=== PATIENT | female | born 1980 ===

== ENCOUNTER → 2020-06-29 14:48 | Outpatient (BNVA) | payer MEDICAID, SELFPAY | PROVIDERS: PCP Internal Medicine; Visit Provider Obstetrics & Gynecology | DX: Z30.431 Encounter for routine checking of intrauterine contraceptive device (principal) | CPT/HCPCS: 99212 ==

== ENCOUNTER 2020-07-07 16:06 | Outpatient (REF) | payer MEDICAID, SELFPAY ==
--- NOTE | 2020-07-07 16:06 | MR_ITS ---
EXAMINATION: MR LUMBAR SPINE WITHOUT CONTRAST CLINICAL INFORMATION: Lower back pain with left leg pain. COMPARISON: Lumbar spine radiographs dated 01/20/2019. TECHNIQUE: MRI of the lumbar spine was obtained using routine sequences without contrast. FINDINGS: VERTEBRAL BODIES AND PARASPINAL STRUCTURES: Normal vertebral body alignment. The lumbar lordosis is maintained. No acute fracture or subluxation. No loss of vertebral body height. Loss of intervertebral disc height with disc desiccation at L3-L4 and L4-L5. Modic type II degenerative endplate changes at L4-L5. Probable vertebral body hemangioma within L4. No additional abnormal marrow signal. The visualized paraspinal soft tissues are unremarkable. CONUS MEDULLARIS AND CAUDA EQUINA: Normal, terminating at the level of L1. SPINAL LEVELS: T12-L1: No significant disc bulge. No central canal or neuroforaminal stenosis. L1-L2: No significant disc bulge. No central canal or neuroforaminal stenosis. L2-L3: No significant disc bulge. No central canal or neuroforaminal stenosis. L3-L4: Broad-based disc bulge with a shallow right extraforaminal disc protrusion which contacts the exiting right L3 nerve root. Bilateral facet arthropathy with thickening of the ligamentum flavum causing mild central canal as well as [id number] right and mild left neuroforaminal stenosis. L4-L5: Broad-based disc bulge which contacts the bilateral traversing L5 nerve roots within the lateral recesses. Bilateral facet arthropathy and thickening of the ligamentum flavum causing mild central canal as well as [id number] bilateral neuroforaminal stenosis. L5-S1: No significant disc bulge. No central canal or neuroforaminal stenosis. MR/MR lumbar spine wo con IMPRESSION: 1. L3-L4 broad-based disc bulge with a shallow right extraforaminal disc protrusion which contacts the exiting right L3 nerve root. Bilateral facet arthropathy with thickening of the ligamentum flavum causing mild central canal as well as [id number] right and mild left neuroforaminal stenosis. 2. L4-L5 broad-based disc bulge which contacts the bilateral traversing L5 nerve roots within the lateral recesses. Bilateral facet arthropathy and thickening of the ligamentum flavum causing mild central canal as well as [id number] bilateral neuroforaminal stenosis.
== END 2020-07-07 16:07 | disposition home or self-care (01) ==
LOC: HO.MRI 16:06
PROVIDERS: PCP Internal Medicine; Visit Provider Internal Medicine
DX: M54.42 Lumbago with sciatica, left side (principal)
CPT/HCPCS: 72148

== ENCOUNTER 2020-07-15 06:32 | Emergency (ER) | payer MEDICAID, SELFPAY ==
[2020-07-15 06:35] VITALS: BP 107/69; PULSE 86; RESP 16; TEMP 36.3; O2SAT 100; BMI 29.9
--- NOTE | 2020-07-15 06:39 | ED.ABDPAIN ---
HPI - Abdominal Pain General Chief Complaint: Abdominal Pain Stated Complaint: VOMITING/ABD PAIN Time Seen by Provider: 07/15/20 06:38 Source: patient Mode of arrival: ambulatory Limitations: no limitations History of Present Illness MD elicited complaint: abdominal pain Pertinent past history: other (lap band with adjustment [address] Warner) Onset (ago): day(s) (3) Pain Consistency: constant Location: epigastric Severity: moderate Quality: cramping Radiation: none Migration to: no migration Exacerbating factors: eating Relieving factors: nothing Context: other (adjustment of lap band) Associated symptoms: nausea, vomiting and other (no flatus, no BM x 3 days) Related Data Home Medications Medication Instructions Recorded Confirmed levonorgestrel 20 mcg/24 hours (6 INTRAUTERINE 06/29/20 06/29/20 yrs) 52 mg intrauterine device Allergies Allergy/AdvReac Type Severity Reaction Status Date / Time No Known Allergies Allergy Verified 07/15/20 06:34 Review of Systems Review of Systems Constitutional : No Weight loss, No Fever, No Chills ENT/Mouth : No sore throat, No Rhinorrhea Eyes: No Swelling, No Redness Cardiovascular : No Chest Pain, No SOB, NoEdema Respiratory : No Cough, No Sputum, No Wheezing Gastrointestinal : Positive Nausea, Positive Vomiting, no Diarrhea, positive abdominal Pain, No Hematochezia, No Melena Genitourinary : No Dysuria, No Urinary Frequency, No Hematuria, No Urgency Musculoskeletal : No joint pain, No Myalgias, No Joint Swelling Skin : No Skin Lesions, No rash Neuro : No Weakness, No Numbness, No Dizziness, No Headache Psych : No Anxiety/Panic, No Depression Heme/Lymph: No Bruising, No Lymphadenopathy Endocrine : No Polyuria, No Polydipsia All other systems reviewed and are negative. Physical Exam Vital Signs: Vital Signs: Last Vital Signs Temp 97.3 F 07/15/20 06:35 Pulse 82 07/15/20 08:54 Resp 18 07/15/20 07:37 BP 143/78 H 07/15/20 08:54 Pulse Ox 99 07/15/20 08:54 Body Mass Index 29.9 Appearance: Alert. Oriented X3. No acute distress. Eyes: Pupils equal, round and reactive to light. ENT: Pharynx normal. Neck: Normal inspection. Neck supple. CVS: Normal heart rate and rhythm. Pulses normal. Respiratory: No respiratory distress. Breath sounds normal. Abdomen: Soft and mild ttp epigastric area - no rebound or guarding Skin: Skin warm and dry. Normal skin color. Normal skin turgor. Extremities: No lower extremity edema. No calf ttp Neuro: Oriented X 3. No motor deficit. No sensory deficit. Course Course Course Narrative: call to bariatric service at [facility] 911am still pending call back from [facility] 956am repeat call to [facility] 1007 - no covering surgeon and attending is in OR will attempt to call [facility] ED for transfer as that patient needs to be seen and evaluated there when her surgeon is available will attempt to expedite transfer accepted to [facility] ED by Dr. Morgan MDM - Abdominal Pain MDM Narrative Medical decision making narrative: 40 yo female s/p laparascopic lap band 2015 at [facility] with Dr. Warner had adjustment 3 days ago now presents with epigastric pain and vomiting - no flatus or BM, will need labs, CT scan for placement - aware we may need to transfer her to [facility], IV morphine for pain Lab Data Result diagrams: 07/15/20 06:53 07/15/20 06:53 Labs: Lab Results 07/15/20 07/15/20 07/15/20 Range/Units 06:53 06:53 06:53 WBC 8.3 (4.8-10.8) X10*3/uL RBC 4.46 (4.20-5.50) X10*6/uL Hgb 13.4 (12.0-16.0) g/dl Hct 40.4 (37-47) % MCV 90.6 (80-98) fL MCH 30.0 (27.0-33.0) pg MCHC 33.2 (31.0-35.0) g/dl RDW 13.8 (11.0-16.0) % Plt Count 256 (160-400) X10*3/uL MPV 10.3 (9.4-12.3) fL Immature Gran % (Auto) 0.2 (0.0-0.4) % Neut % (Auto) 64.3 (45-73) % Lymph % (Auto) 25.7 (20-40) % Campbell % (Auto) 6.8 (2-11) % Eos % (Auto) 2.8 (0-4) % Baso % (Auto) 0.2 (0-2) % Lymph # (Auto) 2.1 (1.2-4.9) X10*3/uL Campbell # (Auto) 0.6 (0.1-1.2) X10*3/uL Eos # (Auto) 0.2 (0.0-0.4) X10*3/uL Baso # (Auto) 0.0 (0.0-0.2) X10*3/uL Abs Immat Gran (auto) 0.02 (0.00-0.03) X10*3/uL Absolute Neuts (auto) 5.3 (2.0-8.3) X10*3/uL Absolute Nucleated RBC 0.000 (0.0-0.012) X10*3/uL Nucleated RBC % (auto) 0.0 (0.0-0.2) /100WBC Hold Blue Top SEE NOTE Sodium 140 (135-145) mmol/L Potassium 4.1 (3.3-5.1) mmol/l Chloride 104 (96-108) mmol/L Carbon Dioxide 25 (22-29) mmol/L Anion Gap 15 (12-20) BUN 16 (9-16) mg/dL Creatinine 0.81 (0.5-1.4) mg/dL Estim Creat Clear Calc 96.4 Estimated GFR > 60 Random Glucose 89 (60-115) mg/dL Calcium 8.9 (8.4-10.2) mg/dL Magnesium 2.2 (1.6-2.6) mg/dL Total Bilirubin 1.0 (0.0-1.0) mg/dL Direct Bilirubin 0.4 (0.0-0.5) mg/dL AST 20 (5-31) U/L ALT 14 (0-31) U/L Alkaline Phosphatase 79 (39-117) U/L Total Protein 8.2 H (6.5-8.0) g/dL Albumin 4.7 (3.5-5.0) g/dL Lipase 15 (8-78) U/L Urine Color Urine Appearance Urine pH (5.0-8.0) Ur Specific Enterprise (1.005-1.025) Urine Protein (NEG-TRACE) MG/DL Urine Glucose (UA) (NEG) MG/DL Urine Ketones (NEG) MG/DL Urine Blood (NEG) Urine Nitrite (NEG) Ur Leukocyte Esterase (NEG) Urine RBC (0) /HPF Urine WBC (0-4) /HPF Ur Squamous Epith Cells /LPF Urine Bacteria /LPF Urine Mucus /LPF Urine Test (NEGATIVE) 07/15/20 Range/Units 06:53 WBC (4.8-10.8) X10*3/uL RBC (4.20-5.50) X10*6/uL Hgb (12.0-16.0) g/dl Hct (37-47) % MCV (80-98) fL MCH (27.0-33.0) pg MCHC (31.0-35.0) g/dl RDW (11.0-16.0) % Plt Count (160-400) X10*3/uL MPV (9.4-12.3) fL Immature Gran % (Auto) (0.0-0.4) % Neut % (Auto) (45-73) % Lymph % (Auto) (20-40) % Campbell % (Auto) (2-11) % Eos % (Auto) (0-4) % Baso % (Auto) (0-2) % Lymph # (Auto) (1.2-4.9) X10*3/uL Campbell # (Auto) (0.1-1.2) X10*3/uL Eos # (Auto) (0.0-0.4) X10*3/uL Baso # (Auto) (0.0-0.2) X10*3/uL Abs Immat Gran (auto) (0.00-0.03) X10*3/uL Absolute Neuts (auto) (2.0-8.3) X10*3/uL Absolute Nucleated RBC (0.0-0.012) X10*3/uL Nucleated RBC % (auto) (0.0-0.2) /100WBC Hold Blue Top Sodium (135-145) mmol/L Potassium (3.3-5.1) mmol/l Chloride (96-108) mmol/L Carbon Dioxide (22-29) mmol/L Anion Gap (12-20) BUN (9-16) mg/dL Creatinine (0.5-1.4) mg/dL Estim Creat Clear Calc Estimated GFR Random Glucose (60-115) mg/dL Calcium (8.4-10.2) mg/dL Magnesium (1.6-2.6) mg/dL Total Bilirubin (0.0-1.0) mg/dL Direct Bilirubin (0.0-0.5) mg/dL AST (5-31) U/L ALT (0-31) U/L Alkaline Phosphatase (39-117) U/L Total Protein (6.5-8.0) g/dL Albumin (3.5-5.0) g/dL Lipase (8-78) U/L Urine Color DARK YELLOW Urine Appearance CLOUDY Urine pH 6.0 (5.0-8.0) Ur Specific Enterprise >= 1.030 H (1.005-1.025) Urine Protein 1+ H (NEG-TRACE) MG/DL Urine Glucose (UA) NEG (NEG) MG/DL Urine Ketones 40 (NEG) MG/DL Urine Blood 2+ H (NEG) Urine Nitrite NEG (NEG) Ur Leukocyte Esterase NEG (NEG) Urine RBC 5-9 H (0) /HPF Urine WBC 0-2 (0-4) /HPF Ur Squamous Epith Cells 4+ /LPF Urine Bacteria TRACE /LPF Urine Mucus 3+ /LPF Urine Test NEGATIVE (NEGATIVE) Discharge Plan Discharge Clinical Impression: Abdominal pain, Vomiting, Encounter for adjustment of gastric lap band Patient Disposition: Xfer [facility] Prescriptions: No Action Mirena 20 mcg/24 hours (5 yrs) 52 mg intrauterine device intrauterine RF: 0 PMFSH Past Medical History Attestation statement: The following information was validated with the patient. Medical History Anxiety Asthma Depression Surgical History H/O laparoscopic adjustable gastric banding History of History of tubal ligation Social History Social History (Updated 07/15/20 @ 07:00 by Eloise Harris DO) Alcohol intake: never Smoking Status: Never smoker Use of substances other than those prescribed or required for medical reasons: No Advance Directives: No Advance Directives Information Provided: No
--- NOTE | 2020-07-15 06:41 | CT_ITS ---
EXAMINATION: CT ABDOMEN AND PELVIS WITH CONTRAST CLINICAL INFORMATION: Abdominal pain and vomiting. History of gastric lap band. COMPARISON: None TECHNIQUE: Multidetector volumetric images were obtained from the superior aspect of the liver through the pubic symphysis following administration 85 mL of Omnipaque 350 intravenous contrast. Sagittal and coronal reformatted images were obtained on the technologist's workstation. Oral contrast: Yes This CT examination was performed using dose optimization techniques as appropriate, variously including the following: *Automated exposure control *Adjustment of mA and/or kV according to patient size (this includes techniques or standardized protocols for targeted exams where dose is matched to indication/reason for exam; i.e. extremities or head) *Use of iterative reconstruction technique DLP: 771 mGy-cm FINDINGS: LUNG BASES: There are bilateral low-attenuation paraspinal soft tissue lesions suggestive of neurogenic tumors or dilated nerve root sleeves. The largest measures 1.5 x 2 cm adjacent to the left T9 nerve root. LIVER, GALLBLADDER, AND BILIARY TREE: The liver is normal in size, shape, and attenuation. No focal hepatic lesion or biliary ductal dilatation is present. The gallbladder is unremarkable with no evidence of radiopaque gallstones, gallbladder wall thickening, or obvious pericholecystic inflammatory changes. PANCREAS: Unremarkable. SPLEEN: The spleen is upper normal in size measuring 12 cm in length. ADRENAL GLANDS: Unremarkable. KIDNEYS AND URETERS: The kidneys are normal in size, shape, and attenuation. No hydronephrosis, hydroureter, or calculi seen. No perinephric stranding. BLADDER: Unremarkable. GASTROINTESTINAL TRACT: There is a gastric lap band. There is evidence of slippage with large amount of proximal stomach above the gastric lap band. Phi angle measures 102 degrees. The small and large bowel are unremarkable. The appendix is unremarkable. ABDOMINAL WALL: There is a small umbilical hernia containing fat. LYMPH NODES: Normal. VASCULAR: Unremarkable. PELVIC VISCERA: There is an IUD in the uterus. This appears tilted toward the right with lateral portion of the CT possibly positioned peripherally in the right uterine body. This could be better assessed with ultrasound. OSSEOUS STRUCTURES: There degenerative changes of the spine. CT/CT abdomen pelvis w con IMPRESSION: Gastric lap band with evidence of slippage. There is significant proximal stomach superior to the gastric lap band and the phi angle measures 102 degrees. IUD in the uterus which may be malpositioned. This could be better assessed with pelvic ultrasound. 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
[2020-07-15] MEDS: 0.9 % Sodium Chloride 1,000 ML 999 ML IVCONT ×2 (06:53→09:28)
[2020-07-15] MEDS: ondansetron HCL 4 MG/2 ML VIAL IVPUSH (06:57)
[2020-07-15] MEDS: Morphine Sulfate 4 MG/ML CARTRIDGE IVPUSH (06:57)
--- NOTE | 2020-07-15 07:00 | PC.NURSE ---
received report from sergio espino pt resting in the stretcher, alert and oriented, skin appropriate for ethnicity. pt reports upper/epigastric pain x3 days with nausea. pt medicated per md orders
[2020-07-15 07:07] LABS: MANUAL DIFF FLAG NO
[2020-07-15 07:08] LABS: Basophils Percent Auto 0.2 % (0-2); Eosinophils Absolute Auto 0.2 X10*3/uL (0.0-0.4); Eosinophils Percent Auto 2.8 % (0-4); Hematocrit 40.4 % (37-47); Hemoglobin 13.4 g/dl (12.0-16.0); Imm Gran Abs Auto 0.02 X10*3/uL (0.00-0.03); Imm Gran Pct Auto 0.2 % (0.0-0.4); Lymphocytes Absolute Auto 2.1 X10*3/uL (1.2-4.9); Lymphocytes Percent Auto 25.7 % (20-40); Mean Corpuscular HGB Conc 33.2 g/dl (31.0-35.0); Mean Corpuscular Volume 90.6 fL (80-98); Mean Platelet Volume 10.3 fL (9.4-12.3); Monocytes Absolute Auto 0.6 X10*3/uL (0.1-1.2); Monocytes Percent Auto 6.8 % (2-11); Neutrophils Absolute Auto 5.3 X10*3/uL (2.0-8.3); Neutrophils Percent Auto 64.3 % (45-73); Platelet Count 256 X10*3/uL (160-400); Red Blood Count 4.46 X10*6/uL (4.20-5.50); Red Cell Distribution Width 13.8 % (11.0-16.0); White Blood Count 8.3 X10*3/uL (4.8-10.8)
[2020-07-15 07:11] LABS: Glucose Urine UA NEG (NEG); Leukocyte Esterase Urine NEG (NEG); Nitrite Urine NEG (NEG); Specific Gravity - Urine >= 1.030 (1.005-1.025); Urine Blood 2+ (NEG); Urine Ketones 40 MG/DL (NEG); Urine Protein 1+ MG/DL (NEG-TRACE)
[2020-07-15 07:12] LABS: Appearance Urine CLOUDY; Color Urine DARK YELLOW
[2020-07-15 07:13] LABS: UPreg QC Valid YES; Urine Pregnancy NEGATIVE (NEGATIVE)
[2020-07-15 07:22] LABS: Bacteria Urine TRACE /LPF; Mucus Urine 3+ /LPF; Squamous Epithelial Cell Urine 4+ /LPF; WBC Urine 0-2 /HPF (0-4)
[2020-07-15 07:36] LABS: Alanine Aminotransferase 14 U/L (0-31); Albumin Level 4.7 g/dL (3.5-5.0); Alkaline Phosphatase 79 U/L (39-117); Anion Gap 15 (12-20); Aspartate Amino Transferase 20 U/L (5-31); Bilirubin Direct 0.4 mg/dL (0.0-0.5); Blood Urea Nitrogen 16 mg/dL (9-16); Calcium 8.9 mg/dL (8.4-10.2); Carbon Dioxide 25 mmol/L (22-29); Chloride 104 mmol/L (96-108); Creatinine Clr Calc Pharmacy 96.4; Estimated Glomerular Filt Rate > 60; Glucose Random 89 mg/dL (60-115); Lipase 15 U/L (8-78); Magnesium 2.2 mg/dL (1.6-2.6); Potassium 4.1 mmol/l (3.3-5.1); Sodium 140 mmol/L (135-145); Total Protein 8.2 g/dL (6.5-8.0)
[2020-07-15 07:37] VITALS: BP 119/63; PULSE 75; RESP 18; O2SAT 100
--- NOTE | 2020-07-15 07:38 | PC.NURSE ---
pt reports feeling a little better, pain at 5/10 but still having some nausea and feels gassy
[2020-07-15] MEDS: iohexoL 350 MG/ML 100 ML INFUS..BTL IV (08:50)
[2020-07-15] MEDS: diphenhydrAMINE HCL 50 MG/ML VIAL 25 MG IVPUSH (08:50)
[2020-07-15] MEDS: Metoclopramide HCl 10 MG/2 ML VIAL 5 MG IVPUSH (08:50)
[2020-07-15 08:54] VITALS: BP 143/78; PULSE 82; O2SAT 99
--- NOTE | 2020-07-15 09:16 | PC.NURSE ---
Addendum entered by Teetee Godfrey 07/15/20 09:24: pt also denies pain at this time Original Note: PT REPORTS THAT NAUSEA HAS IMPROVED, PT IS CURRENTLY ON HER PHONE
--- NOTE | 2020-07-15 10:03 | PC.NURSE ---
DR REED AT [facility] PAGED AT [phone],AWAITING CALL BACK.
--- NOTE | 2020-07-15 10:48 | PC.NURSE ---
report given to srinivas little at [facility]
[2020-07-15 11:33] LABS: COVID-19 Test Negative (Negative)
== END 2020-07-15 11:30 | disposition short-term general hospital (02) ==
PROVIDERS: Emergency Provider Emergency Medicine; PCP Internal Medicine
DX: R10.13 Epigastric pain (principal); R11.10 Vomiting, unspecified; Z98.84 Bariatric surgery status; Z79.899 Other long term (current) drug therapy
CPT/HCPCS: 36415; 74177; 80048; 80076; 81001; 81025; 83690; 83735; 85025; 87635; 96361; 96374; 96375; 96376; 99285; J1200; J2270; J2405; J2765; Q9967

== ENCOUNTER → 2020-07-21 13:38 | Outpatient (BNVA) | payer MEDICAID, SELFPAY | PROVIDERS: Visit Provider Obstetrics & Gynecology | DX: Z76.89 Persons encountering health services in other specified circumstances (principal) ==

== ENCOUNTER → 2020-08-11 15:55 | Outpatient (BNVA) | payer MEDICAID, SELFPAY | PROVIDERS: Visit Provider Anesthesiology | DX: M51.36 Other intervertebral disc degeneration, lumbar region (principal) | CPT/HCPCS: 99212 ==

== ENCOUNTER 2020-08-23 05:13 | Outpatient (REF) | payer MEDICAID, SELFPAY ==
--- NOTE | 2020-08-23 07:32 | FL_ITS ---
EXAMINATION: XR FLUOROSCOPY WITH IMAGES CLINICAL INFORMATION: M51.36 - Other intervertebral disc degeneration, lumbar region. COMPARISON: MRI lumbar spine 07/07/2020 TECHNIQUE: Fluoroscopy performed by Edel Chambers NP. Fluoroscopy time: 0.3 minutes DAP: 3.0 Gycm2 Images: 2 FINDINGS: There are bilateral spinal needles overlying outer aspect of the L3-L4 neural foramen. There is contrast in the right nerve sheaths with some transforaminal epidural extension. There is a port and tubing overlying the epigastrium, consistent with bariatric gastric lap band. FL/FL guidance in treatment room IMPRESSION: Fluoroscopy for pain management procedure.
== END 2020-08-23 05:14 | disposition home or self-care (01) ==
LOC: HO.RADIR 05:13
PROVIDERS: Visit Provider Anesthesiology
DX: M51.36 Other intervertebral disc degeneration, lumbar region (principal)
CPT/HCPCS: 64483; J2250; J3300; Q9967

== ENCOUNTER 2020-08-25 15:30 | Outpatient (REF) | payer MEDICAID, SELFPAY | END 2020-08-25 15:31 | disposition home or self-care (01) | LOC: HO.LAB 15:30 | PROVIDERS: Visit Provider Internal Medicine | DX: Z20.828 Contact with and (suspected) exposure to other viral communicable diseases (principal) | CPT/HCPCS: C9803; U0003 ==

== ENCOUNTER → 2020-09-29 09:59 | Outpatient (BNVA) | payer MEDICAID, SELFPAY | PROVIDERS: PCP Internal Medicine; Visit Provider Anesthesiology | DX: M51.36 Other intervertebral disc degeneration, lumbar region (principal) ==

== ENCOUNTER → 2020-11-02 11:51 | Outpatient (BNVA) | payer MEDICAID, SELFPAY | PROVIDERS: PCP Internal Medicine; Visit Provider Orthopaedic Surgery | DX: M77.11 Lateral epicondylitis, right elbow (principal) | CPT/HCPCS: 20550; 20610; 99202; J1020 ==

== ENCOUNTER 2020-12-30 07:54 | Emergency (ER) | payer MEDICAID, SELFPAY ==
--- NOTE | ~2020-12-30 | CT_ITS ---
EXAMINATION: CT ABDOMEN AND PELVIS WITHOUT CONTRAST CLINICAL INFORMATION: Lower abdominal pain radiating to the back COMPARISON: Previous CT scans most recent July 2020 TECHNIQUE: Multidetector volumetric imaging was performed from the superior aspect of the liver through the pubic symphysis. Sagittal and coronal reformatted images were obtained on the technologist's workstation. This CT examination was performed using dose optimization techniques as appropriate, variously including the following: *Automated exposure control *Adjustment of mA and/or kV according to patient size (this includes techniques or standardized protocols for targeted exams where dose is matched to indication/reason for exam; i.e. extremities or head) *Use of iterative reconstruction technique DLP: 720 mGy-cm FINDINGS: LUNG BASES: There are bilateral low-attenuation paraspinal soft tissue lesions suggestive of neurogenic tumors or dilated nerve root sleeves. This appears unchanged. LIVER, GALLBLADDER, AND BILIARY TREE: The liver is normal in size, shape, and attenuation. No focal hepatic lesion or biliary ductal dilatation is present. The gallbladder is unremarkable with no evidence of radiopaque gallstones, gallbladder wall thickening, or obvious pericholecystic inflammatory changes. PANCREAS: Unremarkable. SPLEEN: Unremarkable. ADRENAL GLANDS: Unremarkable. KIDNEYS AND URETERS: The kidneys are normal in size, shape, and attenuation. No hydronephrosis, hydroureter, or calculi seen. No perinephric stranding. BLADDER: Unremarkable. GASTROINTESTINAL TRACT: The small and large bowel are unremarkable. The appendix is unremarkable. There is a gastric Lap-Band. The phi angle measures 97 degrees suggestive of slippage. ABDOMINAL WALL: No significant hernia is appreciated. LYMPH NODES: Normal. VASCULAR: Unremarkable. PELVIC VISCERA: There is an IUD in the uterus. This appears tilted toward the right lateral portion of the IUD possibly positioned peripherally in the uterine body. This is similar to previous exam. Uterus and adnexa are otherwise unremarkable. OSSEOUS STRUCTURES: There is degenerative disc disease at L4-L5 and L5-S1. CT/CT abdomen pelvis wo con IMPRESSION: No acute findings. Gastric Lap-Band with increased phi angle suggestive of a slippage. This is similar to previous exam. Normal-appearing bladder. IUD in the uterus possibly positioned peripherally in the right uterine body. This is similar to previous exam. Degenerative disc disease at L4-L5 and L5-S1.
[2020-12-30 08:14] VITALS: BP 114/69; PULSE 76; RESP 18; TEMP 36.8; O2SAT 99; BMI 31.1
[2020-12-30 08:31] LABS: Glucose Urine UA NEG (NEG); Leukocyte Esterase Urine NEG (NEG); Nitrite Urine NEG (NEG); PH 6.5 (5.0-8.0); Specific Gravity - Urine <= 1.005 (1.005-1.025); Urine Blood NEG (NEG); Urine Ketones NEG (NEG); Urine Protein NEG (NEG-TRACE)
--- NOTE | 2020-12-30 08:31 | ED.FEMALEGU ---
HPI - Female Genitourinary General Chief complaint: Urogenital-Female Stated complaint: BACK PAIN QUEST UTI Time Seen by Provider: 12/30/20 08:24 Source: patient Mode of arrival: ambulatory Limitations: language barrier (Bangladeshi-speaking) History of Present Illness HPI Narrative: 40-year-old female with a past medical history of gastric banding, tubal ligation, , degenerative discs to the lumbar region, anxiety, depression and asthma presenting to the ED with complaints of with urination the pain wraps around her lower back since last night worse this morning. She believes she could have a UTI. Denies thoughts of STDs. Denies any fevers, chills, nausea/vomiting, upper back pain, flank pain, hematuria, abnormal vaginal discharge, diarrhea or constipation or any other symptoms complaints or concerns at this time. MD elicited complaint: back pain Pertinent past history: other (Degenerative disc disease to lumbar spine) Onset (ago): day(s) (Since last night worse this morning) Location of symptoms: suprapubic, pelvis and low back Severity: mild Severity scale (1-10): 10 Quality of pain: aching Consistency: constant and progressively worsening Vaginal discharge: none Vaginal bleeding: none Urinary symptoms: Dysuria Exacerbating factors: urination Relieving factors: none Associated symptoms: abdominal pain and back pain Treatment prior to arrival: none Sexual activity: Yes Patient : No Related Data Home Medications Medication Instructions Recorded Confirmed levonorgestrel 20 mcg/24 hours (6 INTRAUTERINE 06/29/20 07/21/20 yrs) 52 mg intrauterine device Previous Rx's Medication Instructions Recorded acetaminophen [Tylenol Extra 1,000 mg PO QID PRN #14 tab 12/30/20 Strength] naproxen 500 mg PO BID PRN #10 tab 12/30/20 oxycodone 5 mg PO BID PRN #10 tab 12/30/20 Allergies Allergy/AdvReac Type Severity Reaction Status Date / Time No Known Allergies Allergy Verified 11/02/20 12:38 Review of Systems Review of Systems: Constitutional : No Fever, No Chills ENT/Mouth : No sore throat, No Rhinorrhea Eyes: No Eye Pain, No Redness Cardiovascular : No Chest Pain, No SOB Respiratory : No Cough, No Sputum, No Wheezing Gastrointestinal : No Nausea, No Vomiting, No Diarrhea, positive abdominal pain, Genitourinary : + Dysuria, + Pelvic pain, No irregular bleeding, No Urinary Frequency, No vaginal discharge, No hematuria Musculoskeletal : + Back pain, No Myalgias Skin : No rash Neuro : No Weakness, No Headache Psych : No Anxiety/Panic, No Depression Heme/Lymph: No bruising, No Lymphadenopathy Endocrine : No Polyuria, No Polydipsia Yes all other systems are reviewed and are negative [facility] Past Medical History Attestation statement: The following information was validated with the patient. Medical History Anxiety Asthma Depression Disc degeneration, lumbar Surgical History H/O laparoscopic adjustable gastric banding History of History of tubal ligation Social History Social History Alcohol intake: never Smoking Status: Never smoker Use of substances other than those prescribed or required for medical reasons: No Advance Directives: No Advance Directives Information Provided: No Physical Exam Vital Signs: Vital Signs: Last Vital Signs Temp 98.2 F 12/30/20 08:14 Pulse 62 12/30/20 10:05 Resp 18 12/30/20 10:05 BP 111/61 12/30/20 10:05 Pulse Ox 100 12/30/20 10:05 Body Mass Index 31.1 vital signs have been reviewed as normal and appeared to be correct. Blood pressure normal. Heart rate normal. Respiration rate normal. Temperature normal. Oxygen saturation normal. Appearance: Alert. Oriented X3. No acute distress. Head: Normal external exam. Normocephalic. Atraumatic. No Bell signs noted. No raccoon eyes noted Eyes: PERRLA. EOMI. Conjunctiva and sclera normal. Eyelids normal. ENT: EAC normal. TM's Normal. Pharynx normal. Uvula midline. Moist mucous membranes. No trismus noted. No drooling noted. No muffled voice noted. Neck: Normal inspection. Neck supple. FROM. No adenopathy. Thyroid Normal. No meningeal signs. No neck mass noted. CVS: Normal heart rate and rhythm. Heart sound normal. No murmurs noted. Pulses normal throughout. Respiratory: No respiratory distress. Painless inspiration. Breath sounds normal. No wheezes/rales/rhonchi noted. Chest nontender. No accessory muscle usage noted or decreased air movement noted. Abdomen: Soft and mild suprapubic tenderness. Nondistended. No guarding. No rigidity. Bowel sounds normal in all 4 quadrants. No distention noted. No organomegaly noted. No visible injury noted. No rebound tenderness. Negative Rovsing sign. Negative obturator's sign. Negative psoas sign. Negative Lundy sign. Back: No CVA tenderness. Full range of motion noted. No obvious deformities, or edema. Mild para-spinal muscular tenderness from lumbar region to coccyx. Full ROM in back and lower extremities. 5/5 strength hip extension/flexion, abduction, adduction. Mild Lumbar pain with hip flexion against resistance. Straight leg raise test negative on right; Straight leg raise test negative on left; Reflexes normal ankle and knee bilaterally; EHL motor strength normal bilaterally. No rashes/lesion/induration/fluctuance or signs infection noted. : Supervised by PATEL Dailey. Normal external appearance of urethra. No lesions/lacerations or discharge or tenderness noted. On speculum exam patient is noted to have mild thick brown/yellow/white colored discharge. Otherwise normal appearance/palpation of vagina. Otherwise no vaginal erythema. No foreign bodies noted. No vaginal laceration/lesions or active bleeding noted. No tissue present in vagina. No vaginal mass noted. No vaginal swelling noted. No vaginal tenderness noted. Normal appearance of cervix. Normal palpation of cervix. Cervical os is closed. IUD string is coming out of the cervical os. No cervical lesion/mass. No Bartholin cyst noted. No cervical motion tenderness noted. Negative chandelier sign. Normal bimanual exam. Uterine size normal. Bladder normal to palpation. Uterine consistency normal. Normal cervical palpation. Uterine mobility normal. Uterine shape normal. Normal adnexa. Normal rectovaginal exam. Skin: Skin warm and dry. Normal skin color. Normal skin turgor. No rashes/lesions/lacerations noted. Extremities: No lower extremity edema. Extremities exhibit normal range of motion. Extremities nontender. Neuro: Oriented X 3. No motor deficit. No sensory deficit. Reflexes normal. Patient has a normal steady gait. Course Course Course Narrative: 11:30am - labs reviewed and patient mild anemia all other labs are within normal limits. UA within normal limits no evidence of 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 therefore she was requesting to leave against medical advice regarding that she reports that she called her gastric lap band surgeon and she has a follow-up on Saturday this week - on vaginal exam patient was noted to have brown/yellow/white thick colored discharge although she did not have any uterine tenderness or a positive chandelier sign and she is not concerned for STDs - therefore at this time will DC home with symptomatic treatment for her degenerative disc disease of her lumbar spine and instructions to follow up on Saturday with her gastric lap band surgeon and to follow-up with OBGYN. Patient understands agrees with this plan. MDM - Female Genitourinary MDM Narrative Medical decision making narrative: 8:50am - 40-year-old female presenting to the ED with complaints of suprapubic abdominal pain with pressure/pain with urination radiating to her lower back. No thoughts of STDs. No hematuria or abnormal vaginal discharge. Denies any other symptoms complaints or concerns at this time. - on exam patient is alert and oriented x3. Not in any acute distress. No focal neuro deficit noted. Lungs clear to auscultation. CV RRR. Abdomen soft and mild suprapubic abdominal tenderness. No CVA tenderness is noted. Patient has full range of motion of back. No obvious deformities or signs of infection. No rashes noted in the back. Patient has a normal steady gait. - Concern for UTI versus pyelonephritis versus kidney stones versus acute on chronic back pain Plan: Labs, UA, UHCG, CT scan of abdomen pelvis without contrast. Provide 5 mg of oxycodone and re-evaluate. Medical Records Attestation: I reviewed the patient's medical records. Lab Data Attestation: I reviewed the patient's lab results. Result diagrams: 12/30/20 08:50 12/30/20 08:50 Labs: Lab Results 12/30/20 12/30/20 12/30/20 Range/Units 08:21 08:25 08:50 WBC 5.6 (4.8-10.8) X10*3/uL RBC 3.76 L (4.20-5.50) X10*6/uL Hgb 11.5 L (12.0-16.0) g/dl Hct 35.2 L (37-47) % MCV 93.6 (80-98) fL MCH 30.6 (27.0-33.0) pg MCHC 32.7 (31.0-35.0) g/dl RDW 13.1 (11.0-16.0) % Plt Count 176 D (160-400) X10*3/uL MPV 10.3 (9.4-12.3) fL Immature Gran % (Auto) 0.2 (0.0-0.4) % Neut % (Auto) 57.1 (45-73) % Lymph % (Auto) 31.0 (20-40) % [place] % (Auto) 7.9 (2-11) % Eos % (Auto) 3.6 (0-4) % Baso % (Auto) 0.2 (0-2) % Lymph # (Auto) 1.7 (1.2-4.9) X10*3/uL [place] # (Auto) 0.4 (0.1-1.2) X10*3/uL Eos # (Auto) 0.2 (0.0-0.4) X10*3/uL Baso # (Auto) 0.0 (0.0-0.2) X10*3/uL Abs Immat Gran (auto) 0.01 (0.00-0.03) X10*3/uL Absolute Neuts (auto) 3.2 (2.0-8.3) X10*3/uL Absolute Nucleated RBC 0.000 (0.0-0.012) X10*3/uL Nucleated RBC % (auto) 0.0 (0.0-0.2) /100WBC Hold Blue Top Sodium (135-145) mmol/L Potassium (3.3-5.1) mmol/L Chloride (96-108) mmol/L Carbon Dioxide (22-29) mmol/L Anion Gap (12-20) BUN (9-16) mg/dL Creatinine (0.5-1.4) mg/dL Estim Creat Clear Calc Estimated GFR Random Glucose (60-115) mg/dL Calcium (8.4-10.2) mg/dL Magnesium (1.6-2.6) mg/dL Total Bilirubin (0.0-1.0) mg/dL Direct Bilirubin (0.0-0.5) mg/dL AST (5-31) U/L ALT (0-31) U/L Alkaline Phosphatase (39-117) U/L Total Protein (6.5-8.0) g/dL Albumin (3.5-5.0) g/dL Urine Color STRAW Urine Appearance CLEAR Urine pH 6.5 (5.0-8.0) Ur Specific Suring <= 1.005 (1.005-1.025) Urine Protein NEG (NEG-TRACE) MG/DL Urine Glucose (UA) NEG (NEG) MG/DL Urine Ketones NEG (NEG) MG/DL Urine Blood NEG (NEG) Urine Nitrite NEG (NEG) Ur Leukocyte Esterase NEG (NEG) Urine RBC 0 (0) /HPF Urine WBC 0 (0-4) /HPF Ur Squamous Epith Cells TRACE /LPF Urine Bacteria NONE /LPF Urine Test NEGATIVE (NEGATIVE) 12/30/20 12/30/20 Range/Units 08:50 08:50 WBC (4.8-10.8) X10*3/uL RBC (4.20-5.50) X10*6/uL Hgb (12.0-16.0) g/dl Hct (37-47) % MCV (80-98) fL MCH (27.0-33.0) pg MCHC (31.0-35.0) g/dl RDW (11.0-16.0) % Plt Count (160-400) X10*3/uL MPV (9.4-12.3) fL Immature Gran % (Auto) (0.0-0.4) % Neut % (Auto) (45-73) % Lymph % (Auto) (20-40) % Brook[place] % (Auto) (2-11) % Eos % (Auto) (0-4) % Baso % (Auto) (0-2) % Lymph # (Auto) (1.2-4.9) X10*3/uL [place] # (Auto) (0.1-1.2) X10*3/uL Eos # (Auto) (0.0-0.4) X10*3/uL Baso # (Auto) (0.0-0.2) X10*3/uL Abs Immat Gran (auto) (0.00-0.03) X10*3/uL Absolute Neuts (auto) (2.0-8.3) X10*3/uL Absolute Nucleated RBC (0.0-0.012) X10*3/uL Nucleated RBC % (auto) (0.0-0.2) /100WBC Hold Blue Top SEE NOTE Sodium 140 (135-145) mmol/L Potassium 4.3 (3.3-5.1) mmol/L Chloride 109 H (96-108) mmol/L Carbon Dioxide 24 (22-29) mmol/L Anion Gap 11 L (12-20) BUN 9 (9-16) mg/dL Creatinine 0.68 (0.5-1.4) mg/dL Estim Creat Clear Calc 117.0 Estimated GFR > 60 Random Glucose 84 (60-115) mg/dL Calcium 8.7 (8.4-10.2) mg/dL Magnesium 2.2 (1.6-2.6) mg/dL Total Bilirubin 0.7 (0.0-1.0) mg/dL Direct Bilirubin 0.3 (0.0-0.5) mg/dL AST 17 (5-31) U/L ALT 12 (0-31) U/L Alkaline Phosphatase 62 D (39-117) U/L Total Protein 6.5 D (6.5-8.0) g/dL Albumin 3.9 (3.5-5.0) g/dL Urine Color Urine Appearance Urine pH (5.0-8.0) Ur Specific Suring (1.005-1.025) Urine Protein (NEG-TRACE) MG/DL Urine Glucose (UA) (NEG) MG/DL Urine Ketones (NEG) MG/DL Urine Blood (NEG) Urine Nitrite (NEG) Ur Leukocyte Esterase (NEG) Urine RBC (0) /HPF Urine WBC (0-4) /HPF Ur Squamous Epith Cells /LPF Urine Bacteria /LPF Urine Test (NEGATIVE) Imaging Data CT scan of abd/pelvis without contrast: Attestation: I personally reviewed and interpreted this imaging study as follows: Radiologist's impression: FINDINGS: LUNG BASES: There are bilateral low-attenuation paraspinal soft tissue lesions suggestive of neurogenic tumors or dilated nerve root sleeves. This appears unchanged. LIVER, GALLBLADDER, AND BILIARY TREE: The liver is normal in size, shape, and attenuation. No focal hepatic lesion or biliary ductal dilatation is present. The gallbladder is unremarkable with no evidence of radiopaque gallstones, gallbladder wall thickening, or obvious pericholecystic inflammatory changes. PANCREAS: Unremarkable. SPLEEN: Unremarkable. ADRENAL GLANDS: Unremarkable. KIDNEYS AND URETERS: The kidneys are normal in size, shape, and attenuation. No hydronephrosis, hydroureter, or calculi seen. No perinephric stranding. BLADDER: Unremarkable. GASTROINTESTINAL TRACT: The small and large bowel are unremarkable. The appendix is unremarkable. There is a gastric Lap-Band. The phi angle measures 97 degrees suggestive of slippage. ABDOMINAL WALL: No significant hernia is appreciated. LYMPH NODES: Normal. VASCULAR: Unremarkable. PELVIC VISCERA: There is an IUD in the uterus. This appears tilted toward the right lateral portion of the IUD possibly positioned peripherally in the uterine body. This is similar to previous exam. Uterus and adnexa are otherwise unremarkable. OSSEOUS STRUCTURES: There is degenerative disc disease at L4-L5 and L5-S1. CT/CT abdomen pelvis wo con IMPRESSION: No acute findings. Gastric Lap-Band with increased phi angle suggestive of a slippage. This is similar to previous exam. Normal-appearing bladder. IUD in the uterus possibly positioned peripherally in the right uterine body. This is similar to previous exam. Degenerative disc disease at L4-L5 and L5-S1. Discharge Plan Discharge Clinical Impression: Degenerative disc disease, lumbar, Hx of laparoscopic adjustable gastric banding, Pelvic pain Patient Disposition: Left Against Medical Advice Instructions: Self-Care Measures with a Chronic Disease (ED), Degenerative Disc Disease (ED) Additional Instructions: You also need to follow-up with your gastric surgeon I recommended us calling [facility] although you refused. You told me you had an appointment on Saturday. Follow-up as scheduled return if any new or worsening symptoms. Prescriptions: New acetaminophen [Tylenol Extra Strength] 500 mg tablet 1,000 mg PO QID PRN (Reason: fever or pain) Qty: 14 RF: 0 naproxen 500 mg tablet 500 mg PO BID PRN (Reason: pain) Qty: 10 RF: 0 oxycodone 5 mg tablet 5 mg PO BID PRN (Reason: pain) Qty: 10 RF: 0 No Action Mirena 20 mcg/24 hours (5 yrs) 52 mg intrauterine device intrauterine RF: 0 Referrals: Debra Fry MD [Physician] - 2 days Print Language: Bangladeshi
[2020-12-30 08:32] LABS: Appearance Urine CLEAR; Color Urine STRAW
[2020-12-30 08:40] LABS: UPreg QC Valid YES; Urine Pregnancy NEGATIVE (NEGATIVE)
[2020-12-30] MEDS: oxyCODONE HCl Immed Release 5 MG TABLET PO (08:47)
[2020-12-30 08:55] LABS: RBC Urine 0 /HPF (0); Squamous Epithelial Cell Urine TRACE /LPF; WBC Urine 0 /HPF (0-4)
[2020-12-30 08:56] LABS: MANUAL DIFF FLAG NO
[2020-12-30 09:00] LABS: Basophils Percent Auto 0.2 % (0-2); Eosinophils Absolute Auto 0.2 X10*3/uL (0.0-0.4); Eosinophils Percent Auto 3.6 % (0-4); Hematocrit 35.2 % (37-47); Hemoglobin 11.5 g/dl (12.0-16.0); Imm Gran Abs Auto 0.01 X10*3/uL (0.00-0.03); Imm Gran Pct Auto 0.2 % (0.0-0.4); Lymphocytes Absolute Auto 1.7 X10*3/uL (1.2-4.9); Mean Corpuscular HGB Conc 32.7 g/dl (31.0-35.0); Mean Corpuscular Hemoglobin 30.6 pg (27.0-33.0); Mean Corpuscular Volume 93.6 fL (80-98); Mean Platelet Volume 10.3 fL (9.4-12.3); Monocytes Absolute Auto 0.4 X10*3/uL (0.1-1.2); Monocytes Percent Auto 7.9 % (2-11); Neutrophils Absolute Auto 3.2 X10*3/uL (2.0-8.3); Neutrophils Percent Auto 57.1 % (45-73); Platelet Count 176 X10*3/uL (160-400); Red Blood Count 3.76 X10*6/uL (4.20-5.50); Red Cell Distribution Width 13.1 % (11.0-16.0); White Blood Count 5.6 X10*3/uL (4.8-10.8)
[2020-12-30 09:39] LABS: Alanine Aminotransferase 12 U/L (0-31); Albumin Level 3.9 g/dL (3.5-5.0); Alkaline Phosphatase 62 U/L (39-117); Anion Gap 11 (12-20); Aspartate Amino Transferase 17 U/L (5-31); Bilirubin Direct 0.3 mg/dL (0.0-0.5); Bilirubin Total 0.7 mg/dL (0.0-1.0); Blood Urea Nitrogen 9 mg/dL (9-16); Calcium 8.7 mg/dL (8.4-10.2); Carbon Dioxide 24 mmol/L (22-29); Chloride 109 mmol/L (96-108); Estimated Glomerular Filt Rate > 60; Glucose Random 84 mg/dL (60-115); Magnesium 2.2 mg/dL (1.6-2.6); Potassium 4.3 mmol/L (3.3-5.1); Sodium 140 mmol/L (135-145); Total Protein 6.5 g/dL (6.5-8.0)
[2020-12-30 10:05] VITALS: BP 111/61; PULSE 62; RESP 18; O2SAT 100
--- NOTE | 2020-12-30 10:06 | PC.NURSE ---
pt resting in the stretcher, reports no improvement in her pain still 10/10
[2020-12-30 13:35] LABS: CT PCR NOT DETECTED (Not Detect.); NG PCR NOT DETECTED (Not Detect.)
[2020-12-31 12:33] LABS: BV Int Neg Control Negative (Negative); BV Int Pos Control Positive (Positive)
== END 2020-12-30 11:49 | disposition left against medical advice (07) ==
PROVIDERS: Physician Assistant Medical; Emergency Provider Emergency Medicine; PCP Internal Medicine
DX: M51.36 Other intervertebral disc degeneration, lumbar region (principal); R10.2 Pelvic and perineal pain; Z98.84 Bariatric surgery status
CPT/HCPCS: 36415; 74176; 80053; 80076; 81001; 81025; 82248; 83735; 85025; 87480; 87491; 87510; 87591; 87660; 99284

== ENCOUNTER → 2021-01-20 08:04 | Outpatient (BNVA) | payer MEDICAID, SELFPAY | PROVIDERS: PCP Internal Medicine; Visit Provider Nurse Practitioner Family | DX: M51.36 Other intervertebral disc degeneration, lumbar region (principal) | CPT/HCPCS: 99212 ==

== ENCOUNTER 2021-03-14 08:06 | Outpatient (REF) | payer MEDICAID, SELFPAY ==
--- NOTE | ~2021-03-14 | MM_ITS ---
EXAMINATION: MM SCREENING DIGITAL BREAST TOMOSYNTHESIS, BILATERAL CLINICAL INFORMATION: Screening. Asymptomatic. The lifetime risk of breast cancer based on the Tyrer-Cuzick Model is 12%. COMPARISON: Mammography: 02/02/2019 (baseline) TECHNIQUE: Digital breast tomosynthesis is performed in both the craniocaudal and mediolateral oblique views along with computer-aided detection (CAD). Synthesized 2D images are generated from the tomosynthesis. FINDINGS: There are scattered areas of fibroglandular density (ACR BI-RADS breast composition Category b). Breast tissue composition borders on heterogeneously dense. There are scattered stable asymmetries similar to baseline exam. No significant mass or architectural abnormality. No abnormal calcifications. Skin contours are smooth. MM/MM tomosynthesis screening BI IMPRESSION: No significant changes from prior exam. ASSESSMENT: BI-RADS 2: Benign RECOMMENDATION: Routine annual mammography screening. This patient's information was entered into a reminder system with a target due date for their next mammogram.
== END 2021-03-14 08:07 | disposition home or self-care (01) ==
LOC: HO.MAMMO 08:06
PROVIDERS: PCP Internal Medicine; Visit Provider Internal Medicine
DX: Z12.31 Encounter for screening mammogram for malignant neoplasm of breast (principal)
CPT/HCPCS: 77063; 77067

== ENCOUNTER → 2021-04-04 13:20 | Outpatient (BNVA) | payer MEDICAID, SELFPAY | PROVIDERS: PCP Internal Medicine; Visit Provider Orthopaedic Surgery | DX: M77.11 Lateral epicondylitis, right elbow (principal) | CPT/HCPCS: 99212 ==

== ENCOUNTER 2021-04-27 14:00 | Outpatient (RCR) | payer MEDICAID, SELFPAY ==
--- NOTE | 2021-04-24 15:50 | MHC.OT.OEV ---
[address] [phone] F: [phone] Occupational Therapy Evaluation Diagnosis: LATERAL EPICONDYLITIS RIGHT ELBOW Date of Onset: 04/02/19 Attending Provider: Olivia Bhatia Prescribed Treatment: EVALUATE AND TREAT, IONTOPHORESIS History of Current Condition: REPORTS A TWO YEAR HISTORY OF R LATERAL ELBOW PAIN. 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 SIX/SEVEN MONTHS AGO RECEIVED A CORTISONE INJECTION. 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 HOBBIES: ENJOYS STAYING HOME AND RELAXING, WATCHING TV, READING BOOKS Living Situation, Family and/or Social Support: LIVES WITH 11 YEAR OLD CHILD Current Level of Function and Occupation Self Care, Employment, Leisure: REPORTS PAIN AND DIFFICULTIES WITH MOST WORK RELATED TASKS INCLUDING: VACUUMING, LIFTING MORE THAN 10 - 15 POUNDS, SWEEPING; TROUBLE WITH PULLING UP OWN PANTS Sleep: TROUBLE LAYING ON RIGHT SIDE Driving: DENIES DIFFICULTIES Vision: GLASSES Pain Assessment Pain Score: 8 Pain Scale Used: Numeric (0 - 10) Pain Location and Description: R LATERAL ELBOW, CONSTANT PAIN Aggravating Factors: LIFTING, CARRYING >10 POUNDS Alleviating Factors: GABAPENTIN, LOTION PRESCRIBED BY MD; HAS TRIED CFB WITHOUT SUCCESS Sensory Assessment Temperature: Light Touch: WFL Proprioception: Vibration: Comments: Edema Assessment Upper Extremity: WNL Lower Extremity: Comments: Dexterity Assessment Dexterity: WFL Comments: AROM(PROM) Strength Elbow Flexion: R 140, L 150 Extension: R 10, L 0 Pronation: Supination: Comments: Flexion: Extension: Pronation: Supination: Comments: Wrist Flexion: Extension: Ulnar Deviation: Radial Deviation: Comments: REPORTS MILD PAIN TO R DORSAL WRIST WITH WRIST EXTENSION Flexion: Extension: Ulnar Deviation: Radial Deviation: Comments: Thumb Thumb CMC Flexion: Thumb MCP Flexion: Thumb IP Flexion: Radial Abduction: Palmar Abduction: Glenvil (Kapandji 0-10): Comments: Digits Index MCP: PIP: DIP: Long MCP: PIP: DIP: Ring MCP: PIP: DIP: Small MCP: PIP: DIP: Comments: Gross Grasp: R 15, L 54 Lateral Pinch: R 9, L 12 Two-Point Pinch: Three-Jaw Trip: Comments: PAIN WITH CAN FEEDER TESTING WITH ELBOW EXTENDED (10 POUNDS) Patient Education Primary Language: Skimmer Scoop Operator Required: Yes Current Knowledge: Understands information with skills for self-management Teaching Method: Audio/Video Demonstration Handouts Phone Call Verbal Education Needs Identified on Evaluation: ADL's Disease Information Equipment Use Exercise Pain Safety How did patient/family demonstrate learning? Patient demonstrates Patient verbalizes Barriers to Learning: None Readiness for Learning: Accepting Who was educated? 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 SHE HAS RECEIVED CORTISONE INJECTIONS IN THE PAST WITH GOOD RELIEF. HER DOCTOR HAS REFERRED HER TO OT FOR IONTOPHORESIS TREATMENT AND TO ADDRESS AREAS MENTIONED ABOVE. SHE WAS PROVIDED WITH A COUNTER FORCE BRACE FROM HER DOCTOR AND REPORTS LITTLE RELIEF. Pt MAY BENEFIT FROM A NIGHT WRIST ORTHOSIS, TO BE FABRICATED AT A LATER DATE. A 57% LIMITATION WAS REPORTED PER THE QUICK DASH ASSESSMENT. ONGOING SKILLED OT WARRANTED TO PROVIDE PATIENT EDUCATION, JOINT PROTECTION STRATEGIES AND IMPROVE RUE STRENGTH. STG Duration: 2 WEEKS Short Term Goals: IND HEP IND USE OF HEAT/ICE IND JOINT PROTECTION STRATEGIES WITH IADLs REPORT <5/10 PAIN WITH LIGHT IADLs IND ORTHOSIS WEAR LTG Duration: 4 WEEKS Pharmacology Associate Goals: IND SELF TAPING QUICK DASH <40% R CAN FEEDER >30 POUNDS TOLERATE LIFTING >10 POUNDS WITH <4/10 PAIN Frequency and Duration: The patient will be seen 3X/WEEK FOR 4 WEEKS Treatment Plan: Therapeutic Exercise Therapeutic Activity Home Exercise Program Splinting Neuro Re-ed Patient Education Desensitization/Sensory Re-ed Edema Control ADL Training Ultrasound NMES Iontophoresis Paraffin Fluidotherapy MHP Cold Packs Joint Mobilization Soft Tissue Mobilization Kinesiotaping Electronically Signed By: COMFORT COX OTR/L Reviewed/agree with student documentation: N/A Therapist: Please sign and return to therapist, Thank you for your referral.
--- NOTE | 2021-05-11 13:09 | MHC.OT.DC ---
[address] [phone] F: [phone] Occupational Therapy Discharge Note Provider: Olivia Bhatia Diagnosis: LATERAL EPICONDYLITIS RIGHT ELBOW Date of Evaluation: 04/24/21 Date of Discharge: 05/11/21 Treatments to Date: 2 Cancellations to Date: 2 No Shows to Date: 2 Discharge Status: Visit Non-compliance Discharge Summary: MS NICOLE W[place] PRESENTED TO OT FOR TWO SESSIONS. IT APPEARED THAT SHE WAS HAVING MORE PAIN IN THE POSTERIOR ARM, TRICEP INSERTION REGION. Pt PROVIDED WITH STRETCHING AND PATIENT EDUCATION. SHE WILL BE DISCHARGED FROM OT DUE TO NON-COMPLIANCE, PER THE CORE ATTENDANCE POLICY. Electronically Signed By: COMFORT COX OTR/L Reviewed/agree with student documentation: N/A Therapist: Please Sign and return to therapist, thank you for your referral.
== END 2021-05-11 13:00 | disposition home or self-care (01) ==
LOC: HO.OT 14:00
PROVIDERS: PCP Internal Medicine; Visit Provider Orthopaedic Surgery
DX: M77.11 Lateral epicondylitis, right elbow (principal)
CPT/HCPCS: 97033; 97035; 97110; 97165

== ENCOUNTER → 2021-05-09 12:52 | Outpatient (BNVA) | payer MEDICAID, SELFPAY | PROVIDERS: PCP Internal Medicine; Visit Provider Physician Assistant | DX: M77.11 Lateral epicondylitis, right elbow (principal) | CPT/HCPCS: 20550; 99202; J1020 ==

== ENCOUNTER 2021-05-31 07:47 | Inpatient (IN) | payer MEDICAID, SELFPAY ==
[2021-05-31] VITALS (8 sets, daily range): BP systolic 94–110; BP diastolic 52–71; PULSE 50–70; RESP 14–18; TEMP 36.4–36.8; O2SAT 99–100; BMI 33.3
--- NOTE | ~2021-05-31 | US_ITS ---
EXAMINATION: US ABDOMEN LIMITED CLINICAL INFORMATION: Upper abdominal pain. Evaluate for cholecystitis.. COMPARISON: None TECHNIQUE: Real-time imaging of the right upper quadrant abdominal viscera. FINDINGS: PANCREAS: Normal. LIVER: Normal. The liver is normal in size. The liver contour is normal. Parenchymal echogenicity is normal. No focal hepatic lesion. There is no intrahepatic biliary duct dilatation seen. GALLBLADDER: The gallbladder is normal in size. The gallbladder appears filled with gallstones. Gallbladder wall is minimally thickened measuring 0.4 cm. No gallbladder wall edema or pericholecystic fluid is seen. The research technologist reports the patient is tender over the gallbladder. COMMON BILE DUCT: Normal in caliber measuring 0.4 cm in diameter. RIGHT KIDNEY: Normal. No hydronephrosis. No renal calculi or focal parenchymal lesions. The kidney measures 11 cm in maximum dimension. FREE FLUID: None. US/US abdomen limited IMPRESSION: Gallstones and slightly thickened gallbladder wall.
[2021-05-31 08:19] LABS: MANUAL DIFF FLAG NO
[2021-05-31 08:36] LABS: Basophils Percent Auto 0.1 % (0-2); Eosinophils Absolute Auto 0.3 X10*3/uL (0.0-0.4); Eosinophils Percent Auto 3.8 % (0-4); Hematocrit 33.2 % (37-47); Hemoglobin 11.2 g/dl (12.0-16.0); Imm Gran Abs Auto 0.02 X10*3/uL (0.00-0.03); Imm Gran Pct Auto 0.3 % (0.0-0.4); Lymphocytes Absolute Auto 1.3 X10*3/uL (1.2-4.9); Lymphocytes Percent Auto 19.7 % (20-40); Mean Corpuscular HGB Conc 33.7 g/dl (31.0-35.0); Mean Corpuscular Hemoglobin 31.4 pg (27.0-33.0); Mean Platelet Volume 10.3 fL (9.4-12.3); Monocytes Absolute Auto 0.4 X10*3/uL (0.1-1.2); Monocytes Percent Auto 5.8 % (2-11); Neutrophils Absolute Auto 4.8 X10*3/uL (2.0-8.3); Neutrophils Percent Auto 70.3 % (45-73); Platelet Count 175 X10*3/uL (160-400); Red Blood Count 3.57 X10*6/uL (4.20-5.50); Red Cell Distribution Width 13.5 % (11.0-16.0); White Blood Count 6.8 X10*3/uL (4.8-10.8)
[2021-05-31 08:59] LABS: Alanine Aminotransferase 20 U/L (0-31); Alkaline Phosphatase 85 U/L (39-117); Anion Gap 10 (12-20); Aspartate Amino Transferase 16 U/L (5-31); Bilirubin Direct 0.2 mg/dL (0.0-0.5); Bilirubin Total 0.4 mg/dL (0.0-1.0); Blood Urea Nitrogen 5 mg/dL (9-16); Calcium 8.6 mg/dL (8.4-10.2); Carbon Dioxide 25 mmol/L (22-29); Chloride 111 mmol/L (96-108); Creatinine Clr Calc Pharmacy 112.8; Estimated Glomerular Filt Rate > 60; Glucose Random 91 mg/dL (60-115); Lipase 13 U/L (8-78); Potassium 3.7 mmol/L (3.3-5.1); Sodium 142 mmol/L (135-145); Total Protein 6.8 g/dL (6.5-8.0)
--- NOTE | 2021-05-31 09:32 | ED_ITS ---
HPI - Abdominal Pain General Chief Complaint: Abdominal Pain Stated Complaint: abd pain, vomiting Time Seen by Provider: 05/31/21 08:59 Source: patient and interpreter deaf Mode of arrival: ambulatory Limitations: language barrier History of Present Illness HPI narrative: 40-year-old female with a past medical history of depression, anxiety, asthma, [place] [address] Warner here with complaints of upper abdominal pain since last evening with 2 episodes of vomiting. She describes the abdominal pain as burning. She denies any associated diarrhea, constipation, urinary symptoms, fevers, chills. Related Data Home Medications Medication Instructions Recorded Confirmed levonorgestrel 20 mcg/24 hours (6 INTRAUTERINE 06/29/20 01/20/21 yrs) 52 mg intrauterine device (Mirena) tramadol 50 mg tablet 50 mg PO Q8H PRN 01/20/21 05/31/21 zolpidem 10 mg tablet (Ambien) 10 mg PO BEDTIME PRN 01/20/21 05/31/21 albuterol sulfate 1 vial INHALATION TID 05/31/21 05/31/21 albuterol sulfate 90 mcg/actuation 2 puff PO Q4-6H PRN 05/31/21 05/31/21 aerosol inhaler (ProAir HFA) citalopram 20 mg tablet 1 tab PO QAM 05/31/21 05/31/21 doxycycline hyclate 100 mg tablet 1 tab PO DAILY 05/31/21 05/31/21 erythromycin 5 mg/gram (0.5 %) eye 1 appl OPHTHALMIC (EYE) TID 05/31/21 05/31/21 ointment fluticasone propionate 50 2 spray INTRANASAL DAILY 05/31/21 05/31/21 mcg/actuation nasal spray,suspension gabapentin 100 mg capsule 1 cap PO BID 05/31/21 05/31/21 montelukast 10 mg tablet 1 tab PO BEDTIME 05/31/21 05/31/21 tizanidine 4 mg tablet 1 tab PO BID PRN 05/31/21 05/31/21 Previous Rx's Medication Instructions Recorded acetaminophen 500 mg tablet 1,000 mg PO QID PRN #14 tab 12/30/20 (Tylenol Extra Strength) Allergies Allergy/AdvReac Type Severity Reaction Status Date / Time No Known Allergies Allergy Verified 05/09/21 13:07 Review of Systems Review of Systems Yes all other systems are reviewed and are negative Constitutional: Reports no additional constitutional complaints, Denies body ache(s), Denies chills, Denies fever(s), Denies headache(s) and Denies weakness Eyes: Reports no additional eye complaints and Denies change in vision Reports system reviewed and no additional complaints, except as documented, Denies dizziness, Denies headache(s), Denies nasal congestion, Denies nasal discharge and Denies neck pain Cardiovascular: Reports no additional cardiovascular complaints, Denies chest pain, Denies leg edema and Denies dyspnea Respiratory: Reports no additional respiratory complaints, Denies cough and Denies dyspnea Gastrointestinal: Reports no additional gastrointestinal complaints, Reports abdominal pain, Denies diarrhea, Reports nausea and Reports vomiting Genitourinary: Reports no additional female genitourinary complaints and Denies urinary incontinence Musculoskeletal: Reports no additional musculoskeletal complaints, Denies back pain, Denies arthralgias, Denies joint swelling, Denies neck pain, Denies numbness and Denies tingling Skin/Breast: Reports system reviewed and no additional complaints, except as docu and Denies rash Reports system reviewed and no additional complaints, except as documented, Denies Abnormal speech present, Denies dizziness, Denies headache(s), Denies numbness, Denies tingling and Denies weakness Physical Exam Vital Signs: Vital Signs: Last Vital Signs Temp 98.2 F 05/31/21 16:00 Pulse 68 05/31/21 16:00 Resp 17 05/31/21 16:00 BP 100/58 L 05/31/21 16:00 Pulse Ox 99 05/31/21 16:00 Body Mass Index 33.3 Const: General: cooperative, healthy appearing, comfortable and no acute distress Orientation/consciousness: patient oriented x3 Limitations: no limitations HENMT: Head: Yes normal to inspection Ears: hearing grossly normal bilaterally General nose exam: Normal external nose present Face and sinus: Yes normal facial exam Mouth: Normal oral and palatal mucosa present Throat: Yes posterior oropharynx normal Eyes: General: appearance normal, both eyes and all related structures Pupils: Equal, round and reactive pupils present Neck: Neck: Yes normal visual inspection Chest: Chest palpation & inspection: normal inspection of the chest Resp: Effort & Inspection: normal respiratory effort Auscultation: clear to auscultation bilaterally Cardio: Rate: regular rate Rhythm: regular rhythm Peripheral pulses: Peripheral pulses 2+ throughout GI: Inspection: Yes normal to inspection Palpation (GI): Soft to palpation and Tenderness to palpation present (GI) (Mild tenderness epigastric. No rebound or guarding) Auscultation: normal bowel sounds Back/Spine/Pelvis: Thoracic/Lumbar Spine: thoracic and lumbar spine normal to inspection Skin: General skin exam: no rashes or lesions noted Neuro: General: patient oriented x3, no focal motor deficits and normal sensation to monofilament Cranial nerves: Yes Equal, round and reactive pupils present Cognition (Neuro): normal cognition Speech: No Abnormal speech present Gait exam (Neuro): Normal gait present Motor exam (neuro): 5/5 motor strength present throughout Extrem: General: Yes normal to inspection, Yes no pedal edema and Yes no calf tenderness Course Course Course Narrative: 40-year-old female here with epigastric pain described as burning with 2 episodes of vomiting since last evening. Took Pepto prior to arrival with no relief. On exam has mild tenderness. Will check labs, UA. Wi ll give PPI, GI cocktail and reassessed 1130-labs are unremarkable. Urine is consistent with a UTI. Patient attempted to drink some ovi rigoberto but reports pain is continued. Repeat abdomen exam is soft but tender epigastric. Will check abdomen US to r/o acute nayeli. Repeat analgesia dose. 1358-US shows Gallstones and slightly thickened gallbladder wall. Patient reports less and pain but still there. Will repeat dose of analgesia and reassess. Patient would like to go home and follow-up outpatient with surgery as she has a child at home. 1450-Despite two rounds of IV narcotic continued pain. WIll discuss with surgery for admission. 1520-Spoke to Dr Vargas who will come to see patient. 1615-patient admitted to surgery servive. MDM - Abdominal Pain MDM Narrative Medical decision making narrative: gerd Differential Diagnosis Differential diagnosis: Likely gastritis and pancreatitis Medical Records Attestation: I reviewed the patient's medical records. Lab Data Attestation: I reviewed the patient's lab results. Result diagrams: 05/31/21 08:14 05/31/21 08:14 Labs: Lab Results 05/31/21 05/31/21 05/31/21 Range/Units 08:14 08:14 09:57 WBC 6.8 (4.8-10.8) X10*3/uL RBC 3.57 L (4.20-5.50) X10*6/uL Hgb 11.2 L (12.0-16.0) g/dl Hct 33.2 L (37-47) % MCV 93.0 (80-98) fL MCH 31.4 (27.0-33.0) pg MCHC 33.7 (31.0-35.0) g/dl RDW 13.5 (11.0-16.0) % Plt Count 175 (160-400) X10*3/uL MPV 10.3 (9.4-12.3) fL Immature Gran % (Auto) 0.3 (0.0-0.4) % Neut % (Auto) 70.3 (45-73) % Lymph % (Auto) 19.7 L (20-40) % Ector % (Auto) 5.8 (2-11) % Eos % (Auto) 3.8 (0-4) % Baso % (Auto) 0.1 (0-2) % Lymph # (Auto) 1.3 (1.2-4.9) X10*3/uL Ector # (Auto) 0.4 (0.1-1.2) X10*3/uL Eos # (Auto) 0.3 (0.0-0.4) X10*3/uL Baso # (Auto) 0.0 (0.0-0.2) X10*3/uL Abs Immat Gran (auto) 0.02 (0.00-0.03) X10*3/uL Absolute Neuts (auto) 4.8 (2.0-8.3) X10*3/uL Absolute Nucleated RBC 0.000 (0.0-0.012) X10*3/uL Nucleated RBC % (auto) 0.0 (0.0-0.2) /100WBC Sodium 142 (135-145) mmol/L Potassium 3.7 (3.3-5.1) mmol/L Chloride 111 H (96-108) mmol/L Carbon Dioxide 25 (22-29) mmol/L Anion Gap 10 L (12-20) BUN 5 L (9-16) mg/dL Creatinine 0.73 (0.5-1.4) mg/dL Estim Creat Clear Calc 112.8 Estimated GFR > 60 Random Glucose 91 (60-115) mg/dL Lactic Acid (0.5-2.0) mmol/L Calcium 8.6 (8.4-10.2) mg/dL Total Bilirubin 0.4 (0.0-1.0) mg/dL Direct Bilirubin 0.2 (0.0-0.5) mg/dL AST 16 (5-31) U/L ALT 20 (0-31) U/L Alkaline Phosphatase 85 D (39-117) U/L Total Protein 6.8 (6.5-8.0) g/dL Albumin 4.0 (3.5-5.0) g/dL Lipase 13 (8-78) U/L Urine Color YELLOW Urine Appearance HAZY Urine pH 7.0 (5.0-8.0) Ur Specific [place] 1.010 (1.005-1.025) Urine Protein NEG (NEG-TRACE) MG/DL Urine Glucose (UA) NEG (NEG) MG/DL Urine Ketones NEG (NEG) MG/DL Urine Blood 1+ H (NEG) Urine Nitrite NEG (NEG) Ur Leukocyte Esterase 3+ H (NEG) Urine RBC 5-9 H (0) /HPF Urine WBC 15-29 H (0-4) /HPF Ur Squamous Epith Cells TRACE /LPF Urine Bacteria TRACE /LPF Urine Test (NEGATIVE) COVID-19 (IRENA) (Negative) COVID-19 Clin Com 05/31/21 05/31/21 05/31/21 Range/Units 09:57 15:10 15:11 WBC (4.8-10.8) X10*3/uL RBC (4.20-5.50) X10*6/uL Hgb (12.0-16.0) g/dl Hct (37-47) % MCV (80-98) fL MCH (27.0-33.0) pg MCHC (31.0-35.0) g/dl RDW (11.0-16.0) % Plt Count (160-400) X10*3/uL MPV (9.4-12.3) fL Immature Gran % (Auto) (0.0-0.4) % Neut % (Auto) (45-73) % Lymph % (Auto) (20-40) % Ector % (Auto) (2-11) % Eos % (Auto) (0-4) % Baso % (Auto) (0-2) % Lymph # (Auto) (1.2-4.9) X10*3/uL Ector # (Auto) (0.1-1.2) X10*3/uL Eos # (Auto) (0.0-0.4) X10*3/uL Baso # (Auto) (0.0-0.2) X10*3/uL Abs Immat Gran (auto) (0.00-0.03) X10*3/uL Absolute Neuts (auto) (2.0-8.3) X10*3/uL Absolute Nucleated RBC (0.0-0.012) X10*3/uL Nucleated RBC % (auto) (0.0-0.2) /100WBC Sodium (135-145) mmol/L Potassium (3.3-5.1) mmol/L Chloride (96-108) mmol/L Carbon Dioxide (22-29) mmol/L Anion Gap (12-20) BUN (9-16) mg/dL Creatinine (0.5-1.4) mg/dL Estim Creat Clear Calc Estimated GFR Random Glucose (60-115) mg/dL Lactic Acid 0.6 (0.5-2.0) mmol/L Calcium (8.4-10.2) mg/dL Total Bilirubin (0.0-1.0) mg/dL Direct Bilirubin (0.0-0.5) mg/dL AST (5-31) U/L ALT (0-31) U/L Alkaline Phosphatase (39-117) U/L Total Protein (6.5-8.0) g/dL Albumin (3.5-5.0) g/dL Lipase (8-78) U/L Urine Color Urine Appearance Urine pH (5.0-8.0) Ur Specific [place] (1.005-1.025) Urine Protein (NEG-TRACE) MG/DL Urine Glucose (UA) (NEG) MG/DL Urine Ketones (NEG) MG/DL Urine Blood (NEG) Urine Nitrite (NEG) Ur Leukocyte Esterase (NEG) Urine RBC (0) /HPF Urine WBC (0-4) /HPF Ur Squamous Epith Cells /LPF Urine Bacteria /LPF Urine Test NEGATIVE (NEGATIVE) COVID-19 (IRENA) Negative (Negative) COVID-19 Clin Com See Note Imaging Data US - abdomen: Attestation: I personally reviewed and interpreted this imaging study as follows: Radiologist's impression: TECHNIQUE: Real-time imaging of the right upper quadrant abdominal viscera. FINDINGS: PANCREAS: Normal. LIVER: Normal. The liver is normal in size. The liver contour is normal. Parenchymal echogenicity is normal. No focal hepatic lesion. There is no intrahepatic biliary duct dilatation seen. GALLBLADDER: The gallbladder is normal in size. The gallbladder appears filled with gallstones. Gallbladder wall is minimally thickened measuring 0.4 cm. No gallbladder wall edema or pericholecystic fluid is seen. The radiologic technologist mammogram reports the patient is tender over the gallbladder. COMMON BILE DUCT: Normal in caliber measuring 0.4 cm in diameter. RIGHT KIDNEY: Normal. No hydronephrosis. No renal calculi or focal parenchymal lesions. The kidney measures 11 cm in maximum dimension. FREE FLUID: None. US/US abdomen limited IMPRESSION: Gallstones and slightly thickened gallbladder wall. Discharge Plan Discharge Clinical Impression: Gallstones Patient Disposition: Admitted As Inpatient [facility] Past Medical History Attestation statement: The following information was validated with the patient. 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
[2021-05-31] MEDS: ondansetron HCL 4 MG/2 ML VIAL IVPUSH ×3 (09:52→21:59)
[2021-05-31] MEDS: Magnesium Hydrox/Alum Hydrox 30 ML ORAL.SUSP PO (09:52)
[2021-05-31] MEDS: Lidocaine HCl Viscous 2 % 15 ML SOLUTION MUCOUS MEM (09:52)
[2021-05-31] MEDS: Famotidine/PF 20 MG/2 ML VIAL IVPUSH (09:52)
[2021-05-31 10:22] LABS: UPreg QC Valid YES; Urine Pregnancy NEGATIVE (NEGATIVE)
[2021-05-31 10:23] LABS: Appearance Urine HAZY; Color Urine YELLOW; Glucose Urine UA NEG (NEG); Leukocyte Esterase Urine 3+ (NEG); Nitrite Urine NEG (NEG); UACC Culture Trigger YES; Urine Blood 1+ (NEG); Urine Ketones NEG (NEG); Urine Protein NEG (NEG-TRACE)
[2021-05-31 10:44] LABS: Bacteria Urine TRACE /LPF; Squamous Epithelial Cell Urine TRACE /LPF
[2021-05-31] MEDS: Morphine Sulfate 4 MG/ML CARTRIDGE IVPUSH ×3 (11:52→20:58)
--- NOTE | 2021-05-31 11:55 | PC.NURSE ---
patient a&ox3, vss, pt medicated per order, will continue to monitor.
--- NOTE | 2021-05-31 14:08 | PC.NURSE ---
patient a&ox3, continued pain 6-03/11, vss, pt medicated per order, will contnue to monitor
[2021-05-31] MEDS: cefTRIAXone sodium 1 GM in 0.9 % Sodium Chloride 50 ML IV (15:30)
--- NOTE | 2021-05-31 15:31 | PC.NURSE ---
pt medicated per order, blood cultures, nasal swab and lab drawn per order
[2021-05-31 15:38] LABS: COVID-19 Test Negative (Negative)
[2021-05-31 15:44] LABS: Lactic Acid 0.6 mmol/L (0.5-2.0)
--- NOTE | 2021-05-31 16:40 | PHA.MEDREC ---
Pharmacy Consult ? Medication Reconciliation Pharmacy has completed the medication reconciliation. Patient reports only taking the multivitamin and ambien almost daily. All other medications she only takes when needed. Priscilla Foley, PharmD
--- NOTE | 2021-05-31 16:41 | PM.HPGS ---
History of Present Illness History of Present Illness Date of Service: 05/31/21 Chief complaint: abd pain, vomiting Narrative: Sayra Mei is a 40 year old female presented to the emergency department this morning for evaluation of epigastric pain. She was feeling well until around 05:00 o'clock last night when she developed nausea and epigastric pain. The pain was manageable through the night, but became severe this morning after she drank some coffee. She is unsure about whether she has experienced similar pain in the past. She has a history of laparoscopic gastric banding. Her band is not inflated as she was traveling recently. Because of this, she felt that the pain was not related to the gastric band but she is not sure about past episodes of abdominal pain. In the emergency department, liver function studies and white blood count were normal. Ultrasound was obtained and revealed numerous gallstones and marginal thickening of the gallbladder wall. She reports ongoing difficulty with right upper quadrant abdominal pain. The pain is relieved by medication but recurs when the medication wears off. Review of Systems Constitutional: Constitutional: Denies chills, Denies excessive sweating, Denies fatigue, Denies fever(s) and Denies night sweats ENT: Reports Normal hearing present and Denies neck pain Cardiovascular: Cardiovascular: Denies chest pain, Denies pedal edema and Denies dyspnea Respiratory: Respiratory: Denies cough and Denies dyspnea Comments: History of asthma Gastrointestinal: Gastrointestinal: Reports as per HPI and Denies loose stools Genitourinary: Genitourinary: Denies hematuria and Denies dysuria Musculoskeletal: Musculoskeletal: Reports back pain and Denies neck pain Comments: Tendinitis right elbow Integumentary/Breasts: Skin/Breast: Denies rash Neurologic: Reports Normal hearing present Endocrine: Endocrine: Denies excessive sweating and Denies fatigue Hematologic/Lymphatic: Hematologic/Lymphatic: Denies easy bleeding PMFSH Past Medical History Medical History Anxiety Asthma Depression Disc degeneration, lumbar Surgical History Surgical History H/O laparoscopic adjustable gastric banding History of History of tubal ligation Social History Social History Alcohol intake: never Patient Tobacco Use Status: Former Tobacco user Use of substances other than those prescribed or required for medical reasons: No Advance Directives: No Current occupational status: employed 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 Meds Allergies Allergy/AdvReac Type Severity Reaction Status Date / Time No Known Allergies Allergy Verified 05/09/21 13:07 Active Medications: Current Medications Pharmacy Consult (Consult Rx Perform Med Rec) 1 each MISCELLANE ONCE PRN PRN Reason: Consult order Home Medications Medication Instructions Recorded Confirmed Last Taken Type tramadol 50 mg tablet 50 mg PO Q8H PRN 01/20/21 05/31/21 Unknown History zolpidem 10 mg tablet (Ambien) 10 mg PO BEDTIME PRN 01/20/21 05/31/21 Unknown History albuterol sulfate 1 vial INHALATION TID 05/31/21 05/31/21 Unknown History albuterol sulfate 90 mcg/actuation 2 puff PO Q4-6H PRN 05/31/21 05/31/21 Unknown History aerosol inhaler (ProAir HFA) gabapentin 100 mg capsule 1 cap PO BID 05/31/21 05/31/21 Unknown History multivitamin 1 tab PO DAILY 05/31/21 05/31/21 05/30/21 History tizanidine 4 mg tablet 1 tab PO BID PRN 05/31/21 05/31/21 Unknown History Physical Exam Vital Signs: Vital Signs: Last Vital Signs Temp 98.2 F 05/31/21 16:00 Pulse 68 05/31/21 16:00 Resp 17 05/31/21 16:00 BP 100/58 L 05/31/21 16:00 Pulse Ox 99 05/31/21 16:00 Body Mass Index 33.3 Const: General: cooperative, healthy appearing, no acute distress and alert Orientation/consciousness: patient oriented x3 HENMT: Head: Yes normocephalic and Yes atraumatic Eyes: General: appearance normal, both eyes and all related structures EOM: EOMs intact bilaterally Neck: Neck: Yes trachea midline and Yes supple Resp: Effort & Inspection: normal respiratory effort Auscultation: clear to auscultation bilaterally Cardio: Rate: regular rate Rhythm: regular rhythm Heart sounds: no murmurs Peripheral pulses: dorsalis pedis present bilateral 2+ GI: Other: Soft, nondistended, no organomegaly, subcutaneous hardware consistent with laparoscopic band port palpable right upper quadrant, tender right upper quadrant with rebound, no guarding Rectal Exam - Female: deferred Skin: Other: Normal color, warm and dry General skin exam: elasticity normal Neuro: General: patient oriented x3 Cranial nerves: Yes Normal hearing present Extrem: General: Yes normal to inspection Results Results Labs: Short CBC 05/31/21 Range/Units 08:14 WBC 6.8 (4.8-10.8) X10*3/uL Hgb 11.2 L (12.0-16.0) g/dl Hct 33.2 L (37-47) % Plt Count 175 (160-400) X10*3/uL BMP 05/31/21 08:14 Sodium 142 Potassium 3.7 Chloride 111 H Carbon Dioxide 25 BUN 5 L Creatinine 0.73 Calcium 8.6 Liver Function 05/31/21 Range/Units 08:14 Total Bilirubin 0.4 (0.0-1.0) mg/dL Direct Bilirubin 0.2 (0.0-0.5) mg/dL AST 16 (5-31) U/L ALT 20 (0-31) U/L Alkaline Phosphatase 85 D (39-117) U/L Albumin 4.0 (3.5-5.0) g/dL Urine 05/31/21 05/31/21 Range/Units 09:57 09:57 Urine Color YELLOW Urine Appearance HAZY Urine pH 7.0 (5.0-8.0) Ur Specific [employer] 1.010 (1.005-1.025) Urine Protein NEG (NEG-TRACE) MG/DL Urine Glucose (UA) NEG (NEG) MG/DL Urine Test NEGATIVE (NEGATIVE) Abdominal ultrasound report/results: report reviewed and image reviewed Assessment and Plan (1) Gallstones: Status: Acute (2) Cholecystitis: Status: Acute 40-year-old female presenting with persistent right upper quadrant abdominal pain and nausea, ultrasound findings of cholelithiasis and marginal thickening of gallbladder wall, consistent with early acute cholecystitis. She will be admitted and will be kept on IV fluids and IV antibiotics. Home medications will be continued. We discussed treatment options. She would like to proceed with laparoscopic cholecystectomy. She is aware that open cholecystectomy may be needed. We reviewed risks including but not limited to infection, bleeding, DVT and PE, chronic postprandial loose stool, retained stones, bile leak, injuries to bile ducts or other abdominal structures. Surgery likely will be performed tomorrow. She will be kept NPO after midnight. Quality Stroke Does the patient have a stroke diagnosis?: No VTE Prior VTE?: No VTE Risk Level:: Surgical - low VTE Device Contraindication: N/A - Device Ordered VTE Drug Contraindication: Treatment Not Indicated Procedures Date of Service Date of Service: 05/31/21
--- NOTE | 2021-05-31 19:14 | PC.NURSE ---
report given to floor, will notify tech for transport
[2021-05-31] MEDS: Gabapentin 100 MG CAPSULE PO (20:58)
[2021-05-31] MEDS: Montelukast Sodium 10 MG TABLET PO (20:58)
[2021-05-31] MEDS: Dextrose 5 % and Lactated Ring 1,000 ML 100 ML IVCONT (20:59)
[2021-06-01] VITALS (15 sets, daily range): BP systolic 97–117; BP diastolic 52–82; PULSE 47–89; RESP 14–18; TEMP 36.1–36.9; O2SAT 95–100
[2021-06-01] MEDS: Piperacillin Sodium/Tazobactam 3.375 GM in 0.9 % Sodium Chloride 50 ML IV ×4 (00:26→21:50)
[2021-06-01 05:03] LABS: Hematocrit 32.2 % (37-47); Hemoglobin 10.5 g/dl (12.0-16.0); Mean Corpuscular HGB Conc 32.6 g/dl (31.0-35.0); Mean Corpuscular Hemoglobin 30.8 pg (27.0-33.0); Mean Corpuscular Volume 94.4 fL (80-98); Mean Platelet Volume 10.5 fL (9.4-12.3); Platelet Count 157 X10*3/uL (160-400); Red Blood Count 3.41 X10*6/uL (4.20-5.50); Red Cell Distribution Width 13.6 % (11.0-16.0); White Blood Count 6.1 X10*3/uL (4.8-10.8)
--- NOTE | 2021-06-01 07:49 | P.PNGS_ITS ---
Subjective Subjective Date of Service: 06/01/21 Interval history: Patient still with right upper quadrant abdominal pain but does feel improved this morning. She complains of nausea after IV pain meds and headache. She reports being hungry this morning. Physical Exam Vital Signs: Vital Signs: Last Vital Signs Temp 97.6 F 06/01/21 04:00 Pulse 74 06/01/21 04:00 Resp 16 06/01/21 04:00 BP 110/58 L 06/01/21 04:00 Pulse Ox 97 06/01/21 04:00 Body Mass Index 33.3 Const: General: healthy appearing and no acute distress Nutritional Appearance: well nourished Orientation/consciousness: patient oriented x3 Limitations: no limitations HENMT: Head: Yes normocephalic and Yes atraumatic Ears: hearing grossly normal bilaterally Eyes: Sclerae: sclerae normal EOM: EOMs intact bilaterally Resp: Effort & Inspection: normal respiratory effort, no cough, no stridor and not tachypneic GI: Other: lap band port in right upper quadrant Palpation (GI): Soft to palpation, Tenderness to palpation present (GI) in the RUQ and Lundy's sign positive, No hepatosplenomegaly present and no masses Percussion: Yes normal to percussion Auscultation: normal bowel sounds Rectal Exam - Female: deferred Skin: General skin exam: no rashes or lesions noted Wounds: no wounds Neuro: General: patient oriented x3 Extrem: General: Yes full ROM and Yes no clubbing, cyanosis or edema Procedures Date of Service Date of Service: 06/01/21 Progress Note: A&P Assessment and plan (1) Cholecystitis: Status: Acute (2) Gallstones: Status: Acute Assessment and Plan: 40 year old female patient presenting with a recent onset of abdominal pain in the right upper quadrant associated with nausea without vomiting. US findings: The gallbladder is normal in size. The gallbladder appears filled with gallstones. Gallbladder wall is minimally thickened measuring 0.4 cm. No gallbladder wall edema or pericholecystic fluid is seen. The biotechnologist reports the patient is tender over the gallbladder. Findings suggestive of acute cholecystitis due to cholelithiasis. I recommended a laparoscopic cholecystectomy or possible open cholecystectomy. After a discussion of the procedure, alternatives and risks, she consents to the procedure. She is scheduled for the OR later today. Fall Risk Details Current Medications: Current Medications Acetaminophen (Acetaminophen 325 Mg Tablet) 650 mg PO Q6H PRN PRN Reason: Fever Albuterol Sulfate (Albuterol Sulfate 90 Mcg 8 Gm Inhaler) 2 puff INHALE Q4H PRN PRN Reason: Wheezing Albuterol Sulfate (Albuterol Sulfate (0.083%) 2.5 Mg/3 Ml Vial.Neb) 2.5 mg INHALE RTID [facility] Escitalopram Oxalate (Escitalopram Oxalate 10 Mg Tablet) 10 mg PO DAILY [facility] Last Admin: 06/01/21 07:44 Dose: Not Given Documented by: Fluticasone Propionate (Fluticasone Propionate Nasal 16 Gm [place]) 2 spray NOSTRIL-B DAILY [facility] Gabapentin (Gabapentin 100 Mg Capsule) 100 mg PO BID [facility] Last Admin: 06/01/21 07:44 Dose: Not Given Documented by: Dextrose/Lactated Ringer's (D5lr) 1,000 mls @ 100 mls/hr IVCONT .Q10H [facility] Last Admin: 06/01/21 06:59 Dose: Not Given Documented by: Cefotetan Disodium 2 gm/ (Sodium Chloride) 50 mls @ 100 mls/hr IV PREOP ONE Stop: 06/01/21 12:29 Piperacillin Sod/Tazobactam (Sod 3.375 gm/ Sodium Chloride) 50 mls @ 100 mls/hr IV Q6H [facility] Last Infusion: 06/01/21 07:40 Dose: Infused Documented by: Montelukast Sodium (Montelukast Sodium 10 Mg Tablet) 10 mg PO BEDTIME [facility] Last Admin: 05/31/21 20:58 Dose: 10 mg Documented by: Morphine Sulfate (Morphine Sulfate 4 Mg/Ml Cartridge) 4 mg IVPUSH Q3H PRN; Protocol PRN Reason: Pain, severe Last Admin: 05/31/21 20:58 Dose: 4 mg Documented by: Ondansetron HCl (Ondansetron Hcl 4 Mg/2 Ml Vial) 4 mg IVPUSH Q8H PRN PRN Reason: Nausea Last Admin: 05/31/21 21:59 Dose: 4 mg Documented by: Pharmacy Consult (Consult Rx Perform Med Rec) 1 each MISCELLANE ONCE PRN PRN Reason: Consult order Tizanidine HCl (Tizanidine Hcl 4 Mg Tablet) 4 mg PO BID PRN PRN Reason: muscle spasm Zolpidem Tartrate (Zolpidem Tartrate 5 Mg Tablet) 10 mg PO BEDTIME PRN PRN Reason: Insomnia Time Spent With Patient Time: Total time spent is greater than 50% in coordination of care (as documented) at patient's floor/unit and/or counseling patient: Time with patient: 15 - 24 minutes Quality Stroke Does the patient have a stroke diagnosis?: No VTE Prior VTE?: No VTE Risk Level:: Surgical - low VTE Device Contraindication: N/A - Device Ordered VTE Drug Contraindication: Treatment Not Indicated
[2021-06-01] MEDS: Fluticasone Propionate Nasal 16 GM SPRAY 2 SPRAY NOSTRIL-B (07:51)
[2021-06-01] MEDS: Dextrose 5 % and Lactated Ring 1,000 ML 100 ML IVCONT ×2 (07:51→22:55)
--- NOTE | 2021-06-01 07:57 | MHC.SHP ---
Pre-Procedural Eval Section A Date of Service: 06/01/21 The patient is an INPATIENT: Yes Changes since office visit: Yes Patient answered all questions; No Cold of Flu in the past 2 weeks, No New Medical Problems and No Changes in Medication The History & Physical has been completed within 30 days and I have reviewed it.: Yes Section B Chief Complaint: Acute cholecystitis Cholelithiasis Allergies: Allergies Allergy/AdvReac Type Severity Reaction Status Date / Time No Known Allergies Allergy Verified 05/09/21 13:07 Plan Diagnosis/Plan: Unchanged I have reviewed the history and physical and performed a pertinent physical examination on my patient. No changes have occurred unless specified.
--- NOTE | 2021-06-01 11:34 | HO.ANESPROP2 ---
HPI - Anesthesia Eval Consult details Narrative: 40 F for lap nayeli PMFSH Active Problems Active Problems: All Active Problems (Updated 05/31/21 @ 16:55 by Rylie Long MD) Cholecystitis (Acute) Gallstones (Acute) Depression (Acute) Asthma (Acute) Anxiety (Acute) History of tubal ligation (Acute) History of (Acute) H/O laparoscopic adjustable gastric banding (Acute) Lateral epicondylitis, right elbow (Acute) Disc degeneration, lumbar (Acute) Well woman exam (Acute) IUD check up (Acute) Past Medical History Medical History Anxiety Asthma Depression Disc degeneration, lumbar Family History Family history of problems with anesthesia: No Surgical History Surgical History H/O laparoscopic adjustable gastric banding History of History of tubal ligation Social History Social History Household Members: Children Housing: House Do you presently have visiting nurse or other home services: No Alcohol intake: never Patient Tobacco Use Status: Former Tobacco user Use of substances other than those prescribed or required for medical reasons: No Currently Displaying Signs/Symptoms of Drug Intoxication Withdrawal: No Have you been hit, kicked, punched, or otherwise hurt by someone within the past year? 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 Meds Allergies Allergy/AdvReac Type Severity Reaction Status Date / Time No Known Allergies Allergy Verified 05/09/21 13:07 Active Medications: Current Medications Acetaminophen (Acetaminophen 325 Mg Tablet) 650 mg PO Q6H PRN PRN Reason: Fever Albuterol Sulfate (Albuterol Sulfate 90 Mcg 8 Gm Inhaler) 2 puff INHALE Q4H PRN PRN Reason: Wheezing Albuterol Sulfate (Albuterol Sulfate (0.083%) 2.5 Mg/3 Ml Vial.Neb) 2.5 mg INHALE RTID [facility] Last Admin: 06/01/21 08:18 Dose: Not Given Documented by: Escitalopram Oxalate (Escitalopram Oxalate 10 Mg Tablet) 10 mg PO DAILY [facility] Last Admin: 06/01/21 07:44 Dose: Not Given Documented by: Fluticasone Propionate (Fluticasone Propionate Nasal 16 Gm [place]) 2 spray NOSTRIL-B DAILY [facility] Last Admin: 06/01/21 07:51 Dose: 2 spray Documented by: Gabapentin (Gabapentin 100 Mg Capsule) 100 mg PO BID [facility] Last Admin: 06/01/21 07:44 Dose: Not Given Documented by: Dextrose/Lactated Ringer's (D5lr) 1,000 mls @ 100 mls/hr IVCONT .Q10H [facility] Last Infusion: 06/01/21 11:29 Dose: 0 mls/hr Documented by: Cefotetan Disodium 2 gm/ (Sodium Chloride) 50 mls @ 100 mls/hr IV PREOP ONE Stop: 06/01/21 12:29 Piperacillin Sod/Tazobactam (Sod 3.375 gm/ Sodium Chloride) 50 mls @ 100 mls/hr IV Q6H [facility] Last Infusion: 06/01/21 07:40 Dose: Infused Documented by: Montelukast Sodium (Montelukast Sodium 10 Mg Tablet) 10 mg PO BEDTIME [facility] Last Admin: 05/31/21 20:58 Dose: 10 mg Documented by: Morphine Sulfate (Morphine Sulfate 4 Mg/Ml Cartridge) 4 mg IVPUSH Q3H PRN; Protocol PRN Reason: Pain, severe Last Admin: 05/31/21 20:58 Dose: 4 mg Documented by: Ondansetron HCl (Ondansetron Hcl 4 Mg/2 Ml Vial) 4 mg IVPUSH Q8H PRN PRN Reason: Nausea Last Admin: 05/31/21 21:59 Dose: 4 mg Documented by: Pharmacy Consult (Consult Rx Perform Med Rec) 1 each MISCELLANE ONCE PRN PRN Reason: Consult order Tizanidine HCl (Tizanidine Hcl 4 Mg Tablet) 4 mg PO BID PRN PRN Reason: muscle spasm Zolpidem Tartrate (Zolpidem Tartrate 5 Mg Tablet) 10 mg PO BEDTIME PRN PRN Reason: Insomnia Home Medications Medication Instructions Recorded Confirmed Last Taken Type tramadol 50 mg tablet 50 mg PO Q8H PRN 01/20/21 05/31/21 Unknown History zolpidem 10 mg tablet (Ambien) 10 mg PO BEDTIME PRN 01/20/21 05/31/21 05/30/21 History albuterol sulfate 1 vial INHALATION TID PRN 05/31/21 05/31/21 Unknown History albuterol sulfate 90 mcg/actuation 2 puff PO Q4-6H PRN 05/31/21 05/31/21 Unknown History aerosol inhaler (ProAir HFA) gabapentin 100 mg capsule 1 cap PO BID PRN 05/31/21 05/31/21 Unknown History multivitamin 1 tab PO DAILY 05/31/21 05/31/21 05/30/21 History tizanidine 4 mg tablet 1 tab PO BID PRN 05/31/21 05/31/21 Unknown History Exam Exam Date and Time: June 01, 2021 1134 Height,Weight and Vital Signs: Height 5 ft 5 in Weight 199 lb 15.983 oz Last Vital Signs Temp 97.6 F 06/01/21 11:17 Pulse 63 06/01/21 11:17 Resp 16 06/01/21 11:17 BP 102/82 06/01/21 11:17 Pulse Ox 100 06/01/21 11:17 Pertinent Lab Results Pertinent Lab Results: Laboratory Tests 05/31/21 05/31/21 05/31/21 08:14 08:14 09:57 WBC 6.8 RBC 3.57 L Hgb 11.2 L Hct 33.2 L MCV 93.0 MCH 31.4 MCHC 33.7 RDW 13.5 Plt Count 175 MPV 10.3 Immature Gran % (Auto) 0.3 Neut % (Auto) 70.3 Lymph % (Auto) 19.7 L [place] % (Auto) 5.8 Eos % (Auto) 3.8 Baso % (Auto) 0.1 Lymph # (Auto) 1.3 [place] # (Auto) 0.4 Eos # (Auto) 0.3 Baso # (Auto) 0.0 Abs Immat Gran (auto) 0.02 Absolute Neuts (auto) 4.8 Absolute Nucleated RBC 0.000 Nucleated RBC % (auto) 0.0 Sodium 142 Potassium 3.7 Chloride 111 H Carbon Dioxide 25 Anion Gap 10 L BUN 5 L Creatinine 0.73 Estim Creat Clear Calc 112.8 Estimated GFR > 60 Random Glucose 91 Lactic Acid Calcium 8.6 Total Bilirubin 0.4 Direct Bilirubin 0.2 AST 16 ALT 20 Alkaline Phosphatase 85 D Total Protein 6.8 Albumin 4.0 Lipase 13 Urine Color YELLOW Urine Appearance HAZY Urine pH 7.0 Ur Specific [place] 1.010 Urine Protein NEG Urine Glucose (UA) NEG Urine Ketones NEG Urine Blood 1+ H Urine Nitrite NEG Ur Leukocyte Esterase 3+ H Urine RBC 5-9 H Urine WBC 15-29 H Ur Squamous Epith Cells TRACE Urine Bacteria TRACE Urine Test COVID-19 ([facility]) COVID-19 Clin Com 05/31/21 05/31/21 05/31/21 09:57 15:10 15:11 WBC RBC Hgb Hct MCV MCH MCHC RDW Plt Count MPV Immature Gran % (Auto) Neut % (Auto) Lymph % (Auto) [place] % (Auto) Eos % (Auto) Baso % (Auto) Lymph # (Auto) [place] # (Auto) Eos # (Auto) Baso # (Auto) Abs Immat Gran (auto) Absolute Neuts (auto) Absolute Nucleated RBC Nucleated RBC % (auto) Sodium Potassium Chloride Carbon Dioxide Anion Gap BUN Creatinine Estim Creat Clear Calc Estimated GFR Random Glucose Lactic Acid 0.6 Calcium Total Bilirubin Direct Bilirubin AST ALT Alkaline Phosphatase Total Protein Albumin Lipase Urine Color Urine Appearance Urine pH Ur Specific [place] Urine Protein Urine Glucose (UA) Urine Ketones Urine Blood Urine Nitrite Ur Leukocyte Esterase Urine RBC Urine WBC Ur Squamous Epith Cells Urine Bacteria Urine Test NEGATIVE COVID-19 ([facility]NA) Negative COVID-19 Clin Com See Note 06/01/21 04:27 WBC 6.1 RBC 3.41 L Hgb 10.5 L Hct 32.2 L MCV 94.4 MCH 30.8 MCHC 32.6 RDW 13.6 Plt Count 157 L MPV 10.5 Immature Gran % (Auto) Neut % (Auto) Lymph % (Auto) [place] % (Auto) Eos % (Auto) Baso % (Auto) Lymph # (Auto) [place] # (Auto) Eos # (Auto) Baso # (Auto) Abs Immat Gran (auto) Absolute Neuts (auto) Absolute Nucleated RBC 0.000 Nucleated RBC % (auto) 0.0 Sodium Potassium Chloride Carbon Dioxide Anion Gap BUN Creatinine Estim Creat Clear Calc Estimated GFR Random Glucose Lactic Acid Calcium Total Bilirubin Direct Bilirubin AST ALT Alkaline Phosphatase Total Protein Albumin Lipase Urine Color Urine Appearance Urine pH Ur Specific [place] Urine Protein Urine Glucose (UA) Urine Ketones Urine Blood Urine Nitrite Ur Leukocyte Esterase Urine RBC Urine WBC Ur Squamous Epith Cells Urine Bacteria Urine Test COVID-19 (IRENA) COVID-19 Clin Com Airway Mallampati Class: I TM Dist: >3cm Neck ROM: Full Loose/Missing/Broken Teeth: No Assessment and Plan Assessment Anesthesia Assessment: Anesthesia Plan Discussed and Chart Reviewed Final Anesthetic Review Family History of Problems with Anesthesia: No NPO: Yes ASA Class: II Final Preanesthetic Review: No Changes in Pt Med Stat, Meds/Allgs Chart Reviewed, Consent Obtained/Reviewed and Anes Risks/Benef Reviewed Patient Risk: Low Procedure Risk: Low Anesthetic Plan Anesthetic Plan: GA Disposition: Standard PACU
--- NOTE | 2021-06-01 12:45 | MHC.CM.PN ---
PATIENT IS OFF UNIT. PER REVIEW OF CHART, PATIENT IS INDEPENDENT WITH ADLS. NO DME OR [facility] CASE MANAGEMENT WILL FOLLOW UP WITH PATIENT WHEN SHE IS RETURNED TO THE UNIT AND ABLE TO PARTICIPATE IN CONVERSATION.
--- NOTE | 2021-06-01 13:29 | P.OP_ITS ---
Operative Note Operative Note Date of Service: 06/01/21 Narrative: Preoperative diagnosis: AcuteCholecystitis, cholelithiasis Postoperative diagnosis: Same Procedure: Laparoscopic cholecystectomy Surgeon: John Garnica MD Audio Visual Equipment Rental Clerk: Triny Osman PA-C Anesthesia: General endotracheal Indications for procedure: 40-year-old female patient presenting with complaints of abdominal pain in the right upper quadrant of several days duration. The patient is status post lap banding but denies nausea or vomiting currently. Patient underwent ultrasound of the abdomen which confirmed multiple gallstones within the gallbladder as well as thickened gallbladder wall. Patie nt presents now for laparoscopic or possible open cholecystectomy. Operative findings: Patient was found to have dense adhesions to the undersurface of the gallbladder from the omentum overlying the gallbladder. And intact lap band was identified with a port in the right upper midline. No evidence of port infection. Specimen: Gallbladder Estimated blood loss: 10 mL Complications: None Procedure details: Patient was brought to the OR placed in a supine position. After administering general anesthesia the patient's abdomen was prepped with ChloraPrep and draped in a sterile fashion. A surgical time-out was called the consent confirmed. Patient received preoperative antibiotics and Venodyne boots were in place. Local anesthesia consisting of 0.5% Sensorcaine was infiltrated in periumbilical region. A 5 mm incision was then made with a scalpel. Veress needle was then inserted while elevating the abdominal cavity with towel clips. After a positive drop test the abdomen was insufflated to a pressure of 15 mm of mercury. The Veress needle was removed and a 5 mm port inserted under direct vision using the Versaport. Camera was then inserted in the abdomen explored. Dense adhesions were noted to the undersurface of the gallbladder from the omentum. A 12 mm trocar was placed in the epigastrium and 2 5 mm trocars placed in the right upper quadrant. The patient was placed in a reverse Trendelenburg position rotated to the left. Gallbladder was then grasped with the fundus retracted cephalad. Adhesions were then taken down using the Dolphin dissector and electrocautery. Adequate hemostasis was assured all times using electrocautery. When the infundibulum was identified this was grasped with a grasper and retracted away from the liver bed. Peritoneum was then taken down off the infundibulum to revealed the junction with the cystic duct. Cystic artery was noted just behind this with an overlying node of Calot. The node of Calot was dissected off the cystic artery. After obtaining a critical view the cystic duct was doubly clipped and divided. Cystic artery was then doubly clipped and divided. The gallbladder was then dissected off the liver bed using the hooked dissector. With the gallbladder is completely dissected off the liver bed it was placed in Endo-Catch bag brought out through the epigastric incision. Wounds were again checked for hemostasis. Wounds were irrigated and suctioned dry. No bile or bleeding could be identified. CO2 was then evacuated and all trocars removed. Fascia was closed at the epigastric incision using a [id number] 0 Polysorb suture. Skin was closed in all incisions using a subcuticular 4-0 Polysorb suture. Steri-Strips 2 x 2 gauze and Tegaderm were then applied. The patient tolerated the procedure well. Sponge, instrument, and needle counts reported as correct. Patient was transferred to PACU in stable condition.
[2021-06-01] MEDS: HYDROmorphone HCl 0.5 MG/0.5 ML SYRINGE 0.25 MG IVPUSH ×4 (13:39→13:54)
[2021-06-01] MEDS: Ketorolac Tromethamine 15 MG/ML VIAL IVPUSH (13:41)
[2021-06-01] MEDS: ondansetron HCL 4 MG/2 ML VIAL IVPUSH ×2 (13:41→17:30)
[2021-06-01] MEDS: oxyCODONE HCl Immed Release 5 MG TABLET PO ×2 (17:30→21:50)
[2021-06-01] MEDS: Albuterol Sulfate (0.083%) 2.5 MG/3 ML VIAL.NEB INHALE (20:00)
[2021-06-01] MEDS: Gabapentin 100 MG CAPSULE PO (21:51)
[2021-06-01] MEDS: Montelukast Sodium 10 MG TABLET PO (21:51)
[2021-06-02] VITALS: BP 94/54; PULSE 67; RESP 15; TEMP 36.2; O2SAT 98
--- NOTE | 2021-06-02 01:47 | PC.NURSE ---
06/01/21 2245 pt c/o of nausea not due for zofran until 01:30 notified.ordered phenergan 12.5mg iv x 1.given at 2243
[2021-06-02] MEDS: Piperacillin Sodium/Tazobactam 3.375 GM in 0.9 % Sodium Chloride 50 ML IV ×2 (02:35→08:25)
[2021-06-02 03:15] VITALS: BP 95/52; PULSE 62; RESP 14; TEMP 36.2; O2SAT 98
--- NOTE | 2021-06-02 07:38 | PM.PNGS ---
Subjective Subjective Date of Service: 06/02/21 Interval history: Reports nausea and vomiting during the night; abdominal pain in the right upper quadrant incisions. Nausea is better this morning. She was able to get out of bed and ambulate earlier. Physical Exam Vital Signs: Vital Signs: Last Vital Signs Temp 97.2 F 06/02/21 03:15 Pulse 62 06/02/21 03:15 Resp 14 06/02/21 03:15 BP 95/52 L 06/02/21 03:15 Pulse Ox 98 06/02/21 03:15 Body Mass Index 33.3 Const: General: no acute distress Nutritional Appearance: well nourished Orientation/consciousness: patient oriented x3 Limitations: no limitations Resp: Effort & Inspection: normal respiratory effort, no stridor and not tachypneic GI: Other: incisions are clean, dry and intact; soft and non-distended. Skin: Other: warm, dry, no rash Neuro: General: patient oriented x3 Extrem: General: No cyanosis and No edema Procedures Date of Service Date of Service: 06/02/21 Progress Note: A&P Assessment and plan (1) Cholecystitis: Status: Acute Assessment and Plan: POD #1 s/p laparoscopic cholecystectomy; patient reports nausea and vomiting during the night. Wounds clean and intact. BP on the low side this morning but not tachycardic. Will continue observation and check back later to evaluate for possible discharge. Fall Risk Details Current Medications: Current Medications Acetaminophen (Acetaminophen 325 Mg Tablet) 650 mg PO Q6H PRN PRN Reason: Fever Albuterol Sulfate (Albuterol Sulfate 90 Mcg 8 Gm Inhaler) 2 puff INHALE Q4H PRN PRN Reason: Wheezing Albuterol Sulfate (Albuterol Sulfate (0.083%) 2.5 Mg/3 Ml Vial.Neb) 2.5 mg INHALE RTID [facility] Last Admin: 06/01/21 20:00 Dose: 2.5 mg Documented by: Escitalopram Oxalate (Escitalopram Oxalate 10 Mg Tablet) 10 mg PO DAILY [facility] Last Admin: 06/01/21 07:44 Dose: Not Given Documented by: Fluticasone Propionate (Fluticasone Propionate Nasal 16 Gm [place]) 2 spray NOSTRIL-B DAILY [facility] Last Admin: 06/01/21 07:51 Dose: 2 spray Documented by: Gabapentin (Gabapentin 100 Mg Capsule) 100 mg PO BID [facility] Last Admin: 06/01/21 21:51 Dose: 100 mg Documented by: Dextrose/Lactated Ringer's (D5lr) 1,000 mls @ 100 mls/hr IVCONT .Q10H [facility] Last Admin: 06/01/21 22:55 Dose: 100 mls/hr Documented by: Piperacillin Sod/Tazobactam (Sod 3.375 gm/ Sodium Chloride) 50 mls @ 100 mls/hr IV Q6H [facility] Last Infusion: 06/02/21 03:27 Dose: Infused Documented by: Montelukast Sodium (Montelukast Sodium 10 Mg Tablet) 10 mg PO BEDTIME [facility] Last Admin: 06/01/21 21:51 Dose: 10 mg Documented by: Morphine Sulfate (Morphine Sulfate 4 Mg/Ml Cartridge) 4 mg IVPUSH Q3H PRN; Protocol PRN Reason: Pain, severe Last Admin: 05/31/21 20:58 Dose: 4 mg Documented by: Ondansetron HCl (Ondansetron Hcl 4 Mg/2 Ml Vial) 4 mg IVPUSH Q8H PRN PRN Reason: Nausea Last Admin: 06/01/21 17:30 Dose: 4 mg Documented by: Oxycodone HCl (Oxycodone Hcl Immed Release 5 Mg Tablet) 5 mg PO Q4H PRN PRN Reason: Pain, Moderate (Pain Scale 4-6 Last Admin: 06/01/21 21:50 Dose: 5 mg Documented by: Pharmacy Consult (Consult Rx Perform Med Rec) 1 each MISCELLANE ONCE PRN PRN Reason: Consult order Tizanidine HCl (Tizanidine Hcl 4 Mg Tablet) 4 mg PO BID PRN PRN Reason: muscle spasm Zolpidem Tartrate (Zolpidem Tartrate 5 Mg Tablet) 10 mg PO BEDTIME PRN PRN Reason: Insomnia Time Spent With Patient Time: Total time spent is greater than 50% in coordination of care (as documented) at patient's floor/unit and/or counseling patient: Time with patient: 15 - 24 minutes Quality Stroke Does the patient have a stroke diagnosis?: No VTE Prior VTE?: No VTE Risk Level:: Surgical - low VTE Device Contraindication: N/A - Device Ordered VTE Drug Contraindication: Treatment Not Indicated
--- NOTE | 2021-06-02 07:55 | HO.POSTANES ---
Post Anesthesia Evaluation Post Anesthesia Evaluation Vital Signs: Vital Signs Temp Pulse Resp BP Pulse Ox 06/02/21 03:15 97.2 F 62 14 95/52 L 98 06/02/21 00:00 97.2 F 67 15 94/54 L 98 06/01/21 20:02 70 Anesthesia: General Endotracheal-GETA Mental Status: Awake Nausea/Vomiting: Mild Hydration: Adequate Anesthesia-Related Issues: No Anes. Related Issues
[2021-06-02 08:00] VITALS: BP 102/60; PULSE 55; RESP 17; TEMP 36.3; O2SAT 100
[2021-06-02] MEDS: oxyCODONE HCl Immed Release 5 MG TABLET PO ×2 (08:25→14:22)
[2021-06-02] MEDS: Escitalopram Oxalate 10 MG TABLET PO (08:25)
[2021-06-02] MEDS: Fluticasone Propionate Nasal 16 GM SPRAY 2 SPRAY NOSTRIL-B (08:25)
[2021-06-02] MEDS: Gabapentin 100 MG CAPSULE PO (08:25)
[2021-06-02] MEDS: Albuterol Sulfate (0.083%) 2.5 MG/3 ML VIAL.NEB INHALE (08:32)
[2021-06-02 08:34] VITALS: PULSE 62; O2SAT 99
[2021-06-02 12:00] VITALS: BP 112/60; PULSE 78; RESP 18; TEMP 36.7; O2SAT 100
--- NOTE | 2021-06-02 14:18 | MHC.CM.PN ---
PATIENT IS DISCHARGED TODAY. SHE HAS NO DME OR VNA SERVICES AND NONE ARE NEEDED. PATIENT IS ARRANGING HER OWN TRANSPORT HOME.
[2021-06-02] MEDS: Acetaminophen 325 MG TABLET 650 MG PO (14:21)
--- NOTE | 2021-06-06 09:31 | P.DS_ITS ---
DS: Providers Provider Date of Service: 06/02/21 Date of admission: 05/31/21 16:34 Primary care physician: Yolanda Alan MD Attending physician on admission: Rylie Long Attending physician on discharge: John Garnica DS: Diagnosis Discharge Diagnosis (1) Cholecystitis: Status: Acute DS: Summary Hospital Course Hospital Course: BRIEF HPI: Sayra Mei is a 40 year old female presented to the emerg ency department this morning for evaluation of epigastric pain.? She was feeling well until around 05:00 o'clock last night when she developed nausea and epigastric pain.? The pain was manageable through the night, but became severe this morning after she drank some coffee.? She is unsure about whether she has experienced similar pain in the past.? She has a history of laparoscopic gastric banding.? Her band is not inflated as she was traveling recently.? Because of this, she felt that the pain was not related to the gastric band but she is not sure about past episodes of abdominal pain. In the emergency department, liver function studies and white blood count were normal.? Ultrasound was obtained and revealed numerous gallstones and marginal thickening of the gallbladder wall.? She reports ongoing difficulty with right upper quadrant abdominal pain.? The pain is relieved by medication but recurs when the medication wears off. Clinical history consistent with early acute cholecystitis. HOSPITAL COURSE: The patient was admitted to the surgical service under Dr. Long for further treatment of the acute cholecystitis. She was kept on IV fluids and IV antibiotics.?Treatment options were discussed with the patient and she elected to proceed with laparoscopic cholecystectomy possible open. She was kept NPO after midnight and added onto the OR schedule for the following day. Care was transferred to Dr. Garnica. On 06/01/21, a laparoscopic cholecystectomy was performed by Dr. Garnica without complication. The patient tolerated the procedure well, completed routine recovery in PACU and was admitted back to the medical/surgical floor for observation. The patient had an uncomplicated recovery course. She felt well on POD #1. Her pain was well controlled and she was comfortable. She did have difficulty with nausea and vomiting immediately post operatively but felt better that morning. She was reassessed later in the day and was tolerating a solid diet without further n/v. She was OOB without difficulty. Her abdomen was benign with clean dressings. She felt ready for discharge. She was discharged to to home on 06/02/21 in stable condition. Time Spent with Patient Time attestation: Total time spent providing and/or coordinating discharge services: Discharge coordination time: Less than 30 minutes Quality: Stroke Does the patient have a stroke diagnosis?: No Physical Exam Vital Signs: Vital Signs: Last Vital Signs Temp 98.0 F 06/02/21 12:00 Pulse 78 06/02/21 12:00 Resp 18 06/02/21 12:00 BP 112/60 06/02/21 12:00 Pulse Ox 100 06/02/21 12:00 Body Mass Index 33.3 Const: General: comfortable, no acute distress and alert Orientation/consciousness: patient oriented x3 Eyes: Sclerae: sclerae normal Resp: Effort & Inspection: normal respiratory effort GI: Inspection: No distended and Yes incision (dressings c/d/i) Palpation (GI): Soft to palpation, Tenderness to palpation present (GI) (incisional), no guarding and not rigid Percussion: Yes normal to percussion Skin: General skin exam: no rashes or lesions noted Neuro: General: patient oriented x3 Extrem: General: Yes no clubbing, cyanosis or edema DS: Data Data Completed and Pending Completed studies during hospitalization [Text1]: 06/01/21 13:12 Surgical [PTH] Routine Gallbladder, cholecystectomy:? Chronic cholecystitis; cholelithiasis. Discharge Plan Discharge Patient Disposition: Home, Self-Care Discharge Diagnosis: acute cholecystitis s/p lap cholecystectomy Referrals: Yolanda Regan MD [Primary Care Provider] - 1 Week John Garnica MD [Physician] - 1 Week Discharge Medications: New oxycodone 5 mg tablet 5 mg PO Q6H PRN (Reason: pain) Qty: 10 RF: 0 Continued tizanidine 4 mg tablet 1 tab PO BID PRN (Reason: muscle spasm) RF: 0 albuterol sulfate 2.5 mg /3 mL (0.083 %) solution for nebulization 1 vial inhalation TID PRN (Reason: Wheezing) RF: 0 gabapentin 100 mg capsule 1 cap PO BID PRN (Reason: ARM PAIN) RF: 0 albuterol sulfate [ProAir HFA] 90 mcg/actuation HFA aerosol inhaler 2 puff PO Q4-6H PRN (Reason: Wheezing) RF: 0 multivitamin Tablet 1 tab PO DAILY RF: 0 zolpidem [Ambien] 10 mg tablet 10 mg PO BEDTIME PRN (Reason: Insomnia) RF: 0 tramadol 50 mg tablet 50 mg PO Q8H PRN (Reason: Pain) RF: 0 Discharge Orders: Discharge Order (Routine); Ordered 06/02/21 Ordered By: John Garnica Diet: advance to usual diet Activity on Discharge: No heavy lifting Stand Alone Forms: Patient Portal Discharge page, Work/School Release Activity Restrictions/Additional Instructions: If the incision area is tender, you may apply an ice pack for short intervals (No more than 20 minutes on, followed by at least 20 minutes off). Do not apply heat. Do not use creams, lotions, or topical antibiotics unless instructed to do so by your surgeon. These can cause infection or allergic reaction. Ok to shower. Remove clear dressings 3 days following your procedure. You have steri strips (small white cloth strips) covering your incision- these will fall off ~1 week. No heavy lifting (>10lbs)! Follow up in office with Dr. Garnica in 1 week. ([phone]) Call Your Doctor If: -Your temperature exceeds 101.5? F -You experience excessive pain or swelling -You have an unexpected reaction to medication -You have excessive bleeding -You experience continued vomiting/nausea -Your incision begins to separate -Your incision shows signs of infection such as increased redness, swelling, excessive pain, drainage (light blood or clear fluid is normal) or heat Care Plan Goals: Return to baseline health and gradual return to activity following recovery period. Health Concerns: acute cholecystitis s/p lap nayeli Plan of Treatment: Pain control, discharge to home, f/u in office with Dr. Garnica Assessment: Doing well post op Patient Instructions: Gallstones (ED) Discharge Date/Time: 06/02/21 15:02
== END 2021-06-02 15:02 | disposition home or self-care (01) | DRG 263 ==
LOC: HO.ED 14:48 → HO.EDOVER 17:34 → HO.S3 18:39
PROVIDERS: Nurse Practitioner Family; Admitting Provider Surgery; Emergency Provider Emergency Medicine Emergency Medical Services; PCP Internal Medicine; Visit Provider Surgery
PROC: 0FT44ZZ Resection of Gallbladder, Percutaneous Endoscopic Approach (ICD-10-PCS; CPT 47562; principal; 2021-06-01 12:00)
DX: K80.00 Calculus of gallbladder with acute cholecystitis without obstruction (principal); Z20.822 Contact with and (suspected) exposure to COVID-19; Z23 Encounter for immunization; Z98.84 Bariatric surgery status; Z87.891 Personal history of nicotine dependence; Z79.899 Other long term (current) drug therapy
CPT/HCPCS: 47562; 36415; 76705; 80048; 80076; 81001; 81025; 83605; 83690; 85025; 85027; 87040; 87086; 87635; 88304; 90686; 94640; 96365; 96375; 96376; 99024; 99285; J0131; J0696; J1100; J1170; J1885; J2250; J2270; J2405; J2543; J2550; J3010

== ENCOUNTER → 2021-06-08 14:39 | Outpatient (BNVA) | payer MEDICAID, SELFPAY | PROVIDERS: PCP Internal Medicine; Visit Provider Surgery | DX: R14.0 Abdominal distension (gaseous) (principal); R10.13 Epigastric pain; K80.20 Calculus of gallbladder without cholecystitis without obstruction; R53.83 Other fatigue; J45.909 Unspecified asthma, uncomplicated; F41.8 Other specified anxiety disorders; Z87.891 Personal history of nicotine dependence; Z09 Encounter for follow-up examination after completed treatment for conditions other than malignant neoplasm; Z90.49 Acquired absence of other specified parts of digestive tract | CPT/HCPCS: 99212 ==

== ENCOUNTER → 2021-06-13 13:25 | Outpatient (BNVA) | payer MEDICAID, SELFPAY | PROVIDERS: PCP Internal Medicine; Referring Provider Internal Medicine; Visit Provider Surgery | DX: Z48.815 Encounter for surgical aftercare following surgery on the digestive system (principal); Z90.49 Acquired absence of other specified parts of digestive tract | CPT/HCPCS: 99212 ==

== ENCOUNTER → 2021-06-16 08:55 | Outpatient (BNVA) | payer MEDICAID, SELFPAY | PROVIDERS: PCP Internal Medicine; Visit Provider Physician Assistant ==

== ENCOUNTER → 2021-06-21 13:25 | Outpatient (BNVA) | payer MEDICAID, SELFPAY | PROVIDERS: PCP Internal Medicine; Visit Provider Physician Assistant | DX: E66.9 Obesity, unspecified (principal); F32.9 Major depressive disorder, single episode, unspecified; J45.909 Unspecified asthma, uncomplicated; Z98.51 Tubal ligation status; Z98.84 Bariatric surgery status; Z68.35 Body mass index [BMI] 35.0-35.9, adult | CPT/HCPCS: 99202 ==

== ENCOUNTER 2021-06-22 07:43 | Outpatient (REF) | payer MEDICAID, SELFPAY ==
--- NOTE | ~2021-06-22 | XR_ITS ---
EXAMINATION: XR CHEST CLINICAL INFORMATION: Bariatric surgery status. COMPARISON: 03/10/2019 chest radiographs. TECHNIQUE: 2 views of the chest were obtained. FINDINGS: No significant abnormality is noted involving the heart, lungs, mediastinum, bony thorax or soft tissues. XR/XR chest 2V IMPRESSION: No acute cardiopulmonary process.
--- NOTE | 2021-06-22 08:00 | ECG_ITS ---
Test Reason : obesity Blood Pressure : / mmHG Vent. Rate : 058 BPM Atrial Rate : 058 BPM P-R Int : 148 ms QRS Dur : 076 ms QT Int : 402 ms P-R-T Axes : 005 049 021 degrees QTc Int : 394 ms Sinus bradycardia Otherwise normal ECG When compared with ECG of 10-MAR-2019 09:30, No significant change was found Referred By: Marybeth Mckeon Electronically Signed By:JOSETTE EMERSON MD
[2021-06-22 08:06] LABS: MANUAL DIFF FLAG NO
[2021-06-22 08:19] LABS: Basophils Percent Auto 0.3 % (0-2); Eosinophils Absolute Auto 0.4 X10*3/uL (0.0-0.4); Eosinophils Percent Auto 6.7 % (0-4); Hematocrit 39.2 % (37-47); Imm Gran Abs Auto 0.01 X10*3/uL (0.00-0.03); Imm Gran Pct Auto 0.2 % (0.0-0.4); Lymphocytes Absolute Auto 1.9 X10*3/uL (1.2-4.9); Mean Corpuscular HGB Conc 33.2 g/dl (31.0-35.0); Mean Corpuscular Hemoglobin 30.2 pg (27.0-33.0); Mean Platelet Volume 10.4 fL (9.4-12.3); Monocytes Absolute Auto 0.4 X10*3/uL (0.1-1.2); Monocytes Percent Auto 6.7 % (2-11); Neutrophils Absolute Auto 3.7 X10*3/uL (2.0-8.3); Neutrophils Percent Auto 57.1 % (45-73); Platelet Count 246 X10*3/uL (160-400); Red Blood Count 4.31 X10*6/uL (4.20-5.50); Red Cell Distribution Width 13.2 % (11.0-16.0); White Blood Count 6.6 X10*3/uL (4.8-10.8)
[2021-06-22 08:43] LABS: Alanine Aminotransferase 17 U/L (0-31); Albumin Level 4.4 g/dL (3.5-5.0); Alkaline Phosphatase 105 U/L (39-117); Anion Gap 12 (12-20); Aspartate Amino Transferase 22 U/L (5-31); Bilirubin Total 0.7 mg/dL (0.0-1.0); Blood Urea Nitrogen 10 mg/dL (9-16); C Reactive Protein 0.26 mg/dL (< or = 0.50); Calcium 9.6 mg/dL (8.4-10.2); Carbon Dioxide 28 mmol/L (22-29); Chloride 105 mmol/L (96-108); Cholesterol 187 mg/dL; Estimated Glomerular Filt Rate > 60; Glucose Random 92 mg/dL (60-115); HDL Cholesterol 59 mg/dL; Iron 84 mcg/dL (30-160); LDL Cholesterol Calculated 110 mg/dl; Percent Iron Saturation 18 % (15-50); Potassium 4.3 mmol/L (3.3-5.1); Sodium 141 mmol/L (135-145); Total Iron Binding Capacity 465 mcg/dL (228-428); Total Protein 7.6 g/dL (6.5-8.0); Triglycerides 93 mg/dL; Unsaturated Iron Binding 381 ug/dL
[2021-06-22 08:50] LABS: Estimated Average Glucose 94 mg/dL; Hemoglobin A1c % 4.9 %
[2021-06-22 09:07] LABS: Ferritin 21 ng/mL (10-250); Insulin 10 uU/mL (2-29); TSH reflex Free T4 0.54 uIU/mL (0.32-4.0); Vitamin D 25-OH Total 29.8 ng/mL (>30)
[2021-06-22 09:13] LABS: Folate 16.2 ng/mL (> or = 4.0); Vitamin B12 804 pg/mL (200-900)
[2021-06-22 13:05] LABS: H Pylori Breath Test Negative (Negative)
[2021-06-23 15:51] LABS: Calcium (PTHI) 9.6 mg/dL (8.6-10.2); PTHI 28 pg/mL (14-64)
[2021-06-27 05:01] LABS: Zinc 84 mcg/dL (60-130)
[2021-06-28 01:16] LABS: Vitamin A 53 mcg/dL (38-98)
[2021-06-30 05:42] LABS: Vitamin B1 13 nmol/L (8-30)
== END 2021-06-22 07:44 | disposition home or self-care (01) ==
LOC: HO.LAB 07:43
PROVIDERS: PCP Internal Medicine; Visit Provider Physician Assistant
DX: Z01.818 Encounter for other preprocedural examination (principal); E66.9 Obesity, unspecified; M79.7 Fibromyalgia; Z98.84 Bariatric surgery status
CPT/HCPCS: 36415; 71046; 80053; 80061; 82306; 82607; 82728; 82746; 83013; 83036; 83525; 83540; 83970; 84425; 84443; 84590; 84630; 85025; 86140; 93005; 99211

== ENCOUNTER 2021-07-12 07:14 | Emergency (ER) | payer MEDICAID, SELFPAY ==
--- NOTE | ~2021-07-12 | XR_ITS ---
EXAMINATION: XR KNEE, RIGHT CLINICAL INFORMATION: Medial pain. Evaluate for fracture. Twisted the right knee. COMPARISON: None TECHNIQUE: Four views of the right knee. FINDINGS: Bones have normal alignment and joint spaces are maintained. No evidence of fracture, subluxation or joint effusion. The soft tissues are unremarkable. XR/XR knee RT 3V IMPRESSION: Normal right knee.
[2021-07-12 07:37] VITALS: BP 114/65; PULSE 84; RESP 15; TEMP 36.9; O2SAT 100
[2021-07-12 07:59] VITALS: BP 114/64; PULSE 84; RESP 16; TEMP 36.9; O2SAT 100; BMI 28.3
--- NOTE | 2021-07-12 08:43 | ED_ITS ---
HPI - General Adult General Chief complaint: Extremity Injury, Lower Stated complaint: rt knee pain Time Seen by Provider: 07/12/21 08:13 Source: patient Mode of arrival: ambulatory Limitations: language barrier (Georgian speaking only, transplant immunologist used) History of Present Illness HPI narrative: 41-year-old female who presents emergency department for evaluation of right knee injury. The patient states that she was walking down stairs last night around 9:00 p.m. when she slipped but was able to hold on and not fall. The patient did twist her right knee. She states that since that time she has had constant, sharp, severe pain in her right knee which is worse with movement. She states that she is able to walk and bear weight but she is limping and having pain with walking. She denied any other injury. She states she has not injured this knee in the past Related Data Home Medications Medication Instructions Recorded Confirmed tramadol 50 mg tablet 50 mg PO Q8H PRN 01/20/21 06/21/21 zolpidem 10 mg tablet (Ambien) 10 mg PO BEDTIME PRN 01/20/21 06/21/21 albuterol sulfate 1 vial INHALATION TID PRN 05/31/21 06/21/21 albuterol sulfate 90 mcg/actuation 2 puff PO Q4-6H PRN 05/31/21 06/21/21 aerosol inhaler (ProAir HFA) gabapentin 100 mg capsule 1 cap PO BID PRN 05/31/21 06/21/21 multivitamin 1 tab PO DAILY 05/31/21 06/21/21 tizanidine 4 mg tablet 1 tab PO BID PRN 05/31/21 06/21/21 Previous Rx's Medication Instructions Recorded oxycodone 5 mg tablet 5 mg PO Q6H PRN #10 tab 06/02/21 cholecalciferol (vitamin D3) 10 10 mcg PO DAILY #30 cap 06/22/21 mcg (400 unit) capsule Allergies Allergy/AdvReac Type Severity Reaction Status Date / Time No Known Allergies Allergy Verified 06/21/21 13:33 Review of Systems Review of Systems: Yes all other systems are reviewed and are negative PMFSH Past Medical History PMFSH Narrative: Social history: The patient denies tobacco, alcohol and drug use. Medical History Anxiety Asthma Depression Disc degeneration, lumbar Surgical History H/O laparoscopic adjustable gastric banding History of History of tubal ligation Hx laparoscopic cholecystectomy (06/01/21) Hx of dilation and curettage Family History Family History Mother No problems noted. Father Diabetes Sister No problems noted. Brother No problems noted. Son No problems noted. Son No problems noted. Daughter No problems noted. 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 Physical Exam Vital Signs: Vital Signs: Last Vital Signs Temp 98.4 F 07/12/21 07:59 Pulse 84 07/12/21 07:59 Resp 16 07/12/21 07:59 BP 114/64 07/12/21 07:59 Pulse Ox 100 07/12/21 07:59 Body Mass Index 28.3 Const: Other: Very pleasant and cooperative female patient, she does not appear to be in distress, she is lying comfortably on stretcher, she answers all questions appropriately Orientation/consciousness: oriented to person and oriented to place HENMT: Head: Yes normocephalic and Yes atraumatic Resp: Effort & Inspection: normal respiratory effort Neuro: General: oriented to person and oriented to place Cranial nerves: Yes CN's II-XII intact bilaterally Extrem: Other: The patient's right lower extremity revealed tenderness with palpation over the medial collateral ligament, she has limited flexion and extension of her knee both passively and actively secondary to her pain which limited the examination. There is no patella tenderness, there is no soft tissue swelling noted and no joint effusion noted. Course Course Course Narrative: 41-year-old female who presents emergency department for evaluation of he twisting like right knee injury that occurred last night around 9:00 p.m. when she slipped going down stairs. The patient did not fall and did not strike her knee. Physical examination did reveal right knee medial collateral ligament tenderness with limited flexion extension secondary to pain. I ordered an x-ray to rule out fracture. Patient was given Motrin 600 mg orally for pain. 0940: The patient's x-ray of her right knee revealed no acute fracture. Patient's presentation is consistent with a medial collateral ligament sprain. The patient was given a knee immobilizer and crutches. She was advised to take Tylenol and ibuprofen for pain. She was given printed and verbal instructions and discharged home. Discharge Plan Discharge Clinical Impression: Medial collateral ligament sprain of knee Patient Disposition: Home, Self-Care Instructions: Knee Sprain (ED), Crutch Instructions (ED), Knee Immobilizer (ED) Additional Instructions: The x-ray of your knee revealed no broken bones which is reassuring. Your examination is consistent with a sprain of the right knee medial collateral ligament (the ligament on the inside of the knee). Wear the knee immobilizer for 1 week. Use the crutches for 1 week. Take ibuprofen 200 mg pills, 3 pills every 6 hours as needed for pain. Take Tylenol (acetaminophen) 500 mg pills, 2 pills every 4 to 6 hours as needed for pain. Follow-up with your doctor in 7 days. Please return to the emergency department if your symptoms get worse or if you develop any symptoms that are concerning to you. Prescriptions: No Action cholecalciferol (vitamin D3) 10 mcg (400 unit) capsule 10 mcg PO DAILY Qty: 30 RF: 6 tizanidine 4 mg tablet 1 tab PO BID PRN (Reason: muscle spasm) RF: 0 albuterol sulfate 2.5 mg /3 mL (0.083 %) solution for nebulization 1 vial inhalation TID PRN (Reason: Wheezing) RF: 0 gabapentin 100 mg capsule 1 cap PO BID PRN (Reason: ARM PAIN) RF: 0 albuterol sulfate [ProAir HFA] 90 mcg/actuation HFA aerosol inhaler 2 puff PO Q4-6H PRN (Reason: Wheezing) RF: 0 multivitamin Tablet 1 tab PO DAILY RF: 0 oxycodone 5 mg tablet 5 mg PO Q6H PRN (Reason: pain) Qty: 10 RF: 0 zolpidem [Ambien] 10 mg tablet 10 mg PO BEDTIME PRN (Reason: Insomnia) RF: 0 tramadol 50 mg tablet 50 mg PO Q8H PRN (Reason: Pain) RF: 0 Print Language: Georgian
[2021-07-12] MEDS: Ibuprofen 600 MG TABLET PO (09:09)
== END 2021-07-12 10:00 | disposition home or self-care (01) ==
PROVIDERS: Emergency Provider Emergency Medicine Emergency Medical Services; PCP Internal Medicine
DX: S83.411A Sprain of medial collateral ligament of right knee, initial encounter (principal); X50.1XXA Overexertion from prolonged static or awkward postures, initial encounter; Y93.9 Activity, unspecified; Y92.9 Unspecified place or not applicable; Y99.9 Unspecified external cause status
CPT/HCPCS: 73562; 99283; 99284

== ENCOUNTER → 2021-07-17 08:06 | Outpatient (BNVA) | payer MEDICAID, SELFPAY | PROVIDERS: PCP Internal Medicine; Visit Provider Physician Assistant ==

== ENCOUNTER 2021-07-21 11:24 | Day surgery (SDC) | payer MEDICAID, SELFPAY ==
[2021-06-05 11:57] VITALS: BMI 31.6
--- NOTE | 2021-07-20 10:39 | HO.ANESPROP2 ---
Documented by User: Beth Torres NP 07/20/21 10:40 HPI - Anesthesia Eval Consult details Narrative: 41yo F for Bilateral Transforaminal Epidural Steroid Injection s/p lap nayeli 05/2021 with GETA - 7 PMFSH Active Problems Active Problems: All Active Problems (Updated 07/13/21 @ 00:02 by Lou Hua) Fibromyalgia (Acute) Pre-op evaluation (Acute) Obesity (Acute) IUD check up (Acute) Well woman exam (Acute) Lateral epicondylitis, right elbow (Acute) Depression (Acute) Asthma (Acute) Anxiety (Acute) History of tubal ligation (Acute) History of (Acute) H/O laparoscopic adjustable gastric banding (Acute) Disc degeneration, lumbar (Acute) Past Medical History Medical History Anxiety Asthma Depression Disc degeneration, lumbar Family History Family History Mother No problems noted. Father Diabetes Sister No problems noted. Brother No problems noted. Son No problems noted. Son No problems noted. Daughter No problems noted. Family history of problems with anesthesia: No Surgical History Surgical History H/O laparoscopic adjustable gastric banding History of History of tubal ligation Hx laparoscopic cholecystectomy (06/01/21) Hx of dilation and curettage Social History Social History Household Members: Children Housing: House Do you presently have visiting nurse or other home services: No Alcohol intake: never Patient Tobacco Use Status: Former Tobacco user Use of substances other than those prescribed or required for medical reasons: No Are you DNR?: No Advance Directives: No Advance Directives Information Provided: No service: No Current occupational status: employed 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 Meds Allergies Allergy/AdvReac Type Severity Reaction Status Date / Time No Known Allergies Allergy Verified 06/21/21 13:33 Home Medications Medication Instructions Recorded Confirmed Last Taken Type tramadol 50 mg tablet 50 mg PO Q8H PRN 01/20/21 06/21/21 Unknown History zolpidem 10 mg tablet (Ambien) 10 mg PO BEDTIME PRN 01/20/21 06/21/21 05/30/21 History albuterol sulfate 1 vial INHALATION TID PRN 05/31/21 06/21/21 Unknown History albuterol sulfate 90 mcg/actuation 2 puff PO Q4-6H PRN 05/31/21 06/21/21 Unknown History aerosol inhaler (ProAir HFA) gabapentin 100 mg capsule 1 cap PO BID PRN 05/31/21 06/21/21 Unknown History multivitamin 1 tab PO DAILY 05/31/21 06/21/21 05/30/21 History tizanidine 4 mg tablet 1 tab PO BID PRN 05/31/21 06/21/21 Unknown History Exam Exam Date and Time: July 20, 2021 1039 Height,Weight and Vital Signs: Height 5 ft 5 in Weight 86.183 kg Pertinent Lab Results Pertinent Lab Results: Laboratory Tests 06/22/21 06/22/21 08:00 08:00 WBC 6.6 Hgb 13.0 D Hct 39.2 D Plt Count 246 D Sodium 141 Potassium 4.3 Chloride 105 Carbon Dioxide 28 BUN 10 D Creatinine 0.73 Assessment and Plan Assessment Anesthesia Assessment: Chart Reviewed Final Anesthetic Review Family History of Problems with Anesthesia: No Documented by User: Maureen Melendez MD 07/21/21 15:07 [facility] Active Problems Active Problems: All Active Problems (Updated 07/13/21 @ 00:02 by Lou Hua) Fibromyalgia (Acute) Pre-op evaluation (Acute) Obesity (Acute) IUD check up (Acute) Well woman exam (Acute) Lateral epicondylitis, right elbow (Acute) Depression (Acute) Asthma (Acute). Inhalers prn Anxiety (Acute) History of tubal ligation (Acute) History of (Acute) H/O laparoscopic adjustable gastric banding (Acute) Disc degeneration, lumbar (Acute) Past Medical History Medical History Anxiety Asthma Depression Disc degeneration, lumbar Family History Family History Mother No problems noted. Father Diabetes Sister No problems noted. Brother No problems noted. Son No problems noted. Son No problems noted. Daughter No problems noted. Surgical History Surgical History H/O laparoscopic adjustable gastric banding History of History of tubal ligation Hx laparoscopic cholecystectomy (06/01/21) Hx of dilation and curettage History of Problems with Anesthesia: No Social History Social History Household Members: Children Housing: House Do you presently have visiting nurse or other home services: No Alcohol intake: never Patient Tobacco Use Status: Former Tobacco user Use of substances other than those prescribed or required for medical reasons: No Are you DNR?: No Advance Directives: No Advance Directives Information Provided: No service: No Current occupational status: employed 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 Meds Allergies Allergy/AdvReac Type Severity Reaction Status Date / Time No Known Allergies Allergy Verified 06/21/21 13:33 Home Medications Medication Instructions Recorded Confirmed Last Taken Type tramadol 50 mg tablet 50 mg PO Q8H PRN 01/20/21 06/21/21 Unknown History zolpidem 10 mg tablet (Ambien) 10 mg PO BEDTIME PRN 01/20/21 06/21/21 05/30/21 History albuterol sulfate 1 vial INHALATION TID PRN 05/31/21 06/21/21 Unknown History albuterol sulfate 90 mcg/actuation 2 puff PO Q4-6H PRN 05/31/21 06/21/21 Unknown History aerosol inhaler (ProAir HFA) gabapentin 100 mg capsule 1 cap PO BID PRN 05/31/21 06/21/21 Unknown History multivitamin 1 tab PO DAILY 05/31/21 06/21/21 05/30/21 History tizanidine 4 mg tablet 1 tab PO BID PRN 05/31/21 06/21/21 Unknown History Exam Height,Weight and Vital Signs: Height 5 ft 5 in Weight 86.183 kg Vital Signs Temp Pulse Resp BP Pulse Ox 97.6 F 62 16 110/66 100 07/21/21 12:57 07/21/21 12:57 07/21/21 12:57 07/21/21 12:57 07/21/21 12:57 Pertinent Lab Results Pertinent Lab Results: Laboratory Tests 06/22/21 06/22/21 08:00 08:00 WBC 6.6 Hgb 13.0 D Hct 39.2 D Plt Count 246 D Sodium 141 Potassium 4.3 Chloride 105 Carbon Dioxide 28 BUN 10 D Creatinine 0.73 Airway Mallampati Class: II TM Dist: >3cm Neck ROM: Full Loose/Missing/Broken Teeth: No Heart: RRR Lungs: CTAB Assessment and Plan Assessment Anesthesia Assessment: Anesthesia Plan Discussed Final Anesthetic Review History of Problems with Anesthesia: No NPO: Yes ASA Class: II Final Preanesthetic Review: No Changes in Pt Med Stat, Meds/Allgs Chart Reviewed, Consent Obtained/Reviewed and Anes Risks/Benef Reviewed Patient Risk: Low Procedure Risk: Low Assessment/Block/Sedation in SS: Assess/Block/Sedation-SS Anesthetic Plan Anesthetic Plan: MAC: Disposition: Standard PACU
--- NOTE | ~2021-07-21 | FL_ITS ---
EXAMINATION: XR FLUOROSCOPY WITH IMAGES CLINICAL INFORMATION: Epidural injection COMPARISON: Fluoroscopy 08/23/2020, CT abdomen 12/30/2020 TECHNIQUE: Fluoroscopy performed by Dr. Mauricio Bass. Fluoroscopy time: 0.6 minutes DAP: 6.56 mGycm2 Images: 2 FINDINGS: There are spinal needles overlying the bilateral outer L4 neural foramen. There is contrast seen in the respective nerve sheaths. Some early transforaminal epidural extension is suggested. No visible vascular communication. There is also contrast at the left L5 nerve sheath and epidural foramen. Gastric lap band partially in [id number]. FL/FL guidance in OR IMPRESSION: Fluoroscopy for pain management procedures.
--- NOTE | 2021-07-21 07:51 | MHC.SHP ---
Pre-Procedural Eval Section A Date of Service: 07/21/21 The patient is an INPATIENT: No Changes since office visit: Yes Patient answered all questions The History & Physical has been completed within 30 days and I have reviewed it.: No Section B Chief Complaint: Disc Degeneration, Lumbar Details of Present Illness: as above Relevant Family History (Specify if Yes): No Relevant Social History: None Present Medications: None Medical History: Significant History History of Previous Operations: No relevant previous surgery Allergies: Allergies Allergy/AdvReac Type Severity Reaction Status Date / Time No Known Allergies Allergy Verified 06/21/21 13:33 Review of Systems Sugical H&P ROS: Negative: Constitution, Cardiovascular, Respiratory, Neurological, Psychiatric, Hem-Onc, Allergic/Immunologic, Gastrointestinal, Genitourinary, Musculoskeletal, Integumentary, Endocrine and Eyes/Ears/Nose/Throat Exam Surgical H&P Exam: Normal: HEENT, Normal: Heart, Normal: Lungs, Normal: Extremities, Normal: Abdomen, Normal: Skin and Normal: Neurological Plan Diagnosis/Plan: Unchanged I have reviewed the history and physical and performed a pertinent physical examination on my patient. No changes have occurred unless specified.
[2021-07-21 12:57] VITALS: BP 110/66; PULSE 62; RESP 16; TEMP 36.4; O2SAT 100
[2021-07-21] MEDS: Lactated Ringers 1,000 ML 100 ML IVCONT (13:32)
--- NOTE | 2021-07-21 15:08 | PM.OP ---
Brief Operative Note Date of Service: 07/21/21 Pre-op diagnosis: Disc degeneration lumbar Post-op diagnosis: same Procedure: Bilateral transforaminal L4-5 epidural steroid injection. Implants: None Surgeon: Mauricio Bass MD Anesthesia: MAC Was an Dental Insurance Biller used for this Procedure?: No Estimated blood loss (mL): 0 Condition: stable Disposition: PACU
[2021-07-21 15:11] VITALS: BP 103/61; PULSE 59; RESP 16; TEMP 36.6; O2SAT 100
--- NOTE | 2021-07-21 15:16 | P.OP_ITS ---
Operative Note Operative Note Date of Service: 07/21/21 Narrative: Patient Esau Mei is very pleasant 41 years old female who is suffering from degenerative disease of the lumbar spine. She came today to the operating room for bilateral L4-5 transforaminal epidural steroid injection. After obtaining informed consent where risks and benefits were carefully explained to the patient, she was taking to the operating room where she was positioned prone on operating table. [place] [employer] monitors were applied and patient was minimally to moderately sedated. She was able to answer to the conversation all the time throughout the procedure. Time-out was performed with all the staff in the operating for name of the patient in date of were pronounced nature of the procedure risk of fire, need of DVT prophylaxis, need o for antibiotics were discussed. Lower back of the patient was prepped with ChloraPrep and draped with sterile utility towels. C-arm was brought of the operating field and sq picture of L4 vertebra was demonstrated on the screen. Tilting machine 25?ipsilateral to each side the image of the pedicle on each side was obtained. 3 mm below the lowest point of the pedicle on both sides 22 gauge 3-1/2 inch Quincke point needle was inserted through the skin after skin wheal was raised with lidocaine 2%. The needle was advanced to were the foramina on each side on anterior posterior oblique and lateral views. When needle entered the silhouette of spinal column injection of the contrast performed demonstrating anterior epidural and perineural spread of the contrast. She reported slight paresthesia with needle advancement of the left. After injection of the contrast and appropriate image would be obtained to 0.5 cc of lidocaine 1% mixed with Kenalog 20 mg injected into each needle position. Upon completion of the procedure needle was removed sterile Band-Aid was applied. Patient was moved to PACU to recover, covered uneventfully.
[2021-07-21 15:31] VITALS: BP 108/71; PULSE 61; RESP 16; TEMP 36.6; O2SAT 100
== END 2021-07-21 15:56 | disposition home or self-care (01) ==
PROVIDERS: PCP Internal Medicine; Visit Provider Anesthesiology
PROC: (CPT 64483; principal; 2021-07-21 13:00)
DX: M51.36 Other intervertebral disc degeneration, lumbar region (principal); M54.50 Low back pain, unspecified; J45.909 Unspecified asthma, uncomplicated; F32.9 Major depressive disorder, single episode, unspecified; Z98.84 Bariatric surgery status; Z79.899 Other long term (current) drug therapy; Z87.891 Personal history of nicotine dependence
CPT/HCPCS: 64483; J2250; J3010; J3300; Q9967

== ENCOUNTER 2021-07-26 07:42 | Outpatient (REF) | payer MEDICAID, SELFPAY ==
--- NOTE | ~2021-07-26 | US_ITS ---
EXAMINATION: US COMPLETE ABDOMEN WITH LIVER ELASTOGRAPHY CLINICAL INFORMATION: Bariatric surgery/obesity. COMPARISON: None. TECHNIQUE: Real-time imaging of the abdominal viscera. Noninvasive ultrasound liver fibrosis assessment is performed using Norma ElastPQ point quantification shear wave elastography (pSWE) with a C5-2 MHz transducer. Multiple elastography samples are obtained. FINDINGS: PANCREAS: The visualized pancreatic head and body are normal in appearance. The remainder of the pancreas is obscured from visualization by the overlying bowel gas. ABDOMINAL AORTA: The proximal, middle, and distal aortic segments are normal in caliber. INFERIOR VENA CAVA: Visualized portions are normal. LIVER: The liver demonstrates normal size, contour and increased echogenicity. No focal lesion or intrahepatic biliary duct dilatation. The right lobe measures 15.7 cm in length. The left lobe measures 11.7 cm in length. Portal flow is hepatopedal. Shear wave liver elastography median stiffness is 1.24 m/s (reference: normal median stiffness is 1.3 m/s or less). IQR/median stiffness to assess sampling precision is 0.19 (reference: good quality data set is IQR/median stiffness of 0.15 or less). GALLBLADDER: Normal. The gallbladder is physiologically distended without evidence of stones, sludge, polyps, wall thickening or pericholecystic fluid. COMMON BILE DUCT: Normal in caliber measuring 0.4-0.5 cm in diameter. RIGHT KIDNEY: Normal. The kidney measures 11.1 cm in maximum dimension. LEFT KIDNEY: Normal. No hydronephrosis. No renal calculi or focal parenchymal lesions. The kidney measures 11.0 cm in maximum dimension. SPLEEN: Normal. The spleen measures 11.6 cm in maximum dimension. FREE FLUID: None. US/US abdomen comp w elastography IMPRESSION: 1. Mild hepatic steatosis. Rest of the abdominal ultrasound is unremarkable. 2. Liver elastography: Median liver stiffness measures 1.24 m/s.. Findings suggestive of high probability normal. REFERENCE: Society of Radiologists in Ultrasound Liver Stiffness Thresholds (2020): LIVER STIFFNESS THRESHOLDS: *Liver Stiffness equal or less than 1.3 m/s: High probability of being normal. *Liver Stiffness less than 1.7 m/s: In the absence of other known clinical signs, rules out compensated advanced chronic liver disease. *Liver Stiffness 1.7-2.1 m/s: Suggestive of compensated advanced chronic liver disease but need further test for confirmation. *Liver Stiffness over 2.1 m/s: Rules in compensated advanced chronic liver disease. *Liver Stiffness over 2.4 m/s: Suggestive of clinically significant portal hypertension. QUALITY OF DATA SET: *IQR/Median value equal or less than 0.15 implies a quality data set. *IQR/Median value over 0.15 implies a poor quality data set. SIGNIFICANT CHANGE FROM PRIOR EXAM: Significant change if liver stiffness measurement is 10% or greater from prior exam. OTHER CONSIDERATIONS: The stage of liver fibrosis may be overestimated in the setting of acute hepatitis, liver inflammation, elevated liver function tests, hepatic vascular congestion, obstructive cholestasis, non-fasting state, and infiltrative diseases such as amyloidosis and lymphoma. In some patients with NAFLD, the liver stiffness thresholds for compensated advanced chronic liver disease may be lower. In causes other than viral hepatitis and NAFLD, liver stiffness thresholds are not well established.
== END 2021-07-26 07:43 | disposition home or self-care (01) ==
LOC: HO.US 07:42
PROVIDERS: PCP Internal Medicine; Visit Provider Physician Assistant
DX: Z01.818 Encounter for other preprocedural examination (principal); E66.9 Obesity, unspecified; M79.7 Fibromyalgia; Z98.84 Bariatric surgery status
CPT/HCPCS: 76705; 76981

== ENCOUNTER → 2021-08-02 07:59 | Outpatient (BNVA) | payer MEDICAID, SELFPAY | PROVIDERS: PCP Internal Medicine; Visit Provider Physician Assistant ==

== ENCOUNTER → 2021-08-09 08:02 | Outpatient (BNVA) | payer MEDICAID, SELFPAY | PROVIDERS: PCP Internal Medicine; Visit Provider Dietitian, Registered | DX: E66.9 Obesity, unspecified (principal); Z68.32 Body mass index [BMI] 32.0-32.9, adult | CPT/HCPCS: 97802 ==

== ENCOUNTER 2021-08-16 09:05 | Outpatient (REF) | payer MEDICAID, SELFPAY ==
--- NOTE | ~2021-08-16 | FL_ITS ---
EXAMINATION: XR FLUOROSCOPY UPPER GI WITH AIR CLINICAL INFORMATION: Bariatric surgery status. COMPARISON: None TECHNIQUE: Air-contrast upper GI . FINDINGS: There is normal elevation of the soft palate while saying candy. There is normal apposition of the vocal cords while saying E. Patient swallowed thin and thick barium without difficulty. Lap-Band is in place. It is difficult to measure the PHI angle on this study with angle appearing to be greater than 60 degrees which may correlate with slippage. No mucosal abnormality of the esophagus is identified. There is normal esophageal motility. Half-inch diameter barium tablet would not pass through the Lap-Band. The stomach has no evidence of abnormal mass or ulceration. There was no delay in gastric emptying. The duodenal bulb and sweep appeared unremarkable. No gastroesophageal reflux was elicited including with water siphon test. FLUOROSCOPY TIME: 2.5 minutes DOSE AREA PRODUCT: 15.173 Gy-cm2 (walls-centimeter squared) FL/FL upper GI w air IMPRESSION: Increased Lap-Band angle which may correlate with slippage. Half-inch diameter barium tablet would not pass into stomach.
== END 2021-08-16 09:06 | disposition home or self-care (01) ==
LOC: HO.XRAY 09:05
PROVIDERS: PCP Internal Medicine; Visit Provider Physician Assistant
DX: Z01.818 Encounter for other preprocedural examination (principal); E66.9 Obesity, unspecified; M79.7 Fibromyalgia; Z98.84 Bariatric surgery status
CPT/HCPCS: 74246

== ENCOUNTER → 2021-09-04 08:08 | Outpatient (BNVA) | payer MEDICAID, SELFPAY | PROVIDERS: PCP Internal Medicine; Referring Provider Physician Assistant; Visit Provider Dietitian, Registered | DX: E66.9 Obesity, unspecified (principal); Z68.32 Body mass index [BMI] 32.0-32.9, adult | CPT/HCPCS: 97803 ==

== ENCOUNTER → 2021-09-13 08:05 | Outpatient (BNVA) | payer MEDICAID, SELFPAY | PROVIDERS: PCP Internal Medicine; Visit Provider Physician Assistant ==

== ENCOUNTER → 2021-09-25 08:31 | Outpatient (BNVA) | payer MEDICAID, SELFPAY | PROVIDERS: PCP Internal Medicine; Visit Provider Obstetrics & Gynecology ==

== ENCOUNTER → 2021-10-16 08:14 | Outpatient (BNVA) | payer MEDICAID, SELFPAY | PROVIDERS: PCP Internal Medicine; Visit Provider Physician Assistant ==

== ENCOUNTER → 2021-10-24 08:10 | Outpatient (BNVA) | payer MEDICAID, SELFPAY | PROVIDERS: PCP Internal Medicine; Visit Provider Dietitian, Registered | DX: E66.9 Obesity, unspecified (principal) | CPT/HCPCS: 97803 ==

== ENCOUNTER 2021-11-16 12:37 | Day surgery (SDC) | payer MEDICAID, SELFPAY ==
--- NOTE | 2021-09-05 10:00 | HO.ANESPROP2 ---
HPI - Anesthesia Eval Consult details Narrative: 41yo F for Upper Endoscopy PMFSH Active Problems Active Problems: All Active Problems (Updated 09/04/21 @ 10:33 by Marybeth Mckeon PA-C) Pre-op evaluation (Acute) Fibromyalgia (Acute) Pre-op evaluation (Acute) Obesity (Acute) IUD check up (Acute) Well woman exam (Acute) Lateral epicondylitis, right elbow (Acute) Depression (Acute) Asthma (Acute) Anxiety (Acute) History of tubal ligation (Acute) History of (Acute) H/O laparoscopic adjustable gastric banding (Acute) Disc degeneration, lumbar (Acute) Past Medical History Medical History Anxiety Asthma Depression Disc degeneration, lumbar Family History Family History Mother No problems noted. Father Diabetes Sister No problems noted. Brother No problems noted. Son No problems noted. Son No problems noted. Daughter No problems noted. 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 Meds Allergies Allergy/AdvReac Type Severity Reaction Status Date / Time No Known Allergies Allergy Verified 06/21/21 13:33 Home Medications Medication Instructions Recorded Confirmed Last Taken Type tramadol 50 mg tablet 50 mg PO Q8H PRN 01/20/21 06/21/21 Unknown History zolpidem 10 mg tablet (Ambien) 10 mg PO BEDTIME PRN 01/20/21 06/21/21 05/30/21 History albuterol sulfate 1 vial INHALATION TID PRN 05/31/21 06/21/21 Unknown History albuterol sulfate 90 mcg/actuation 2 puff PO Q4-6H PRN 05/31/21 06/21/21 Unknown History aerosol inhaler (ProAir HFA) gabapentin 100 mg capsule 1 cap PO BID PRN 05/31/21 06/21/21 Unknown History multivitamin 1 tab PO DAILY 05/31/21 06/21/21 05/30/21 History tizanidine 4 mg tablet 1 tab PO BID PRN 05/31/21 06/21/21 Unknown History Exam Exam Date and Time: September 05, 2021 1000 Narrative Narrative: Laboratory Tests ? 06/22/21 06/22/21 ? 08:00 08:00 WBC ?6.6 ? Hgb ?13.0? D ? Hct ?39.2? D ? Plt Count ?246? D ? Sodium ? ?141 Potassium ? ?4.3 Chloride ? ?105 Carbon Dioxide ? ?28 BUN ? ?10? D Creatinine ? ?0.73 Assessment and Plan Assessment Anesthesia Assessment: Chart Reviewed Final Anesthetic Review Family History of Problems with Anesthesia: No History of Problems with Anesthesia: No
[2021-09-05 10:35] LABS: COVID-19 Test Negative (Negative)
--- NOTE | 2021-10-28 00:46 | P.HPSUR_ITS ---
Pre-Procedural Eval Section A Date of Service: 10/28/21 The patient is an INPATIENT: No The History & Physical has been completed within 30 days and I have reviewed it.: Yes Section B Chief Complaint: bariatric surgery status Relevant Family History (Specify if Yes): No Relevant Social History: None Present Medications: None Medical History: No relevant PMH History of Previous Operations: Relevant previous surgery/procedure and date(s) (gastric band) Allergies: Allergies Allergy/AdvReac Type Severity Reaction Status Date / Time No Known Allergies Allergy Verified 09/25/21 08:50 Review of Systems Sugical H&P ROS: Negative: Constitution, Cardiovascular, Respiratory, Neurological, Psychiatric, Hem-Onc, Allergic/Immunologic, Gastrointestinal, Genitourinary, Musculoskeletal, Integumentary, Endocrine and E yes/Ears/Nose/Throat Exam Surgical H&P Exam: Normal: HEENT, Normal: Heart, Normal: Lungs, Normal: Extremities, Normal: Abdomen, Normal: Skin and Normal: Neurological Plan Diagnosis/Plan: Unchanged (Upper endocsopy to rule out band erosion and assess for esophagitis) I have reviewed the history and physical and performed a pertinent physical examination on my patient. No changes have occurred unless specified.
--- NOTE | 2021-11-11 01:40 | MHC.SHP ---
Pre-Procedural Eval Section A Date of Service: 11/11/21 The patient is an INPATIENT: No The History & Physical has been completed within 30 days and I have reviewed it.: Yes Section B Chief Complaint: bariatric surgery status Details of Present Illness: GERD s/p gastric band Relevant Family History (Specify if Yes): No Relevant Social History: None Present Medications: None Medical History: No relevant PMH History of Previous Operations: Relevant previous surgery/procedure and date(s) (Lap band) Allergies: Allergies Allergy/AdvReac Type Severity Reaction Status Date / Time No Known Allergies Allergy Verified 09/25/21 08:50 Review of Systems Sugical H&P ROS: Negative: Constitution, Cardiovascular, Respiratory, Neurological, Psychiatric, Hem-Onc, Allergic/Immunologic, Gastrointestinal, Genitourinary, Musculoskeletal, Integumentary, Endocrine and Eyes/Ears/Nose/Throat Exam Surgical H&P Exam: Normal: HEENT, Normal: Heart, Normal: Lungs, Normal: Extremities, Normal: Abdomen, Normal: Skin and Normal: Neurological Plan Diagnosis/Plan: Unchanged I have reviewed the history and physical and performed a pertinent physical examination on my patient. No changes have occurred unless specified.
--- NOTE | 2021-11-15 08:25 | HO.ANESPROP2 ---
Documented by User: Beth Torres NP 11/15/21 08:25 HPI - Anesthesia Eval Consult details Narrative: 41yo F for Upper Endoscopy s/p epidural injection 07/2021 with MAC PMFSH Active Problems Active Problems: All Active Problems (Updated 09/04/21 @ 10:33 by Marybeth Mckeon PA-C) Pre-op evaluation (Acute) Fibromyalgia (Acute) Pre-op evaluation (Acute) Obesity (Acute) IUD check up (Acute) Well woman exam (Acute) Lateral epicondylitis, right elbow (Acute) Depression (Acute) Asthma (Acute) Anxiety (Acute) History of tubal ligation (Acute) History of (Acute) H/O laparoscopic adjustable gastric banding (Acute) Disc degeneration, lumbar (Acute) Past Medical History Medical History Anxiety Asthma Depression Disc degeneration, lumbar Family History Family History Mother No problems noted. Father Diabetes Sister No problems noted. Brother No problems noted. Son No problems noted. Son No problems noted. Daughter No problems noted. Family history of problems with anesthesia: No Surgical History Surgical History H/O laparoscopic adjustable gastric banding History of History of tubal ligation Hx laparoscopic cholecystectomy (06/01/21) Hx of dilation and curettage History of Problems with Anesthesia: No Social History Social History Household Members: Children Housing: House Do you presently have visiting nurse or other home services: No Alcohol intake: never Patient Tobacco Use Status: Former Tobacco user Are you DNR?: No Advance Directives: No Advance Directives Information Provided: Yes Recently lost weight without trying: Yes Nutrition Risks: No Nutritional Risk Patient : No service: No Current occupational status: employed 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 Meds Allergies Allergy/AdvReac Type Severity Reaction Status Date / Time No Known Allergies Allergy Verified 09/25/21 08:50 Home Medications Medication Instructions Recorded Confirmed Last Taken Type tramadol 50 mg tablet 50 mg PO Q8H PRN 01/20/21 06/21/21 Unknown History zolpidem 10 mg tablet (Ambien) 10 mg PO BEDTIME PRN 01/20/21 06/21/21 05/30/21 History albuterol sulfate 90 mcg/actuation 2 puff PO Q4-6H PRN 05/31/21 06/21/21 Unknown History aerosol inhaler (ProAir HFA) gabapentin 100 mg capsule 1 cap PO BID PRN 05/31/21 06/21/21 Unknown History multivitamin 1 tab PO DAILY 05/31/21 06/21/21 05/30/21 History tizanidine 4 mg tablet 1 tab PO BID PRN 05/31/21 06/21/21 Unknown History citalopram 20 mg tablet (Celexa) 20 mg PO DAILY 09/25/21 Unknown History levonorgestrel 20 mcg/24 hours (7 INTRAUTERINE 09/25/21 Unknown History yrs) 52 mg intrauterine device (Mirena) Exam Exam Date and Time: November 15, [id number] Pertinent Lab Results Pertinent Lab Results: Laboratory Tests 09/05/21 10:10 COVID-19 ([facility]) Negative COVID-19 Clin Com See Note Assessment and Plan Assessment Anesthesia Assessment: Chart Reviewed Final Anesthetic Review Family History of Problems with Anesthesia: No History of Problems with Anesthesia: No Documented by User: Jamil Gray MD 11/16/21 15:08 [facility] Past Medical History Medical History Anxiety Asthma Depression Disc degeneration, lumbar Family History Family History Mother No problems noted. Father Diabetes Sister No problems noted. Brother No problems noted. Son No problems noted. Son No problems noted. Daughter No problems noted. Surgical History Surgical History H/O laparoscopic adjustable gastric banding History of History of tubal ligation Hx laparoscopic cholecystectomy (06/01/21) Hx of dilation and curettage Social History Social History Household Members: Children Housing: House Do you presently have visiting nurse or other home services: No Alcohol intake: never Patient Tobacco Use Status: Former Tobacco user Are you DNR?: No Advance Directives: No Advance Directives Information Provided: Yes Recently lost weight without trying: Yes Nutrition Risks: No Nutritional Risk Patient : No service: No Current occupational status: employed 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 Meds Allergies Allergy/AdvReac Type Severity Reaction Status Date / Time No Known Allergies Allergy Verified 09/25/21 08:50 Home Medications Medication Instructions Recorded Confirmed Last Taken Type tramadol 50 mg tablet 50 mg PO Q8H PRN 01/20/21 06/21/21 Unknown History zolpidem 10 mg tablet (Ambien) 10 mg PO BEDTIME PRN 01/20/21 06/21/21 05/30/21 History albuterol sulfate 90 mcg/actuation 2 puff PO Q4-6H PRN 05/31/21 06/21/21 Unknown History aerosol inhaler (ProAir HFA) gabapentin 100 mg capsule 1 cap PO BID PRN 05/31/21 06/21/21 Unknown History multivitamin 1 tab PO DAILY 05/31/21 06/21/21 05/30/21 History tizanidine 4 mg tablet 1 tab PO BID PRN 05/31/21 06/21/21 Unknown History citalopram 20 mg tablet (Celexa) 20 mg PO DAILY 09/25/21 Unknown History levonorgestrel 20 mcg/24 hours (7 INTRAUTERINE 09/25/21 Unknown History yrs) 52 mg intrauterine device (Mirena) Exam Airway Mallampati Class: II TM Dist: >3cm Neck ROM: Full Loose/Missing/Broken Teeth: No Heart: [id number] Lungs: cta b/l Assessment and Plan Assessment Anesthesia Assessment: Anesthesia Plan Discussed Final Anesthetic Review NPO: Yes ASA Class: II Final Preanesthetic Review: No Changes in Pt Med Stat, Meds/Allgs Chart Reviewed, Consent Obtained/Reviewed and Anes Risks/Benef Reviewed Patient Risk: Intermediate Procedure Risk: Low Assessment/Block/Sedation in SS: Assess/Block/Sedation-SS Anesthetic Plan Anesthetic Plan: MAC: and Agree w/ Assess. and Plan Disposition: Standard PACU
--- NOTE | 2021-11-16 12:28 | P.BOP_ITS ---
Brief Operative Note Date of Service: 11/16/21 Pre-op diagnosis: GERD, s/p lap gastric band Post-op diagnosis: same Procedure: PREOPERATIVE DIAGNOSIS: GERD, s/p lap band POSTOPERATIVE DIAGNOSIS: ?Same as above. Small hiatal hernia and posterior gastric band slippage PROCEDURE: [id number] with biopsies Surgeon: ?Hamilton Rodríguez M.D.. Ph.D. Field Pipe Lines Supervisor: None ? Anesthesia: IV sedation Estimated blood loss: ?Minimal FINDINGS AND PROCEDURE: ? OPERATIVE INDICATIONS: ?The patient is a 41 year old female known to me who underwent a laparoscopic gastric band elsewhere. The patient had poor weight loss so far and has been complaining of GERD. Based on this information I recommended an upper endoscopy to evaluate the patient's symptoms. Risks and complications of the surgery were discussed with the patient in advance particularly the possibility of perforation or bleeding that may require surgical intervention. The patient understood the risks and was in agreement with the plan. ? PROCEDURE: After informed consent was obtained by the patient, the patient was ?transferred to the Operating Room and was placed in the supine position.? After successful induction of IV sedation, a mouth block was inserted and the patient was placed in the left lateral decubitus position. An upper endoscopy was performed next, the oropharynx and esophagus appeared within the normal limits. There was a small hiatal hernia. The z-line was smooth.? The stomach was entered and it appeared to be of normal size. There was no band erosion, ?gastritis and no ulcer. There was a small posterior gastric band slippage. Biopsies were obtained from the GE junction, distal esophagus and stomach. No significant bleeding was noted. There was no significant narrowing at the band outlet. The scope was advanced into the duodenum which appeared to be normal as well. Retroflexion was performed and again no band erosion was seen. At that point the duodenum and the stomach were decompressed and the scope was withdrawn from the patient's mouth. The patient was awaken and was transferred in stable condition to the Recovery Room for further care. I was present and performed all steps of the procedure. There were no residents to assist with this case. Hamilton Rodríguez M.D., Ph.D. Surgeon: Tenzin Rodríguez MD Anesthesia: GETA, local and other (TAP block) Was an Field Pipe Lines Supervisor used for this Procedure?: No Estimated blood loss (mL): 0 Urine output (mL): 0 (No Gentile to record) Pathology: other (1) GE junction x2 2) Distal esophagus x2 3) Proximal stomach x1 4) Distal antrum x1) Condition: stable Disposition: PACU
[2021-11-16 13:33] VITALS: BP 102/47; PULSE 69; RESP 18; TEMP 36.3; O2SAT 100; BMI 29.8
[2021-11-16] MEDS: Lactated Ringers 1,000 ML 100 ML IVCONT (13:48)
[2021-11-16 14:17] LABS: COVID-19 Test Negative (Negative); IDNOW Serial# 55D5AD1C
[2021-11-16 15:35] VITALS: BP 105/61; PULSE 76; RESP 17; TEMP 36.9; O2SAT 100
[2021-11-16 15:50] VITALS: BP 107/73; PULSE 71; RESP 16; TEMP 36.5; O2SAT 100
== END 2021-11-16 16:35 | disposition home or self-care (01) ==
LOC: HO.SSS 12:37
PROVIDERS: PCP Internal Medicine; Visit Provider Surgery
PROC: 0DJ08ZZ Inspection of Upper Intestinal Tract, Via Natural or Artificial Opening Endoscopic (ICD-10-PCS; CPT 43235; principal; 2021-11-16 15:30)
DX: K21.9 Gastro-esophageal reflux disease without esophagitis (principal); K95.09 Other complications of gastric band procedure; K44.9 Diaphragmatic hernia without obstruction or gangrene; Z98.84 Bariatric surgery status; E66.9 Obesity, unspecified; Z68.34 Body mass index [BMI] 34.0-34.9, adult; J45.909 Unspecified asthma, uncomplicated; M79.7 Fibromyalgia; M51.36 Other intervertebral disc degeneration, lumbar region; F32.9 Major depressive disorder, single episode, unspecified; F41.1 Generalized anxiety disorder; Z90.49 Acquired absence of other specified parts of digestive tract; Z86.16 Personal history of COVID-19; Z20.822 Contact with and (suspected) exposure to COVID-19; Z87.891 Personal history of nicotine dependence
CPT/HCPCS: 43239; 87635; 88305; 88342

== ENCOUNTER → 2021-11-17 08:12 | Outpatient (BNVA) | payer MEDICAID, SELFPAY | PROVIDERS: PCP Internal Medicine; Visit Provider Physician Assistant | DX: E66.9 Obesity, unspecified (principal); K95.09 Other complications of gastric band procedure | CPT/HCPCS: Q3014 ==

== ENCOUNTER → 2021-12-20 09:26 | Outpatient (BNVA) | payer MEDICAID, SELFPAY | PROVIDERS: PCP Internal Medicine; Visit Provider Physician Assistant | DX: Z13.89 Encounter for screening for other disorder (principal) ==

== ENCOUNTER → 2021-12-29 08:15 | Outpatient (BNVA) | payer MEDICAID, SELFPAY | PROVIDERS: PCP Internal Medicine; Visit Provider Surgery | DX: Z13.89 Encounter for screening for other disorder (principal) ==

== ENCOUNTER → 2022-01-04 12:31 | Outpatient (BNVA) | payer MEDICAID, SELFPAY | PROVIDERS: PCP Internal Medicine; Referring Provider Internal Medicine; Visit Provider Physician Assistant | DX: Z13.89 Encounter for screening for other disorder (principal) ==

== ENCOUNTER 2022-01-09 06:37 | Inpatient (IN) | payer MEDICAID, SELFPAY ==
[2022-01-02 06:45] LABS: MANUAL DIFF FLAG NO
[2022-01-02 07:36] LABS: Basophils Percent Auto 0.3 % (0-2); Eosinophils Absolute Auto 0.2 X10*3/uL (0.0-0.4); Eosinophils Percent Auto 3.5 % (0-4); Hematocrit 40.5 % (37.0-47.0); Hemoglobin 13.3 g/dl (12.0-16.0); Imm Gran Abs Auto 0.01 X10*3/uL (0.00-0.03); Imm Gran Pct Auto 0.2 % (0.0-0.4); Lymphocytes Absolute Auto 1.5 X10*3/uL (1.2-4.9); Lymphocytes Percent Auto 24.5 % (20-40); Mean Corpuscular HGB Conc 32.8 g/dl (31.0-35.0); Mean Corpuscular Hemoglobin 29.7 pg (27.0-33.0); Mean Corpuscular Volume 90.4 fL (80.0-98.0); Mean Platelet Volume 11.4 fL (9.4-12.3); Monocytes Absolute Auto 0.4 X10*3/uL (0.1-1.2); Monocytes Percent Auto 6.4 % (2-11); Neutrophils Percent Auto 65.1 % (45-73); Platelet Count 220 X10*3/uL (160-400); Red Blood Count 4.48 X10*6/uL (4.20-5.50); Red Cell Distribution Width 12.7 % (11.0-16.0); White Blood Count 6.2 X10*3/uL (4.8-10.8)
[2022-01-02 07:38] LABS: INTERNATIONAL NORM RATIO 1.2 (0.9-1.1); Prothrombin Time 13.5 SEC (9.9-13.0)
[2022-01-02 07:41] LABS: Partial Thromboplastin Time 34.1 SEC (24.1-38.0)
[2022-01-02 08:16] LABS: Alanine Aminotransferase 16 U/L (0-31); Albumin Level 4.3 g/dL (3.5-5.0); Alkaline Phosphatase 77 U/L (39-117); Anion Gap 14 (12-20); Aspartate Amino Transferase 17 U/L (5-31); Bilirubin Total 0.8 mg/dL (0.0-1.0); Blood Urea Nitrogen 15 mg/dL (9-16); C Reactive Protein 0.28 mg/dL (< or = 0.50); Calcium 9.4 mg/dL (8.4-10.2); Carbon Dioxide 24 mmol/L (22-29); Chloride 107 mmol/L (96-108); Cholesterol 135 mg/dL; Estimated Glomerular Filt Rate > 60; Glucose Random 83 mg/dL (60-115); HDL Cholesterol 42 mg/dL; LDL Cholesterol Calculated 82 mg/dl; Sodium 141 mmol/L (135-145); Total Protein 7.4 g/dL (6.5-8.0); Triglycerides 58 mg/dL
[2022-01-02 08:23] LABS: Estimated Average Glucose 94 mg/dL; Hemoglobin A1c % 4.9 %
[2022-01-02 08:38] LABS: Insulin 8 uU/mL (2-29); TSH reflex Free T4 0.48 uIU/mL (0.32-4.0)
--- NOTE | 2022-01-05 17:40 | MHC.SHP ---
Pre-Procedural Eval Section A Date of Service: 01/05/22 The patient is an INPATIENT: Yes The History & Physical has been completed within 30 days and I have reviewed it.: Yes Section B Chief Complaint: obesity Relevant Family History (Specify if Yes): No Relevant Social History: None Present Medications: None Medical History: No relevant PMH History of Previous Operations: Relevant previous surgery/procedure and date(s) (lap band) Allergies: Allergies Allergy/AdvReac Type Severity Reaction Status Date / Time No Known Allergies Allergy Verified 12/29/21 13:37 Review of Systems Sugical H&P ROS: Negative: Constitution, Cardiovascular, Respiratory, Neurological, Psychiatric, Hem-Onc, Allergic/Immunologic, Gastrointestinal, Genitourinary, Musculoskeletal, Integumentary, Endocrine and Eyes/Ears/Nose/Throat Exam Surgical H&P Exam: Normal: HEENT, Normal: Heart, Normal: Lungs, Normal: Extremities, Normal: Abdomen, Normal: Skin and Normal: Neurological Plan Diagnosis/Plan: Unchanged I have reviewed the history and physical and performed a pertinent physical examination on my patient. No changes have occurred unless specified.
[2022-01-08 13:24] VITALS: BMI 32.2
[2022-01-08 14:12] LABS: COVID-19 Test Negative (Negative); IDNOW Serial# 16C4AD1C
--- NOTE | 2022-01-08 14:21 | HO.ANESPROP2 ---
HPI - Anesthesia Eval Consult details Narrative: 41yo F for Lap Band Removal Laparosopic, Gastrectomy Sleeve,EGD,possible diaphragmatic hernia,possible ventral hernia,possible open PMFSH Active Problems Active Problems: All Active Problems (Updated 01/05/22 @ 10:24 by Miriam Jin, RICARDO) IUD check up (Acute) Well woman exam (Acute) Lateral epicondylitis, right elbow (Acute) Obesity (Acute) Pre-op evaluation (Acute) Fibromyalgia (Acute) Pre-op evaluation (Acute) Gastric band slippage (Acute) Emesis (Acute) BMI 32.0-32.9,adult (Acute) GERD (gastroesophageal reflux disease) (Acute) Depression (Acute) Asthma (Acute) Anxiety (Acute) History of tubal ligation (Acute) History of (Acute) H/O laparoscopic adjustable gastric banding (Acute) Disc degeneration, lumbar (Acute) Past Medical History Medical History (Updated 01/09/22 @ 12:14 by Tenzin Rodríguez MD) Anxiety Asthma Back pain Depression Disc degeneration, lumbar GERD (gastroesophageal reflux disease) Hx of steroid therapy Insomnia Intra-abdominal adhesions Steatosis, liver Family History Family History Mother No problems noted. Father Diabetes Sister No problems noted. Brother No problems noted. Son No problems noted. Son No problems noted. Daughter No problems noted. Family history of problems with anesthesia: No Surgical History Surgical History (Updated 01/08/22 @ 13:17 by Madison Conn RN) H/O laparoscopic adjustable gastric banding History of History of esophagogastroduodenoscopy (EGD) History of tubal ligation Hx laparoscopic cholecystectomy Hx of dilation and curettage History of Problems with Anesthesia: No Social History Social History Household Members: Children Housing: House Are you a primary neonatal intensive care unit nurse to a significant other at home: No Do you presently have visiting nurse or other home services: No Alcohol intake: never Patient Tobacco Use Status: Never used Tobacco Second Hand Smoke Exposure: No service: No Current occupational status: employed 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 Meds Allergies Allergy/AdvReac Type Severity Reaction Status Date / Time No Known Allergies Allergy Verified 01/08/22 13:17 Active Medications: Current Medications Cefazolin Sodium/Dextrose (Ancef) 2 gm in 50 mls @ 100 mls/hr IV PREOP ONE Stop: 01/09/22 07:29 Lactated Ringer's (Lr) 1,000 mls @ 999 mls/hr IV .Q1H1M [facility]GO Stop: 01/09/22 08:00 Home Medications Medication Instructions Recorded Confirmed Last Taken Type tramadol 50 mg tablet 50 mg PO Q8H PRN 01/20/21 01/08/22 Unknown History zolpidem 10 mg tablet (Ambien) 10 mg PO BEDTIME PRN 01/20/21 01/08/22 05/30/21 History albuterol sulfate 90 mcg/actuation 2 puff PO Q4-6H PRN 05/31/21 01/08/22 Unknown History aerosol inhaler (ProAir HFA) gabapentin 100 mg capsule 1 cap PO BID PRN 05/31/21 01/08/22 Unknown History multivitamin 1 tab PO DAILY 05/31/21 01/08/22 05/30/21 History citalopram 20 mg tablet (Celexa) 20 mg PO DAILY 09/25/21 01/08/22 Unknown History levonorgestrel 20 mcg/24 hours (7 INTRAUTERINE 09/25/21 12/29/21 Unknown History yrs) 52 mg intrauterine device (Mirena) Exam Exam Date and Time: January 08, 2022 1421 Height,Weight and Vital Signs: Height 5 ft 3 in Weight 82.554 kg Pertinent Lab Results Pertinent Lab Results: Laboratory Tests 01/02/22 01/02/22 01/02/22 06:35 06:35 06:35 WBC 6.2 RBC 4.48 Hgb 13.3 Hct 40.5 MCV 90.4 MCH 29.7 MCHC 32.8 RDW 12.7 Plt Count 220 MPV 11.4 Immature Gran % (Auto) 0.2 Neut % (Auto) 65.1 Lymph % (Auto) 24.5 [place] % (Auto) 6.4 Eos % (Auto) 3.5 Baso % (Auto) 0.3 Lymph # (Auto) 1.5 [place] # (Auto) 0.4 Eos # (Auto) 0.2 Baso # (Auto) 0.0 Abs Immat Gran (auto) 0.01 Absolute Neuts (auto) 4.0 Absolute Nucleated RBC 0.000 Nucleated RBC % (auto) 0.0 PT 13.5 H INR 1.2 H APTT 34.1 Sodium 141 Potassium 4.0 Chloride 107 Carbon Dioxide 24 Anion Gap 14 BUN 15 Creatinine 0.79 Estim Creat Clear Calc TNP Estimated GFR > 60 Random Glucose 83 Estimat Average Glucose Hemoglobin A1c % Insulin Level 8 Calcium 9.4 Total Bilirubin 0.8 AST 17 ALT 16 Alkaline Phosphatase 77 D C-Reactive Protein 0.28 Total Protein 7.4 Albumin 4.3 Triglycerides 58 Cholesterol 135 D LDL Cholesterol, Calc 82 HDL Cholesterol 42 D TSH 0.48 COVID-19 ([facility]) COVID-19 Clin Com Blood Type Antibody Screen 01/02/22 01/02/22 01/08/22 06:35 06:35 13:36 WBC RBC Hgb Hct MCV MCH MCHC RDW Plt Count MPV Immature Gran % (Auto) Neut % (Auto) Lymph % (Auto) [place] % (Auto) Eos % (Auto) Baso % (Auto) Lymph # (Auto) [place] # (Auto) Eos # (Auto) Baso # (Auto) Abs Immat Gran (auto) Absolute Neuts (auto) Absolute Nucleated RBC Nucleated RBC % (auto) PT INR APTT Sodium Potassium Chloride Carbon Dioxide Anion Gap BUN Creatinine Estim Creat Clear Calc Estimated GFR Random Glucose Estimat Average Glucose 94 Hemoglobin A1c % 4.9 Insulin Level Calcium Total Bilirubin AST ALT Alkaline Phosphatase C-Reactive Protein Total Protein Albumin Triglycerides Cholesterol LDL Cholesterol, Calc HDL Cholesterol TSH COVID-19 ([facility]) Negative COVID-19 Clin Com See Note Blood Type A Positive Antibody Screen NEGATIVE Narrative Narrative: EKG 06/2021 Vent. Rate : 058 BPM ? ? Atrial Rate : 058 BPM ?? P-R Int : 148 ms? QRS Dur : 076 ms ? ? QT Int : 402 ms ? ? ? P-R-T Axes : 005 049 021 degrees ?? QTc Int : 394 ms ? Sinus bradycardia Otherwise normal ECG When compared with ECG of 10-MAR-2019 09:30, No significant change was found Assessment and Plan Assessment Anesthesia Assessment: Chart Reviewed Final Anesthetic Review Family History of Problems with Anesthesia: No History of Problems with Anesthesia: No
[2022-01-09] VITALS (10 sets, daily range): BP systolic 90–121; BP diastolic 55–68; PULSE 64–82; RESP 9–18; TEMP 36.1–37.1; O2SAT 98–100
[2022-01-09] MEDS: Lactated Ringers 1,000 ML 999 ML IV (06:50)
[2022-01-09] MEDS: Lactated Ringers 1,000 ML 100 ML IVCONT ×3 (06:50→22:19)
--- NOTE | 2022-01-09 07:12 | HO.ANESPROP2 ---
[facility] Active Problems Active Problems: All Active Problems (Updated 01/05/22 @ 10:24 by Miriam Jin RN) IUD check up (Acute) Well woman exam (Acute) Lateral epicondylitis, right elbow (Acute) Obesity (Acute) Pre-op evaluation (Acute) Fibromyalgia (Acute) Pre-op evaluation (Acute) Gastric band slippage (Acute) Emesis (Acute) BMI 32.0-32.9,adult (Acute) GERD (gastroesophageal reflux disease) (Acute) Depression (Acute) Asthma (Acute) Anxiety (Acute) History of tubal ligation (Acute) History of (Acute) H/O laparoscopic adjustable gastric banding (Acute) Disc degeneration, lumbar (Acute) Past Medical History Medical History Anxiety Asthma Depression Disc degeneration, lumbar GERD (gastroesophageal reflux disease) Hx of steroid therapy Family History Family History Mother No problems noted. Father Diabetes Sister No problems noted. Brother No problems noted. Son No problems noted. Son No problems noted. Daughter No problems noted. Family history of problems with anesthesia: No Surgical History Surgical History (Updated 01/08/22 @ 13:17 by Madison Conn RN) H/O laparoscopic adjustable gastric banding History of History of esophagogastroduodenoscopy (EGD) History of tubal ligation Hx laparoscopic cholecystectomy Hx of dilation and curettage History of Problems with Anesthesia: No Social History Social History Household Members: Children Housing: House Are you a primary resident care manager rn to a significant other at home: No Do you presently have visiting nurse or other home services: No Alcohol intake: never Patient Tobacco Use Status: Never used Tobacco Second Hand Smoke Exposure: No Use of substances other than those prescribed or required for medical reasons: No Have you been hit, kicked, punched, or otherwise hurt by someone within the past year? 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 Meds Allergies Allergy/AdvReac Type Severity Reaction Status Date / Time No Known Allergies Allergy Verified 01/08/22 13:17 Active Medications: Current Medications Albuterol Sulfate (Albuterol Sulfate (0.083%) 2.5 Mg/3 Ml Vial.Neb) 2.5 mg INHALE ONCE PRN PRN Reason: Shortness of Breath/Wheezing Cefazolin Sodium/Dextrose (Ancef) 2 gm in 50 mls @ 100 mls/hr IV PREOP ONE Stop: 01/09/22 07:29 Lactated Ringer's (Lr) 1,000 mls @ 999 mls/hr IV .Q1H1M [facility] Stop: 01/09/22 08:00 Last Admin: 01/09/22 06:50 Dose: 999 mls/hr Documented by: Lactated Ringer's (Lr) 1,000 mls @ 100 mls/hr IVCONT .Q10H [facility] Last Admin: 01/09/22 06:50 Dose: 100 mls/hr Documented by: Home Medications Medication Instructions Recorded Confirmed Last Taken Type tramadol 50 mg tablet 50 mg PO Q8H PRN 01/20/21 01/08/22 Unknown History zolpidem 10 mg tablet (Ambien) 10 mg PO BEDTIME PRN 01/20/21 01/08/22 05/30/21 History albuterol sulfate 90 mcg/actuation 2 puff PO Q4-6H PRN 05/31/21 01/08/22 Unknown History aerosol inhaler (ProAir HFA) gabapentin 100 mg capsule 1 cap PO BID PRN 05/31/21 01/08/22 Unknown History multivitamin 1 tab PO DAILY 05/31/21 01/08/22 05/30/21 History citalopram 20 mg tablet (Celexa) 20 mg PO DAILY 09/25/21 01/08/22 Unknown History levonorgestrel 20 mcg/24 hours (7 INTRAUTERINE 09/25/21 12/29/21 Unknown History yrs) 52 mg intrauterine device (Mirena) Exam Exam Date and Time: January 09, 2022711 Height,Weight and Vital Signs: Height 5 ft 3 in Weight 82.554 kg Last Vital Signs Temp 97.6 F 01/09/22 06:23 Pulse 74 01/09/22 06:23 Resp 16 01/09/22 06:23 BP 90/55 L 01/09/22 06:23 Pulse Ox 98 01/09/22 06:23 Pertinent Lab Results Pertinent Lab Results: Laboratory Tests 01/02/22 01/02/22 01/02/22 06:35 06:35 06:35 WBC 6.2 RBC 4.48 Hgb 13.3 Hct 40.5 MCV 90.4 MCH 29.7 MCHC 32.8 RDW 12.7 Plt Count 220 MPV 11.4 Immature Gran % (Auto) 0.2 Neut % (Auto) 65.1 Lymph % (Auto) 24.5 [place] % (Auto) 6.4 Eos % (Auto) 3.5 Baso % (Auto) 0.3 Lymph # (Auto) 1.5 [place] # (Auto) 0.4 Eos # (Auto) 0.2 Baso # (Auto) 0.0 Abs Immat Gran (auto) 0.01 Absolute Neuts (auto) 4.0 Absolute Nucleated RBC 0.000 Nucleated RBC % (auto) 0.0 PT 13.5 H INR 1.2 H APTT 34.1 Sodium 141 Potassium 4.0 Chloride 107 Carbon Dioxide 24 Anion Gap 14 BUN 15 Creatinine 0.79 Estim Creat Clear Calc TNP Estimated GFR > 60 Random Glucose 83 Estimat Average Glucose Hemoglobin A1c % Insulin Level 8 Calcium 9.4 Total Bilirubin 0.8 AST 17 ALT 16 Alkaline Phosphatase 77 D C-Reactive Protein 0.28 Total Protein 7.4 Albumin 4.3 Triglycerides 58 Cholesterol 135 D LDL Cholesterol, Calc 82 HDL Cholesterol 42 D TSH 0.48 COVID-19 (IRENA) COVID-19 Clin Com Blood Type Antibody Screen 01/02/22 01/02/22 01/08/22 06:35 06:35 13:36 WBC RBC Hgb Hct MCV MCH MCHC RDW Plt Count MPV Immature Gran % (Auto) Neut % (Auto) Lymph % (Auto) [place] % (Auto) Eos % (Auto) Baso % (Auto) Lymph # (Auto) [place] # (Auto) Eos # (Auto) Baso # (Auto) Abs Immat Gran (auto) Absolute Neuts (auto) Absolute Nucleated RBC Nucleated RBC % (auto) PT INR APTT Sodium Potassium Chloride Carbon Dioxide Anion Gap BUN Creatinine Estim Creat Clear Calc Estimated GFR Random Glucose Estimat Average Glucose 94 Hemoglobin A1c % 4.9 Insulin Level Calcium Total Bilirubin AST ALT Alkaline Phosphatase C-Reactive Protein Total Protein Albumin Triglycerides Cholesterol LDL Cholesterol, Calc HDL Cholesterol TSH COVID-19 ([facility]NA) Negative COVID-19 Clin Com See Note Blood Type A Positive Antibody Screen NEGATIVE Airway Mallampati Class: III TM Dist: >3cm Neck ROM: Full Assessment and Plan Assessment Anesthesia Assessment: Anesthesia Plan Discussed and Chart Reviewed Final Anesthetic Review Family History of Problems with Anesthesia: No History of Problems with Anesthesia: No NPO: Yes ASA Class: III Final Preanesthetic Review: No Changes in Pt Med Stat, Meds/Allgs Chart Reviewed, Consent Obtained/Reviewed and Anes Risks/Benef Reviewed Patient Risk: Intermediate Procedure Risk: Intermediate Anesthetic Plan Anesthetic Plan: GA Disposition: Standard PACU
--- NOTE | 2022-01-09 07:53 | PM.OP ---
Brief Operative Note Date of Service: 01/09/22 Pre-op diagnosis: Severe obesity with comorbidities (see below) Post-op diagnosis: same Procedure: INITIAL PATIENT BMI ON PRESENTATION AT OUR OFFICE: 35.6 kg/m2 LAST BMI BEFORE SURGERY: 33.2 kg/m2 COMORBIDITIES: asthma, back pain, insomnia, anxiety, liver steatosis ?The patient presented to the Weight Management Program with significant obesity that was negatively impacting the patient's comorbidities as listed above.? The program is a phased program with a special focus on preoperative medical weight management to promote substantial weight loss and prepare the patients for the second phase of the program: bariatric surgery. The patient participated in an intensive weekly lifestyle ?intervention and exercise program during which the patient ?has lost between the initial office visit and the last preoperative visit 13.5 lbs, or 6.72% of initial actual body weight. It was deemed appropriate for the patient to now have bariatric surgery. In light of the current Covid-19 pandemic and the well documented strong association of obesity and increased risk of worse outcomes if infected with Covid-19 (REFERENCES:https://pubmed.ncbi.nlm.nih.gov/02055819/,?https://pubmed.ncbi.nlm.nih.gov/29921973/), any delay in undergoing bariatric surgery may lead to the patient's worsening health condition and increased?risk of more severe Covid-19 disease if infected. In addition a recent?study from [facility] published in [employer] Surgery on 08/28/2021 ([email or web address]) found that, among patients with obesity, substantial weight loss achieved with surgery was associated with improved outcomes of COVID-19 infection. The findings suggest that obesity can be a modifiable risk factor for the severity of COVID-19 infection. In addition, the patient met the BMI-criteria for bariatric surgery based on the BMI on initial presentation. The patient should not be penalized for achieving such weight loss because ?it is not sustainable long-term without surgical intervention and it was achieved in preparation for bariatric surgery ?under my direction and based on my published research ([email or web address]).[email or web address] and?[email or web address].soard.org/article/[email or web address])[email or web address]-X/pdf) ?that a 10% preoperative weight loss improves long-term weight loss after surgery and reduces perioperative complications.? Insurance carriers such as [facility] have endorsed my recommendations ?and have included in their policies criteria to include a 10% preoperative weight loss requirement. PROCEDURE: Esophago-gastroscopy, extensive laparoscopic lysis of adhesions, laparoscopic removal of gastric band and accessories INDICATIONS: This is a 41 year-old female with a BMI of 35.6 kg/m2 and associated comorbid conditions as described previously. After appropriate workup and a 13.5 lbs preoperative weight loss was performed, the patient was electively scheduled for laparoscopic, possibly open revision of gastric band to sleeve gastrectomy. The risks and complications of the procedure were discussed with the patient in advance, particularly the possibility of ; pulmonary embolism; staple line leak; bleeding; GERD; cardiac, pulmonary, or renal complications; as well as long-term problems such as insufficient weight loss, vitamin deficiency, strictures, or ulcers. The patient understood all the risks, and was in agreement to proceed with surgery. DESCRIPTION OF PROCEDURE: After informed consent was obtained from the patient, the patient was given preoperative antibiotics, and was transferred to the operating room. After successful induction of general anesthesia, pneumatic compressive devices were placed on both lower extremities. An upper endoscopy was performed next. The oropharynx and esophagus appeared to be within normal limits. There was a diaphragmatic hernia present of moderate size consistent with the findings of the preoperative upper GI. The stomach was entered. Then after all fluid and air were suctioned and the stomach was fully decompressed, the scope was withdrawn and secured in the mid esophagus. The patient was then prepped and draped in the usual sterile manner, and abdominal access was established at the right upper quadrant with the Barrett technique. A 12 mm blunt port was inserted, and the abdomen was insufflated with CO2 to a pressure of 15 mmHg. Under direct visualization, additional ports were placed, specifically two 5 mm Versi-step ports to the left upper quadrant, and a 5 mm Versi-Step port to the right upper quadrant. 1% lidocained plan was used to infiltrate all port sites as well as all fascia defects. Following that, the patient was placed in a steep reverse Trendelenburg position. An additional 5 mm port was placed to the right flank for the Mediflex retractor that was used to retract the left lobe of the liver. There were adhesions in the abdomen from previous lap band tube involving the omentum and the abdominal wall. Those were lysed completely with the ultrasonic device and it allowed me to cut the tubing system near its exit at the abdominal wall. The patient has an AP lap gastric band. It was densely adherent to the undersurface of the left lobe of the liver. Extensive and tedious dissection with the Thunderbeat to be able to mobilize only partially the band from the liver surface. The tubing system was cut near the band and it was removed from the abdomen. Using the Thunderbeat, the capsule was opened and the band was freed from surrounding tissues. Once it was adequately mobile, it was cut and was removed from the Barrett port along with the intra-abdominal portion of the tubing system. Due to the distorted anatomy I decided to mobilize first the greater curvature of the stomach. I then opened the gastrocolic ligament between the transverse colon and the greater curvature of the stomach with the ultrasonic device to enter the lesser sac and facilitate the ligation of the short gastric vessels. I started at a mid-point along the greater curvature and using the Thunderbeat, all short gastric vessels were divided all the way to the angle of His until the left jayden was completely dissected at its entirety. I was able to dissected the two crura posterior to the esophagus and that gave me some sense where the GE junction was. The gastro-gastric wrap was addressed next. I was able to take down the first 2 Ethibond sutures but I was not able to take down the wrap completely and restore the stomach's normal position. To prevent stricture at the previous band site, the fibrinous capsule was freed anteriorly from the GE junction and it was divided. I performed an endoscopy at that point. No obvious injury was noted. Because I was not satisfied with the anatomical position of the stomach and we were already over 3 hours in the case, I decided not to perform the sleeve gastrectomy as the anatomy was stilt not completely clear. I was able to remove the band's port through the Barrett incision. Using cautery the subcutaneous tissues were divided until the port was identified. This particular port was secured with four Ethibond sutures. All four sutures were idntified, cut and retrieved in whole. The remaining tubing system was delivered first and then slowly the four sutures were detached from the fascia and the port with tubing system were retrieved intact. I closed the fascial defect of the 12 mm port site with a figure of eight #1 Polysorb suture. Then 100 cc 0.25 % Marcaine plain with 10 mg of Dexamethasone were used to infiltrate the fascial closure as well as all skin incisions. 7ml of Zynrelef were also used at the main incision. At this point, the abdomen was deflated, all ports were removed under direct vision, and no bleeding was noted from any of the port sites. The skin incisions were irrigated with saline and were closed with 4-0 absorbable monofilament sutures. Steri-Strips and OpSites were used to cover all incisions. The patient was extubated and was transferred in stable condition to the recovery room for further care. I was present and performed all aragon parts of the procedure. Ms. Mckeon was the computer assistant. There were no residents to assist with this case. Hamilton Rodríguez MD, PhD, FACS Surgeon: Tenzin Rodríguez MD Anesthesia: GETA, local and other (TAP block and Zynrelef) Was an Instrument Checker used for this Procedure?: No Instrument Checker: Marybeth Mckeon Estimated blood loss (mL): 10 Pathology: other (1) Gastric band and accessories, 2) Stomach) Condition: stable Disposition: PACU
--- NOTE | 2022-01-09 11:03 | PHA.MEDREC ---
Pharmacy Consult ? Medication Reconciliation Pharmacy has reviewed the medication reconciliation.
--- NOTE | 2022-01-09 11:41 | P.DS_ITS ---
DS: Providers Provider Date of Service: 01/10/22 Date of admission: 01/09/22 06:37 Primary care physician: Yolanda Alan MD DS: Summary Hospital Course Hospital Course: ADMITTING DIAGNOSIS:obesity, gastric band slippage, GERD, depression/anxiety, asthma DISCHARGE DIAGNOSIS: same, s/p removal og gastric band and accessories PAST SURGICAL HISTORY: gastric band, c section, lap nayeli, tubal ligation PROCEDURE: upper endoscopy, laparoscopic removal of gastrtic band and accessories DISCHARGE SUMMARY: History of Present Illness: The patient is a 41 year-old woman with a BMI of 32.8 kg/m2 and associated co- morbidities as described above. The patient had extensive work-up,lost 10lbs preoperatively and was electively scheduled for laparoscopic, possible open remobval of gastric band and conversion to sleeve gastrectomy and gastropexy. Risks and complications of the surgery were discussed with the patient in advance, particularly the possibility of , pulmonary embolism, anastomotic leak, bleeding, bowel injury, GERD, cardiac, renal or pulmonary complications. The patient understood all the risks and was in agreement with the surgical pl an. Hospital Course: The patient underwent laparoscopic removal of gastric band and accessories, but sleeve gastrectomy was not performed on the day of admission. Postoperatively, the patient was transferred to the surgical floor. The patient received IV Acetaminophen and IV dilaudid for pain control. Patient was started on bariatric phase 1 diet POD #0. On postoperative day one, the patient was feeling well without nausea, vomiting, fevers, or tachycardia. The patient had some mild incisional pain and the abdomen was soft. On the morning of postoperative day one, the patient was continued on 1 ounce of water or ice every half hour. During the day, the patient did fairly well, having some incisional pain, but able to ambulate adequately and to tolerate liquids well. Since the patient is doing well, we decided that the patient was ready to be discharged. The patient was given instructions to follow-up with me next week and to call my office for any fever over 101, persistent abdominal pain, nausea, vomiting, GERD, symptoms of DVT such as calf tenderness, or leg swelling, or pulmonary embolism such as chest pain or shortness of breath. The patient was also instructed to drink 40-60 ounces of liquids per day using the 1-ounce cups. The patient had been given prescriptions for Tylenol for pain, Zofran prn for nausea, and pantoprazole and carafate previously. The patient was encouraged to ambulate and use the incentive spirometer. The patient was allowed to shower, but no baths, and encouraged to stay active at home. All of these instructions were given to the patient personally. All questions were answered and the patient understood all instructions, the instructions were also given to the patient in print. Time Spent with Patient Time attestation: Total time spent providing and/or coordinating discharge services: Discharge coordination time: Less than 30 minutes Quality: Safe Use of Opioids Does Pt have an Active Cancer Diagnosis on the Problem List?: No Quality: Stroke Does the patient have a stroke diagnosis?: No Physical Exam Vital Signs: Vital Signs: Last Vital Signs Temp 97.6 F 01/09/22 06:23 Pulse 74 01/09/22 06:23 Resp 16 01/09/22 06:23 BP 90/55 L 01/09/22 06:23 Pulse Ox 98 01/09/22 06:23 BMI result Body Mass Index 32.2 DS: Data Data Completed and Pending Completed studies during hospitalization [Text1]: Procedures Resection of Gallbladder, Percutaneous Endoscopic Approach (05/31/21) Pending studies at discharge: Pending at discharge 01/09/22 10:53 Surgical [PTH] Routine Labs on day of discharge: Laboratory Results - last 24 hr 01/08/22 13:36 COVID-19 ([facility]) Negative COVID-19 Clin Com See Note Discharge Plan Discharge Anticipated Discharge Date/Time: 01/10/22 10:38 Patient Disposition: Home, Self-Care Discharge Diagnosis: gastric band removal Referrals: Yolanda Regan MD [Primary Care Provider] - 1 Week Discharge Medications: Continued cholecalciferol (vitamin D3) 10 mcg (400 unit) capsule 10 mcg PO DAILY Qty: 30 6RF gabapentin 100 mg capsule 1 cap PO BID PRN (Reason: ARM PAIN) 0RF albuterol sulfate [ProAir HFA] 90 mcg/actuation HFA aerosol inhaler 2 puff PO Q4-6H PRN (Reason: Wheezing) 0RF multivitamin Tablet 1 tab PO DAILY 0RF zolpidem [Ambien] 10 mg tablet 10 mg PO BEDTIME PRN (Reason: Insomnia) 0RF tramadol 50 mg tablet 50 mg PO Q8H PRN (Reason: Pain) 0RF citalopram [Celexa] 20 mg tablet 20 mg PO DAILY 0RF Mirena 20 mcg/24 hours (7 yrs) 52 mg intrauterine device intrauterine 0RF sucralfate 100 mg/mL suspension 10 ml PO BID Qty: 400 2RF ondansetron HCl 4 mg tablet 4 mg PO Q12H Qty: 20 0RF pantoprazole 40 mg tablet,delayed release (DR/EC) 40 mg PO DAILY Qty: 30 2RF Discontinued polyethylene glycol 3350 [Miralax] 17 gram powder in packet 17 g PO DAILY Qty: 14 0RF Rx Instructions: Mix each packet with 8oz of water and do 7 packets on 01/07/22 and another 7 packets on 01/08/22 Discharge Orders: Discharge Order (Routine); Ordered 01/10/22 Ordered By: Tenzin Rodríguez Diet: other Activity on Discharge: No heavy lifting Stand Alone Forms: Patient Portal Discharge page Care Plan Goals: weight loss Health Concerns: obesity Plan of Treatment: No tub baths, sex or returning to work until discussed at first post op appointment. No exercise, alcohol, tobacco or illegal drug use. Continue to use incentive spirometer hourly while awake. Walk in home for 5- 10 minutes every 2 hours during the first week. Continue phase 1 diet today and start phase 2 diet tomorrow morning. Follow all instructions in the bariatric handbook and call with any questions. 1. Please call your doctor or come back to the emergency room should any new symptoms arise. 2. You will receive a courtesy call from [facility] 24-48 hours after discharge. 3. Activity: abstain from alcohol, practice limited stair climbing, no bending, no driving, no exercise, no illicit substances, no lifting, no sex, no tub bath, no work. 4. Diet: continue as discussed with Dr. Rodríguez. 5. Dressing Change/Wound Care: Do not change or remove surgical dressings unless they are wet or soiled. 6. Call your doctor if: - Your temperature exceeds 101.5 F - You experience excessive pain or swelling - You have an unexpected reaction to medication - You have excessive bleeding - You experience continued vomiting/nausea - Your incision begins to separate - Your incision shows signs of infection such as increased redness, swelling, excessive pain, heat, or drainage (light blood or clear fluid is normal) 7. General instructions: No lifting greater than 5 lbs for the next 4 weeks. No driving within 24 hours of taking narcotic pain medications. If you do not move your bowels in the next 2 days, please take milk of magnesia over the counter. Please follow the post op diet and do not advance your diet until you are seen in the office in about 2 weeks. Please walk around your home every hour or two to prevent blood clots from forming in your legs. You do not need to wake from sleeping to walk. Please sleep in a bed or couch to prevent kinking at the hips and knees. Please take your incentive spirometer (your lung oracle business analyst) home with you and use it for the next few days to prevent pneumonias. You may shower, no hot tubs, baths or swimming pools. Please call the office with any questions or concerns such as increasing abdominal pain, fever, chills, shortness of breath, chest pain, leg pain or swelling, or redness or drainage from your incisions. Do not hesitate to contact the office with any questions at . The patient's medical history has been reviewed and they are considered low risk for post op DVT and therefore DVT prophylaxis is not considered necessary. Travel after surgery was reviewed. The patient has not disclosed any travel plans during the first 30 days after surgery and they have been advised that within the first 30 days after surgery any bus, plane, train or car travel over 2 hours in duration is contraindicated due to the possibility of developing blood clots from immobility. Any travel, needs to include periods of ambulation of 10 minutes in duration every 2 hours. The patient was instructed to discuss any plans for travel during this period with their bariatric surgeon. Assessment: stable, removal of gastric band Discharge Date/Time: 01/10/22 09:09
[2022-01-09] MEDS: Famotidine/PF 20 MG/2 ML VIAL IVPUSH ×2 (11:54→20:02)
--- NOTE | 2022-01-09 12:11 | P.PNGS_ITS ---
Subjective Subjective Date of Service: 01/10/22 Interval history: Patient has mild incisional pain, but was able to ambulate and use the incentive spirometer. She is tolerating phase 1 bariatric diet Physical Exam Vital Signs: Vital Signs: Last Vital Signs Temp 97.1 F 01/09/22 11:33 Pulse 65 01/09/22 12:03 Resp 16 01/09/22 12:03 BP 115/64 01/09/22 12:03 Pulse Ox 100 01/09/22 12:03 BMI result Body Mass Index 32.2 GI: Inspection: Yes normal to inspection, Yes incision (clean, dry and intact) and Yes obesity Extrem: Right lower extremity: normal to inspection (no calf tenderness) Left lower extremity: normal to inspection (no calf tenderness) Objective Data Active Medications Albuterol Sulfate (Albuterol Sulfate (0.083%) 2.5 Mg/3 Ml Vial.Neb) 2.5 mg INHALE ONCE PRN PRN Reason: Shortness of Breath/Wheezing Famotidine (Famotidine/Pf 20 Mg/2 Ml Vial) 20 mg IVPUSH BID [facility] Last Admin: 01/09/22 11:54 Dose: 20 mg Documented by: JASON Fentanyl (Fentanyl Citrate/Pf 100 Mcg/2 Ml Vial) 50 mcg IVPUSH Q5M PRN; Protoco l PRN Reason: Pain, Severe (Pain Scale 7-10) Lactated Ringer's (Lr) 1,000 mls @ 100 mls/hr IVCONT .Q10H [facility] Last Admin: 01/09/22 06:50 Dose: 100 mls/hr Documented by: ANA Promethazine HCl 12.5 mg/ (Sodium Chloride) 50.5 mls @ 202 mls/hr IV ONCE PRN PRN Reason: Nausea and Vomiting Lactated Ringer's (Lr) 1,000 mls @ 100 mls/hr IVCONT .Q10H [facility] Metoclopramide HCl (Metoclopramide Hcl 10 Mg/2 Ml Vial) 10 mg IVPUSH Q6H PRN PRN Reason: Nausea Labs CBC & Chem 7: 01/10/22 06:08 01/10/22 06:08 Labs: Laboratory Results - last 24 hr 01/08/22 13:36 COVID-19 ([facility]) Negative COVID-19 Clin Com See Note Procedures Date of Service Date of Service: 01/10/22 Progress Note: A&P Assessment and plan (1) Obesity: Status: Acute Assessment and Plan: s/p laparoscopic band removal and accessories and extensive lysis of adhesions Doing well Check am labs. If OK, will discharge home? (2) BMI 32.0-32.9,adult: Status: Acute (3) Intra-abdominal adhesions: Status: Acute (4) Back pain: Status: Acute (5) Insomnia: Status: Acute (6) Steatosis, liver: Status: Acute Time Spent With Patient Time: Total time spent is greater than 50% in coordination of care (as documented) at patient's floor/unit and/or counseling patient: Quality Stroke Does the patient have a stroke diagnosis?: No VTE Prior VTE?: No VTE Risk Level:: Surgical - moderate VTE Device Contraindication: N/A - Device Ordered VTE Drug Contraindication: Treatment Not Indicated
[2022-01-09 12:38] LABS: Hematocrit 38.4 % (37.0-47.0); Hemoglobin 12.8 g/dl (12.0-16.0)
[2022-01-09 12:51] LABS: Anion Gap 11 (12-20); Blood Urea Nitrogen 14 mg/dL (9-16); Carbon Dioxide 24 mmol/L (22-29); Chloride 108 mmol/L (96-108); Creatinine Clr Calc Pharmacy 94.4; Estimated Glomerular Filt Rate > 60; Glucose Random 154 mg/dL (60-115); Potassium 3.9 mmol/L (3.3-5.1); Sodium 139 mmol/L (135-145)
[2022-01-09] MEDS: ceFAZolin Sodium/Dextrose,Iso 2 GM/50 ML PIGGYBACK IV (13:08)
[2022-01-09] MEDS: ondansetron HCL 4 MG/2 ML VIAL IVPUSH (17:03)
[2022-01-09] MEDS: 0.9 % Sodium Chloride Flush 3 ML SYRINGE IVFLUSH (20:02)
[2022-01-10] VITALS: BP 110/63; PULSE 65; RESP 18; TEMP 36.6; O2SAT 98
[2022-01-10] MEDS: ondansetron HCL 4 MG/2 ML VIAL IVPUSH ×2 (01:40→07:05)
[2022-01-10 03:52] VITALS: BP 110/59; PULSE 75; RESP 18; TEMP 36.6; O2SAT 99
[2022-01-10 06:23] LABS: MANUAL DIFF FLAG NO
[2022-01-10 06:29] LABS: Basophils Percent Auto 0.3 % (0-2); Eosinophils Percent Auto 0.4 % (0-4); Hemoglobin 11.1 g/dl (12.0-16.0); Imm Gran Abs Auto 0.04 X10*3/uL (0.00-0.03); Imm Gran Pct Auto 0.4 % (0.0-0.4); Lymphocytes Absolute Auto 1.4 X10*3/uL (1.2-4.9); Lymphocytes Percent Auto 14.6 % (20-40); Mean Corpuscular HGB Conc 33.6 g/dl (31.0-35.0); Mean Corpuscular Hemoglobin 30.4 pg (27.0-33.0); Mean Corpuscular Volume 90.4 fL (80.0-98.0); Mean Platelet Volume 11.1 fL (9.4-12.3); Monocytes Absolute Auto 0.8 X10*3/uL (0.1-1.2); Monocytes Percent Auto 8.4 % (2-11); Neutrophils Absolute Auto 7.5 x10*3/uL (2.0-8.3); Neutrophils Percent Auto 75.9 % (45-73); Platelet Count 166 X10*3/uL (160-400); Red Blood Count 3.65 X10*6/uL (4.20-5.50); Red Cell Distribution Width 12.5 % (11.0-16.0); White Blood Count 9.8 X10*3/uL (4.8-10.8)
[2022-01-10 06:49] LABS: Anion Gap 10 (12-20); Blood Urea Nitrogen 8 mg/dL (9-16); Calcium 8.8 mg/dL (8.4-10.2); Carbon Dioxide 26 mmol/L (22-29); Chloride 108 mmol/L (96-108); Creatinine Clr Calc Pharmacy 116.5; Estimated Glomerular Filt Rate > 60; Glucose Random 80 mg/dL (60-115); Sodium 140 mmol/L (135-145)
[2022-01-10] MEDS: Famotidine/PF 20 MG/2 ML VIAL IVPUSH (07:04)
[2022-01-10] MEDS: Escitalopram Oxalate 10 MG TABLET PO (07:05)
[2022-01-10] MEDS: 0.9 % Sodium Chloride Flush 3 ML SYRINGE IVFLUSH (07:10)
[2022-01-10 07:45] VITALS: BP 107/60; PULSE 65; RESP 16; TEMP 37; O2SAT 100
--- NOTE | 2022-01-10 08:32 | MHC.CM.PN ---
PATIENT IS FULLY INDEPENDENT NO DME OR [facility] SERVICES SHE IS DC TODAY - SELF CARE. RN AWARE OF PLAN
--- NOTE | 2022-01-10 11:11 | HO.POSTANES ---
Post Anesthesia Evaluation Post Anesthesia Evaluation Vital Signs: Vital Signs Temp Pulse Resp BP Pulse Ox 01/10/22 07:45 98.6 F 65 16 107/60 100 01/10/22 03:52 97.8 F 75 18 110/59 L 99 01/10/22 00:00 97.9 F 65 18 110/63 98 Anesthesia: General Endotracheal-GETA Mental Status: Awake Pain Control: Satisfactory Nausea/Vomiting: None Anesthesia-Related Issues: No Anes. Related Issues
== END 2022-01-10 09:09 | disposition home or self-care (01) | DRG 222 ==
LOC: HO.SSSA 06:41 → HO.S3 11:00
PROVIDERS: Physician Assistant; Physician Assistant Surgical; Admitting Provider Surgery; PCP Internal Medicine; Visit Provider Surgery
PROC: 0DP64CZ Removal of Extraluminal Device from Stomach, Percutaneous Endoscopic Approach (ICD-10-PCS; CPT 43774; principal; 2022-01-09 07:30)
DX: K95.09 Other complications of gastric band procedure (principal); K76.0 Fatty (change of) liver, not elsewhere classified; Z68.33 Body mass index [BMI] 33.0-33.9, adult; E66.01 Morbid (severe) obesity due to excess calories; F41.9 Anxiety disorder, unspecified; G47.00 Insomnia, unspecified; M51.36 Other intervertebral disc degeneration, lumbar region; K66.0 Peritoneal adhesions (postprocedural) (postinfection); J45.909 Unspecified asthma, uncomplicated; K21.9 Gastro-esophageal reflux disease without esophagitis; Z20.822 Contact with and (suspected) exposure to COVID-19; Z98.51 Tubal ligation status; Z90.49 Acquired absence of other specified parts of digestive tract; Z97.5 Presence of (intrauterine) contraceptive device; Z79.899 Other long term (current) drug therapy
CPT/HCPCS: 43774; 36415; 80048; 80053; 80061; 83036; 83525; 84443; 85014; 85018; 85025; 85610; 85730; 86140; 86850; 86900; 86901; 87635; 88300; 99024; 99218; A4649; C9399; J0131; J0690; J1100; J1170; J2250; J2405; J3010

== ENCOUNTER → 2022-01-18 16:13 | Outpatient (BNVA) | payer MEDICAID, SELFPAY | PROVIDERS: PCP Internal Medicine; Visit Provider Physician Assistant | DX: Z98.84 Bariatric surgery status (principal) | CPT/HCPCS: 99212 ==

== ENCOUNTER 2022-03-27 09:46 | Outpatient (REF) | payer MEDICAID, SELFPAY ==
--- NOTE | ~2022-03-27 | MM_ITS ---
EXAMINATION: MM SCREENING DIGITAL BREAST TOMOSYNTHESIS, BILATERAL CLINICAL INFORMATION: Screening. Asymptomatic. The lifetime risk of breast cancer based on the Tyrer-Cuzick Model is 11.2%. COMPARISON: Mammography: March 14, 2021 and studies dating back to February 02, 2019 TECHNIQUE: Digital breast tomosynthesis is performed in both the craniocaudal and mediolateral oblique views along with computer-aided detection (CAD). Synthesized 2D images are generated from the tomosynthesis. FINDINGS: The breasts are heterogeneously dense, which may obscure small masses (ACR BI-RADS breast composition Category c). There are no new significant masses, abnormal calcifications, or other abnormalities. MM/MM tomosynthesis screening BI IMPRESSION: There are no significant changes from prior study. ASSESSMENT: BI-RADS 1: Negative RECOMMENDATION: Routine annual mammography screening. This patient's information was entered into a reminder system with a target due date for their next mammogram.
== END 2022-03-27 09:47 | disposition home or self-care (01) ==
LOC: HO.MAMMO 09:46
PROVIDERS: Visit Provider Internal Medicine
DX: Z12.31 Encounter for screening mammogram for malignant neoplasm of breast (principal)
CPT/HCPCS: 77063; 77067

== ENCOUNTER 2022-04-06 10:04 | Outpatient (REF) | payer MEDICAID, SELFPAY ==
--- NOTE | ~2022-04-06 | XR_ITS ---
EXAMINATION: XR SHOULDER, LEFT CLINICAL INFORMATION: Pain of one month's duration. COMPARISON: None TECHNIQUE: AP external rotation, Grashey, scapular Y, and axillary views of the left shoulder. FINDINGS: The bones and soft tissues are normal. No fracture. Glenohumeral and acromioclavicular alignment is anatomic with normal joint space. No abnormal soft tissue calcifications. XR/XR shoulder LT min 2V IMPRESSION: Normal left shoulder.
== END 2022-04-06 10:05 | disposition home or self-care (01) ==
LOC: HO.XRAY 10:04
PROVIDERS: PCP Internal Medicine; Visit Provider Internal Medicine
DX: M25.512 Pain in left shoulder (principal)
CPT/HCPCS: 73030

== ENCOUNTER → 2022-04-10 09:31 | Outpatient (BNVA) | payer MEDICAID, SELFPAY | PROVIDERS: PCP Internal Medicine; Visit Provider Nurse Practitioner Family | DX: M51.36 Other intervertebral disc degeneration, lumbar region (principal); M47.26 Other spondylosis with radiculopathy, lumbar region | CPT/HCPCS: 99212 ==

== ENCOUNTER → 2022-04-19 13:21 | Outpatient (BNVA) | payer MEDICAID, SELFPAY | PROVIDERS: PCP Internal Medicine; Visit Provider Physician Assistant | DX: M77.11 Lateral epicondylitis, right elbow (principal) | CPT/HCPCS: 20551; 99212; J1100 ==

== ENCOUNTER 2022-05-25 08:24 | Day surgery (SDC) | payer MEDICAID, SELFPAY ==
--- NOTE | 2022-05-24 10:03 | P.CONAN_ITS ---
Documented by User: Beth Torres NP 05/24/22 10:06 HPI - Anesthesia Eval Consult details Narrative: 41yo F for Bilateral Transforaminal Epidural Injection L4-L5 PMFSH Active Problems Active Problems: All Active Problems (Updated 05/22/22 @ 13:30 by Madison Conn, RN) Obesity (Acute) Fibromyalgia (Acute) Gastric band slippage (Acute) Emesis (Acute) History of removal of laparoscopic gastric banding device (Acute) Lumbar spondylosis (Acute) Lumbar radiculopathy, chronic (Acute) Disc degeneration, lumbar (Acute) Steatosis, liver (Acute) Insomnia (Acute) Intra-abdominal adhesions (Acute) GERD (gastroesophageal reflux disease) (Acute) Depression (Acute) Asthma (Acute) Anxiety (Acute) Past Medical History Medical History (Updated 05/22/22 @ 13:30 by Madison Conn RN) Anxiety Asthma Back pain BMI 32.0-32.9,adult Depression Disc degeneration, lumbar GERD (gastroesophageal reflux disease) Hx of steroid therapy Insomnia Intra-abdominal adhesions IUD check up Lateral epicondylitis, right elbow Steatosis, liver Family History Family History Mother No problems noted. Father Diabetes Sister No problems noted. Brother No problems noted. Son No problems noted. Son No problems noted. Daughter No problems noted. Family history of problems with anesthesia: No Surgical History Surgical History (Updated 05/22/22 @ 13:53 by Madison Conn RN) H/O gastric sleeve H/O laparoscopic adjustable gastric banding History of History of esophagogastroduodenoscopy (EGD) History of tubal ligation Hx laparoscopic cholecystectomy Hx of dilation and curettage History of Problems with Anesthesia: No Social History Social History Household Members: Children Housing: House Are you a primary clinical care coordinator to a significant other at home: No Do you presently have visiting nurse or other home services: No Alcohol intake: never Patient Tobacco Use Status: Never used Tobacco Second Hand Smoke Exposure: No Use of substances other than those prescribed or required for medical reasons: No Are you DNR?: No Advance Directives: No Advance Directives Information Provided: Yes service: No Current occupational status: employed 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 Meds Allergies Allergy/AdvReac Type Severity Reaction Status Date / Time No Known Allergies Allergy Verified 05/25/22 08:47 Home Medications Medication Instructions Recorded Confirmed Last Taken Type tramadol 50 mg tablet 50 mg PO Q8H PRN Pain 01/20/21 05/22/22 Unknown History zolpidem 10 mg tablet (Ambien) 10 mg PO BEDTIME PRN Insomnia 01/20/21 05/22/22 05/30/21 History albuterol sulfate 90 mcg/actuation 2 puff PO Q4-6H PRN Wheezing 05/31/21 05/22/22 Unknown History aerosol inhaler (ProAir HFA) gabapentin 100 mg capsule 1 cap PO BID PRN ARM PAIN 05/31/21 05/22/22 Unknown History multivitamin 1 tab PO DAILY 05/31/21 05/22/22 05/30/21 History citalopram 20 mg tablet (Celexa) 20 mg PO DAILY 09/25/21 05/22/22 Unknown History levonorgestrel 20 mcg/24 hours (7 intrauterine 09/25/21 12/29/21 Unknown History yrs) 52 mg intrauterine device (Mirena) Exam Exam Date and Time: May 24, 2022 1003 Pertinent Lab Results Pertinent Lab Results: Laboratory Tests 01/10/22 01/10/22 06:08 06:08 WBC 9.8 Hgb 11.1 L Hct 33.0 L Plt Count 166 Sodium 140 Potassium 4.0 Chloride 108 Carbon Dioxide 26 BUN 8 L Creatinine 0.64 Assessment and Plan Assessment Anesthesia Assessment: Chart Reviewed Final Anesthetic Review Family History of Problems with Anesthesia: No History of Problems with Anesthesia: No Documented by User: Bhupendra Mccartney MD 05/25/22 10:33 [facility] Past Medical History Medical History (Updated 05/22/22 @ 13:30 by Madison Conn RN) Anxiety Asthma Back pain BMI 32.0-32.9,adult Depression Disc degeneration, lumbar GERD (gastroesophageal reflux disease) Hx of steroid therapy Insomnia Intra-abdominal adhesions IUD check up Lateral epicondylitis, right elbow Steatosis, liver Family History Family History Mother No problems noted. Father Diabetes Sister No problems noted. Brother No problems noted. Son No problems noted. Son No problems noted. Daughter No problems noted. Surgical History Surgical History (Updated 05/22/22 @ 13:53 by Madison Conn RN) H/O gastric sleeve H/O laparoscopic adjustable gastric banding History of History of esophagogastroduodenoscopy (EGD) History of tubal ligation Hx laparoscopic cholecystectomy Hx of dilation and curettage Social History Social History Household Members: Children Housing: House Are you a primary clinical care coordinator to a significant other at home: No Do you presently have visiting nurse or other home services: No Alcohol intake: never Patient Tobacco Use Status: Never used Tobacco Second Hand Smoke Exposure: No Use of substances other than those prescribed or required for medical reasons: No Are you DNR?: No Advance Directives: No Advance Directives Information Provided: Yes service: No Current occupational status: employed 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 Meds Allergies Allergy/AdvReac Type Severity Reaction Status Date / Time No Known Allergies Allergy Verified 05/25/22 08:47 Home Medications Medication Instructions Recorded Confirmed Last Taken Type tramadol 50 mg tablet 50 mg PO Q8H PRN Pain 01/20/21 05/22/22 Unknown History zolpidem 10 mg tablet (Ambien) 10 mg PO BEDTIME PRN Insomnia 01/20/21 05/22/22 05/30/21 History albuterol sulfate 90 mcg/actuation 2 puff PO Q4-6H PRN Wheezing 05/31/21 05/22/22 Unknown History aerosol inhaler (ProAir HFA) gabapentin 100 mg capsule 1 cap PO BID PRN ARM PAIN 05/31/21 05/22/22 Unknown History multivitamin 1 tab PO DAILY 05/31/21 05/22/22 05/30/21 History citalopram 20 mg tablet (Celexa) 20 mg PO DAILY 09/25/21 05/22/22 Unknown History levonorgestrel 20 mcg/24 hours (7 intrauterine 09/25/21 12/29/21 Unknown History yrs) 52 mg intrauterine device (Mirena) Exam Airway Mallampati Class: II TM Dist: >3cm Neck ROM: Full Loose/Missing/Broken Teeth: No Heart: rrr Lungs: clear Assessment and Plan Final Anesthetic Review NPO: Yes ASA Class: II Final Preanesthetic Review: No Changes in Pt Med Stat, Meds/Allgs Chart Reviewed, Consent Obtained/Reviewed and Anes Risks/Benef Reviewed Patient Risk: Intermediate Procedure Risk: Low Anesthetic Plan Anesthetic Plan: MAC: Disposition: Standard PACU
--- NOTE | ~2022-05-25 | FL_ITS ---
EXAMINATION: XR FLUOROSCOPY WITH IMAGES CLINICAL INFORMATION: Back pain. Transforaminal epidural injections. COMPARISON: Fluoroscopic spot views 07/21/2021 TECHNIQUE: Fluoroscopy performed by Dr. Mauricio Bass. Fluoroscopy time: 0.9 minutes. Cumulative Dose: 13.1 mGy. DAP: 3.58 Gy-cm2. Images: 2. FINDINGS: There are spinal needles overlying the bilateral outer L4 neural foramen. There is contrast seen in the respective nerve sheaths. There is also transforaminal epidural contrast. No visible vascular communication. FL/FL guidance in OR IMPRESSION: Fluoroscopy for pain management procedures.
--- NOTE | 2022-05-25 07:49 | P.HPSUR_ITS ---
Pre-Procedural Eval Section A Date of Service: 05/25/22 The patient is an INPATIENT: No Changes since office visit: Yes Patient answered all questions The History & Physical has been completed within 30 days and I have reviewed it.: No Section B Chief Complaint: disc degeneration Details of Present Illness: disc degeneration, lumbar radiculopathy Relevant Family History (Specify if Yes): No Relevant Social History: None Present Medications: None Medical History: No relevant PMH History of Previous Operations: No relevant previous surgery Allergies: Allergies Allergy/AdvReac Type Severity Reaction Status Date / Time No Known Allergies Allergy Verified 05/22/22 13:31 Review of Systems Sugical H&P ROS: Negative: Constitution, Cardiovascular, Respiratory, N eurological, Psychiatric, Hem-Onc, Allergic/Immunologic, Gastrointestinal, Genitourinary, Musculoskeletal, Integumentary, Endocrine and Eyes/Ears/Nose/Throat Exam Surgical H&P Exam: Normal: HEENT, Normal: Heart, Normal: Lungs, Normal: Extremities, Normal: Abdomen, Normal: Skin and Normal: Neurological Plan Diagnosis/Plan: Unchanged I have reviewed the history and physical and performed a pertinent physical examination on my patient. No changes have occurred unless specified.
[2022-05-25 08:47] VITALS: BP 105/69; PULSE 76; RESP 16; TEMP 36.7; O2SAT 99; BMI 33.6
[2022-05-25] MEDS: Lactated Ringers 1,000 ML 100 ML IVCONT (09:00)
[2022-05-25 11:35] VITALS: BP 101/52; PULSE 67; RESP 16; TEMP 36.4; O2SAT 100
--- NOTE | 2022-05-25 11:42 | PM.OP ---
Brief Operative Note Date of Service: 05/25/22 Pre-op diagnosis: disc degeneration with radiculopathy lumbar Post-op diagnosis: same Procedure: bilateral Transforaminal epidural steroid injection. Surgeon: Mauricio Bass MD Anesthesia: MAC Was an [employer] used for this Procedure?: No Estimated blood loss (mL): 1 Condition: stable Disposition: PACU
--- NOTE | 2022-05-25 11:43 | P.OP_ITS ---
Operative Note Operative Note Date of Service: 05/25/22 Narrative: Bilateral transforaminal epidural steroid injection. After explaining informed consent using hydrate control tender of [facility] [place] the patient was taken to the operating room when she was positioned prone on the operating table. [employer] [place] [employer]hes[employer] monitors were applied and patient was moderately sedated. Time-out was performed delineating correct site and side of the procedure name date of of the patient, name of the procedure and risks for the patient. The patient's lower back was prepped with ChloraPrep and draped with 4 sterile utility towels. C-arm was brought over the operating field and sq picture of L4 vertebra was demonstrated on the screen. Tilting machine ipsilateral to each side about 30 degrees the most prominent image of the pedicle was demonstrated on the screen. The procedure was performed 1st on the left and then on the right. 3 mm below the lowest point of the pedicle silhouette 22 gauge 5 in needle was inserted through the skin and advanced to were the foramina under intermittent anterior posterior and oblique views. When tip of the needle on anterior posterior view entered on the left silhouette of the spinal canal injection of the contrast was performed demonstrating epidural spread of the contrast and partial perineural spread of the contrast. After that injection of the lidocaine 1% mixed with Kenalog 40 mg was performed into the needle. The same procedure was performed on the right side with the same technique however on the right several attempts were made to pass the needle in because of 1st few attempts the needle entered blood vessel. When anterior epidural space was clearly delineated on the screen injection of the same amount of lidocaine with same percentage and 40 mg of Kenalog was performed into the right side. Upon completion of the procedures needles were removed sterile dressing was applied. The patient was tolerating procedure well she went transferred to PACU for the recovery.
[2022-05-25 11:50] VITALS: BP 108/70; PULSE 69; RESP 16; O2SAT 100
[2022-05-25 12:05] VITALS: BP 107/69; PULSE 64; RESP 16; O2SAT 100
== END 2022-05-25 12:35 | disposition home or self-care (01) ==
PROVIDERS: PCP Internal Medicine; Visit Provider Anesthesiology
PROC: (CPT 64483; principal; 2022-05-25 09:40)
DX: M47.816 Spondylosis without myelopathy or radiculopathy, lumbar region (principal); G89.29 Other chronic pain; M51.36 Other intervertebral disc degeneration, lumbar region; M54.16 Radiculopathy, lumbar region; M54.50 Low back pain, unspecified; F41.9 Anxiety disorder, unspecified; F32.A Depression, unspecified; J45.909 Unspecified asthma, uncomplicated; Z79.899 Other long term (current) drug therapy
CPT/HCPCS: 64483; J2250; J3300

== ENCOUNTER 2022-09-23 01:52 | Emergency (ER) | payer MEDICAID, SELFPAY ==
[2022-09-23 02:03] VITALS: BP 117/79; PULSE 87; RESP 17; TEMP 36.9; O2SAT 100
[2022-09-23 02:14] VITALS: BP 104/70; PULSE 100; O2SAT 97; BMI 37.7
[2022-09-23] MEDS: 0.9 % Sodium Chloride 1,000 ML 999 ML IV (02:15)
--- NOTE | 2022-09-23 02:33 | PC.NURSE ---
pt c/o n/v and abdominal pain IV line est 20g to R AC- 1L NS running provider notified pt is nauseous; requested nausea meds
[2022-09-23] MEDS: ondansetron HCL 4 MG/2 ML VIAL IVPUSH (02:38)
[2022-09-23 02:39] LABS: MANUAL DIFF FLAG NO
[2022-09-23 02:40] LABS: Basophils Percent Auto 0.4 % (0-2); Eosinophils Absolute Auto 0.3 X10*3/uL (0.0-0.4); Eosinophils Percent Auto 2.9 % (0-4); Hematocrit 36.6 % (37.0-47.0); Hemoglobin 12.4 g/dl (12.0-16.0); Imm Gran Abs Auto 0.05 X10*3/uL (0.00-0.03); Imm Gran Pct Auto 0.4 % (0.0-0.4); Lymphocytes Absolute Auto 2.8 X10*3/uL (1.2-4.9); Lymphocytes Percent Auto 24.8 % (20-40); Mean Corpuscular HGB Conc 33.9 g/dl (31.0-35.0); Mean Corpuscular Hemoglobin 30.5 pg (27.0-33.0); Mean Corpuscular Volume 90.1 fL (80.0-98.0); Mean Platelet Volume 10.4 fL (9.4-12.3); Monocytes Absolute Auto 0.8 X10*3/uL (0.1-1.2); Monocytes Percent Auto 7.3 % (2-11); Neutrophils Absolute Auto 7.3 x10*3/uL (2.0-8.3); Neutrophils Percent Auto 64.2 % (45-73); Platelet Count 196 X10*3/uL (160-400); Red Blood Count 4.06 X10*6/uL (4.20-5.50); Red Cell Distribution Width 12.6 % (11.0-16.0); White Blood Count 11.3 X10*3/uL (4.8-10.8)
[2022-09-23 03:00] LABS: Ethanol 203 mg/dL
[2022-09-23 03:03] LABS: Alanine Aminotransferase 65 U/L (0-31); Albumin Level 4.1 g/dL (3.5-5.0); Alkaline Phosphatase 94 U/L (39-117); Anion Gap 15 (12-20); Aspartate Amino Transferase 133 U/L (5-31); Bilirubin Direct 0.2 mg/dL (0.0-0.5); Bilirubin Total 0.4 mg/dL (0.0-1.0); Blood Urea Nitrogen 13 mg/dL (9-16); Calcium 8.5 mg/dL (8.4-10.2); Carbon Dioxide 23 mmol/L (22-29); Chloride 106 mmol/L (96-108); Creatinine Clr Calc Pharmacy 109.8; Estimated Glomerular Filt Rate > 60; Glucose Random 108 mg/dL (60-115); Potassium 3.8 mmol/L (3.3-5.1); Sodium 140 mmol/L (135-145); Total Protein 6.7 g/dL (6.5-8.0)
--- NOTE | 2022-09-23 03:39 | MHC.EDTECH ---
Attempted to collect urine sample from Pt. Pt 1x assisted to beside commode but was unable to void.Bladder scan performed on PT. PT given call ruelas and instructed to ring when she feels she needs to void . Moises Sexton made aware
--- NOTE | 2022-09-23 04:01 | PC.NURSE ---
pt sleeping; no apparent distress; son at bedside
--- NOTE | 2022-09-23 04:48 | MHC.EDTECH ---
Pt reminded that a urine sample is needed. Pt given ice chips and reminded to ring the call ruelas when she is ready to try to use the bedside commode.
[2022-09-23 05:16] LABS: Appearance Urine Clear; Color Urine Yellow; Glucose Urine UA Negative (Negative); Leukocyte Esterase Urine Negative (Negative); Nitrite Urine Negative (Negative); PH 5.5 (5.0-9.0); Specific Gravity - Urine <= 1.005 (1.005-1.025); Urine Blood Negative (Negative); Urine Ketones Negative (Negative); Urine Protein Negative (Neg-Trace)
[2022-09-23 05:17] LABS: UPreg QC Valid YES; Urine Pregnancy NEGATIVE (NEGATIVE)
[2022-09-23 05:28] LABS: Amphetamine Screen Urine Not Detected (Not Detect); Barbiturates, Urine Not Detected (Not Detect); Benzodiazepines Screen Urine Not Detected (Not Detect); Cannabinoid Screen Urine Not Detected (Not Detect); Cocaine Screen Urine Not Detected (Not Detect); Fentanyl, urine Not Detected (Not Detect); Opiate Screen Urine Not Detected (Not Detect); Phencyclidine Screen Urine Not Detected (Not Detect)
[2022-09-23] MEDS: Ketorolac Tromethamine 15 MG/ML VIAL IVPUSH (05:32)
[2022-09-23 05:41] VITALS: BP 108/65; PULSE 88; RESP 15; TEMP 36.5; O2SAT 98
--- NOTE | 2022-09-23 05:41 | MHC.EDTECH ---
Pt 1x assisted to the bathroom. Pt 1x assisted back to bed. Call ruelas placed in reach and PT given warm blankets
--- NOTE | 2022-09-23 05:59 | ED_ITS ---
HPI - Alcohol General Chief Complaint: ETOH/Substance Use Stated Complaint: ETOH/ABD PAIN Time Seen by Provider: 09/23/22 02:32 Source: patient and family (Son, Gabriel) Limitations: language barrier (Patient's 1st language is [place], she does speak Pashto,) History of Present Illness HPI narrative: 42-year-old female who is brought to emergency department by ambulance for evaluation of altered level of consciousness and abdominal pain. The patient went out drinking with friends. She states that she drank multiple beers cannot quantify the number. When she got home the son states that she fell asleep and was unresponsive. He was concerned that she was having difficulty breathing. He was able to wake her up and she was complaining of stomach pain. She points to her epigastric area when asked to localize the pain. She states the pain is a burning sensation and she had associated nausea and vomiting. She also complained of headache which was diffuse, constant and 6/10. The patient states that she drinks alcohol once a month. She denies using any other drugs. Related Data Home Medications Medication Instructions Recorded Confirmed tramadol 50 mg tablet 50 mg PO Q8H PRN Pain 01/20/21 05/22/22 zolpidem 10 mg tablet (Ambien) 10 mg PO BEDTIME PRN Insomnia 01/20/21 05/22/22 albuterol sulfate 90 mcg/actuation 2 puff PO Q4-6H PRN Wheezing 05/31/21 05/22/22 aerosol inhaler (ProAir HFA) gabapentin 100 mg capsule 1 cap PO BID PRN ARM PAIN 05/31/21 05/22/22 multivitamin 1 tab PO DAILY 05/31/21 05/22/22 citalopram 20 mg tablet (Celexa) 20 mg PO DAILY 09/25/21 05/22/22 levonorgestrel 20 mcg/24 hours (8 intrauterine 09/25/21 12/29/21 yrs) 52 mg intrauterine device (Mirena) Previous Rx's Medication Instructions Recorded cholecalciferol (vitamin D3) 10 10 mcg PO DAILY #30 caps 06/22/21 mcg (400 unit) capsule ondansetron HCl 4 mg tablet 4 mg PO Q12H nausea and vomiting 12/30/21 #20 tabs pantoprazole 40 mg tablet,delayed 40 mg PO DAILY #30 tabs 12/30/21 release sucralfate 100 mg/mL oral 10 ml PO BID #400 mL 12/30/21 suspension omeprazole 20 mg capsule,delayed 20 mg PO DAILY 30 days #30 caps 09/23/22 release ondansetron 4 mg disintegrating 4 mg PO Q6-8H PRN nausea and 09/23/22 tablet vomiting #14 tabs Allergies Allergy/AdvReac Type Severity Reaction Status Date / Time No Known Allergies Allergy Verified 05/25/22 08:47 Review of Systems Review of Systems: Yes all other systems are reviewed and are negative [facility] Past Medical History [facility] Narrative: Social history: She denies tobacco use, she drinks alcohol once a month, she denies drug use. Medical History (Updated 09/23/22 @ 06:10 by Evgeny Apple MD) Anxiety Asthma Back pain BMI 32.0-32.9,adult Depression Disc degeneration, lumbar GERD (gastroesophageal reflux disease) Hx of steroid therapy Insomnia Intra-abdominal adhesions IUD check up Lateral epicondylitis, right elbow Steatosis, liver Surgical History (Updated 05/22/22 @ 13:53 by Madison Conn RN) H/O gastric sleeve H/O laparoscopic adjustable gastric banding History of History of esophagogastroduodenoscopy (EGD) History of tubal ligation Hx laparoscopic cholecystectomy Hx of dilation and curettage Family History Family History Mother No problems noted. Father Diabetes Sister No problems noted. Brother No problems noted. Son No problems noted. Son No problems noted. Daughter No problems noted. 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 Physical Exam ED Vital Signs: Vital Signs - 24 hr 09/23/22 02:03 09/23/22 05:41 Temperature 98.5 F 97.7 F Pulse Rate 87 88 Respiratory Rate 17 15 Blood Pressure 117/79 108/65 Pulse Oximetry 100 98 Oxygen Delivery Method Room Air Room Air BMI result Body Mass Index 37.7 Const General: cooperative and no acute distress Orientation/consciousness: oriented to person and oriented to place Limitations: no limitations HENMT Head: Yes normal to inspection, Yes normocephalic and Yes atraumatic Ears: external ears normal General nose exam: Normal external nose present Face and sinus: Yes normal facial exam Mouth: Normal oral and palatal mucosa present Throat: Yes posterior oropharynx normal Eyes General: appearance normal, both eyes and all related structures Pupils: Equal, round and reactive pupils present Neck Neck: Yes normal visual inspection, Yes no lymphadenopathy, Yes trachea midline and Yes supple Chest Chest palpation & inspection: normal inspection of the chest and normal palpation of entire chest wall Resp Effort & Inspection: normal respiratory effort and able to speak in complete sentences Auscultation: clear to auscultation bilaterally Cardio Rate: regular rate Rhythm: regular rhythm Heart sounds: S1 normal heart sound present, S2 normal heart sound present and no murmurs GI Inspection: Yes normal to inspection Palpation (GI): Soft to palpation, nontender and no guarding Auscultation: normal bowel sounds General: Yes no CVA tenderness Back/Spine/Pelvis Back: no CVA tenderness Skin General skin exam: no rashes or lesions noted Neuro General: oriented to person and oriented to place Cranial nerves: Yes CN's II-XII intact bilaterally and Yes Equal, round and reactive pupils present Cognition (Neuro): normal cognition Motor exam (neuro): 5/5 motor strength present throughout Extrem General: Yes normal to inspection Psych Appearance: grossly normal Speech and movement: Normal speech and movement present Affect: normal affect Attitude: cooperative Thought process: Normal thought process present Medical Decision Making Medical Decision Making MDM Narrative: 42-year-old female who presents emergency department for evaluation altered level of consciousness, headache, abdominal pain, nausea and vomiting after drinking alcohol last night. The patient's vital signs were normal. Patient was awake and alert, able answer questions, she had no abdominal tenderness, she was complaining of a headache but her neurologic exam was normal. Patient was treated with normal saline x1 L and Zofran 4 mg IV. She was also given Toradol 15 mg IV for her headache. Laboratory evaluation was ordered including CBC, CMP, ETOH level. 0605: My independent interpretation of the patient's laboratory data is as follows: WBC elevated 11,300, anemia with an H&H of 12 and 36, elevated AST and ALT of 133 and 65. Ethanol was elevated 203 in this is consistent with acute intoxication. Patient did feel better after the above treatment but still was having headache, she was ordered to get Tylenol 975 mg orally. My impression is the patient's symptoms are secondary to drinking strong alcohol this evening and alcohol intoxication. The patient appears stable be discharged home. She was given a prescription for Zofran ODT 4 mg every 8 hours as needed for nausea and vomiting she was advised to take Tylenol for her headache and to follow-up with her PCP for re-evaluation. Differential Diagnosis Differential diagnosis includes was not limited to acute alcohol intoxication, gastritis, viral syndrome, metabolic abnormalities Lab Data 09/23/22 02:36 09/23/22 02:36 Labs: Lab Results 09/23/22 09/23/22 09/23/22 Range/Units 02:36 02:36 02:36 WBC 11.3 H (4.8-10.8) X10*3/uL RBC 4.06 L (4.20-5.50) X10*6/uL Hgb 12.4 (12.0-16.0) g/dl Hct 36.6 L (37.0-47.0) % MCV 90.1 (80.0-98.0) fL MCH 30.5 (27.0-33.0) pg MCHC 33.9 (31.0-35.0) g/dl RDW 12.6 (11.0-16.0) % Plt Count 196 (160-400) X10*3/uL MPV 10.4 (9.4-12.3) fL Immature Gran % (Auto) 0.4 (0.0-0.4) % Neut % (Auto) 64.2 (45-73) % Lymph % (Auto) 24.8 (20-40) % Hancock % (Auto) 7.3 (2-11) % Eos % (Auto) 2.9 (0-4) % Baso % (Auto) 0.4 (0-2) % Lymph # (Auto) 2.8 (1.2-4.9) X10*3/uL Hancock # (Auto) 0.8 (0.1-1.2) X10*3/uL Eos # (Auto) 0.3 (0.0-0.4) X10*3/uL Baso # (Auto) 0.0 (0.0-0.2) X10*3/uL Abs Immat Gran (auto) 0.05 H (0.00-0.03) X10*3/uL Absolute Neuts (auto) 7.3 (2.0-8.3) x10*3/uL Absolute Nucleated RBC 0.000 (0.0-0.012) X10*3/uL Nucleated RBC % (auto) 0.0 (0.0-0.2) /100WBC Sodium 140 (135-145) mmol/L Potassium 3.8 (3.3-5.1) mmol/L Chloride 106 (96-108) mmol/L Carbon Dioxide 23 (22-29) mmol/L Anion Gap 15 (12-20) BUN 13 (9-16) mg/dL Creatinine 0.73 (0.5-1.4) mg/dL Estim Creat Clear Calc 109.8 Estimated GFR > 60 Random Glucose 108 (60-115) mg/dL Calcium 8.5 (8.4-10.2) mg/dL Total Bilirubin 0.4 (0.0-1.0) mg/dL Direct Bilirubin 0.2 (0.0-0.5) mg/dL AST 133 H (5-31) U/L ALT 65 H (0-31) U/L Alkaline Phosphatase 94 (39-117) U/L Total Protein 6.7 (6.5-8.0) g/dL Albumin 4.1 (3.5-5.0) g/dL Urine Color Urine Appearance Urine pH (5.0-9.0) Ur Specific Dudley (1.005-1.025) Urine Protein (Neg-Trace) mg/dL Urine Glucose (UA) (Negative) mg/dL Urine Ketones (Negative) mg/dL Urine Blood (Negative) Urine Nitrite (Negative) Ur Leukocyte Esterase (Negative) Urine Test (NEGATIVE) Urine Opiates Screen (Not Detect) Urine Fentanyl Screen (Not Detect) Ur Barbiturates Screen (Not Detect) Ur Phencyclidine Scrn (Not Detect) Ur Amphetamines Screen (Not Detect) U Benzodiazepines Scrn (Not Detect) Urine Cocaine Screen (Not Detect) U Marijuana (THC) Screen (Not Detect) Ethyl Alcohol 203 mg/dL 09/23/22 09/23/22 09/23/22 Range/Units 05:11 05:11 05:11 WBC (4.8-10.8) X10*3/uL RBC (4.20-5.50) X10*6/uL Hgb (12.0-16.0) g/dl Hct (37.0-47.0) % MCV (80.0-98.0) fL MCH (27.0-33.0) pg MCHC (31.0-35.0) g/dl RDW (11.0-16.0) % Plt Count (160-400) X10*3/uL MPV (9.4-12.3) fL Immature Gran % (Auto) (0.0-0.4) % Neut % (Auto) (45-73) % Lymph % (Auto) (20-40) % Hancock % (Auto) (2-11) % Eos % (Auto) (0-4) % Baso % (Auto) (0-2) % Lymph # (Auto) (1.2-4.9) X10*3/uL Hancock # (Auto) (0.1-1.2) X10*3/uL Eos # (Auto) (0.0-0.4) X10*3/uL Baso # (Auto) (0.0-0.2) X10*3/uL Abs Immat Gran (auto) (0.00-0.03) X10*3/uL Absolute Neuts (auto) (2.0-8.3) x10*3/uL Absolute Nucleated RBC (0.0-0.012) X10*3/uL Nucleated RBC % (auto) (0.0-0.2) /100WBC Sodium (135-145) mmol/L Potassium (3.3-5.1) mmol/L Chloride (96-108) mmol/L Carbon Dioxide (22-29) mmol/L Anion Gap (12-20) BUN (9-16) mg/dL Creatinine (0.5-1.4) mg/dL Estim Creat Clear Calc Estimated GFR Random Glucose (60-115) mg/dL Calcium (8.4-10.2) mg/dL Total Bilirubin (0.0-1.0) mg/dL Direct Bilirubin (0.0-0.5) mg/dL AST (5-31) U/L ALT (0-31) U/L Alkaline Phosphatase (39-117) U/L Total Protein (6.5-8.0) g/dL Albumin (3.5-5.0) g/dL Urine Color Yellow Urine Appearance Clear Urine pH 5.5 (5.0-9.0) Ur Specific Dudley <= 1.005 (1.005-1.025) Urine Protein Negative (Neg-Trace) mg/dL Urine Glucose (UA) Negative (Negative) mg/dL Urine Ketones Negative (Negative) mg/dL Urine Blood Negative (Negative) Urine Nitrite Negative (Negative) Ur Leukocyte Esterase Negative (Negative) Urine Test NEGATIVE (NEGATIVE) Urine Opiates Screen Not Detected (Not Detect) Urine Fentanyl Screen Not Detected (Not Detect) Ur Barbiturates Screen Not Detected (Not Detect) Ur Phencyclidine Scrn Not Detected (Not Detect) Ur Amphetamines Screen Not Detected (Not Detect) U Benzodiazepines Scrn Not Detected (Not Detect) Urine Cocaine Screen Not Detected (Not Detect) U Marijuana (THC) Screen Not Detected (Not Detect) Ethyl Alcohol mg/dL Medications Administered Discontinued Medications Generic Name Dose Route Start Last Admin Trade Name Freq PRN Reason Stop Dose Admin Sodium Chloride 1,000 mls @ 999 mls/hr 09/23/22 02:30 09/23/22 03:34 Ns IV 09/23/22 03:30 Infused .Q1H1M HUGO Infusion Ketorolac Tromethamine 15 mg 09/23/22 05:11 09/23/22 05:32 Ketorolac Tromethamine 15 Mg/Ml Vial IVPUSH 09/23/22 05:12 15 mg ONCE ONE Administration Ondansetron HCl 4 mg 09/23/22 02:33 09/23/22 02:38 Ondansetron Hcl 4 Mg/2 Ml Vial IVPUSH 09/23/22 02:34 4 mg ONCE ONE Administration Discharge Plan Discharge Clinical Impression: Alcohol intoxication Qualifiers: Complication of substance-induced condition: uncomplicated Qualified Code(s): F10.920 - Alcohol use, unspecified with intoxication, uncomplicated Vomiting Qualifiers: Vomiting type: unspecified Nausea presence: with nausea Qualified Code(s): R11.2 - Nausea with vomiting, unspecified Gastritis Qualifiers: Gastritis type: alcoholic Chronicity: acute Gastritis bleeding: without bleeding Qualified Code(s): K29.20 - Alcoholic gastritis without bleeding Patient Disposition: Home, Self-Care Instructions: Gastritis (ED) Additional Instructions: Your alcohol level was elevated at 203. Alcohol intoxication is greater than 80. I believe that the alcohol that you drink tonight caused your nausea, vomiting, abdominal pain and headache. Do not drink alcohol for at least 2-3 days. Take Zofran ODT 4 mg pills, 1 pill dissolved in your mouth every 8 hours as needed for nausea and vomiting. Take Prilosec (omeprazole) 20 mg pills, 1 pill once a day for 1 month. This medication shuts off your acid production and lets the inflammation in your stomach and esophagus heal. Follow-up with your doctor in 2 days. Please return to the emergency department if your symptoms get worse or if you develop any symptoms that are concerning to you. Prescriptions: New omeprazole 20 mg capsule,delayed release(DR/EC) 20 mg PO DAILY 30 Days Qty: 30 0RF ondansetron 4 mg tablet,disintegrating 4 mg PO Q6-8H PRN (Reason: nausea and vomiting) Qty: 14 0RF No Action cholecalciferol (vitamin D3) 10 mcg (400 unit) capsule 10 mcg PO DAILY Qty: 30 6RF gabapentin 100 mg capsule 1 cap PO BID PRN (Reason: ARM PAIN) albuterol sulfate [ProAir HFA] 90 mcg/actuation HFA aerosol inhaler 2 puff PO Q4-6H PRN (Reason: Wheezing) multivitamin Tablet 1 tab PO DAILY zolpidem [Ambien] 10 mg tablet 10 mg PO BEDTIME PRN (Reason: Insomnia) tramadol 50 mg tablet 50 mg PO Q8H PRN (Reason: Pain) citalopram [Celexa] 20 mg tablet 20 mg PO DAILY Mirena 20 mcg/24 hours (7 yrs) 52 mg intrauterine device intrauterine sucralfate 100 mg/mL suspension 10 ml PO BID Qty: 400 2RF ondansetron HCl 4 mg tablet 4 mg PO Q12H Qty: 20 0RF pantoprazole 40 mg tablet,delayed release (DR/EC) 40 mg PO DAILY Qty: 30 2RF Interventions: [place]-Suicide Risk Severity Scale Last Done: 09/23/22 02:24
--- NOTE | 2022-09-23 06:18 | PC.NURSE ---
Discharge instructions given/explained No apparent distress, able to speak in full sentences, no SOB IV cath tip intact upon removal All of patient's questions answered Ambulates safely/independently Left with son
== END 2022-09-23 06:16 | disposition home or self-care (01) ==
PROVIDERS: Emergency Provider Emergency Medicine Emergency Medical Services
DX: F10.129 Alcohol abuse with intoxication, unspecified (principal); Y90.7 Blood alcohol level of 200-239 mg/100 ml; K29.20 Alcoholic gastritis without bleeding; R11.2 Nausea with vomiting, unspecified; R51.9 Headache, unspecified; R10.9 Unspecified abdominal pain; Z79.899 Other long term (current) drug therapy
CPT/HCPCS: 36415; 80053; 80076; 80307; 81003; 81025; 82077; 82248; 85025; 99285; J1885; J2405

== ENCOUNTER 2022-11-26 12:11 | Outpatient (REF) | payer MEDICAID, SELFPAY ==
[2022-11-26 12:38] LABS: Hematocrit 36.5 % (37.0-47.0); Mean Corpuscular HGB Conc 32.9 g/dl (31.0-35.0); Mean Corpuscular Hemoglobin 30.1 pg (27.0-33.0); Mean Corpuscular Volume 91.5 fL (80.0-98.0); Platelet Count 190 X10*3/uL (160-400); Red Blood Count 3.99 X10*6/uL (4.20-5.50); Red Cell Distribution Width 12.5 % (11.0-16.0); White Blood Count 6.3 X10*3/uL (4.8-10.8)
[2022-11-26 13:29] LABS: HCG Quantitative < 2 mIU/mL; TSH reflex Free T4 0.59 uIU/mL (0.32-4.0)
[2022-11-27 05:36] LABS: CT PCR NOT DETECTED (Not Detect.); NG PCR NOT DETECTED (Not Detect.)
== END 2022-11-26 12:12 | disposition home or self-care (01) ==
LOC: HO.LAB 12:11
PROVIDERS: Visit Provider Obstetrics & Gynecology
DX: Z11.3 Encounter for screening for infections with a predominantly sexual mode of transmission (principal); N93.9 Abnormal uterine and vaginal bleeding, unspecified
CPT/HCPCS: 0353U; 36415; 81025; 84443; 84702; 85027; 99212

== ENCOUNTER 2022-11-26 12:51 | Outpatient (REF) | payer MEDICAID, SELFPAY | END 2022-11-26 12:52 | disposition home or self-care (01) | LOC: HO.LNP 12:51 | PROVIDERS: Visit Provider Obstetrics & Gynecology | DX: Z13.89 Encounter for screening for other disorder (principal) ==

== ENCOUNTER 2022-12-12 16:05 | Outpatient (REF) | payer MEDICAID, SELFPAY ==
--- NOTE | ~2022-12-12 | US_ITS ---
EXAMINATION: US PELVIS CLINICAL INFORMATION: Abnormal uterine bleeding; the last menstrual period is not specified. COMPARISON: None available. TECHNIQUE: Ultrasound of the pelvis is performed using both transabdominal and transvaginal transducers along with Doppler. Transvaginal imaging is performed due to inadequate visualization transabdominally. FINDINGS: Uterus: The uterus is anteverted and measures 9.9 x 4.2 x 4.9 cm. Nabothian cysts are seen within the cervix. The double wall endometrial thickness is 4 mm. An intrauterine device is seen, situated within the lower uterine segment. The uterus is smooth in contour and has normal myometrial echogenicity. No visible fibroid. Adnexa: The right ovary is nonvisualized. The left ovary is visualized. There is normal color flow to the adnexa. There is no ovarian torsion. There is no pelvic ascites or fluid collection. Left ovary measures 2.8 x 2.7 x 3.0 cm, volume 11.9 mL. A 2.4 x 1.8 x 2.2 cm hemorrhagic cyst is seen, with internal reticulated contents. US/US pelvic and transvaginal IMPRESSION: 1. Nabothian cysts are seen within the cervix. 2. An intrauterine device is seen, situated within the lower uterine segment. 3. A 2.4 cm corpus luteum cyst is noted within the left ovary. 4. The right ovary is nonvisualized.
== END 2022-12-12 16:06 | disposition home or self-care (01) ==
LOC: HO.US 16:05
PROVIDERS: Visit Provider Obstetrics & Gynecology
DX: N93.9 Abnormal uterine and vaginal bleeding, unspecified (principal)
CPT/HCPCS: 76830; 76856

== ENCOUNTER 2022-12-26 08:10 | Outpatient (REF) | payer MEDICAID, SELFPAY ==
[2022-12-27 14:34] LABS: BV Int Neg Control Negative (Negative); BV Int Pos Control Positive (Positive)
== END 2022-12-26 08:11 | disposition home or self-care (01) ==
LOC: HO.LNP 08:10
PROVIDERS: PCP Internal Medicine; Visit Provider Obstetrics & Gynecology
DX: N93.9 Abnormal uterine and vaginal bleeding, unspecified (principal); N89.8 Other specified noninflammatory disorders of vagina; T83.32XA Displacement of intrauterine contraceptive device, initial encounter; Z30.433 Encounter for removal and reinsertion of intrauterine contraceptive device; Z32.02 Encounter for pregnancy test, result negative
CPT/HCPCS: 58100; 58300; 58301; 81025; 87480; 87510; 87660; 88305; 99212; J7298

== ENCOUNTER → 2023-01-09 08:12 | Outpatient (BNVA) | payer MEDICAID, SELFPAY | PROVIDERS: PCP Internal Medicine; Visit Provider Obstetrics & Gynecology | DX: N93.9 Abnormal uterine and vaginal bleeding, unspecified (principal); N83.209 Unspecified ovarian cyst, unspecified side | CPT/HCPCS: 99212 ==

== ENCOUNTER 2023-02-09 18:46 | Emergency (ER) | payer MEDICAID, SELFPAY ==
[2023-02-09 18:59] VITALS: BP 121/72; PULSE 97; RESP 69; TEMP 37.1; O2SAT 99; BMI 29.1
--- NOTE | 2023-02-09 18:59 | ED.SKABFB ---
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 Patient reports she returned from traveling to the [place] yesterday. Her son has similar symptoms. She denies any fevers, chills, vomiting, abdominal pain, difficulty breathing or chest pain. Related Data Home Medications Medication Instructions Recorded Confirmed tramadol 50 mg tablet 50 mg PO Q8H PRN Pain 01/20/21 05/22/22 zolpidem 10 mg tablet (Ambien) 10 mg PO BEDTIME PRN Insomnia 01/20/21 05/22/22 albuterol sulfate 90 mcg/actuation 2 puff PO Q4-6H PRN Wheezing 05/31/21 05/22/22 aerosol inhaler (ProAir HFA) gabapentin 100 mg capsule 1 cap PO BID PRN ARM PAIN 05/31/21 05/22/22 multivitamin 1 tab PO DAILY 05/31/21 05/22/22 citalopram 20 mg tablet (Celexa) 20 mg PO DAILY 09/25/21 05/22/22 levonorgestrel 21 mcg/24 hours (8 intrauterine 09/25/21 12/29/21 yrs) 52 mg intrauterine device (Mirena) Previous Rx's Medication Instructions Recorded cholecalciferol (vitamin D3) 10 10 mcg PO DAILY #30 caps 06/22/21 mcg (400 unit) capsule ondansetron HCl 4 mg tablet 4 mg PO Q12H nausea and vomiting 12/30/21 #20 tabs pantoprazole 40 mg tablet,delayed 40 mg PO DAILY #30 tabs 12/30/21 release sucralfate 100 mg/mL oral 10 ml PO BID #400 mL 12/30/21 suspension omeprazole 20 mg capsule,delayed 20 mg PO DAILY 30 days #30 caps 09/23/22 release ondansetron 4 mg disintegrating 4 mg PO Q6-8H PRN nausea and 09/23/22 tablet vomiting #14 tabs clotrimazole-betamethasone 1 1 appl topical BID 5 days #45 grams 04/26/23 %-0.05 % topical cream terconazole 0.8 % vaginal cream 1 appful vaginal BEDTIME 3 days 12/26/22 #20 grams ondansetron 4 mg disintegrating 4 mg PO Q6H PRN nausea and 02/10/23 tablet vomiting #20 tabs Allergies Allergy/AdvReac Type Severity Reaction Status Date / Time No Known Allergies Allergy Verified 01/09/23 08:24 Review of Systems Review of Systems: Yes all other systems are reviewed and are negative Constitutional: Constitutional: Reports no additional constitutional complaints, Denies body ache(s), Denies chills, Denies fever(s), Denies headache(s) and Denies weakness Eyes: Eyes: Reports no additional eye complaints and Denies change in vision ENT: Reports system reviewed and no additional complaints, except as documented, Denies dizziness, Denies headache(s), Denies nasal congestion, Denies nasal discharge and Denies neck pain Cardiovascular: Cardiovascular: Reports no additional cardiovascular complaints, Denies chest pain, Denies leg edema and Denies dyspnea Respiratory: Respiratory: Reports no additional respiratory complaints, Denies cough and Denies dyspnea Gastrointestinal: Gastrointestinal: Reports no additional gastrointestinal complaints, Denies abdominal pain, Reports diarrhea, Reports nausea and Denies vomiting Genitourinary: Genitourinary: Reports no additional female genitourinary complaints and Denies urinary incontinence Musculoskeletal: Musculoskeletal: Reports no additional musculoskeletal complaints, Denies back pain, Denies arthralgias, Denies joint swelling, Denies neck pain, Denies numbness and Denies tingling Integumentary/Breasts: Skin/Breast: Reports system reviewed and no additional complaints, except as docu and Reports rash Neurologic: Reports system reviewed and no additional complaints, except as documented, Denies Abnormal speech present, Denies dizziness, Denies headache(s), Denies numbness, Denies tingling and Denies weakness [facility] Past Medical History Attestation statement: The following information was validated with the patient. Source: old records reviewed and nursing notes reviewed Medical History Anxiety Asthma Back pain BMI 32.0-32.9,adult Depression Disc degeneration, lumbar GERD (gastroesophageal reflux disease) Hx of steroid therapy Insomnia Intra-abdominal adhesions IUD check up Lateral epicondylitis, right elbow Steatosis, liver Surgical History H/O gastric sleeve H/O laparoscopic adjustable gastric banding History of History of esophagogastroduodenoscopy (EGD) History of tubal ligation Hx laparoscopic cholecystectomy Hx of dilation and curettage Family History Family History Mother No problems noted. Father Diabetes Sister No problems noted. Brother No problems noted. Son No problems noted. Son No problems noted. Daughter No problems noted. 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 Physical Exam Vital Signs: Vital Signs: Last Vital Signs Temp 98.8 F 02/09/23 18:59 Pulse 97 02/09/23 18:59 Resp 69 H 02/09/23 18:59 BP 121/72 02/09/23 18:59 Pulse Ox 99 02/09/23 18:59 O2 Del Method Room Air 02/09/23 18:59 BMI result Body Mass Index 29.1 Const: General: cooperative, healthy appearing, comfortable and no acute distress Orientation/consciousness: patient oriented x3 Limitations: no limitations HEENT: Head: Yes normal to inspection Ears: hearing grossly normal bilaterally General nose exam: Normal external nose present Face and sinus: Yes normal facial exam Mouth: Normal oral and palatal mucosa present Throat: Yes posterior oropharynx normal Eyes: General: appearance normal, both eyes and all related structures Pupils: Equal, round and reactive pupils present Neck: Neck: Yes normal visual inspection Chest: Chest palpation & inspection: normal inspection of the chest Resp: Effort & Inspection: normal respiratory effort Auscultation: clear to auscultation bilaterally Cardio: Rate: regular rate Rhythm: regular rhythm Peripheral pulses: Peripheral pulses 2+ throughout GI: Inspection: Yes normal to inspection Palpation (GI): Soft to palpation and nontender Auscultation: normal bowel sounds Back/Spine/Pelvis: Thoracic/Lumbar Spine: thoracic and lumbar spine normal to inspection Skin: Other: To the bilateral upper extremities there is a maculopapular rash Blanchable Not sloughing The hands, feet and oropharynx are spared Neuro: General: patient oriented x3, no focal motor deficits and normal sensation to monofilament Cranial nerves: Yes Equal, round and reactive pupils present Cognition (Neuro): normal cognition Speech: No Abnormal speech present Gait exam (Neuro): Normal gait present Motor exam (neuro): 5/5 motor strength present throughout Extrem: General: Yes normal to inspection Course Course Course Narrative: RME - 42 yo [place] speaking female who got back from the yesterday presents to the ER for evaluation of rash on her arms, nausea, nonblody diarrhea and diffuse abdominal pain that started today. Plan: Labs and GI panel Reevaluation(s) Reevaluation #1: Labs are unremarkable. Patient unable to provide stool sample while she was in the emergency room. She is tolerating p.o.. Her abdomen is soft nontender. I will provide her with a lab slip so she may have stool studies outpatient. Reviewed worrisome signs and symptoms of when to return to the emergency room. Comfortable plan for discharge home. Medical Decision Making Medical Decision Making [facility] Narrative: 42-year-old female here with complaints of nausea, diarrhea and itching rash which began today with recent return from travel from [facility] [place] with son who has similar symptoms No focal abdominal pain on exam. Vitals are stable. Patient has a macular papular rash noted to the bilateral upper extremity. Will need labs, stool studies Differential Diagnosis Differential Diagnoses: The differential diagnosis associated with the presentation includes Infectious diarrhea, gastroenteritis Low concern for SJS, TEN, meningitis, syphilis, disseminated gonococcal infection Lab Data [facility] Lab Attestation statement: I reviewed the patient's lab results. 02/09/23 19:21 02/09/23 19:21 Labs: Lab Results 02/09/23 02/09/23 02/09/23 Range/Units 19:21 19:21 19:21 WBC 6.7 (4.8-10.8) X10*3/uL RBC 3.61 L (4.20-5.50) X10*6/uL Hgb 11.3 L (12.0-16.0) g/dl Hct 33.4 L (37.0-47.0) % MCV 92.5 (80.0-98.0) fL MCH 31.3 (27.0-33.0) pg MCHC 33.8 (31.0-35.0) g/dl RDW 13.2 (11.0-16.0) % Plt Count 185 (160-400) X10*3/uL MPV 10.9 (9.4-12.3) fL Immature Gran % (Auto) 0.1 (0.0-0.4) % Neut % (Auto) 60.0 (45-73) % Lymph % (Auto) 28.4 (20-40) % [place] % (Auto) 7.5 (2-11) % Eos % (Auto) 3.7 (0-4) % Baso % (Auto) 0.3 (0-2) % Lymph # (Auto) 1.9 (1.2-4.9) X10*3/uL [place] # (Auto) 0.5 (0.1-1.2) X10*3/uL Eos # (Auto) 0.3 (0.0-0.4) X10*3/uL Baso # (Auto) 0.0 (0.0-0.2) X10*3/uL Abs Immat Gran (auto) 0.01 (0.00-0.03) X10*3/uL Absolute Neuts (auto) 4.0 (2.0-8.3) x10*3/uL Absolute Nucleated RBC 0.000 (0.0-0.012) X10*3/uL Nucleated RBC % (auto) 0.0 (0.0-0.2) /100WBC Sodium 144 (135-145) mmol/L Potassium 3.5 (3.3-5.1) mmol/L Chloride 111 H (96-108) mmol/L Carbon Dioxide 25 (22-29) mmol/L Anion Gap 12 (12-20) BUN 9 (9-16) mg/dL Creatinine 0.70 (0.5-1.4) mg/dL Estim Creat Clear Calc 107.9 Estimated GFR > 60 Random Glucose 99 (60-115) mg/dL Calcium 8.9 (8.4-10.2) mg/dL Magnesium 2.3 (1.6-2.6) mg/dL Total Bilirubin 0.5 (0.0-1.0) mg/dL Direct Bilirubin 0.1 (0.0-0.5) mg/dL AST 17 (5-31) U/L ALT 15 (0-31) U/L Alkaline Phosphatase 92 (39-117) U/L Total Protein 6.8 (6.5-8.0) g/dL Albumin 4.2 (3.5-5.0) g/dL Urine Color Yellow Urine Appearance Clear Urine pH 6.5 (5.0-9.0) Ur Specific [place] 1.010 (1.005-1.025) Urine Protein Negative (Neg-Trace) mg/dL Urine Glucose (UA) Negative (Negative) mg/dL Urine Ketones Negative (Negative) mg/dL Urine Blood Large (3+) H (Negative) Urine Nitrite Negative (Negative) Ur Leukocyte Esterase Trace H (Negative) Urine RBC 6-10 H (0-2) /HPF Urine WBC 0-5 (0-5) /HPF Ur Squamous Epith Cells 3-5 (0-2) /HPF Urine Bacteria None Seen (None Seen) Hyaline Casts 0-2 (0-2) /LPF Urine Test (NEGATIVE) 02/09/23 Range/Units 19:21 WBC (4.8-10.8) X10*3/uL RBC (4.20-5.50) X10*6/uL Hgb (12.0-16.0) g/dl Hct (37.0-47.0) % MCV (80.0-98.0) fL MCH (27.0-33.0) pg MCHC (31.0-35.0) g/dl RDW (11.0-16.0) % Plt Count (160-400) X10*3/uL MPV (9.4-12.3) fL Immature Gran % (Auto) (0.0-0.4) % Neut % (Auto) (45-73) % Lymph % (Auto) (20-40) % [place] % (Auto) (2-11) % Eos % (Auto) (0-4) % Baso % (Auto) (0-2) % Lymph # (Auto) (1.2-4.9) X10*3/uL [place] # (Auto) (0.1-1.2) X10*3/uL Eos # (Auto) (0.0-0.4) X10*3/uL Baso # (Auto) (0.0-0.2) X10*3/uL Abs Immat Gran (auto) (0.00-0.03) X10*3/uL Absolute Neuts (auto) (2.0-8.3) x10*3/uL Absolute Nucleated RBC (0.0-0.012) X10*3/uL Nucleated RBC % (auto) (0.0-0.2) /100WBC Sodium (135-145) mmol/L Potassium (3.3-5.1) mmol/L Chloride (96-108) mmol/L Carbon Dioxide (22-29) mmol/L Anion Gap (12-20) BUN (9-16) mg/dL Creatinine (0.5-1.4) mg/dL Estim Creat Clear Calc Estimated GFR Random Glucose (60-115) mg/dL Calcium (8.4-10.2) mg/dL Magnesium (1.6-2.6) mg/dL Total Bilirubin (0.0-1.0) mg/dL Direct Bilirubin (0.0-0.5) mg/dL AST (5-31) U/L ALT (0-31) U/L Alkaline Phosphatase (39-117) U/L Total Protein (6.5-8.0) g/dL Albumin (3.5-5.0) g/dL Urine Color Urine Appearance Urine pH (5.0-9.0) Ur Specific [place] (1.005-1.025) Urine Protein (Neg-Trace) mg/dL Urine Glucose (UA) (Negative) mg/dL Urine Ketones (Negative) mg/dL Urine Blood (Negative) Urine Nitrite (Negative) Ur Leukocyte Esterase (Negative) Urine RBC (0-2) /HPF Urine WBC (0-5) /HPF Ur Squamous Epith Cells (0-2) /HPF Urine Bacteria (None Seen) Hyaline Casts (0-2) /LPF Urine Test NEGATIVE (NEGATIVE) Discharge Plan Discharge Clinical Impression: Diarrhea, travelers' Patient Disposition: Home, Self-Care Instructions: Traveler's Diarrhea (ED) Additional Instructions: If you are unable to provide a stool sample you may use the attached lab slip and go to the lab saturday morning Increase fluids at home Use the nausea medicine as needed Use benadryl for itching rash as needed Si no puede proporcionar jarrett muestra de heces, puede usar la hoja de laboratorio adjunta e ir al laboratorio el lun por la ma?janice. Aumentar los l?quidos en casa Use el medicamento para las n?useas seg?n sea necesario Use benadryl para el sarpullido con picaz?n seg?n sea necesario Prescriptions: New ondansetron 4 mg tablet,disintegrating 4 mg PO Q6H PRN (Reason: nausea and vomiting) Qty: 20 0RF No Action cholecalciferol (vitamin D3) 10 mcg (400 unit) capsule 10 mcg PO DAILY Qty: 30 6RF omeprazole 20 mg capsule,delayed release(DR/EC) 20 mg PO DAILY 30 Days Qty: 30 0RF ondansetron 4 mg tablet,disintegrating 4 mg PO Q6-8H PRN (Reason: nausea and vomiting) Qty: 14 0RF gabapentin 100 mg capsule 1 cap PO BID PRN (Reason: ARM PAIN) albuterol sulfate [ProAir HFA] 90 mcg/actuation HFA aerosol inhaler 2 puff PO Q4-6H PRN (Reason: Wheezing) multivitamin Tablet 1 tab PO DAILY zolpidem [Ambien] 10 mg tablet 10 mg PO BEDTIME PRN (Reason: Insomnia) tramadol 50 mg tablet 50 mg PO Q8H PRN (Reason: Pain) citalopram [Celexa] 20 mg tablet 20 mg PO DAILY Mirena 20 mcg/24 hours (7 yrs) 52 mg intrauterine device intrauterine sucralfate 100 mg/mL suspension 10 ml PO BID Qty: 400 2RF ondansetron HCl 4 mg tablet 4 mg PO Q12H Qty: 20 0RF pantoprazole 40 mg tablet,delayed release (DR/EC) 40 mg PO DAILY Qty: 30 2RF terconazole 0.8 % cream 1 appful vaginal BEDTIME 3 Days Qty: 20 0RF clotrimazole-betamethasone 1-0.05 % cream 1 appl topical BID 5 Days Qty: 45 0RF Referrals: Yolanda Regan MD [Primary Care Provider] - 5 days Print Language: [place]
[2023-02-09 19:30] LABS: MANUAL DIFF FLAG NO
[2023-02-09 19:32] LABS: Basophils Percent Auto 0.3 % (0-2); Eosinophils Absolute Auto 0.3 X10*3/uL (0.0-0.4); Eosinophils Percent Auto 3.7 % (0-4); Hematocrit 33.4 % (37.0-47.0); Hemoglobin 11.3 g/dl (12.0-16.0); Imm Gran Abs Auto 0.01 X10*3/uL (0.00-0.03); Imm Gran Pct Auto 0.1 % (0.0-0.4); Lymphocytes Absolute Auto 1.9 X10*3/uL (1.2-4.9); Lymphocytes Percent Auto 28.4 % (20-40); Mean Corpuscular HGB Conc 33.8 g/dl (31.0-35.0); Mean Corpuscular Hemoglobin 31.3 pg (27.0-33.0); Mean Corpuscular Volume 92.5 fL (80.0-98.0); Mean Platelet Volume 10.9 fL (9.4-12.3); Monocytes Absolute Auto 0.5 X10*3/uL (0.1-1.2); Monocytes Percent Auto 7.5 % (2-11); Platelet Count 185 X10*3/uL (160-400); Red Blood Count 3.61 X10*6/uL (4.20-5.50); Red Cell Distribution Width 13.2 % (11.0-16.0); White Blood Count 6.7 X10*3/uL (4.8-10.8)
[2023-02-09 19:35] LABS: UPreg QC Valid YES; Urine Pregnancy NEGATIVE (NEGATIVE)
[2023-02-09 19:36] LABS: Appearance Urine Clear; Color Urine Yellow; Glucose Urine UA Negative (Negative); Leukocyte Esterase Urine Trace (Negative); Nitrite Urine Negative (Negative); PH 6.5 (5.0-9.0); UMIC TRIGGER UACC YES; Urine Blood Large (3+) (Negative); Urine Ketones Negative (Negative); Urine Protein Negative (Neg-Trace)
[2023-02-09 19:41] LABS: Bacteria Urine None Seen (None Seen); Hyaline Casts Urine 0-2 /LPF (0-2); WBC Urine 0-5 /HPF (0-5)
[2023-02-09 19:49] LABS: Alanine Aminotransferase 15 U/L (0-31); Albumin Level 4.2 g/dL (3.5-5.0); Alkaline Phosphatase 92 U/L (39-117); Anion Gap 12 (12-20); Aspartate Amino Transferase 17 U/L (5-31); Bilirubin Direct 0.1 mg/dL (0.0-0.5); Bilirubin Total 0.5 mg/dL (0.0-1.0); Blood Urea Nitrogen 9 mg/dL (9-16); Calcium 8.9 mg/dL (8.4-10.2); Carbon Dioxide 25 mmol/L (22-29); Chloride 111 mmol/L (96-108); Creatinine Clr Calc Pharmacy 107.9; Estimated Glomerular Filt Rate > 60; Glucose Random 99 mg/dL (60-115); Magnesium 2.3 mg/dL (1.6-2.6); Potassium 3.5 mmol/L (3.3-5.1); Sodium 144 mmol/L (135-145); Total Protein 6.8 g/dL (6.5-8.0)
== END 2023-02-10 02:37 | disposition home or self-care (01) ==
PROVIDERS: Physician Assistant; Emergency Provider Emergency Medicine; PCP Internal Medicine
DX: R19.7 Diarrhea, unspecified (principal); R21 Rash and other nonspecific skin eruption; Z79.899 Other long term (current) drug therapy
CPT/HCPCS: 36415; 80048; 80076; 81001; 81025; 83735; 85025; 99283; 99284

== ENCOUNTER 2023-04-01 08:36 | Outpatient (REF) | payer MEDICAID, SELFPAY ==
--- NOTE | ~2023-04-01 | MM_ITS ---
EXAMINATION: MM SCREENING DIGITAL BREAST TOMOSYNTHESIS, BILATERAL CLINICAL INFORMATION: Screening. Asymptomatic. The lifetime risk of breast cancer based on the Tyrer-Cuzick Model is 19.1%. COMPARISON: Mammography: This study is compared with prior exams dating back to 2019. TECHNIQUE: Digital breast tomosynthesis is performed in both the craniocaudal and mediolateral oblique views along with computer-aided detection (CAD). Synthesized 2D images are generated from the tomosynthesis. FINDINGS: The breasts are heterogeneously dense, which may obscure small masses (ACR BI-RADS breast composition Category c). There are no significant masses, abnormal calcifications, or other abnormalities. MM/MM tomosynthesis screening BI IMPRESSION: No mammographic evidence of malignancy. ASSESSMENT: BI-RADS BI-RADS 1 - Negative RECOMMENDATION: Routine annual mammography screening. 1 year F/U This examination should not preclude the clinical evaluation of a suspicious palpable abnormality. This patient's information was entered into a reminder system with a target due date for their next mammogram.
== END 2023-04-01 08:37 | disposition home or self-care (01) ==
LOC: HO.MAMMO 08:36
PROVIDERS: PCP Internal Medicine; Visit Provider Obstetrics & Gynecology
DX: Z12.31 Encounter for screening mammogram for malignant neoplasm of breast (principal)
CPT/HCPCS: 77063; 77067; 99214

== ENCOUNTER → 2023-04-01 08:45 | Outpatient (BNV) | payer MEDICAID, SELFPAY | PROVIDERS: PCP Internal Medicine; Visit Provider Radiology Diagnostic Radiology | DX: Z12.31 Encounter for screening mammogram for malignant neoplasm of breast (principal) | CPT/HCPCS: 77063; 77067 ==

== ENCOUNTER 2023-04-01 09:14 | Outpatient (AMB) | payer MEDICAID, SELFPAY ==
--- NOTE | 2023-04-01 10:01 | MHC.OFFVIS ---
Intake Vital Signs 04/01/23 10:03 Height 5 ft 3 in Weight 168 lb BMI 29.8 BP 129/71 Blood Pressure Location Rt brachial Position Sitting Respiration 16 Pulse 70 Pulse Source Pulse Oximeter Pulse Oximetry (%) 98 Oxygen Delivery Method Room Air Intake Visit Reasons: INJECTION DISCUSSION Allergies No Known Allergies Allergy (Verified 04/01/23 10:05) HPI HPI Comments History of Present Illness Details Patient presents today for follow-up and worsening lower back pain with radiculopathy. She was last seen in our office in May 2022 for L4-L5 Bilateral transforaminal epidural steroid injection by Dr. Bass with good results. Patient reports return of her symptoms but pain radiates now posteriorly and laterally. She underwent gastric sleeve on 10/05/22 at [facility] and reports loosing over 30 lbs since then. 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 Back pain increases with prolonged sitting, especially during driving, lifting, bending or standing. Reports increased levels of fatigue since bariatric surgery and attributes this to vitamin B12 deficiency for which she now supplements with oral intake as well as injections. Previous lumbar spine MRI of 2019 showed no significant disc bulge and no central canal or neuroforaminal stenosis at L5-S1 level. We will proceed with updating her MRI prior further interventional treatments. She denies any fever, dizziness, shortness of breaths, weakness, bladder or bowel incontinence or saddle anesthesia. PRIOR: Patient is a pleasant 41 years old female who presents today with worsening of chronic low back pain with radiation to her bilateral lower extremities intermittently posteriorly and significant constant severe pain anteriorly with lumbar flexion. Patient reports she has received bilateral L4-L5 TFESI in 07/2021 with good results and return of pain up until recently. Per lumbar spine MRI, patient has L4-L5 broad-based disc bulge which contacts the bilateral traversing L5 nerve roots within the lateral recesses. Bilateral facet arthropathy and thickening of the ligamentum flavum causing mild central canal as well as [id number] bilateral neuroforaminal stenosis. L5-S1: No significant disc bulge. No central canal or neuroforaminal stenosis. Patient is requesting to be scheduled to repeat same procedure with sedation and fluoroscopy. Patient denies any fever, chills, malaise, abdominal or groin pain, bowel or bladder incontinence or saddle anesthesia. PRIOR: Sherry returns to the office to discuss scheduling a repeat procedure. She reports her same localized back pain has returned without radiation into BLE and increased pain with lumbar flexion. PRIOR: Sayra on the phone today discussing the results of transforaminal bilateral L4-5 epidural steroid injection this injection was to address possibility that her pain is discogenic in nature. She reports about 2 weeks of complete pain relieve after injection. She still reports about 60% of the pain relief. This is good term she was having pain relief for the last 45 days. She still enjoys quite night sleep and she does not need to adjust herself frequently at night after the injection. I informed this patient that we can repeat this injection once in 3 months if insurance company will allow it. Patient understood and we agreed that when her pain will start to get worse she will give us a call and we will schedule her for another transforaminal bilateral L4-5 epidural steroid injection. History of low back pain Her pain is in the lower back without any radiation. Previously when she was in my office she will is reporting mild radiation to the hip but now she says that pain is mostly axial. She reports that her pain is aggravated when she is laying down and alleviated when she is moving. She reports that flexing forward aggravates her pain!. She also reports that flexing backwards actually make her pain better it makes her feel better she reports that she feels some relieve and she does some backwards stretches when her pain is most severe. [facility] Medical History Anxiety Asthma Back pain BMI 32.0-32.9,adult Depression Disc degeneration, lumbar GERD (gastroesophageal reflux disease) Hx of steroid therapy Insomnia Intra-abdominal adhesions IUD check up Lateral epicondylitis, right elbow Steatosis, liver Surgical History H/O gastric sleeve H/O laparoscopic adjustable gastric banding History of History of esophagogastroduodenoscopy (EGD) History of tubal ligation Hx laparoscopic cholecystectomy Hx of dilation and curettage Family History Mother No problems noted. Father Diabetes Sister No problems noted. Brother No problems noted. Son No problems noted. Son No problems noted. Daughter No problems noted. 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 Alert and oriented. Mood and affect appropriate. Follows and participates in conversation appropriately. Respiratory effort is unlabored. Able to transition from sit to stand unassisted. Ambulates with bilaterally normal heel strike and toe off. Back/Spine/Pelvis Other: Patient is able to walk and stand on heels and tip toes with no difficulties demonstrating good motor tone. No limping. Can flex forward to 60-70 degrees and extend to 10-15 degrees before experiencing lumbar pain. Demonstrates 5/5 strength of quadriceps bilaterally as well as flexion/dorsiflexion of bilateral feet against resistance. 2+ pedal pulses bilaterally. Straight leg rise with dorsiflexion positive bilaterally. +2 patellar and +1 achilles reflexes bilaterally. Facet loading test positive bilaterally. Lilly sign positive bilaterally, Richi?s and Stinchfield tests are negative bilaterally. No groin pain with I/E hip rotations. Valsalva maneuver negative. Results Reviewed Results Reviewed: MR LUMBAR SPINE WITHOUT CONTRAST 07/07/2020 FINDINGS: VERTEBRAL BODIES AND PARASPINAL STRUCTURES: Normal vertebral body alignment. The lumbar lordosis is maintained. No acute fracture or subluxation. No loss of vertebral body height. Loss of intervertebral disc height with disc desiccation at L3-L4 and L4-L5. Modic type II degenerative endplate changes at L4-L5. Probable vertebral body hemangioma within L4. No additional abnormal marrow signal. The visualized paraspinal soft tissues are unremarkable. CONUS MEDULLARIS AND CAUDA EQUINA: Normal, terminating at the level of L1. SPINAL LEVELS: T12-L1: No significant disc bulge. No central canal or neuroforaminal stenosis. L1-L2: No significant disc bulge. No central canal or neuroforaminal stenosis. L2-L3: No significant disc bulge. No central canal or neuroforaminal stenosis. L3-L4: Broad-based disc bulge with a shallow right extraforaminal disc protrusion which contacts the exiting right L3 nerve root. Bilateral facet arthropathy with thickening of the ligamentum flavum causing mild central canal as well as [id number] right and mild left neuroforaminal stenosis. L4-L5: Broad-based disc bulge which contacts the bilateral traversing L5 nerve roots within the lateral recesses. Bilateral facet arthropathy and thickening of the ligamentum flavum causing mild central canal as well as colp-[id number]-[id number] bilateral neuroforaminal stenosis. L5-S1: No significant disc bulge. No central canal or neuroforaminal stenosis. IMPRESSION: 1. L3-L4 broad-based disc bulge with a shallow right extraforaminal disc protrusion which contacts the exiting right L3 nerve root. Bilateral facet arthropathy with thickening of the ligamentum flavum causing mild central canal as well as [id number] right and mild left neuroforaminal stenosis. 2. L4-L5 broad-based disc bulge which contacts the bilateral traversing L5 nerve roots within the lateral recesses. Bilateral facet arthropathy and thickening of the ligamentum flavum causing mild central canal as well as pbww-[id number] bilateral neuroforaminal stenosis. Assessment & Plan Assessment & Plan (1) Lumbar spondylosis: Code(s): M47.816 - Spondylosis without myelopathy or radiculopathy, lumbar region (2) Disc degeneration, lumbar: Code(s): M51.36 - Other intervertebral disc degeneration, lumbar region (3) Lumbar radiculopathy, chronic: Code(s): M54.16 - Radiculopathy, lumbar region Plan MRI of the lumbar spine to assess for neural integrity and compression. Radicular pain distribution is now in L5-S1 and previously in L4-L5 for which bilateral L4-L5 TFESI was effective. 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 She avoids NSAIDs s/p gastric sleeve. Pain appears to be a combination of facetogenic, discogenic and radicular pain components.? Will consider interventions targeted towards these pain generators based on the MRI results. Patient will return to the clinic to discuss results of the MRI findings when it is done and consider interventional therapy as indicated. Orders: Orders MR lumbar spine wo con Today M51.36 - Other intervertebral disc degeneration, lumbar region, M54.16 - Radiculopathy, lumbar region Coding Level of Care Code Est Pt Level 4 (80230) Diagnoses Lumbar spondylosis M47.816 Disc degeneration, lumbar M51.36 Lumbar radiculopathy, chronic M54.16
[2023-04-01 10:03] VITALS: BP 129/71; PULSE 70; RESP 16; O2SAT 98; BMI 29.8
== END 2023-04-01 10:22 | disposition home or self-care (01) ==
PROVIDERS: PCP Internal Medicine; Visit Provider Nurse Practitioner Family
DX: M47.816 Spondylosis without myelopathy or radiculopathy, lumbar region (principal); M51.36 Other intervertebral disc degeneration, lumbar region; M54.16 Radiculopathy, lumbar region
CPT/HCPCS: 99214

== ENCOUNTER 2023-04-09 15:41 | Outpatient (REF) | payer MEDICAID, SELFPAY ==
--- NOTE | ~2023-04-09 | US_ITS ---
EXAMINATION: US PELVIS CLINICAL INFORMATION: Follow-up ovarian cyst. The last menstrual period was one week prior. COMPARISON: Pelvic ultrasound dated 12/12/2022. TECHNIQUE: Ultrasound of the pelvis is performed using both transabdominal and transvaginal transducers along with Doppler. Transvaginal imaging is performed due to inadequate visualization transabdominally. FINDINGS: Uterus: The uterus is anteverted and retroflexed. The uterus measures 8.6 x 3.5 x 4.4 cm. The endometrial stripe is very thin and largely obscured by an intrauterine device. Intrauterine device is properly situated within the endometrial canal. Nabothian cysts are seen within the cervix The uterus is smooth in contour and has normal myometrial echogenicity. No visible fibroid. Adnexa: Both ovaries are visualized. There is normal color flow to the adnexa. There is no ovarian torsion. There is no pelvic ascites or fluid collection. Right ovary measures 4.4 x 2.1 x 2.9 cm, volume 14.0 mL. The right ovary contains a 1.6 x 1.4 x 1.4 cm dominant anechoic, simple follicle. The right ovary contains 2.0 x 1.6 x 1.8 cm and 1.4 x 1.2 x 1.1 cm probable hemorrhagic cysts, with characteristic internal reticulated contents. Left ovary measures 2.8 x 1.4 x 2.4 cm, volume 4.9 mL. The previously seen left ovarian corpus luteum cyst has resolved in the interim. US/US pelvic and transvaginal IMPRESSION: 1. The previously seen left ovarian corpus luteum cyst has resolved. 2. 2.0 cm and 1.4 cm complex right ovarian cysts are seen, consistent with hemorrhagic cysts. 3. Nabothian cysts are seen within the cervix. 4. An intrauterine device is seen within the endometrial canal.
== END 2023-04-09 15:42 | disposition home or self-care (01) ==
LOC: HO.US 15:41
PROVIDERS: PCP Internal Medicine; Visit Provider Obstetrics & Gynecology
DX: N83.209 Unspecified ovarian cyst, unspecified side (principal)
CPT/HCPCS: 76830; 76856

== ENCOUNTER 2023-04-23 08:11 | Outpatient (AMB) | payer MEDICAID, SELFPAY ==
--- NOTE | 2023-04-23 08:18 | MHC.OFFVIS ---
Intake Vital Signs 04/23/23 08:19 Height 5 ft 3 in Weight 164 lb BMI 29.0 BP 110/56 L Intake Visit Reasons: annual/Ultrasound follow up Psychology Teacher Required: Yes Psychology Teacher Language: Clinical Marketing Manager Name: Breann VARGAS Information Interpreted: non-clinical & clinical Hand Ii Blocker: Hand Ii Blocker Present (Breann) Allergies No Known Allergies Allergy (Verified 04/23/23 08:21) Is last menstrual period known: No (Start of the month) Post menopausal: No HPI HPI Comments History of Present Illness Details Presenting for annual exam with no complaints . Last Pap smear HPV was in 02/19 was negative Last mammogram was in 03/24 was BI-RADS 1. Pelvic ultrasound in 12/23 showed left complex ovarian cyst few months ago. Follow-up Pelvic ultrasound done recently showed the followin. The previously seen left ovarian corpus luteum cyst has resolved. ? 2. 2.0 cm and 1.4 cm complex right ovarian cysts are seen, consistent with hemorrhagic cysts. ? 3. Nabothian cysts are seen within the cervix. ? 4. An intrauterine device is seen within the endometrial canal. In addition the patient is presenting for annual exam. [facility] Medical History Anxiety Asthma Back pain BMI 32.0-32.9,adult Depression Disc degeneration, lumbar GERD (gastroesophageal reflux disease) Hx of steroid therapy Insomnia Intra-abdominal adhesions IUD check up Lateral epicondylitis, right elbow Steatosis, liver Surgical History H/O gastric sleeve H/O laparoscopic adjustable gastric banding History of History of esophagogastroduodenoscopy (EGD) History of tubal ligation Hx laparoscopic cholecystectomy Hx of dilation and curettage Family History Mother No problems noted. Father Diabetes Sister No problems noted. Brother No problems noted. Son No problems noted. Son No problems noted. Daughter No problems noted. 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 Female Reproductive History Menstrual Age of Menarche: 8 Duration of menses: 8-10 days control method: progestin IUCD Total pregnancies: 3 Full term: 3 Number of Living Children: 3 Date of last pap smear: 02/19/20 (negative) Date of Mammogram: 04/01/23 Review of Systems Const All systems reviewed & are unremarkable except as noted in HPI and below Card Reports as per HPI Resp Reports as per HPI GI Reports as per HPI and Reports no additional complaints Reports as per HPI Physical Exam Vital Signs: Last Vital Signs BP 110/56 L 04/23/23 08:19 BMI result Body Mass Index 29.0 Const General: cooperative, healthy appearing and comfortable Chest Chest palpation & inspection: normal inspection of the chest and normal palpation of entire chest wall Breast/axilla inspection: normal inspection of the breasts and normal inspection of the axillae Breast/axilla palpation: normal palpation of the breasts, normal palpation of the axillae and no axillary lymphadenopathy Resp Effort & Inspection: normal respiratory effort Auscultation: clear to auscultation bilaterally Percussion: percussion normal Cardio Palpation: normal PMI Rate: regular rate Rhythm: regular rhythm Heart sounds: no murmurs and no rubs Peripheral pulses: Peripheral pulses 2+ throughout GI Inspection: Yes normal to inspection Palpation (GI): Soft to palpation, nontender, no guarding, not rigid and No hepatosplenomegaly present Percussion: Yes normal to percussion Auscultation: normal bowel sounds Rectal Exam - Female: deferred General: Yes bladder normal to palpation External Female Exam: No lesion Speculum Exam - Vagina: normal appearance of the vagina, normal palpation, normal vaginal discharge and not erythematous Speculum Exam - Cervix: normal appearance of the cervix and normal palpation Bimanual exam- vagina & uterus: normal bimanual exam, normal palpation, uterine size normal, bladder normal to palpation, consistency normal and normal palpation Bimanual Exam- Adnexa, other: normal adnexae, no masses and no tenderness Assessment & Plan Assessment & Plan (1) Well woman exam: Code(s): Z01.419 - Encounter for gynecological examination (general) (routine) without abnormal findings Plan: Cotesting not indicated this year. Instructions given the patient to schedule next screening Mammogram in 03/25. Counseled the patient about the recommended dietary allowance of 1000 mg of Calcium & 600 IU of vitamin D. The patient was instructed to perform monthly self-breast exams and to schedule an annual exam in a year; All questions answered and the patient verbalized understanding. Instructed the patient to schedule annual exam in a year (2) Complex ovarian cyst: Code(s): N83.299 - Other ovarian cyst, unspecified side Plan: Discussed with the patient the 2 complex ovarian cysts by ultrasound. Discussed with the patient the Ultrasound findings, the main limitation of transvaginal ultrasonography alone as a diagnostic tool to distinguish benign from malignant masses relates to its lack of specificity and low positive predictive value for cancer. The differential diagnosis discussed with the patient includes the following but not limited to: benign and malignant gynecological and non-gynecological causes. Discussed with the patient options of treatment , in case CA 125 is not elevated, including laparoscopy ovarian cystectomy/oophorectomy vs. expectant management with repeat US in repeating pelvic US in 6-12 weeks from previous US. If the ovarian complex cyst is persistent larger and / or more complex looking, will refer to gynecologic Oncology. All pros, cons, risks and benefits of each approach were discussed with the patient including but not limited to a delay in the diagnosis and treatment of ovarian cancer affecting the prognosis; The patient decided to go ahead with expectant management. Instructions given the patient to schedule a 3 months follow-up ultrasound appointment. All questions were answered & the patient verbalized understanding and agreed with the plan. Orders: Orders US pelvic and transvaginal 3 Months N83.299 - Other ovarian cyst, unspecified side Coding Level of Care Code Est Pt Prev Care 40-64y(77210) Diagnoses Well woman exam Z01.419 Complex ovarian cyst N83.299
[2023-04-23 08:19] VITALS: BP 110/56; BMI 29.0
== END 2023-04-23 09:27 | disposition home or self-care (01) ==
LOC: HO.HWS 08:11
PROVIDERS: PCP Internal Medicine; Visit Provider Obstetrics & Gynecology
DX: Z01.419 Encounter for gynecological examination (general) (routine) without abnormal findings (principal); N83.299 Other ovarian cyst, unspecified side
CPT/HCPCS: 99396

== ENCOUNTER → 2023-04-23 08:11 | Outpatient (BNVA) | payer MEDICAID, SELFPAY | PROVIDERS: PCP Internal Medicine; Visit Provider Obstetrics & Gynecology ==

== ENCOUNTER 2023-06-18 14:27 | Outpatient (REF) | payer MEDICAID, SELFPAY | END 2023-06-18 14:28 | disposition home or self-care (01) | LOC: HO.MRI 14:27 | PROVIDERS: PCP Internal Medicine; Visit Provider Nurse Practitioner Family | DX: Z13.89 Encounter for screening for other disorder (principal) ==

== ENCOUNTER 2023-08-14 09:37 | Emergency (ER) | payer MEDICAID, SELFPAY ==
--- NOTE | ~2023-08-14 | CT_ITS ---
EXAMINATION: CT ABDOMEN AND PELVIS WITH CONTRAST CLINICAL INFORMATION: Diffuse abdominal pain. COMPARISON: 12/30/2020 TECHNIQUE: Multidetector volumetric images were obtained from the superior aspect of the liver through the pubic symphysis following administration 85 mL of Omnipaque 350 intravenous contrast. Sagittal and coronal reformatted images were obtained on the technologist's workstation. Oral contrast: No This CT examination was performed using dose optimization techniques as appropriate, variously including the following: *Automated exposure control *Adjustment of mA and/or kV according to patient size (this includes techniques or standardized protocols for targeted exams where dose is matched to indication/reason for exam; i.e. extremities or head) *Use of iterative reconstruction technique DLP: 527 mGy-cm FINDINGS: LUNG BASES: The visualized lung bases are unremarkable. LIVER, GALLBLADDER, AND BILIARY TREE: The liver is decreased in attenuation. No suspicious hepatic lesion or biliary ductal dilatation is present. The gallbladder is surgically absent. PANCREAS: No ductal dilatation. SPLEEN: Unremarkable. ADRENAL GLANDS: No adrenal mass. KIDNEYS AND URETERS: The kidneys are symmetric in size and enhancement. No hydronephrosis. No perinephric stranding. BLADDER: Unremarkable. GASTROINTESTINAL TRACT: Status post sleeve gastrectomy. No small bowel obstruction. ABDOMINAL WALL: No significant hernia is appreciated. LYMPH NODES: No bulky lymphadenopathy. VASCULAR: Normal caliber abdominal aorta. PELVIC VISCERA: Intrauterine device is in place. No large adnexal masses. OSSEOUS STRUCTURES: No destructive bone lesions. CT/CT abdomen pelvis w IV con IMPRESSION: No acute abnormality in the abdomen or pelvis.
[2023-08-14 09:44] VITALS: BP 118/76; PULSE 60; O2SAT 98; BMI 30.6
[2023-08-14 09:48] VITALS: BP 108/60; PULSE 70; RESP 16; TEMP 36.5; O2SAT 100
--- NOTE | 2023-08-14 10:03 | ED.GENADULT ---
HPI - General Adult General Chief complaint: Nausea/Vomiting/Diarrhea Stated complaint: ABD PAIN PER EMS Time Seen by Provider: 08/14/23 09:39 Source: patient Mode of arrival: ambulatory Limitations: no limitations History of Present Illness HPI narrative: 43-year-old female presents with nausea, vomiting, diarrhea, diffuse abdominal pain, started this morning, she reports her son at home is sick with similar symptoms. She reports bilious emesis, reports her abdomen hurts out times however worse when she vomits. She reports she has not been able to keep anything down. Went to her primary care provider and was told to come into the emergency department. Has not been tested for flu, COVID RSV. She is worried because she has a bariatric patient, had a sleeve gastrectomy done at [facility] in October of 2022. Without complications. Patient reports her abdominal pain is a 20/10. When she vomits. Denies fevers, chills, chest pain, shortness of breath, headache, vision changes, dizziness, weakness. Related Data Home Medications Medication Instructions Recorded Confirmed tramadol 50 mg tablet 50 mg PO Q8H PRN Pain 01/20/21 05/22/22 zolpidem 10 mg tablet (Ambien) 10 mg PO BEDTIME PRN Insomnia 01/20/21 05/22/22 albuterol sulfate 90 mcg/actuation 2 puff PO Q4-6H PRN Wheezing 05/31/21 05/22/22 aerosol inhaler (ProAir HFA) gabapentin 100 mg capsule 1 cap PO BID PRN ARM PAIN 05/31/21 05/22/22 multivitamin 1 tab PO DAILY 05/31/21 05/22/22 levonorgestrel 21 mcg/24 hours (8 intrauterine 09/25/21 12/29/21 yrs) 52 mg intrauterine device (Mirena) Previous Rx's Medication Instructions Recorded cholecalciferol (vitamin D3) 10 10 mcg PO DAILY #30 caps 06/22/21 mcg (400 unit) capsule ondansetron HCl 4 mg tablet 4 mg PO Q12H nausea and vomiting 12/30/21 #20 tabs pantoprazole 40 mg tablet,delayed 40 mg PO DAILY #30 tabs 12/30/21 release sucralfate 100 mg/mL oral 10 ml PO BID #400 mL 12/30/21 suspension omeprazole 20 mg capsule,delayed 20 mg PO DAILY 30 days #30 caps 09/23/22 release clotrimazole-betamethasone 1 1 appl topical BID 5 days #45 grams 12/26/22 %-0.05 % topical cream ondansetron 4 mg disintegrating 4 mg PO Q6H PRN nausea and 08/14/23 tablet vomiting #14 tabs Allergies Allergy/AdvReac Type Severity Reaction Status Date / Time No Known Allergies Allergy Verified 08/14/23 09:44 Review of Systems Review of Systems: Constitutional : No Weight loss, No Fever, No Chills, No Fatigue, No Malaise ENT/Mouth : No sore throat, No Rhinorrhea Eyes: No Eye Pain, No Swelling, No Redness Cardiovascular : No Chest Pain, No SOB, No Dyspnea on Exertion, No Orthopnea, No Edema, No Palpitations Respiratory : No Cough, No Sputum, No Wheezing Gastrointestinal : + Nausea, + Vomiting, No Diarrhea, No Constipation, + abdominal Pain, No Hematochezia, No Melena Genitourinary : No Dysuria, No Urinary Frequency, No Hematuria, Musculoskeletal : No joint pain, No Myalgias, No Joint Swelling Skin : No Skin Lesions, No rash Neuro : No Weakness, No Numbness, No Dizziness, No Headache Psych : No Anxiety/Panic, No Depression All other systems reviewed and are negative Yes all other systems are reviewed and are negative [facility] Past Medical History Attestation statement: The following information was validated with the patient. Source: old records reviewed and nursing notes reviewed Medical History Steatosis, liver Insomnia Back pain Intra-abdominal adhesions Hx of steroid therapy GERD (gastroesophageal reflux disease) BMI 32.0-32.9,adult Lateral epicondylitis, right elbow Disc degeneration, lumbar Asthma Anxiety Depression IUD check up Surgical History H/O gastric sleeve History of esophagogastroduodenoscopy (EGD) Hx of dilation and curettage Hx laparoscopic cholecystectomy H/O laparoscopic adjustable gastric banding History of tubal ligation History of Family History Family History Mother No problems noted. Father Diabetes Sister No problems noted. Brother No problems noted. Son No problems noted. Son No problems noted. Daughter No problems noted. 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 Oriented X3.? No acute distress.? Head: Normocephalic, atraumatic, no step-offs or deformities Eyes: Pupils equal, round and reactive to light.? Neck: Normal inspection.? Neck supple.? CVS: Normal heart rate and rhythm.? Pulses normal.? Respiratory: No respiratory distress.? Breath sounds normal.? Abdomen: Soft and nontender abdomen. No rebound or guarding. Normoactive bowel sounds throughout Skin: Skin warm and dry.? Normal skin color.? Normal skin turgor.? Extremities: No lower extremity edema.? No calf ttp. 5/5 strength to bilateral upper and lower extremities Neuro: Oriented X 3.? No motor deficit.? No sensory deficit. CN 2-12 intact Course Reevaluation(s) Reevaluation #1: CBC unremarkable. Chemistry unremarkable. Normal lipase. Normal beta hCG. Patient reports continued abdominal pain, discuss this case with bariatric DARCI Strickland recommends CT abdomen with oral and IV contrast ordered at this time. Time: 14:00 Reevaluation #2: Patient requesting to leave CT just resulted no acute abnormality in the abdomen or pelvis. I did discuss this case with bariatric sat recommends patient take protein shakes and fluids for a few days in follow-up on Saturday with bariatric sat [facility]. Patient feeling better per nursing. Educated patient on diagnosis and treatment plan, answered all question, patient verbalizes understanding. At this time patient will be discharged home, advised to return with new or worsening symptoms. Educated on worrisome signs and symptoms and when to return. At this time I feel comfortable discharge home. Time: 15:49 Medications Administered Discontinued Medications Generic Name Dose Route Start Last Admin Trade Name Erlin PRN Reason Stop Dose Admin Sodium Chloride 1,000 mls @ 999 mls/hr 08/14/23 10:45 08/14/23 11:55 Ns IV 08/14/23 11:45 Infused .Q1H1M HUGO Infusion Iohexol 100 ml 08/14/23 14:07 08/14/23 14:07 Iohexol 350 Mg/Ml 100 Ml Infus..Btl IV 08/14/23 14:08 85 ml ONCE ONE Administration Ondansetron HCl 4 mg 08/14/23 10:42 08/14/23 10:54 Ondansetron Hcl 4 Mg/2 Ml Vial IVPUSH 08/14/23 10:43 4 mg ONCE ONE Administration Medical Decision Making Medical Decision Making [facility] Narrative: 1006 43-year-old female presents with nausea, vomiting, abdominal pain, history of gastric sleeve in October Physical exam benign no abdominal tenderness on exam. Normoactive bowel sounds Concerns for viral illness (flu/covid/rsv) versus gastroenteritis versus gastroparesis versus ulcer. Unlikely obstruction, disection, acute abdomen, pyelonephritis, appendicitis, diverticulitis, cholecystitis, pancreatitis. Will rule out metabolic derangement Plan at this time labs, imaging, urine Differential Diagnosis Differential Diagnoses: The differential diagnosis associated with the presentation includes Concerns for viral illness (flu/covid/rsv) versus gastroenteritis versus gastroparesis versus ulcer. Unlikely obstruction, disection, acute abdomen, pyelonephritis, appendicitis, diverticulitis, cholecystitis, pancreatitis. Will rule out metabolic derangement Admission/Observation Consideration of admission/observation: Escalation of care including admission/observation considered Consult Healthcare Provider Management of the patient was discussed with: [employer] Lab Data [facility] Lab Attestation statement: I reviewed the patient's lab results. 08/14/23 10:09 08/14/23 10:09 Labs: Lab Results 08/14/23 08/14/23 Range/Units 10:09 12:23 WBC 7.9 (4.8-10.8) X10*3/uL RBC 4.05 L (4.20-5.50) X10*6/uL Hgb 12.5 (12.0-16.0) g/dl Hct 37.1 (37.0-47.0) % MCV 91.6 (80.0-98.0) fL MCH 30.9 (27.0-33.0) pg MCHC 33.7 (31.0-35.0) g/dl RDW 12.5 (11.0-16.0) % Plt Count 144 L (160-400) X10*3/uL MPV 10.8 (9.4-12.3) fL Immature Gran % (Auto) 0.4 (0.0-0.4) % Neut % (Auto) 90.0 H (45-73) % Lymph % (Auto) 4.9 L (20-40) % [place] % (Auto) 3.0 (2-11) % Eos % (Auto) 1.6 (0-4) % Baso % (Auto) 0.1 (0-2) % Lymph # (Auto) 0.4 L (1.2-4.9) X10*3/uL [place] # (Auto) 0.2 (0.1-1.2) X10*3/uL Eos # (Auto) 0.1 (0.0-0.4) X10*3/uL Baso # (Auto) 0.0 (0.0-0.2) X10*3/uL Abs Immat Gran (auto) 0.03 (0.00-0.03) X10*3/uL Absolute Neuts (auto) 7.1 (2.0-8.3) x10*3/uL Absolute Nucleated RBC 0.000 (0.0-0.012) X10*3/uL Nucleated RBC % (auto) 0.0 (0.0-0.2) /100WBC Sodium 141 (135-145) mmol/L Potassium 3.7 (3.3-5.1) mmol/L Chloride 109 H (96-108) mmol/L Carbon Dioxide 24 (22-29) mmol/L Anion Gap 12 (12-20) BUN 11 (9-16) mg/dL Creatinine 0.69 (0.5-1.4) mg/dL Estim Creat Clear Calc 103.0 Estimated GFR > 60 Random Glucose 114 (60-115) mg/dL Calcium 8.9 (8.4-10.2) mg/dL Magnesium 2.1 (1.6-2.6) mg/dL Total Bilirubin 1.0 (0.0-1.0) mg/dL AST 75 H (5-31) U/L ALT 35 H (0-31) U/L Alkaline Phosphatase 105 (39-117) U/L Total Protein 7.3 (6.5-8.0) g/dL Albumin 4.2 (3.5-5.0) g/dL Lipase 31 (8-78) U/L Beta HCG, Quant < 2 mIU/mL Urine Color Yellow Urine Appearance Cloudy Urine pH 6.0 (5.0-9.0) Ur Specific [place] 1.025 (1.005-1.025) Urine Protein Negative (Neg-Trace) mg/dL Urine Glucose (UA) Negative (Negative) mg/dL Urine Ketones 15 (Negative) mg/dL Urine Blood Negative (Negative) Urine Nitrite Negative (Negative) Ur Leukocyte Esterase Trace H (Negative) Urine RBC 3-5 H (0-2) /HPF Urine WBC 0-5 (0-5) /HPF Ur Squamous Epith Cells 3-5 (0-2) /HPF Urine Bacteria None Seen (None Seen) Hyaline Casts 0-2 (0-2) /LPF COVID-19 ([facility]NA) Cancelled COVID-19 Clin Com Cancelled Influenza Type A (PCR) NEGATIVE (Negative) Influenza Type B (PCR) NEGATIVE (Negative) RSV RNA Qual (PCR) NEGATIVE (Negative) SARS-CoV-2 RNA (RT-PCR) NEGATIVE (Negative) External Record Review External record reviewed: Inpatient record, Office record, Outpatient record, Prior outpatient labs, Prior outpatient radiology, Primary care record and Outside ED record Tests considered The following testing was considered but not selected: I considered abdominal imaging however no abdominal tenderness on exam. No metabolic derangements or abnormalities and patient's chemistry. No indication for imaging at this time Critical Care Time Critical Care Time Critical Care Time: Yes Total Critical Care Time: 35 Attestation: I attest to this time spent taking care of the patient, obtaining history, physical, reviewing labs, imaging, speaking to my attending, speaking to specialist. Discharge Plan Discharge Clinical Impression: Nausea & vomiting, Abdominal pain, Viral illness Patient Disposition: Home, Self-Care Instructions: Viral Syndrome (ED), Abdominal Pain (ED) Additional Instructions: Take your medications as prescribed. If you were prescribed antibiotics today, it is important that you take your medication to their entirety, do not skip any doses, do not finish them early. Follow-up with your primary care provider this week. Return to the emergency department with new or worsening symptoms. Such as fevers, chills, chest pain, shortness of breath, nausea, vomiting, dizziness, headache, vision changes, lethargy In case of emergency call 911 Return to the emergency department peer not tolerating food by mouth or fluids. Or any other symptoms as listed above Zofran has been sent for nausea and vomiting. You can try a diet that consists of protein shakes and fluids for few days follow-up with the bariatric surgeon at [facility] on Saturday. CT/CT abdomen pelvis w IV con IMPRESSION: No acute abnormality in the abdomen or pelvis. Prescriptions: New ondansetron 4 mg tablet,disintegrating 4 mg PO Q6H PRN (Reason: nausea and vomiting) Qty: 14 0RF No Action cholecalciferol (vitamin D3) 10 mcg (400 unit) capsule 10 mcg PO DAILY Qty: 30 6RF omeprazole 20 mg capsule,delayed release(DR/EC) 20 mg PO DAILY 30 Days Qty: 30 0RF gabapentin 100 mg capsule 1 cap PO BID PRN (Reason: ARM PAIN) albuterol sulfate [ProAir HFA] 90 mcg/actuation HFA aerosol inhaler 2 puff PO Q4-6H PRN (Reason: Wheezing) multivitamin Tablet 1 tab PO DAILY zolpidem [Ambien] 10 mg tablet 10 mg PO BEDTIME PRN (Reason: Insomnia) tramadol 50 mg tablet 50 mg PO Q8H PRN (Reason: Pain) Mirena 20 mcg/24 hours (7 yrs) 52 mg intrauterine device intrauterine sucralfate 100 mg/mL suspension 10 ml PO BID Qty: 400 2RF ondansetron HCl 4 mg tablet 4 mg PO Q12H Qty: 20 0RF pantoprazole 40 mg tablet,delayed release (DR/EC) 40 mg PO DAILY Qty: 30 2RF clotrimazole-betamethasone 1-0.05 % cream 1 appl topical BID 5 Days Qty: 45 0RF Referrals: ED Physician,Generic [Physician] - 2 days Stand Alone Forms: Work/School Release
[2023-08-14 10:14] LABS: MANUAL DIFF FLAG NO
[2023-08-14 10:16] LABS: Basophils Percent Auto 0.1 % (0-2); Eosinophils Absolute Auto 0.1 X10*3/uL (0.0-0.4); Eosinophils Percent Auto 1.6 % (0-4); Hematocrit 37.1 % (37.0-47.0); Hemoglobin 12.5 g/dl (12.0-16.0); Imm Gran Abs Auto 0.03 X10*3/uL (0.00-0.03); Imm Gran Pct Auto 0.4 % (0.0-0.4); Lymphocytes Absolute Auto 0.4 X10*3/uL (1.2-4.9); Lymphocytes Percent Auto 4.9 % (20-40); Mean Corpuscular HGB Conc 33.7 g/dl (31.0-35.0); Mean Corpuscular Hemoglobin 30.9 pg (27.0-33.0); Mean Corpuscular Volume 91.6 fL (80.0-98.0); Mean Platelet Volume 10.8 fL (9.4-12.3); Monocytes Absolute Auto 0.2 X10*3/uL (0.1-1.2); Neutrophils Absolute Auto 7.1 x10*3/uL (2.0-8.3); Platelet Count 144 X10*3/uL (160-400); Red Blood Count 4.05 X10*6/uL (4.20-5.50); Red Cell Distribution Width 12.5 % (11.0-16.0); White Blood Count 7.9 X10*3/uL (4.8-10.8)
[2023-08-14 10:39] LABS: Alanine Aminotransferase 35 U/L (0-31); Albumin Level 4.2 g/dL (3.5-5.0); Alkaline Phosphatase 105 U/L (39-117); Anion Gap 12 (12-20); Aspartate Amino Transferase 75 U/L (5-31); Blood Urea Nitrogen 11 mg/dL (9-16); Calcium 8.9 mg/dL (8.4-10.2); Carbon Dioxide 24 mmol/L (22-29); Chloride 109 mmol/L (96-108); Estimated Glomerular Filt Rate > 60; Glucose Random 114 mg/dL (60-115); Lipase 31 U/L (8-78); Magnesium 2.1 mg/dL (1.6-2.6); Potassium 3.7 mmol/L (3.3-5.1); Sodium 141 mmol/L (135-145); Total Protein 7.3 g/dL (6.5-8.0)
[2023-08-14 10:41] LABS: HCG Quantitative < 2 mIU/mL
[2023-08-14] MEDS: 0.9 % Sodium Chloride 1,000 ML 999 ML IV (10:54)
[2023-08-14] MEDS: ondansetron HCL 4 MG/2 ML VIAL IVPUSH (10:54)
--- NOTE | 2023-08-14 10:56 | PC.NURSE ---
medication administered per provider order.
[2023-08-14 11:18] LABS: Influenza A PCR NEGATIVE (Negative); Influenza B PCR NEGATIVE (Negative); Resp Syncy Virus RNA Qual PCR NEGATIVE (Negative); SARS COV2 PCR INHOUSE NEGATIVE (Negative)
[2023-08-14 11:53] VITALS: BP 101/58; PULSE 73; RESP 16; O2SAT 100
--- NOTE | 2023-08-14 11:55 | PC.NURSE ---
vss and up to date at this time. pt verbalizing pain level decreased to 6/10 at this time. pt unable to provide urine sample at this time - will send to lab when able.
[2023-08-14 12:31] LABS: Appearance Urine Cloudy; Color Urine Yellow; Glucose Urine UA Negative (Negative); Leukocyte Esterase Urine Trace (Negative); Nitrite Urine Negative (Negative); Specific Gravity - Urine 1.025 (1.005-1.025); UMIC TRIGGER UACC YES; Urine Blood Negative (Negative); Urine Ketones 15 mg/dL (Negative); Urine Protein Negative (Neg-Trace)
[2023-08-14 12:36] LABS: Bacteria Urine None Seen (None Seen); Hyaline Casts Urine 0-2 /LPF (0-2); WBC Urine 0-5 /HPF (0-5)
[2023-08-14] MEDS: iohexoL 350 MG/ML 100 ML INFUS..BTL IV (14:07)
[2023-08-14 14:11] VITALS: BP 107/66; PULSE 82; RESP 16; O2SAT 97
--- NOTE | 2023-08-14 14:12 | PC.NURSE ---
pt returned from CT at this time. vss and up to date. pt awaiting results from CT at this time. pt verbalizing pain level decreased to a 2/10 at this time. respirations remain even/unlabored. call ruelas placed within reach.
--- NOTE | 2023-08-14 15:38 | PC.NURSE ---
pt stating that although CT results are not back - she wants to leave facility. provider aware at this time.
== END 2023-08-14 16:18 | disposition home or self-care (01) ==
PROVIDERS: Physician Assistant; Emergency Provider Student in an Organized Health Care Education/Training Program; PCP Internal Medicine
DX: B34.9 Viral infection, unspecified (principal); R11.2 Nausea with vomiting, unspecified; R10.9 Unspecified abdominal pain; Z20.822 Contact with and (suspected) exposure to COVID-19; Z20.828 Contact with and (suspected) exposure to other viral communicable diseases; Z79.899 Other long term (current) drug therapy
CPT/HCPCS: 0241U; 74177; 80053; 81001; 83690; 83735; 84702; 85025; 96361; 96374; 99284; J2405; Q9967

== ENCOUNTER 2023-08-28 07:15 | Outpatient (REF) | payer MEDICAID, SELFPAY ==
--- NOTE | ~2023-08-28 | MR_ITS ---
MR LUMBAR SPINE WITHOUT CONTRAST CLINICAL INFORMATION: Lumbar region radiculopathy. COMPARISON: Lumbar spine MRI 07/07/2023 TECHNIQUE: MRI of the lumbar spine was obtained using routine sequences without contrast. FINDINGS: There are 5 nonrib-bearing lumbar-type vertebral bodies. There is moderate to severe disc volume loss at L4-L5 and there is moderate disc volume loss at L3-L4. There is disc desiccation at these 2 levels. There is an intraosseous hemangioma within the L4 vertebral body. There is no bone marrow edema. There are no acute fractures. Conus terminates at the L1 level. There are no significant extraspinal soft tissue findings. L1-L2: Disc contour is normal. There is no central canal stenosis and there is no foraminal stenosis. L2-L3: Disc contour is normal. There is no central canal stenosis and there is no foraminal stenosis. L3-L4: There is a diffuse annular disc bulge with a superimposed right lateral paracentral/disc osteophyte protrusion contacting the traversing right L4 and extraforaminal right L3 nerve roots resulting in mild right-sided foraminal encroachment. No central canal and no left foraminal stenosis. L4-L5: Diffuse annular disc bulge with a superimposed shallow left paracentral disc protrusion that results in mass effect on the traversing left L5 nerve root within the left subarticular zone. Disc osteophyte and moderate bilateral facet arthropathy and ligamentum flavum thickening. Mild central canal stenosis. Mild bilateral foraminal encroachment. L5-S1: Small annular disc bulge and bilateral facet arthropathy. No central canal stenosis and no foraminal stenosis. MR/MR lumbar spine wo con IMPRESSION: - At L3-L4, there is a right lateral paracentral/disc osteophyte protrusion contacting the traversing right L4 and extraforaminal right L3 nerve roots resulting in mild right-sided foraminal encroachment. - At L4-L5, there is a shallow left paracentral disc protrusion that results in mass effect on the traversing left L5 nerve root within the left subarticular zone.
== END 2023-08-28 07:16 | disposition home or self-care (01) ==
LOC: HO.MRI 07:15
PROVIDERS: PCP Internal Medicine; Visit Provider Nurse Practitioner Family
DX: M54.16 Radiculopathy, lumbar region (principal); M51.36 Other intervertebral disc degeneration, lumbar region
CPT/HCPCS: 72148

== ENCOUNTER 2023-09-26 08:32 | Outpatient (AMB) | payer MEDICAID, SELFPAY ==
--- NOTE | 2023-09-26 08:33 | A.OFFVIS_ITS ---
Intake Vital Signs 09/26/23 08:37 Height 5 ft 3 in Weight 157 lb BMI 27.8 BP 116/62 Blood Pressure Location Rt brachial Position Sitting Pulse 84 Pulse Source Pulse Oximeter Pulse Oximetry (%) 98 Oxygen Delivery Method Room Air Intake Visit Reasons: MRI FOLLOW UP/PROCEDURE DISCUSSION - Confirmed Intake Note: Pain today 06/11 Signal Timer Required: No Accompanied by: Self / Same As Patient Allergies No Known Allergies Allergy (Verified 09/26/23 08:36) HPI HPI Comments History of Present Illness Details Patient presents today for follow up to review recent lumbar spine MRI results. Patient reports worsening left sided radicular pain with standing and walking. Denies any recent trauma, injury or falls. She reports pain as shooting, throbbing, numbness, heaviness in her left leg with tingling and relieved by sitting, bending forward, resting, heat therapy, or sleep curled in the position. She avoids NSAIDs s/p gastric sleeve. 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 We will plan for L4-5 interlaminar JOHN midline as next step for her radicular symptom relief. If she is unable to gain significant relief from this injection, we will consider MILD procedure. Denies any fever, dizziness, shortness of breaths, weakness, foot drop, bladder or bowel incontinence or saddle anesthesia. PRIOR 04/01/23: Patient presents today for follow-up and worsening lower back pain with radiculopathy. She was last seen in our office in May 2022 for L4-L5 Bilateral transforaminal epidural steroid injection by Dr. Bass with good results. Patient reports return of her symptoms but pain radiates now posteriorly and laterally. She underwent gastric sleeve on 10/05/22 at [facility] and reports loosing over 30 lbs since then. 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 Back pain increases with prolonged sitting, especially during driving, lifting, bending or standing. Reports increased levels of fatigue since bariatric surgery and attributes this to vitamin B12 deficiency for which she now supplements with oral intake as well as injections. Previous lumbar spine MRI of 2019 showed no significant disc bulge and no central canal or neuroforaminal stenosis at L5-S1 level. We will proceed with updating her MRI prior further interventional treatments. She denies any fever, dizziness, shortness of breaths, weakness, bladder or bowel incontinence or saddle anesthesia. PRIOR: Patient is a pleasant 41 years old female who presents today with worsening of chronic low back pain with radiation to her bilateral lower extremities intermittently posteriorly and significant constant severe pain anteriorly with lumbar flexion. Patient reports she has received bilateral L4-L5 TFESI in 07/2021 with good results and return of pain up until recently. Per lumbar spine MRI, patient has L4-L5 broad-based disc bulge which contacts the bilateral traversing L5 nerve roots within the lateral recesses. Bilateral facet arthropathy and thickening of the ligamentum flavum causing mild central canal as well as [id number] bilateral neuroforaminal stenosis. L5-S1: No significant disc bulge. No central canal or neuroforaminal stenosis. Patient is requesting to be scheduled to repeat same procedure with sedation and fluo roscopy. Patient denies any fever, chills, malaise, abdominal or groin pain, bowel or bladder incontinence or saddle anesthesia. PRIOR: Sherry returns to the office to discuss scheduling a repeat procedure. She reports her same localized back pain has returned without radiation into BLE and increased pain with lumbar flexion. PRIOR: Sayra on the phone today discussing the results of transforaminal bilateral L4- 5 epidural steroid injection this injection was to address possibility that her pain is discogenic in nature. She reports about 2 weeks of complete pain relieve after injection. She still reports about 60% of the pain relief. This is good term she was having pain relief for the last 45 days. She still enjoys quite night sleep and she does not need to adjust herself frequently at night after the injection. I informed this patient that we can repeat this injection once in 3 months if insurance company will allow it. Patient understood and we agreed that when her pain will start to get worse she will give us a call and we will schedule her for another transforaminal bilateral L4-5 epidural steroid injection. History of low back pain Her pain is in the lower back without any radiation. Previously when she was in my office she will is reporting mild radiation to the hip but now she says that pain is mostly axial. She reports that her pain is aggravated when she is laying down and alleviated when she is moving. She reports that flexing forward aggravates her pain!. She also reports that flexing backwards actually make her pain better it makes her feel better she reports that she feels some relieve and she does some backwards stretches when her pain is most severe. [facility] Medical History Steatosis, liver Insomnia Back pain Intra-abdominal adhesions Hx of steroid therapy GERD (gastroesophageal reflux disease) BMI 32.0-32.9,adult Lateral epicondylitis, right elbow Disc degeneration, lumbar Asthma Anxiety Depression IUD check up Surgical History H/O gastric sleeve History of esophagogastroduodenoscopy (EGD) Hx of dilation and curettage Hx laparoscopic cholecystectomy H/O laparoscopic adjustable gastric banding History of tubal ligation History of Family History Mother No problems noted. Father Diabetes Sister No problems noted. Brother No problems noted. Son No problems noted. Son No problems noted. Daughter No problems noted. 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 Alert and oriented. Mood and affect appropriate. Follows and participates in conversation appropriately. Respiratory effort is unlabored. No cough. Able to transition from sit to stand unassisted. Ambulates with bilaterally normal heel strike and toe off, reports unsteady on left due to pain. Back/Spine/Pelvis Other: Patient is able to walk and stand on heels and tip toes with mild difficulty otherwise demonstrating good motor tone. Mild limping. Can flex forward to 60-70 degrees and extend to 5-10 degrees before experiencing lumbar pain. Demonstrates 5/5 strength of quadriceps bilaterally as well as flexion/dorsiflexion of bilateral feet against resistance. 2+ pedal pulses bilaterally. Straight leg rise with dorsiflexion positive bilaterally, left>right. +1 left and +2 right patellar and +1 achilles reflexes bilaterally. Facet loading test positive bilaterally. Lilly sign positive bilaterally, Richi?s, Pelvic Compression and Stinchfield tests are positive on the left. No groin pain with I/E hip rotations. Valsalva maneuver negative. Cervical Spine: cervical ROM normal and No Cervical spine tenderness Thoracic/Lumbar Spine: thoracic and lumbar spine normal to inspection, Lasegue's sign positive bilateral, pain with thoraco-lumbar ROM, paraspinal muscle tenderness, thoraco-lumbar ROM limited, No thoracic spinal tenderness and lumbar spinal tenderness (L4-S1) Pelvis: buttock tenderness on the left Sacroiliac joints: bilaterally tender to palpation Results Reviewed Results Reviewed: MR LUMBAR SPINE WITHOUT CONTRAST 08/28/23 CLINICAL INFORMATION: Lumbar region radiculopathy. COMPARISON: Lumbar spine MRI 07/07/2023 TECHNIQUE: MRI of the lumbar spine was obtained using routine sequences without contrast. FINDINGS: There are 5 nonrib-bearing lumbar-type vertebral bodies. There is moderate to severe disc volume loss at L4-L5 and there is moderate disc volume loss at L3-L4. There is disc desiccation at these 2 levels. There is an intraosseous hemangioma within the L4 vertebral body. There is no bone marrow edema. There are no acute fractures. Conus terminates at the L1 level. There are no significant extraspinal soft tissue findings. L1-L2: Disc contour is normal. There is no central canal stenosis and there is no foraminal stenosis. L2-L3: Disc contour is normal. There is no central canal stenosis and there is no foraminal stenosis. L3-L4: There is a diffuse annular disc bulge with a superimposed right lateral paracentral/disc osteophyte protrusion contacting the traversing right L4 and extraforaminal right L3 nerve roots resulting in mild right-sided foraminal encroachment. No central canal and no left foraminal stenosis. L4-L5: Diffuse annular disc bulge with a superimposed shallow left paracentral disc protrusion that results in mass effect on the traversing left L5 nerve root within the left subarticular zone. Disc osteophyte and moderate bilateral facet arthropathy and ligamentum flavum thickening. Mild central canal stenosis. Mild bilateral foraminal encroachment. L5-S1: Small annular disc bulge and bilateral facet arthropathy. No central canal stenosis and no foraminal stenosis. IMPRESSION: - At L3-L4, there is a right lateral paracentral/disc osteophyte protrusion contacting the traversing right L4 and extraforaminal right L3 nerve roots resulting in mild right-sided foraminal encroachment. - At L4-L5, there is a shallow left paracentral disc protrusion that results in mass effect on the traversing left L5 nerve root within the left subarticular zone. Assessment & Plan Assessment & Plan (1) Lumbar spondylosis: Code(s): M47.816 - Spondylosis without myelopathy or radiculopathy, lumbar region (2) Disc degeneration, lumbar: Code(s): M51.36 - Other intervertebral disc degeneration, lumbar region (3) Lumbar radiculopathy, chronic: Code(s): M54.16 - Radiculopathy, lumbar region (4) Spinal stenosis, lumbar region with neurogenic claudication: Code(s): M48.062 - Spinal stenosis, lumbar region with neurogenic claudication Plan Schedule L4-L5 interlaminar JOHN midline with sedation and fluoroscopy as next step for her radicular symptom relief. If she is unable to gain significant relief from this injection, we will consider MILD procedure. Expectations, risks and benefits were reviewed. Patient is aware of hyperglycemic effects of steroids. She is aware that this office will call her to schedule his procedure. All questions were answered and patient is in agreement of plan. Follow up after injections and sooner if needed. Coding Level of Care Code Est Pt Level 4 (31395) Diagnoses Lumbar spondylosis M47.816 Disc degeneration, lumbar M51.36 Lumbar radiculopathy, chronic M54.16 Spinal stenosis, lumbar region with neurogenic claudication M48.062
[2023-09-26 08:37] VITALS: BP 116/62; PULSE 84; O2SAT 98; BMI 27.8
== END 2023-09-26 09:11 | disposition home or self-care (01) ==
PROVIDERS: PCP Internal Medicine; Visit Provider Nurse Practitioner Family
DX: M47.816 Spondylosis without myelopathy or radiculopathy, lumbar region (principal); M51.36 Other intervertebral disc degeneration, lumbar region; M54.16 Radiculopathy, lumbar region; M48.062 Spinal stenosis, lumbar region with neurogenic claudication
CPT/HCPCS: 99214

== ENCOUNTER → 2023-09-26 08:32 | Outpatient (BNVA) | payer MEDICAID, SELFPAY | PROVIDERS: PCP Internal Medicine; Visit Provider Nurse Practitioner Family | DX: M47.816 Spondylosis without myelopathy or radiculopathy, lumbar region (principal); M51.36 Other intervertebral disc degeneration, lumbar region; M54.16 Radiculopathy, lumbar region; M48.062 Spinal stenosis, lumbar region with neurogenic claudication | CPT/HCPCS: 99212 ==

== ENCOUNTER 2023-10-11 08:04 | Day surgery (SDC) | payer MEDICAID, SELFPAY ==
[2023-10-09 14:44] VITALS: BMI 27.8
[2023-10-09 15:06] VITALS: BMI 28.0
--- NOTE | 2023-10-10 10:36 | P.CONAN_ITS ---
Documented by User: Beth Torres NP 10/10/23 10:36 HPI - Anesthesia Eval Consult details Narrative: 43yo F for L4-L5 Interlaminar Midline Epidural Steroid Injection PMFSH Active Problems Active Problems: All Active Problems (Updated 09/26/23 @ 10:43 by MANSOOR Saldaña) Spinal stenosis, lumbar region with neurogenic claudication (Acute) Complex ovarian cyst (Acute) Well woman exam (Acute) Hemorrhagic cyst of ovary (Acute) Malpositioned IUD (Acute) Abnormal uterine bleeding (Acute) Obesity (Acute) Fibromyalgia (Acute) Gastric band slippage (Acute) Emesis (Acute) History of removal of laparoscopic gastric banding device (Acute) Lumbar spondylosis (Acute) Lumbar radiculopathy, chronic (Acute) Disc degeneration, lumbar (Acute) Steatosis, liver (Acute) Insomnia (Acute) Intra-abdominal adhesions (Acute) GERD (gastroesophageal reflux disease) (Acute) Depression (Acute) Asthma (Acute) Anxiety (Acute) Past Medical History Medical History Steatosis, liver Insomnia Back pain Intra-abdominal adhesions Hx of steroid therapy GERD (gastroesophageal reflux disease) BMI 32.0-32.9,adult Lateral epicondylitis, right elbow Disc degeneration, lumbar Asthma Anxiety Depression IUD check up Family History Family History Mother No problems noted. Father Diabetes Sister No problems noted. Brother No problems noted. Son No problems noted. Son No problems noted. Daughter No problems noted. Family history of problems with anesthesia: No Surgical History Surgical History H/O gastric sleeve History of esophagogastroduodenoscopy (EGD) Hx of dilation and curettage Hx laparoscopic cholecystectomy H/O laparoscopic adjustable gastric banding History of tubal ligation History of History of Problems with Anesthesia: No Social History Social History Household Members: Children Housing: House Are you a primary long term acute care registered nurse to a significant other at home: No Do you presently have visiting nurse or other home services: No Alcohol intake: never Comment: pt sleeping, head bobbing, no facial grimacing Patient Tobacco Use Status: Never used Tobacco Second Hand Smoke Exposure: No Use of substances other than those prescribed or required for medical reasons: No Are you DNR?: No Advance Directives: No Advance Directives Information Provided: Yes Patient : No FDLMP: 10/06/2023 : No Poor oral hygiene: No service: No Current occupational status: employed 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 Meds Allergies Allergy/AdvReac Type Severity Reaction Status Date / Time No Known Allergies Allergy Verified 10/11/23 08:20 Home Medications Medication Instructions Recorded Confirmed Last Taken Type tramadol 50 mg tablet 50 mg PO Q8H PRN Pain 01/20/21 10/11/23 Unknown History albuterol sulfate 90 mcg/actuation 2 puff PO Q4-6H PRN Wheezing 05/31/21 10/09/23 Unknown History aerosol inhaler (ProAir HFA) gabapentin 100 mg capsule 1 cap PO BEDTIME PRN Insomnia 05/31/21 10/11/23 Unknown History multivitamin 1 tab PO DAILY 05/31/21 10/11/23 05/30/21 History levonorgestrel 21 mcg/24 hours (8 intrauterine 09/25/21 12/29/21 Unknown History yrs) 52 mg intrauterine device (Mirena) lidocaine 5 % topical patch 5 patch topical 09/26/23 Unknown History albuterol sulfate 90 mcg/actuation inhalation 10/09/23 10/09/23 Unknown History aerosol inhaler (Ventolin HFA) Exam Height,Weight and Vital Signs: Height 5 ft 3 in Weight 71.668 kg Assessment and Plan Assessment Anesthesia Assessment: Chart Reviewed Final Anesthetic Review Family History of Problems with Anesthesia: No History of Problems with Anesthesia: No Documented by User: Brenton Marcano MD 10/11/23 09:05 [facility] Past Medical History Medical History Steatosis, liver Insomnia Back pain Intra-abdominal adhesions Hx of steroid therapy GERD (gastroesophageal reflux disease) BMI 32.0-32.9,adult Lateral epicondylitis, right elbow Disc degeneration, lumbar Asthma Anxiety Depression IUD check up Family History Family History Mother No problems noted. Father Diabetes Sister No problems noted. Brother No problems noted. Son No problems noted. Son No problems noted. Daughter No problems noted. Surgical History Surgical History H/O gastric sleeve History of esophagogastroduodenoscopy (EGD) Hx of dilation and curettage Hx laparoscopic cholecystectomy H/O laparoscopic adjustable gastric banding History of tubal ligation History of Social History Social History Household Members: Children Housing: House Are you a primary long term acute care registered nurse to a significant other at home: No Do you presently have visiting nurse or other home services: No Alcohol intake: never Comment: pt sleeping, head bobbing, no facial grimacing Patient Tobacco Use Status: Never used Tobacco Second Hand Smoke Exposure: No Use of substances other than those prescribed or required for medical reasons: No Are you DNR?: No Advance Directives: No Advance Directives Information Provided: Yes Patient : No FDLMP: 10/06/2023 : No Poor oral hygiene: No service: No Current occupational status: employed 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 Meds Allergies Allergy/AdvReac Type Severity Reaction Status Date / Time No Known Allergies Allergy Verified 10/11/23 08:20 Home Medications Medication Instructions Recorded Confirmed Last Taken Type tramadol 50 mg tablet 50 mg PO Q8H PRN Pain 01/20/21 10/11/23 Unknown History albuterol sulfate 90 mcg/actuation 2 puff PO Q4-6H PRN Wheezing 05/31/21 10/09/23 Unknown History aerosol inhaler (ProAir HFA) gabapentin 100 mg capsule 1 cap PO BEDTIME PRN Insomnia 05/31/21 10/11/23 Unknown History multivitamin 1 tab PO DAILY 05/31/21 10/11/23 05/30/21 History levonorgestrel 21 mcg/24 hours (8 intrauterine 09/25/21 12/29/21 Unknown History yrs) 52 mg intrauterine device (Mirena) lidocaine 5 % topical patch 5 patch topical 09/26/23 Unknown History albuterol sulfate 90 mcg/actuation inhalation 10/09/23 10/09/23 Unknown History aerosol inhaler (Ventolin HFA) Exam Airway Mallampati Class: II TM Dist: >3cm Neck ROM: Full Heart: rrr Lungs: cta b/l Assessment and Plan Assessment Anesthesia Assessment: Anesthesia Plan Discussed and Chart Reviewed Final Anesthetic Review NPO: Yes ASA Class: II Final Preanesthetic Review: No Changes in Pt Med Stat and Consent Obtained/Reviewed Patient Risk: Low Procedure Risk: Low Anesthetic Plan Anesthetic Plan: MAC: Disposition: Standard PACU
--- NOTE | ~2023-10-11 | FL_ITS ---
EXAMINATION: XR FLUOROSCOPY WITH IMAGES CLINICAL INFORMATION: L4-L5 interlaminar midline epidural steroid injection. COMPARISON: MRI lumbar spine from 08/28/2023 and fluoroscopic imaging from 05/25/2022. TECHNIQUE: Fluoroscopy Supervised By: Dr. Bass. Fluoroscopy Time: 0.7 min Cumulative Dose: 12.1 mGy. DAP: 3.32 Gycm2. Images: 6 images are saved into the electronic picture archive. FL/FL guidance in OR FINDINGS AND IMPRESSION: Fluoroscopic imaging equipment utilized by Dr. Bass during transforaminal epidural steroid injections along right and left L4 nerve roots.
--- NOTE | 2023-10-11 08:11 | W.PM.OPN ---
Operative Note Operative Note Date of Service: 10/11/23 Narrative: Bilateral transforaminal epidural steroid injection L4- L5. After explaining informed consent using production assembly supervisor of [facility], the patient was taken to the operating room when she was positioned prone on the operating table. [place] [employer] monitors were applied and patient was moderately sedated. Time-out was performed delineating correct site and side of the procedure name date of of the patient, name of the procedure and risks for the patient. The patient's lower back was prepped with ChloraPrep and draped with 4 sterile utility towels. C-arm was brought over the operating field and sq picture of L4 vertebra was demonstrated on the screen. Tilting machine ipsilateral to each side about 30 degrees the most prominent image of the pedicle was demonstrated on the screen. The procedure was performed 1st on the right and then on theleft. 3 mm below the lowest point of the pedicle silhouette 22 gauge 5 in needle was inserted through the skin and advanced to were the foramina under intermittent anterior posterior and oblique views. When tip of the needle on anterior posterior view entered on the left silhouette of the spinal canal injection of the contrast was performed demonstrating epidural spread of the contrast and partial perineural spread of the contrast. After that injection of the lidocaine 1% mixed with Kenalog 40 mg was performed into the needle. The same procedure was performed on the left side When anterior epidural space was clearly delineated on the screen injection of the same amount of lidocaine with same percentage and 40 mg of Kenalog was performed .Upon completion of the procedures needles were removed sterile dressing was applied. The patient was tolerating procedure well she transferred to PACU for the recovery.
[2023-10-11 08:25] VITALS: BMI 29.3
--- NOTE | 2023-10-11 08:26 | MHC.SHP ---
Pre-Procedural Eval Section A - 24 Hr Update-Section A only Date of Service: 10/11/23 The patient is an INPATIENT: No Changes since office visit: Yes Patient answered all questions The patient has been examined within 24 hours of the surgical procedure. The History & Physical has been completed within 30 days and I have reviewed it.: No Section B - Complete if H&P > 30 days Chief Complaint: Radiculopathy, lumbar region Details of Present Illness: as above Relevant Family History (Specify if Yes): No Relevant Social History: None Present Medications: see Short Stay Collaborative assessment Medical History: No relevant PMH History of Previous Operations: No relevant previous surgery Allergies: Allergies Allergy/AdvReac Type Severity Reaction Status Date / Time No Known Allergies Allergy Verified 10/11/23 08:20 Review of Systems Sugical H&P ROS: Negative: Constitution, Cardiovascular, Respiratory, Neurological, Psychiatric, Hem-Onc, Allergic/Immunologic, Gastrointestinal, Genitourinary, Musculoskeletal, Integumentary, Endocrine and Eyes/Ears/Nose/Throat Exam Surgical H&P Exam: Normal: HEENT, Normal: Heart, Normal: Lungs, Normal: Extremities, Normal: Abdomen, Normal: Skin and Normal: Neurological Plan Diagnosis/Plan: Change I have reviewed the history and physical and performed a pertinent physical examination on my patient. I will do as I did in the past bilateral transforaminal epidural steroid injection L4- L5. Time Spent With Patient Time: Total time managing care of this patient today ____ minutes.
[2023-10-11 08:39] VITALS: BP 91/55; PULSE 63; RESP 16; TEMP 37.4; O2SAT 100
[2023-10-11] MEDS: Lactated Ringers 1,000 ML 100 ML IVCONT (09:00)
[2023-10-11 10:16] VITALS: BP 88/50; PULSE 55; RESP 18; TEMP 36.6; O2SAT 98
[2023-10-11 10:31] VITALS: BP 93/54; PULSE 52; RESP 16; TEMP 36.5; O2SAT 100
--- NOTE | 2023-10-11 10:37 | P.BOP_ITS ---
Brief Operative Note Date of Service: 10/11/23 Pre-op diagnosis: radiculopathy lumbar Post-op diagnosis: same Procedure: Bilateral L4- L5 transforaminal epidural steroid injectiom Surgeon: Mauricio Bass MD Anesthesia: MAC Was an Fretted Instrument Inspector used for this Procedure?: No Estimated blood loss (mL): 2 Condition: stable Disposition: PACU
== END 2023-10-11 11:05 | disposition home or self-care (01) ==
PROVIDERS: PCP Internal Medicine; Visit Provider Anesthesiology
PROC: 3E0R33Z Introduction of Anti-inflammatory into Spinal Canal, Percutaneous Approach (ICD-10-PCS; CPT 64483; principal; 2023-10-11 09:00)
DX: M48.062 Spinal stenosis, lumbar region with neurogenic claudication (principal); M54.16 Radiculopathy, lumbar region; M51.36 Other intervertebral disc degeneration, lumbar region; Z98.84 Bariatric surgery status
CPT/HCPCS: 64483; J2250; J2704; J3010; J3301; Q9967

== ENCOUNTER → 2023-10-11 08:04 | Outpatient (BNV) | payer MEDICAID, SELFPAY | PROVIDERS: PCP Internal Medicine; Visit Provider Anesthesiology | DX: M54.16 Radiculopathy, lumbar region (principal) | CPT/HCPCS: 64483 ==

== ENCOUNTER 2023-11-11 08:26 | Outpatient (AMB) | payer MEDICAID, SELFPAY ==
[2023-11-11 08:29] VITALS: BP 124/56; PULSE 77; O2SAT 100; BMI 28.2
--- NOTE | 2023-11-11 08:29 | MHC.OFFVIS ---
Intake Vital Signs 11/11/23 08:29 Height 5 ft 3 in Weight 159 lb BMI 28.2 BP 124/56 L Blood Pressure Location Rt brachial Position Sitting Pulse 77 Pulse Source Pulse Oximeter Pulse Oximetry (%) 100 Oxygen Delivery Method Room Air Intake Visit Reasons: S/p L4-L5 Interlaminar Midline JOHN 10/11/23/Conf Intake Note: Pain today 03/11 Research Assoc Required: No Accompanied by: Self / Same As Patient Allergies No Known Allergies Allergy (Verified 11/11/23 08:30) HPI HPI Comments History of Present Illness Details Patient presents today to assess response to L4-L5 Interlaminar Midline JOHN on 10/11/[address] Bass. Patient reports over 50% ongoing pain relief since procedure with notable improvement in her daily functioning, mobility and sleep. She is content with procedure outcome and reports radicular symptoms and lower back pain has been much better since procedure. Patient will continue to monitor her symptoms and function for next few months. We will consider MILD procedure as next steps if her pain relief is not sustained for intended period of time. Per most recent lumbar spine MRI, patient has L4-L5 broad-based disc bulge which contacts the bilateral traversing L5 nerve roots within the lateral recesses. Bilateral facet arthropathy and thickening of the ligamentum flavum causing mild central canal as well as [id number] bilateral neuroforaminal stenosis. L5-S1: No significant disc bulge. No central canal or neuroforaminal stenosis. Denies any recent cough, cold, infection, fever, any significant changes in her medical history, medications or recent hospitalizations. Past Procedures: 10/11/23: L4-L5 Interlaminar Midline JOHN->50% ongoing pain relief 05/2022: L4-L5 Bilateral TFESI-good pain relief 07/2021: L4-L5 Bilateral TFESI-good pain relief PFSH Medical History Steatosis, liver Insomnia Back pain Intra-abdominal adhesions Hx of steroid therapy GERD (gastroesophageal reflux disease) BMI 32.0-32.9,adult Lateral epicondylitis, right elbow Disc degeneration, lumbar Asthma Anxiety Depression IUD check up Surgical History H/O gastric sleeve History of esophagogastroduodenoscopy (EGD) Hx of dilation and curettage Hx laparoscopic cholecystectomy H/O laparoscopic adjustable gastric banding History of tubal ligation History of Family History Mother No problems noted. Father Diabetes Sister No problems noted. Brother No problems noted. Son No problems noted. Son No problems noted. Daughter No problems noted. 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 Alert and oriented. Mood and affect appropriate. Follows and participates in conversation appropriately. Respiratory effort is unlabored. No cough. Able to transition from sit to stand unassisted. Ambulates with bilaterally normal heel strike and toe off. Results Reviewed Results Reviewed: MR LUMBAR SPINE WITHOUT CONTRAST 08/28/23 CLINICAL INFORMATION: Lumbar region radiculopathy. COMPARISON: Lumbar spine MRI 07/07/2023 TECHNIQUE: MRI of the lumbar spine was obtained using routine sequences without contrast. FINDINGS: There are 5 nonrib-bearing lumbar-type vertebral bodies. There is moderate to severe disc volume loss at L4-L5 and there is moderate disc volume loss at L3-L4. There is disc desiccation at these 2 levels. There is an intraosseous hemangioma within the L4 vertebral body. There is no bone marrow edema. There are no acute fractures. Conus terminates at the L1 level. There are no significant extraspinal soft tissue findings. L1-L2: Disc contour is normal. There is no central canal stenosis and there is no foraminal stenosis. L2-L3: Disc contour is normal. There is no central canal stenosis and there is no foraminal stenosis. L3-L4: There is a diffuse annular disc bulge with a superimposed right lateral paracentral/disc osteophyte protrusion contacting the traversing right L4 and extraforaminal right L3 nerve roots resulting in mild right-sided foraminal encroachment. No central canal and no left foraminal stenosis. L4-L5: Diffuse annular disc bulge with a superimposed shallow left paracentral disc protrusion that results in mass effect on the traversing left L5 nerve root within the left subarticular zone. Disc osteophyte and moderate bilateral facet arthropathy and ligamentum flavum thickening. Mild central canal stenosis. Mild bilateral foraminal encroachment. L5-S1: Small annular disc bulge and bilateral facet arthropathy. No central canal stenosis and no foraminal stenosis. IMPRESSION: - At L3-L4, there is a right lateral paracentral/disc osteophyte protrusion contacting the traversing right L4 and extraforaminal right L3 nerve roots resulting in mild right-sided foraminal encroachment. - At L4-L5, there is a shallow left paracentral disc protrusion that results in mass effect on the traversing left L5 nerve root within the left subarticular zone. Assessment & Plan Assessment & Plan (1) Spinal stenosis, lumbar region with neurogenic claudication: Code(s): M48.062 - Spinal stenosis, lumbar region with neurogenic claudication (2) Lumbar radiculopathy, chronic: Code(s): M54.16 - Radiculopathy, lumbar region (3) Lumbar spondylosis: Code(s): M47.816 - Spondylosis without myelopathy or radiculopathy, lumbar region (4) Disc degeneration, lumbar: Code(s): M51.36 - Other intervertebral disc degeneration, lumbar region Plan Patient is status post Midline L4-L5 Interlaminar JOHN injection on 10/11/23 with ongoing over 50% pain relief with notable improvement in her daily activities and functioning, ROM, sleep and quality of life. Patient will continue to monitor her symptoms and function for next few months. We will consider MILD procedure as next steps if her pain relief is not sustained for intended period of time. All questions and concerns have been answered and patient agreed with the plan. Follow up as needed. Coding Level of Care Code Est Pt Level 3 (16004) Diagnoses Spinal stenosis, lumbar region with neurogenic claudication M48.062 Lumbar radiculopathy, chronic M54.16 Lumbar spondylosis M47.816 Disc degeneration, lumbar M51.36
== END 2023-11-11 08:42 | disposition home or self-care (01) ==
PROVIDERS: PCP Internal Medicine; Visit Provider Nurse Practitioner Family
DX: M48.062 Spinal stenosis, lumbar region with neurogenic claudication (principal); M54.16 Radiculopathy, lumbar region; M47.816 Spondylosis without myelopathy or radiculopathy, lumbar region; M51.36 Other intervertebral disc degeneration, lumbar region
CPT/HCPCS: 99213

== ENCOUNTER → 2023-11-11 08:26 | Outpatient (BNVA) | payer MEDICAID, SELFPAY | PROVIDERS: PCP Internal Medicine; Visit Provider Nurse Practitioner Family | DX: M48.062 Spinal stenosis, lumbar region with neurogenic claudication (principal); M54.16 Radiculopathy, lumbar region; M47.816 Spondylosis without myelopathy or radiculopathy, lumbar region; M51.36 Other intervertebral disc degeneration, lumbar region | CPT/HCPCS: 99212 ==

== ENCOUNTER 2024-01-03 07:28 | Outpatient (REF) | payer MEDICAID, SELFPAY ==
[2024-01-03 07:51] LABS: MANUAL DIFF FLAG NO
[2024-01-03 09:10] LABS: Basophils Percent Auto 0.6 % (0-2); Eosinophils Absolute Auto 0.2 X10*3/uL (0.0-0.4); Eosinophils Percent Auto 4.5 % (0-4); Hematocrit 38.1 % (37.0-47.0); Hemoglobin 12.7 g/dl (12.0-16.0); Imm Gran Abs Auto 0.01 X10*3/uL (0.00-0.03); Imm Gran Pct Auto 0.2 % (0.0-0.4); Lymphocytes Absolute Auto 1.4 X10*3/uL (1.2-4.9); Mean Corpuscular HGB Conc 33.3 g/dl (31.0-35.0); Mean Corpuscular Hemoglobin 30.2 pg (27.0-33.0); Mean Corpuscular Volume 90.5 fL (80.0-98.0); Mean Platelet Volume 11.2 fL (9.4-12.3); Monocytes Absolute Auto 0.4 X10*3/uL (0.1-1.2); Monocytes Percent Auto 7.7 % (2-11); Neutrophils Absolute Auto 2.9 x10*3/uL (2.0-8.3); Platelet Count 193 X10*3/uL (160-400); Red Blood Count 4.21 X10*6/uL (4.20-5.50); Red Cell Distribution Width 13.2 % (11.0-16.0); White Blood Count 4.9 X10*3/uL (4.8-10.8)
[2024-01-03 09:23] LABS: Estimated Average Glucose 103 mg/dL; Hemoglobin A1c % 5.2 % (<6.0)
[2024-01-03 09:59] LABS: Alanine Aminotransferase 38 U/L (0-31); Albumin Level 4.4 g/dL (3.5-5.0); Alkaline Phosphatase 103 U/L (39-117); Anion Gap 13 (12-20); Aspartate Amino Transferase 33 U/L (5-31); Bilirubin Direct 0.3 mg/dL (0.0-0.5); Bilirubin Total 0.7 mg/dL (0.0-1.0); Blood Urea Nitrogen 9 mg/dL (9-16); Calcium 10.1 mg/dL (8.4-10.2); Carbon Dioxide 24 mmol/L (22-29); Chloride 105 mmol/L (96-108); Cholesterol 146 mg/dL (<200); Estimated Glomerular Filt Rate > 60; Glucose Random 83 mg/dL (60-115); HDL Cholesterol 61 mg/dL (>40); LDL Cholesterol Calculated 72 mg/dL (<100); Potassium 4.1 mmol/L (3.3-5.1); Sodium 138 mmol/L (135-145); Total Protein 7.8 g/dL (6.5-8.0); Triglycerides 66 mg/dL (<150)
[2024-01-03 10:12] LABS: HIV AB/AG Nonreactive (Nonreactive); HIV Num 1 0.04 S/CO (0.00-0.99)
[2024-01-03 10:15] LABS: TSH reflex Free T4 0.35 uIU/mL (0.32-4.0); Vitamin D 25-OH Total 42.1 ng/mL (>30)
[2024-01-06 16:33] LABS: HCV Log PCR <1.18 NOT DETECTED Log IU/mL (NOT DETECTED); HepC Viral Load <15 NOT DETECTED IU/mL (NOT DETECTED)
== END 2024-01-03 07:29 | disposition home or self-care (01) ==
LOC: HO.LAB 07:28
PROVIDERS: PCP Internal Medicine; Visit Provider Internal Medicine
DX: Z00.00 Encounter for general adult medical examination without abnormal findings (principal); Z11.4 Encounter for screening for human immunodeficiency virus [HIV]; E66.9 Obesity, unspecified; Z68.32 Body mass index [BMI] 32.0-32.9, adult; K95.09 Other complications of gastric band procedure
CPT/HCPCS: 36415; 80048; 80061; 80076; 82306; 83036; 84443; 85025; 87389; 87522

== ENCOUNTER 2024-06-04 08:32 | Outpatient (AMB) | payer MEDICAID, SELFPAY ==
--- NOTE | 2024-06-04 08:36 | MHC.OFFVIS ---
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 No complaints. Last Pap/HPV was negative in 02/19 Last Mammogram was BI-RADS 1 in 03/24 No previous screening colonoscopy The patient had a pelvic ultrasound 04/24 which showed 2 complex ovarian cyst consistent with hemorrhagic cyst, pelvic ultrasound order placed to be repeated in 3 months. No pelvic ultrasound done since then [facility] Medical History Steatosis, liver Insomnia Back pain Intra-abdominal adhesions Hx of steroid therapy GERD (gastroesophageal reflux disease) BMI 32.0-32.9,adult Lateral epicondylitis, right elbow Disc degeneration, lumbar Asthma Anxiety Depression IUD check up Surgical History H/O gastric sleeve History of esophagogastroduodenoscopy (EGD) Hx of dilation and curettage Hx laparoscopic cholecystectomy H/O laparoscopic adjustable gastric banding History of tubal ligation History of Family History Mother No problems noted. Father Diabetes Sister No problems noted. Brother No problems noted. Son No problems noted. Son No problems noted. Daughter No problems noted. 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 History Menstrual Age of Menarche: 8 control method: progestin IUCD and permanent sterilization Total pregnancies: 4 Full term: 3 Number of Living Children: 3 Ab spontaneous: 1 Date of last pap smear: 02/19/20 Date of Mammogram: 04/01/23 Review of Systems Const All systems reviewed & are unremarkable except as noted in HPI and below Card Reports as per HPI Resp Reports as per HPI GI Reports as per HPI and Reports no additional complaints Reports as per HPI Physical Exam Const General: cooperative, healthy appearing and comfortable Chest Chest palpation & inspection: normal inspection of the chest and normal palpation of entire chest wall Breast/axilla inspection: normal inspection of the breasts and normal inspection of the axillae Breast/axilla palpation: normal palpation of the breasts, normal palpation of the axillae and no axillary lymphadenopathy Resp Effort & Inspection: normal respiratory effort Auscultation: clear to auscultation bilaterally Percussion: percussion normal Cardio Palpation: normal PMI Rate: regular rate Rhythm: regular rhythm Heart sounds: no murmurs and no rubs Peripheral pulses: Peripheral pulses 2+ throughout GI Inspection: Yes normal to inspection Palpation (GI): Soft to palpation, nontender, no guarding, not rigid and No hepatosplenomegaly present Percussion: Yes normal to percussion Auscultation: normal bowel sounds Rectal Exam - Female: deferred General: Yes bladder normal to palpation External Female Exam: No lesion Speculum Exam - Vagina: normal appearance of the vagina, normal palpation, normal vaginal discharge and not erythematous Speculum Exam - Cervix: normal appearance of the cervix and normal palpation Bimanual exam- vagina & uterus: normal bimanual exam, normal palpation, uterine size normal, bladder normal to palpation, consistency normal and normal palpation Bimanual Exam- Adnexa, other: normal adnexae, no masses and no tenderness Assessment & Plan Assessment & Plan (1) Well woman exam: Code(s): Z01.419 - Encounter for gynecological examination (general) (routine) without abnormal findings Category: Medical Plan: Cotesting not indicated this year. Mammogram ordered. The patient was referred to GI for screening colonoscopy Counseled the patient about the recommended dietary allowance of 1000 mg of Calcium & 600 IU of vitamin D. The patient was instructed to perform monthly self-breast exams and to schedule an annual exam in a year; All questions answered and the patient verbalized understanding. Instructed the patient to schedule annual exam in a year (2) Complex ovarian cyst: Code(s): N83.299 - Other ovarian cyst, unspecified side Category: Medical Plan: Instructions given the patient to schedule pelvic ultrasound best soon as possible with a 2 week follow-up appointment. All questions answered, the patient verbalized understanding and agreed with the plan. Orders: Orders MM tomosynthesis screening BI Today Z12.31 - Encounter for screening mammogram for malignant neoplasm of breast Referrals Gastroenterology Referral Z12.11 - Encounter for screening for malignant neoplasm of colon Coding Level of Care Code Est Pt Prev Care 40-64y(49366) Diagnoses Well woman exam Z01.419 Complex ovarian cyst N83.299
[2024-06-04 08:39] VITALS: BP 118/68; BMI 29.0
== END 2024-06-04 08:54 | disposition home or self-care (01) ==
PROVIDERS: PCP Internal Medicine; Visit Provider Obstetrics & Gynecology
DX: Z01.419 Encounter for gynecological examination (general) (routine) without abnormal findings (principal); N83.299 Other ovarian cyst, unspecified side
CPT/HCPCS: 99396

== ENCOUNTER → 2024-06-04 08:32 | Outpatient (BNVA) | payer MEDICAID, SELFPAY | PROVIDERS: PCP Internal Medicine; Visit Provider Obstetrics & Gynecology | DX: Z01.419 Encounter for gynecological examination (general) (routine) without abnormal findings (principal); N83.299 Other ovarian cyst, unspecified side | CPT/HCPCS: 99396 ==

== ENCOUNTER 2024-11-02 13:25 | Outpatient (AMB) | payer MEDICAID, SELFPAY ==
--- NOTE | 2024-11-02 13:33 | A.OFFVIS_ITS ---
Vital Signs 11/02/24 13:34 Height 5 ft 3 in Weight 164 lb BMI 29.0 Intake Visit Reasons: vaginal lump Photonics Engineer Required: Yes Photonics Engineer Language: Advisor Advocate Angel Co Founder Services: Photonics Engineer Present (in person) Photonics Engineer Name: Breann VARGAS Information Interpreted: non-clinical & clinical Routeman: Routeman Present (Breann VARGAS) Accompanied by: Self / Same As Patient Allergies No Known Allergies Allergy (Verified 11/02/24 13:36) HPI Comments Details: Presenting complaining of left vulvar bump that appear 2 days ago, no associated pain or discharge [facility] Medical History Steatosis, liver Insomnia Back pain Intra-abdominal adhesions Hx of steroid therapy GERD (gastroesophageal reflux disease) BMI 32.0-32.9,adult Lateral epicondylitis, right elbow Disc degeneration, lumbar Asthma Anxiety Depression IUD check up Surgical History H/O gastric sleeve History of esophagogastroduodenoscopy (EGD) Hx of dilation and curettage Hx laparoscopic cholecystectomy H/O laparoscopic adjustable gastric banding History of tubal ligation History of Family History Mother No problems noted. Father Diabetes Sister No problems noted. Brother No problems noted. Son No problems noted. Son No problems noted. Daughter No problems noted. 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 Female Reproductive History Menstrual Age of Menarche: 8 Review of Systems Const All systems reviewed & are unremarkable except as noted in HPI and below Physical Exam Vital Signs: BMI result Body Mass Index 29.0 General: Yes no CVA tenderness External Female Exam: No normal external appearance (Left labia majora 0.3 cm sebaceous cyst) and normal appearance of the urethra Speculum Exam - Vagina: normal appearance of the vagina, normal palpation, no lesions and no masses Speculum Exam - Cervix: normal appearance of the cervix, normal palpation, no lesions, no masses and nontender Bimanual exam- vagina & uterus: normal bimanual exam, normal palpation, uterine size normal, normal palpation, uterine shape normal, No Cervical tenderness present and non-tender Bimanual Exam- Adnexa, other: normal adnexae Back/Spine/Pelvis Back: no CVA tenderness Assessment & Plan Assessment & Plan (1) Sebaceous cyst of labia: Code(s): N90.7 - Vulvar cyst Category: Medical Plan: Discussed with the patient the finding on pelvic exam left labia majora sebaceous cyst 0.3 cm with no evidence of erythema or cellulitis. Instructions given the patient to call in case the cyst gets bigger, tender or causes any other concerns. All questions answered, the patient verbalized understanding Coding Level of Care Code Est Pt Level 3 (19441) Diagnoses Sebaceous cyst of labia N90.7
[2024-11-02 13:34] VITALS: BMI 29.0
--- OUTSIDE RECORDS SUMMARY | 2024-11-02 15:52 | XMS_ITS | Encounter Summary ---
Author Organization [employer] Address [address] [place] [address] Care Team Providers Care Clinical Specialist Name Role Phone Yolanda Regan MD Primary Care Provide r Reason for Visit * Reason Comments LEGAL PARAPROFESSIONAL RV LEGAL PARAPROFESSIONAL RV Encounter Details Date Type Department Care Team (Latest Contact Info) Description 10/07/2024 2:30 PM EST Clinical Support [facility] [address] [place], [place] [phone] 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 RN Chronic bilateral low back pain with bilateral sciatica (Primary Dx) Social History Tobacco Use Types Packs/Day Years Used Date Smoking Tobacco: Never Passive Smoke Exposure: Never Smokeless Tobacco: Never Alcohol Use Standard Drinks/Week Comments Never 0 (1 standard drink = 0.6 oz pur e alcohol) Depression Answer Date Recorded Patient Health Questionnaire-9 Score 3 09/22/2024 Patient Health Questionnaire-9 Score 3 09/22/2024 Last PHQ-9: Questionnaire Data Not on file 0 09/22/2024 Housing Stability Answer Date Recorded What is your housing situation today? I have aby ji 06/16/[address] you li ve. Do you have problems with any of the following? None of the above 06/16/2023 Food Insecurity Answer Date Recorded Within the past 12 months, y ou worried that your food would run out before you got money to buy more: Never True 06/16/2023 Within the past 12 months,th e food you bought just didn't last and you didn't have enough money to get more: Never True Transportation Answer Date Recorded In the past 12 months, has l ack of transportation kept you from medical appts, meetings, work or from getting things needed for daily living? No 06/16/2023 Utilities Answer Date Recorded In the past 12 months, has t he electric, gas, oil or water company threatened to shut off services in your home? No 06/16/2023 Depression Answer Date Recorded Patient Health Questionnaire-2 Score 0 09/22/2024 Comments Unknown Sex and Gender Information Value Date Recorded Sex Assigned at Female 07/02/2022 10:35 AM EDT Legal Sex Female 10:35 AM EDT Gender Identity Choose not to disclose 10:35 AM EDT Sexual Orientation Choose not to disclose 2021 10:35 AM EDT documented as of this encounter Progress Notes * 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 RN - 10/07/2024 2:30 PM EST S: Pt here for LEGAL PARAPROFESSIONAL Revisit. Prescribed Tramadol 50mg Q12hr PRN. States she has been taking as prescribed. Her last dose taken was this morning. She is also prescribed Phentermine 15mg Qam. Denies smoking cigarettes, ETOH use, illicit drug use and marijuana use. Currently rates her pain a 9 and states medication is 80% effective at alleviating pain. Current pain site is her lower back, she said she has fibromyalgia. 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 She has taken a phlebotomy course and hopes to be able to pursue that for a job. O: LEGAL PARAPROFESSIONAL Tele/In-person Tier 2. Pt currently prescribed Tramadol 50mg Q12hr PRN. NIGHT ORDER SELECTOR verified today. Rx last filled on 09/22/24. Pill count performed. Pt has 30 Tramadol remaining, anticipated she wouldhave 25. Medication is not over used by patient. UTOX completed. Negative for all substances: AMP, BAR, BUP, BZO, MOMO, FTY, MDMA, MET, MOP, MTD, OXY, PCP, TCA, THC. UTOX as expected. Last PCP visit was 09/22/24. A: LEGAL PARAPROFESSIONAL Contract Revisit: Chronic Opioid use related to pain. P: Pt to continue taking medication only as prescribed; Next Tele LEGAL PARAPROFESSIONAL RV appointment scheduled for 12/25/24 @ 8:30am, F/U sooner PRN. Appointment reminder given. Pt verbalized understanding and agreedto plan. documented in this encounter Plan of Treatment Upcoming Encounters Date Type Department Care Team (Late st Contact Info) Description 12/25/2024 9:00 AM EDT Telemedicine [facility] [address] [place] [address] 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, RN documented as of this encounter Procedures Procedure Name Priority Date/Time Associated Diagnosis Comments POCT KAVEH-14 URINE DRUG SCREEN Routine 10/07/2024 2:18 PM EST Chronic bilateral low back pain with bilateral sciatica documented in this encounter Results * POCT KAVEH-14 Urine Drug Screen (10/07/2024 2:18 PM EST) Urine Urine specimen obtained by clean catch procedure / Unknown 10/07/2024 2:18 PM EST Narrative 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 RN - 10/07/2024 2:18 PM EST UTOX cup Lot#[id number] Exp. 05/27/26 Internal Pass Control Negative for all substances us Yolanda Alan MD POINT OF CARE TEST EN TER/EDIT ORDERABLES Final Result documented in this encounter Visit Diagnoses Diagnosis Chronic bilateral low back pain with bilateral sciatica- Primary documented in this encounter Additional Health Concerns Assessment Noted Time PHQ-9 Depression Total Score: 3 09/22/19 25 10:38 AM EST documented as of this encounter Care Teams Clinical Specialist Relationship Specialty Start Date End Date Yolanda Regan MD [address] [place] [id number] PCP - General Family Medicine 07/07/19 documented as of this encounter
--- OUTSIDE RECORDS SUMMARY | 2024-11-02 15:52 | XMS_ITS | Encounter Summary ---
Author Organization [employer] Address [address] [place] [address] [address] [place] [address] Care Team Providers Care Sales Market Leader Name Role Phone Yolanda Regan MD Primary Care Provide r Reason for Visit * Reason Onset Date Comments Med Refill 01/14/2023 Encounter Details Date Type Department Care Team ([facility] st Contact Info) Description 01/14/2023 Telephone [facility] [address] [place], [place] [phone] Yolanda Regan MD [address] [place], [place] [phone] Med Refill Social History Tobacco Use Types Packs/Day Years Used Date Smoking Tobacco: Never Smokeless Tobacco: Never Alcohol Use Standard Drinks/Week Comments Never 0 (1 standard drink = 0.6 oz pur e alcohol) Depression Answer Date Recorded Patient Health Questionnaire-9 Score 0 09/06/2022 Depression Answer Date Recorded Patient Health Questionnaire-2 Score 0 10/16/2022 Comments Unknown Sex and Gender Information Value Date Recorded Sex Assigned at Female 07/02/2022 10:35 AM EDT Legal Sex Female 10:35 AM EDT Gender Identity Choose not to disclose 10:35 AM EDT Sexual Orientation Choose not to disclose 2021 10:35 AM EDT documented as of this encounter Miscellaneous Notes * Telephone Encounter - Ector Kovacs - 01/16/2023 8:53 AM EDT Tc from pt requesting status check on script requested, writer producer booked pt a f/u appt per PCP notes ,scheduled for 02/12/23 @ 2:30pm * Telephone Encounter - Michelle Oden LPN - 01/14/2023 9:20 AM EDT Med is not pended as JUV[address] JUDGE CK and med was last filled 04/11/22.Please review and advise. * Telephone Encounter - Ry Cochran - 01/14/2023 9:03 AM EDT Tc from pt requesting med refill gabapentin (Neurontin) 100 MG capsule documented in this encounter Plan of Treatment Upcoming Encounters Date Type Department Care Team (Late st Contact Info) Description 12/25/2024 9:00 AM EDT Telemedicine [facility] [address] [place] [address] 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, RN documented as of this encounter Visit Diagnoses Not on filedocumented in this encounter Additional Health Concerns Assessment Noted Time PHQ-9 Depression Total Score: 0 09/06/19 23 10:08 AM EST documented as of this encounter Care Teams Sales Market Leader Relationship Specialty Start Date End Date Yolanda Regan MD [address] [place] [phone] PCP - General Family Medicine 07/07/19 documented as of this encounter
--- OUTSIDE RECORDS SUMMARY | 2024-11-02 15:52 | XMS_ITS | Encounter Summary ---
Author Organization [employer] Address [address] [place] [address] Care Team Providers Care Animal Husbandman Name Role Phone Yolanda Regan MD Primary Care Provide r Reason for Visit * Reason Onset Date Comments Recommend CABBAGE SALTER Tier 2 Tele/Inperson 10/07/2024 Encounter Details Date Type Department Care Team (Late st Contact Info) Description 10/07/2024 Telephone [facility] [address] [place], [place] [phone] 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, RICARDO Recommend CABBAGE SALTER Tier 2 Tele/Inperson Social History Tobacco Use Types Packs/Day Years [...] encounter Miscellaneous Notes * Telephone Encounter - 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 RN - 10/07/2024 7:30 AM EST What CABBAGE SALTER Tier would you like this patient to be? I recommend Tier 2, Tele & Inperson for renewals, please let me know if you agree or would rather patient be in another CABBAGE SALTER Tier. Tier 1 = HIGH RISK, Monthly CABBAGE SALTER visits Tier 2 = MODerate RISK, Q3 Month visits Tier 3 = LOW RISK = Q4-6 month visits documented in this encounter Plan of Treatment Upcoming Encounters Date Type Department Care Team (Late st Contact Info) Description 12/25/2024 9:00 AM EDT Telemedicine [facility] MEDICINE [address] [place] [address] 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, RN documented as of this encounter Visit Diagnoses Not on filedocumented in this encounter Additional Health Concerns Assessment Noted Time PHQ-9 Depression Total Score: 3 09/22/19 25 10:38 AM EST documented as of this encounter Care Teams Animal Husbandman Relationship Specialty Start Date End Date Yolanda Regan MD [address] [place] [address] PCP - General Family Medicine 07/07/19 documented as of this encounter
--- OUTSIDE RECORDS SUMMARY | 2024-11-02 15:52 | XMS_ITS | Encounter Summary ---
Author Organization [employer] Address [address] [facility] 7t [place] [address] Care Team Providers Care Assistant Professor Of Marine Biology Name Role Phone Yolanda Regan MD Primary Care Provide r Encounter Details Date Type Department Care Team (Latest Contact Info) Description 03/11/2019 Abstract [facility] CONVERSIONS Dental, Provider, DDS Social History Tobacco Use Types Packs/Day Years Used Date Smoking Tobacco: Never Assessed Comments Unknown Sex and Gender Information Value Date Recorded Sex Assigned at Female 07/02/2022 10:35 AM EDT Legal Sex Female 10:35 AM EDT Gender Identity Choose not to disclose 10:35 AM EDT Sexual Orientation Choose not to disclose 2021 10:35 AM EDT documented as of this encounter Plan of Treatment Upcoming Encounters Date Type Department Care Team (Late st Contact Info) Description 12/25/2024 9:00 AM EDT Telemedicine [facility] MEDICINE [address] [place] [address] 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, RN documented as of this encounter Visit Diagnoses Not on filedocumented in this encounter Care Teams Assistant Professor Of Marine Biology Relationship Specialty Start Date End Date Yolanda Regan MD [address] [place] [address] PCP - General Family Medicine 07/07/19 documented as of this encounter
--- OUTSIDE RECORDS SUMMARY | 2024-11-02 15:52 | XMS_ITS | Encounter Summary ---
Author Organization [employer] Address [address] [place] [address] 7t [place] [address] Care Team Providers Care Work And Family Life Consultant Name Role Phone Yolanda Regan MD Primary Care Provide r Reason for Visit * Reason Comments Med Refill Encounter Details Date Type Department Care Team ([facility] Contact Info) Description 01/04/2023 Refill [facility] MEDICINE [address] [place] [address] [phone] Za Arellano MD [address] [place] [address] [phone] Chronic bilateral low back pain without sciatica Social History Tobacco Use Types Packs/Day Years [...] Upcoming Encounters Date Type Department Care Team ([facility] Contact Info) Description 12/25/2024 9:00 AM EDT Telemedicine [facility] MEDICINE [address] [place] [phone] 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 RN documented as of this encounter Visit Diagnoses Diagnosis Chronic bilateral low back pain without sciatica documented in this encounter Additional Health Concerns Assessment Noted Time PHQ-9 Depression Total Score: 0 09/06/19 23 10:08 AM EST documented as of this encounter Care Teams Work And Family Life Consultant Relationship Specialty Start Date End Date Yolanda Regan MD [address] [place] [address] PCP - General Family Medicine 07/07/19 documented as of this encounter
--- OUTSIDE RECORDS SUMMARY | 2024-11-02 15:52 | XMS_ITS | Encounter Summary ---
Author Organization [employer] Address [address] [place] [address] Care Team Providers Care Sampler First Name Role Phone Yolanda Regan MD Primary Care Provide r Reason for Visit * Reason Comments Med Refill Encounter Details Date Type Department Care Team ([facility] st Contact Info) Description 04/03/[address] [facility] MEDICINE [address] [place], [place] [phone] Yolanda Regan MD [address] [place], [place] [phone] Fibromyalgia Social History Tobacco Use Types Packs/Day Years Used Date Smoking Tobacco: Never Passive Smoke Exposure: Never Smokeless Tobacco: Never Alcohol Use Standard Drinks/Week Comments Never 0 (1 standard drink = 0.6 oz pur e alcohol) Depression Answer Date Recorded Patient Health Questionnaire-9 Score 14 12/30/2023 Patient Health Questionnaire-9 Score 14 12/30/2023 Last PHQ-9: Questionnaire Data Not on file 0 12/30/2023 Housing Stability Answer Date Recorded What is [...] Answer Date Recorded Patient Health Questionnaire-2 Score 2 12/30/2023 Comments Unknown Sex and Gender Information Value [...] Description 12/25/2024 9:00 AM EDT Telemedicine [facility] MEDICINE [address] [place] [phone] 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 RN documented as of this encounter Visit Diagnoses Diagnosis Fibromyalgia Unspecified myalgia and myositis documented in this encounter Additional Health Concerns Assessment Noted Time PHQ-9 Depression Total Score: 14 024 10:18 AM EDT documented as of this encounter Care Teams Sampler First Relationship Specialty Start Date End Date Yolanda Regan MD [address] [place] [phone] PCP - General Family Medicine 07/07/19 documented as of this encounter
--- OUTSIDE RECORDS SUMMARY | 2024-11-02 15:52 | XMS_ITS | Encounter Summary ---
Author Organization [employer] Address [address] [place] [address] Care Team Providers Care Manager Star Name Role Phone Yolanda Regan MD Primary Care Provide r Reason for Visit * Reason Onset Date Comments May Recall) 10/20/2024 Encounter Details Date Type Department Care Team ([facility] Contact Info) Description 10/20/[address] [facility] MEDICINE [address] [place], [place] [phone] Yolanda Regan MD [address] [place] [address] May Recall) Social History Tobacco Use Types Packs/Day Years [...] encounter Miscellaneous Notes * Telephone Encounter - Lela Cochran MA - 10/20/2024 4:11 PM EST TC- Patient to schedule an appt (December Recall) with [facility]Barciona [facility] to call back to sche appt.Mailed recall letter. documented in this encounter Plan of Treatment Upcoming Encounters Date Type Department Care Team (Late st Contact Info) Description 12/25/2024 9:[address] [facility] MEDICINE [address] [place] [address] 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 RN documented as of this encounter Visit Diagnoses Not on filedocumented in this encounter Additional Health Concerns Assessment Noted Time PHQ-9 Depression Total Score: 3 09/22/19 25 10:38 AM EST documented as of this encounter Care Teams Manager Star Relationship Specialty Start Date End Date Yolanda Regan MD [address] [place] [address] PCP - General Family Medicine 07/07/19 documented as of this encounter
--- OUTSIDE RECORDS SUMMARY | 2024-11-02 15:52 | XMS_ITS | Encounter Summary ---
Author Organization [employer] Address [address] [address] [facility] [address] [place] [address] Care Team Providers Care Printing Assistant Name Role Phone Yolanda Regan MD Primary Care Provide r Reason for Visit * Reason Comments Med Refill Encounter Details Date Type Department Care Team (Late st Contact Info) Description 11/02/2024 Refill [facility] MEDICINE [address] [place], [place] [phone] Stefany Murry MD [address] [place] [address] Chronic shoulder pain, unspecified laterality Social History Tobacco Use Types Packs/Day Years [...] Info) Description 12/25/2024 9:00 AM EDT Telemedicine [facility] MEDICINE [address] [place] [phone] 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 RN documented as of this encounter Visit Diagnoses Diagnosis Chronic shoulder pain, unspecified laterality documented in this encounter Additional Health Concerns Assessment Noted Time PHQ-9 Depression Total Score: 3 09/22/19 25 10:38 AM EST documented as of this encounter Care Teams Printing Assistant Relationship Specialty Start Date End Date Yolanda Regan MD [address] [place] [phone] PCP - General Family Medicine 07/07/19 documented as of this encounter
--- OUTSIDE RECORDS SUMMARY | 2024-11-02 15:52 | XMS_ITS | Encounter Summary ---
Author Organization [employer] Address [address] [facility] 7t [place] [address] Care Team Providers Care Training Project Manager Name Role Phone Yolanda Regan MD Primary Care Provide r Encounter Details Date Type Department Care Team (Latest Contact Info) Description 05/25/2020 Abstract [facility] CONVERSIONS Dental, Provider, DDS Social History Tobacco [...] Info) Description 12/25/2024 9:00 AM EDT Telemedicine [facility] MEDICINE [address] [place] [address] 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, RN documented as of this encounter Visit Diagnoses Not on filedocumented in this encounter Care Teams Training Project Manager Relationship Specialty Start Date End Date Yolanda Regan MD [address] [place] [address] PCP - General Family Medicine 07/07/19 documented as of this encounter
--- OUTSIDE RECORDS SUMMARY | 2024-11-02 15:52 | XMS_ITS | Encounter Summary ---
Author Organization [employer] Address [address] [place] [address] Care Team Providers Care Buyer Intern Name Role Phone Yolanda Regan MD Primary Care Provide r Reason for Visit * Reason Onset Date Comments PA 01/13/2024 Encounter Details Date Type Department Care Team ([facility] Contact Info) Description 01/13/2024 Telephone [facility] MEDICINE [address] [place], [place] [phone] Yolanda Regan MD [address] [place] [address] PA Social History Tobacco Use Types Packs/Day Years [...] encounter Miscellaneous Notes * Telephone Encounter - Lalitha Mckinley - 01/13/2024 10:14 AM EDT Tc from pt stating they received a letter from insurance advising pt they need more information on why medication is being prescribed. Pt would like a call back regarding any update. Best contact # [phone] Icelandic . documented in this encounter Plan of Treatment Upcoming Encounters Date Type Department Care Team (Late st Contact Info) Description 12/25/2024 9:00 AM EDT Telemedicine [facility] MEDICINE [address] [place] [address] 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, RN documented as of this encounter Visit Diagnoses Not on filedocumented in this encounter Additional Health Concerns Assessment Noted Time PHQ-9 Depression Total Score: 14 024 10:18 AM EDT documented as of this encounter Care Teams Buyer Intern Relationship Specialty Start Date End Date Yolanda Regan MD [address] [place] [address] PCP - General Family Medicine 07/07/19 documented as of this encounter
--- OUTSIDE RECORDS SUMMARY | 2024-11-02 15:52 | XMS_ITS | Encounter Summary ---
Author Organization [employer] Address [address] [place] [address] Care Team Providers Care Rerolling Machine Operator Name Role Phone Yolanda Regan MD Primary Care Provide r Reason for Visit * Reason Comments Med Refill Encounter Details Date Type Department Care Team (Late Contact Info) Description 03/22/2023 Refill [facility] [address] [place] [address] [phone] Richi Sinclair FNP Irritant dermatitis Social History Tobacco Use Types Packs/Day Years [...] not to disclose 2021 10:35 AM EDT COVID-19 Exposure Response Date Recorded In the last 10 days, have yo u been in contact with someone who was confirmed or suspected to have Coronavirus/COVID-19? Unable to assess 03/08/2023 4:15 PM EDT documented as of this encounter Plan of Treatment Upcoming Encounters Date Type Department Care Team ([facility] Contact Info) Description 12/25/2024 9:00 AM EDT Telemedicine [facility] MEDICINE [address] [place] [address] 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, RN documented as of this encounter Visit Diagnoses Diagnosis Irritant dermatitis Contact dermatitis and other eczema, due to unspecified cause documented in this encounter Additional Health Concerns Assessment Noted Time PHQ-9 Depression Total Score: 0 09/06/19 23 10:08 AM EST documented as of this encounter Care Teams Rerolling Machine Operator Relationship Specialty Start Date End Date Yolanda Regan MD [address] [place] [address] PCP - General Family Medicine 07/07/19 documented as of this encounter
--- OUTSIDE RECORDS SUMMARY | 2024-11-02 15:52 | XMS_ITS | Encounter Summary ---
Author Organization [employer] Address [address] [place] [address] Care Team Providers Care Drywall Taper Name Role Phone Yolanda Regan MD Primary Care Provide r Reason for Visit * Reason Onset Date Comments Med Refill 10/19/2024 Encounter Details Date Type Department Care Team ([facility] st Contact Info) Description 10/19/2024 Refill [facility] MEDICINE [address] [place], [place] [phone] Yolanda Regan MD [address] [place] [address] Chronic shoulder pain, unspecified laterality; Chronic bilateral low back pain without sciatica [...] Info) Description 12/25/2024 9:00 AM EDT Telemedicine [facility] MEDICINE [address] [place] [address] 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 RN documented as of this encounter Visit Diagnoses Diagnosis Chronic shoulder pain, unspecified laterality Chronic bilateral low back pain without sciatica documented in this encounter Additional Health Concerns Assessment Noted Time PHQ-9 Depression Total Score: 3 09/22/19 25 10:38 AM EST documented as of this encounter Care Teams Drywall Taper Relationship Specialty Start Date End Date Yolanda Regan MD [address] [place] [address] PCP - General Family Medicine 07/07/19 documented as of this encounter
--- OUTSIDE RECORDS SUMMARY | 2024-11-02 15:52 | XMS_ITS | Encounter Summary ---
Author Organization [employer] Address [address] [place] [address] Care Team Providers Care Metal Work Duct Installer Name Role Phone Yolanda Regan MD Primary Care Provide r Reason for Visit * Reason Comments Med Refill Encounter Details Date Type Department Care Team ([facility] st Contact Info) Description 07/02/2023 Refill [facility] MEDICINE [address] [place], [place] [phone] Yolanda Regan MD 230 [place] [address] Chronic bilateral low back pain without sciatica Social History Tobacco Use Types Packs/Day Years Used Date Smoking Tobacco: Never Passive Smoke Exposure: Never Smokeless Tobacco: Never Alcohol Use Standard Drinks/Week Comments Never 0 (1 standard drink = 0.6 oz pur e alcohol) Depression Answer Date Recorded Patient Health Questionnaire-9 Score 0 09/06/2022 Housing Stability Answer Date Recorded What is [...] Info) Description 12/25/2024 9:00 AM EDT Telemedicine [facility] MEDICINE [address] [place] [address] 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 RN documented as of this encounter Visit Diagnoses Diagnosis Chronic bilateral low back pain without sciatica documented in this encounter Additional Health Concerns Assessment Noted Time PHQ-9 Depression Total Score: 0 09/06/19 23 10:08 AM EST documented as of this encounter Care Teams Metal Work Duct Installer Relationship Specialty Start Date End Date Yolanda Regan MD [address] [place] [address] PCP - General Family Medicine 07/07/19 documented as of this encounter
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
--- OUTSIDE RECORDS SUMMARY | 2024-11-02 15:52 | XMS_ITS | Encounter Summary ---
Author Organization [employer] Address [address] [facility] [address] [place] [address] Care Team Providers Care Cigarette Filter Inspector Name Role Phone Yolanda Regan MD Primary Care Provide r Reason for Visit * Reason Comments Med Refill Encounter Details Date Type Department Care Team (Late st Contact Info) Description 08/25/2023 Refill [facility] [address] [place], [place] [phone] Stefany Murry MD [address] [place] [address] Anxiety; Chronic bilateral low back pain without sciatica [...] 12/25/2024 9:00 AM EDT Telemedicine [facility] MEDICINE [address] [place] [address] 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 RN documented as of this encounter Visit Diagnoses Diagnosis Anxiety Anxiety state, unspecified Chronic bilateral low back pain without sciatica documented in this encounter Additional Health Concerns Assessment Noted Time PHQ-9 Depression Total Score: 0 09/06/19 23 10:08 AM EST documented as of this encounter Care Teams Cigarette Filter Inspector Relationship Specialty Start Date End Date Yolanda Regan MD [address] [place] [address] PCP - General Family Medicine 07/07/19 documented as of this encounter
--- OUTSIDE RECORDS SUMMARY | 2024-11-02 15:52 | XMS_ITS | Encounter Summary ---
Author Organization [employer] Address [address] [facility] [address] [place] [address] Care Team Providers Care Upscale Security Officer Name Role Phone Yolanda Regan MD Primary Care Provide r Reason for Visit * Reason Comments Med Refill Encounter Details Date Type Department Care Team ([facility] st Contact Info) Description 07/13/2023 Refill [facility] [address] [place], [place] [phone] Yolanda Regan MD [address] [place], [place] [phone] Mild intermittent asthma without complication Social History Tobacco Use Types Packs/Day Years [...] Info) Description 12/25/2024 9:00 AM EDT Telemedicine [facility] [address] [place] [address] 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 RN documented as of this encounter Visit Diagnoses Diagnosis Mild intermittent asthma without complication documented in this encounter Additional Health Concerns Assessment Noted Time PHQ-9 Depression Total Score: 0 09/06/19 23 10:08 AM EST documented as of this encounter Care Teams Upscale Security Officer Relationship Specialty Start Date End Date Yolanda Regan MD [address] [place] [address] PCP - General Family Medicine 07/07/19 documented as of this encounter
--- OUTSIDE RECORDS SUMMARY | 2024-11-02 15:52 | XMS_ITS | Data Portability ---
Author Organization [place] - [facility] Address [address] [address] Care Team Providers Care Edi Specialist Name Role Phone TIERNEY DURHAM Primary Care Provider Assessment Encounter Date Assessment Date Assessment LastModified by Organization Details LastModified Time 03/20/2024 03/20/2024 Patient is healing well following right middle ear and mastoid exploration surgery 03/13/24. Operative note not yet back. Tube is well placed and patent. Follow up as scheduled with Dr. Arriaga. [email or web address] Not available 03/23/2024 09:54:33 06/30/2024 06/30/2024 Right ear has healed well following two-stage removal of cholesteatoma. No further surgery is planned for this ear. Tympanostomy tube is still in good position and patent. Audiometric testing today was repeated with results as noted below. Patient will require cholesteatoma surveillance going forward, recommend follow-up in 6 months. Not available 06/30/2024 12:20:39 Plan of Treatment Reminders Order Date Submit Date Provider Last Modified By Organization Details Last Modified Time Details Appointments Establish ed 15 2024 08:45A M KRISTOPHER ARRIAGA MD Not available Not available Not available Lab None recorded. Referral None recorded. Procedures None recorded. Surgeries middle ear explorati on through postauric ular or ear canal incision (SURG) 2023 024 [email or web address] Not available 01/20/2024 10:15:18 Imaging None recorded. Medication Orders None recorded. Patient TargetsNo targets recorded. Patient InstructionsNo instructions recorded. Reason for Referral None Reported. Results Created Date Observation Date Name Description Value Unit Range Abnormal Flag Note LastModifiedBy Organization Detail LastModifiedTime 04/22/20 24 09/12/2023 imagi ng/di agnos tic resul t No observ ation record ed. [email or web address] Not Available 02:17:22 04/22/20 24 11/19/2022 imagi ng/di agnos tic resul t No observ ation record ed. [email or web address] Not Available 02:17:37 04/22/20 24 01/20/2024 imagi ng/di agnos tic resul t No observ ation record ed. [email or web address] Not Available 02:17:41 04/22/20 24 05/14/2023 imagi ng/di agnos tic resul t No observ ation record ed. [email or web address] Not Available 02:18:14 04/22/20 24 11/19/2022 audio gram No observ ation record ed. [email or web address] Not Available 02:18:54 07/01/20 audio gram No observ ation record ed. [email or web address] Not Available 2023 11:20:09 Result Notes None recorded. Problems Name Problem SNOMED Code Status Onset Date Resolution Date Notes Provider Name and Address Organization Details Recorded Time Pain of right temporoma ndibular joint 17362424946 633074 Active 2022 Arthralgi a of right temporoma ndibular joint; Note: Date Diagnosed : 02/12/2023 1:16 PM (M26.621) Not Available [facility] 4 03:07:32 Partial loss of ear ossicles 61690201 Active 2022 Partial loss of ear ossicles, right ear; Note: Date Diagnosed : 02/12/2023 1:18 PM (H74.321) Not Available [facility] 4 03:07:31 Sensorine ural hearing loss in left ear 21991459047 109 Active 2023 Sensorine ural hearing loss, unilatera l, left ear, with restricte d hearing on the contralat eral side; Note: Date Diagnosed : 09/12/2023 10:01 AM (H90.A22) Not Available [facility] 4 03:07:31 Bilateral disorder of Eustachia n tubes 62585964644 69805 Active 2022 Other specified disorders of Eustachia n tube, bilateral ; Note: Date Diagnosed : 11/19/2022 10:34 AM (H69.83) Not Available [facility] 4 03:07:32 Otalgia of right ear 3761796921 Active 2022 Otalgia, right ear; Note: Date Diagnosed : 02/12/2023 1:16 PM (H92.01) Not Available [facility] 4 03:07:30 Cholestea jo-ann of right mastoid 01109386919 97758 Active 2022 Cholestea jo-ann of mastoid, right ear; Note: Date Diagnosed : 05/07/2023 2:58 PM (H71.21) Not Available [facility] 4 03:07:30 Conductiv e hearing loss, bilateral 971960336 Active 2022 Conductiv e hearing loss, bilateral ; Note: Date Diagnosed : 02/12/2023 1:21 PM (H90.0) Not Available [facility] 4 03:07:32 Disorder of left Eustachia n tube 33542698404 53777 Active 2022 Other specified disorders of Eustachia n tube, left ear; Note: Date Diagnosed : 11/19/2022 9:48 AM (H69.82) Not Available [facility] 4 03:07:31 Impacted cerumen in right ear 18126412297 57570 Active 2022 Impacted cerumen, right ear; Note: Date Diagnosed : 11/19/2022 10:43 AM (H61.21) Not Available [facility] 4 03:07:30 Follow-up visit Active 2022 Medical surveilla nce following completed treatment ; Note: Date Diagnosed : 3 3:38 PM (Z09) Not Available [facility] 4 03:07:30 Cholestea jo-ann 786602462 Active 2023 KRISTOPHER ARRIAGA MD [address] [facility] [address], [place], [address] , [place] - [facility] 4 08:53:11 Conductiv e hearing loss of right ear with normal hearing on left side 0920811751 Active 2023 LINDA ADAN, [facility] [address] [facility],[place] [address], [place], [address] , [facility] - [facility] 4 09:17:02 Adhesive middle ear disease 3899133 Active 2022 Adhesive middle ear disease, bilateral ; Note: Date Diagnosed : 02/12/2023 1:18 PM (H74.13) Not Available [facility] 03:07:30 Problem Notes None recorded. Procedures Surgical History Date Name Laterality Status Provider Name and Address Organization Details Recorded Time 06/30/20 24 Air & Speech Audio with Tymps (35971, 46793 & 32788) completed CHING CAM [facility] [address] [facility],[place] [address], [place], [address], [facility] - [facility] 06/30/2024 11:41:45 01/20/20 24 Comp Audio with Tymps (80570 & 46746) completed LINDA ADAN, AUD [address] [facility],[place] [address], [place], [address], [facility] - [facility] 01/20/2024 09:16:33 07/12/20 23 tympanoplasty with mastoidectomy completed Stefany Garcia [place] - [facility] 01/20/2024 08:35:28 Imaging Results Imaging Date Name Status LastModified by Organiz ation Details LastModified Time 09/12/2023 imaging/diagno stic result completed Information not available 04/22/2024 02:17:22 11/19/2022 imaging/diagno stic result completed Information not available 04/22/2024 02:17:37 01/20/2024 imaging/diagno stic result completed Information not available 04/22/2024 02:17:41 05/14/2023 imaging/diagno stic result completed Information not available 04/22/2024 02:18:14 11/19/2022 audiogram completed Information not available 04/22/2024 02:18:54 07/01/2024 audiogram completed BARCODE Information no t available 07/01/2024 11:20:09 Procedure Notes None recorded. Medical Equipment None Reported. Allergies No known drug allergies Medications Name Sig Start Date Stop Date Status Note LastModified by Organization Details LastModified Time albuterol sulfate 2.5 mg/3 mL (0.083 %) solution for nebulizat ion active Medicati on ID: [id number] B rand Name: albutero l sulfate Send Method: E-Prescr ibed Sub s Allowed: subs OK Speci al Instruct ion: USE 1 VIAL VIA NEBULIZE R ALEX VECES AL DEBORAH Medi cationGe nericNam e: albutero l sulfate Not Available Not Available Not Available tizanidin e 4 mg tablet TOME AMANDA TABLETA POR V A ORAL DOS VECES AL D A CUANDO SEA NECESARI O FOR MUSCLE SPASMS active Not Available Not Available No t Available minocycli ne 100 mg capsule 06/30 completed Medicati on ID: [id number] B rand Name: minocycl ine Send Method: E-Prescr ibed Sub s Allowed: subs OK Speci al Instruct ion: TAKE 1 CAPSULE BY MOUTH TWICE DAILY Me dication GenericN julita: minocycl ine Not Available Not Available Not Available topiramat e 25 mg tablet active Medicati on ID: [id number] B rand Name: topirama te Send Method: E-Prescr ibed Sub s Allowed: subs OK Speci al Instruct ion: PLEASE SEE ATTACHED FOR DETAILED DIRECTIO NS Medic ationGen ericName : topirama te Not Available Not Available Not Available tramadol 50 mg tablet TAKE 1 TABLET BY MOUTH TWICE DAILY IN THE MORNING AND AT BEDTIME NEEDED FOR SEVERE PAIN active Not Available Not Available No t Available acetamino phen 500 mg tablet 06/30 completed Medicati on ID: [id number] B rand Name: acetamin ophen Se nd Method: E-Prescr ibed Sub s Allowed: subs OK Speci al Instruct ion: TAKE 2 TABLETS BY MOUTH EVERY 8 HOURS FOR 30 DAYS. Me dication GenericN julita: acetamin ophen Not Available Not Available Not Available ofloxacin 0.3 % ear drops INSTILL 4 DROPS INTO THE RIGHT EAR TWICE DAILY 01/19 completed Not Available Not Available Not Available citalopra m 20 mg tablet active Medicati on ID: [id number] B rand Name: citalopr am Send Method: E-Prescr ibed Sub s Allowed: subs OK Speci al Instruct ion: TAKE 1 TABLET BY MOUTH ONCE A DAY TOME AMANDA TABLETA TODOS [place] EN LA MANANA M edicatio nGeneric Name: citalopr am Not Available Not Available Not Available pantopraz ole 40 mg tablet,de layed release active Medicati on ID: [id number] B rand Name: pantopra zole Sen d Method: E-Prescr ibed Sub s Allowed: subs OK Speci al Instruct ion: TOME AMANDA TABLETA TODOS LOS D Medic ationGen ericName : pantopra zole Not Available Not Available Not Available lidocaine 5 % topical patch APLIQUE UN PARCHE EN LA MANANA REMOVE AND DISARD PATCH WITHIN 12 HOURS OR SHAMIR LO INDICADO active Not Available Not Available No t Available metronida zole 0.75 % topical cream 06/30 completed Medicati on ID: [id number] B rand Name: metronid azole Se nd Method: E-Prescr ibed Sub s Allowed: subs OK Speci al Instruct ion: APPLY TO THE AFFECTED AREA(S) TOPICALL Y TWICE DAILY Me dication GenericN julita: metronid azole Not Available Not Available Not Available hydrocort isone 2.5 % topical cream APLIQUE AL SRIDEVI AFECTADA DOS VECES AL D A FOR 14 DAYS 03/20 completed Not Available Not Available Not Available monteluka st 10 mg tablet active Medicati on ID: [id number] B rand Name: monteluk ast Send Method: E-Prescr ibed Sub s Allowed: subs OK Speci al Instruct ion: TOME AMANDA TABLETA TODOS LOS D EN LA NOCHE Me dication GenericN julita: monteluk ast Not Available Not Available Not Available gabapenti n 100 mg capsule TAKE 3 CAPSULES (300 MG) BY MOUTH EVERY 8 (EIGHT) HOURS. active Not Available Not Available No t Available nystatin 100,000 unit/gram topical powder APLIQUE AL SRIDEVI AFECTADA DOS VECES AL D A 06/30 completed Not Available Not Available Not Available zolpidem 10 mg tablet TOME AMANDA TABLETA TODOS [place] AL ACOSTARS E CUANDO SEA NECESARI O PARA DORMIR 03/20 completed Not Available Not Available Not Available ondansetr on 4 mg disintegr ating tablet 06/30 completed Medicati on ID: [id number] B rand Name: diana gaspar Send Method: E-Prescr ibed Sub s Allowed: subs OK Speci al Instruct ion: DISUELVA AMANDA TABLETA POR V A ORAL CADA OCHO HORAS CUANDO SEA NECESARI O PARA LAS N USEAS Me dication GenericN julita: ondanset chasity Not Available Not Available Not Available amoxicill in 875 mg-potass ium clavulana te 125 mg tablet TOME 1 TABLETA POR V A ORAL DOS VECES AL D A POR 7 D 01/19 completed Not Available Not Available Not Available Ventolin HFA 90 mcg/actua tion aerosol inhaler INHALE 2 PUFFS EVERY 4 (FOUR) HOURS IF NEEDED FOR SHORTNES S OF BREATH OR WHEEZING . active Not Available Not Available No t Available simethico ne 80 mg chewable tablet active Medicati on ID: [id number] B rand Name: simethic one Send Method: E-Prescr ibed Sub s Allowed: subs OK Speci al Instruct ion: TAKE 1 TABLET BY MOUTH EVERY 6 HOURS NEEDED FOR FLATULEN CE FOR UP TO 30 DAYS. Me dication GenericN julita: simethic one Not Available Not Available Not Available oxycodone 5 mg tablet TOME AMANDA TABLETA CADA SEIS HORAS CUANDO SEA NECESARI O PARA EL DOLOR active Not Available Not Available No t Available hydroxyzi ne pamoate 25 mg capsule TOME 1 CAPSULA POR VIA ORAL CADA 6 HORAS CUANDO SEA NECESARI O FOR ITCH FOR UP TO 10 DAYS active Not Available Not Available No t Available diclofena c 1 % topical gel APPLY 1 INCH TOPICALL Y IF NEEDED IN THE MORNING AND AT BEDTIME (ON AFFECTED AREA TWICE A DAY) 03/20 completed Not Available Not Available Not Available Benefiber Sugar Free (dextrin) 3 gram/4 gram oral powder active Medicati on ID: [id number] B rand Name: Em mcneal Sugar Free (dextrin ) Send Method: E-Prescr ibed Sub s Allowed: subs OK Speci al Instruct ion: TAKE 4 G BY MOUTH DAILY DIRECTED Medicat ionGener icName: Em mcneal Sugar Free (dextrin ) Not Available Not Available Not Available naloxone 4 mg/actuat ion nasal spray ADMINIST ER 1 SPRAY (4 MG) INTO AFFECTED NOSTRIL( S) IF NEEDED FOR OPIOID REVERSAL *CALL 911* active Not Available Not Available No t Available Vitals Date Recorded Body height Body mass index (BMI) Body weight Provider Name and Address Organization Details Last Updated DateTime 01/20/2024 160.02 cm 27.5 kg/m2 70394.82 g Stefany Garcia [place] - [facility] 01/20/2024 08:36:09 Date Recorded Body height Body weight Provider Name and Address Organization Details Last Updated DateTime 06/30/2024 160.02 cm 84618.82 g Stefany Garcia [place] - [facility] 06/30/2024 11:31:01 Social History None recorded. Functional Status None recorded. Mental Status None recorded. Family History Nothing Reported. Medical History Condition Response Allergies/Hayfever Y Fibromyalgia Y Asthma Y Gynecological HistoryNo gynecological history recorded. Obstetrics History GPAL:G 0 P 0 0 0 0 Past Encounters Encounter ID Performer Location Encounter Start Date Encounter Closed Date Diagnosis/Indication Diagnosis SNOMED-CT Code Diagnosis ICD10 Code Diagnosis Note [id number] KRISTOPHER ARRIAGA MD [facility] [address] [address] 01/20/2024 08:19:11 01/20/2024 09:47:50 Otalgia of right ear 2174304527 H92.01 Pain of ri ght temporomandibular joint 4411795119 2609789 M26.621 The patient complains of intermitte nt {{right-si ded* left- sided bila teral}} periauricu lar {{discomfo rt* pressu re sensation} }. Physical exam reveals no identifiab le source of these symptoms involving the auricle, external auditory canal, or tympanic membrane. Audiometri c testing and tympanomet ry are similarly unrevealin g. Furthermor e, examinatio n was positive for crepitus and tenderness of the {{right* l eft bilate ral}} jaw joint and glenny-TMJ musculatur e. The patient's periauricu lar {{discomfo rt* pressu re sensation} } is most likely consistent with intermitte nt inflammati on of the jaw joint or spasm of the surroundin g musculatur e. This is likely exacerbate d by the {{missing teeth* den evgeny clenching and grinding g um chewing}} . I recommende d the patient use light massage, warm compresses and anti-infla mmatories for symptomati c management . Stressed chewing evenly on both sides of the mouth to keep from overworkin g the jaw joint. Use soft food diet as needed. Jaw Joint Program informatio n sheet was shared. If this treatment plan is ineffectiv e, recommend follow up with their dentist. Referral to physical therapist who specialize s in TMJ disorders {{could also be considered * was provided}} . Partial lo ss of ear ossicles 42514372 H74.321 Cholesteatoma 568310627 H71.21 The right ear remains well-heale d following first stage removal of cholesteat rocio. Patient is due for second stage surgery coming up in March. Fortunatel y this should be able to be done via small supraauric ular incision with otoendosco pes. Informed Consent for Cholesteat rocio Second Stage Today we discussed the need to begin the scheduling process for second stage surgery for cholesteat rocio for the {{right* l eft}} ear. We discussed the fact that this procedure is required to rule out recurrent cholesteat rocio within the middle ear or mastoid cavity. This will be carried out through {{a small incision with otoendosco pes* the previous postauricu lar incison}}. We discussed the risks, benefits, and complicati ons associated with this surgery including the risks of bleeding, infection, tympanic membrane perforatio n, taste disturbanc e, temporary or permanent facial nerve paralysis or paresis, cerebrospi nal fluid leak, encephaloc trini, temporary or permanent tinnitus, temporary or permanent conductive or sensorineu ral hearing loss, temporary or permanent balance disturbanc e. We also discussed the fact that if significan t recurrent cholesteat rocio is noted, further surgeries may be required to remove this. Occasional ly, several surgeries are required to fully remove recalcitra nt cholesteat omas. After full discussion , the patient would like to proceed with surgery. I have provided patient with the contact informatio n for my surgical oncologist. We will begin the scheduling process and see the patient back at the time of surgery. Patient {{will duane l not*}} require medical clearance from their primary care provider preoperati vely. Conductive hearing loss of right ear with normal hearing on left side 1758653487 H90.11 Audiometri c evaluation results:Ri ght ear:{{Norm al Mild Mo derate Mod erately-se payton Sever e Profound Mild low frequency rising normal #}} {{hearing flat high frequency low frequency mid frequency cookie bite ruelas curve cond uctive hearing loss#}} {{with* se nsorineura l hearing loss with condu ctive hearing loss with mixed hearing loss with}} {{excellen t* good fa ir poor no t measurable }} speech discrimina tion. Tympanomet ry:Right Ear:{{Type A Type As Type Ad Type C Type C, shallow & rounded Ty pe B* Type B with large volume Cou ld not maintain a hermetic seal}} [id number] KRISTOPHER ARRIAGA MD [facility] [address] [address] 03/20/2024 15:13:22 03/20/2024 16:14:46 Cholesteatoma 511993133 H71.91 [id number] KRISTOPHER ARRIAGA MD [facility] [address] [address] 06/30/2024 11:02:19 06/30/2024 14:37:22 Partial loss of ear ossicles 13030885 H74.321 Follow-up visit [id number] Z09 Cholesteat rocio of right mastoid 4326962991 394977 H71.21 Bilateral disorder of Eustachian tubes 3749661601 512825 H69.83 Right Ear:Border line normal hearing with slight conductive overlay with excellent speech discrimina tion.Paten t tube. Results discussed with patient in detail. Hearing is in very good shape overall. Health Concerns Section Related Observation LastModified by Organization Detai ls LastModified Time None Recorded Concern Status LastModified by Organization Details LastModified Time None Recorded Advance Directives Directive None Recorded Payers Encounter Date Sequence Insurance Name Policy Number Policy Mcwilliams Covered Member ID Mcwilliams Member ID Guarantor Name 01/20/2024 1 [place] [facility] Sayra Cifuentes [id number] Sayra Cifuentes Mei 03/20/2024 1 [place] [facility] Say[facility] Cifuentes [id number] Sayra Cifuentes Mei 06/30/2024 1 [place] [facility] Sayra Cifuentes [id number] Sayra Mei Notes Date Note Type Note Provider Name and Address Organization Details Recorded Time 01/20/2024 text/html S/p right first stage tympanoplasty, ossiculoplasty with mastoidectomy, reconstruction of EAC defect with cartilage graft, and right M&T on 07/12/2023. Ossicular chain was reconstructed using Pryor hydroxyapatite malleus to oval window prosthesis. Patient had first postoperative audiogram back in September showing improvement in the mid and high-frequency air-conduction thresholds, but a persistent low-frequency conductive hearing loss. Patient feels like her hearing is quite good at the moment and is pleased with her postoperative hearing results.2 weeks ago, the patient was having some sharp right-sided periauricular pains. She went to her primary care physician office who told her she had infection she was given oral antibiotics. Pains are typically short-lived, but can also be accompanied by low-level sensation of pressure. She has had no discharge. KRISTOPHER ARRIAGA MD [address] [place] [address], [phone], [place] - [facility] 01/20/2024 09:54:37 03/20/2024 text/html 43-year-old femiftikhar murdock presents postoperatively following right middle ear and mastoid exploration by Dr. Arriaga on 03/13/2024. She reports discomfort is steadily improving. There has been no otorrhea and no significant dizziness. KRISTOPHER ARRIAGA MD [address] [place] [address],[address], [address], [place] - [facility] 03/23/2024 16:51:37 06/30/2024 text/html S/p right first stage tympanoplasty, ossiculoplasty with mastoidectomy, reconstruction of EAC defect with cartilage graft, and right M&T on 07/12/2023. Ossicular chain was reconstructed using Pryor hydroxyapatite malleus to oval window prosthesis. Patient underwent second stage middle ear and mastoid exploration on 03/13/2024. A small tiki of cholesteatoma was noted but was able to be removed intact. No further surgery is planned for this ear. She does have tympanostomy tube in place providing ventilation to the middle ear space. No problems postoperatively. Today's visit carried out using litharge supervisor. KRISTOPHER ARRIAGA MD [address] [place] [address], [place], [address], [place] - [facility] 06/30/2024 12:21:36 OBGyn Episode No OBEpisode recorded.
--- OUTSIDE RECORDS SUMMARY | 2024-11-02 15:52 | XMS_ITS | Encounter Summary ---
Author Organization [employer] Address [address] [place] [address] Care Team Providers Care Staking Press Operator Name Role Phone Yolanda Regan MD Primary Care Provide r Reason for Visit * Reason Onset Date Comments Nurse Triage 03/17/2024 Encounter Details Date Type Department Care Team ([facility] st Contact Info) Description 03/17/2024 Telephone [facility] [address] [place], [place] [phone] Yolanda Regan MD [address] [place] [address] Nurse Triage Social History Tobacco Use Types Packs/Day Years [...] encounter Miscellaneous Notes * Telephone Encounter - Jannette Jordan - 03/17/2024 8:27 AM EDT TC from pt requesting medication refill. Medications needing refill : Tramadol 50 mg tablets To be sent to: [facility] Pt would like a call in regards to quantity documented in this encounter Plan of Treatment Upcoming Encounters Date Type Department Care Team (Late st Contact Info) Description 12/25/2024 9:00 AM EDT Telemedicine [facility] [address] [place] [address] 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, RN documented as of this encounter Visit Diagnoses Not on filedocumented in this encounter Additional Health Concerns Assessment Noted Time PHQ-9 Depression Total Score: 14 024 10:18 AM EDT documented as of this encounter Care Teams Staking Press Operator Relationship Specialty Start Date End Date Yolanda Regan MD [address] [place] [address] PCP - General Family Medicine 07/07/19 documented as of this encounter
--- OUTSIDE RECORDS SUMMARY | 2024-11-02 15:52 | XMS_ITS | Encounter Summary ---
Author Organization [employer] Address [address] [place] [address] Care Team Providers Care Application Software Engineer Name Role Phone Yolanda Regan MD Primary Care Provide r Reason for Visit * Reason Comments Med Refill Encounter Details Date Type Department Care Team ([facility] st Contact Info) Description 07/13/2023 Refill [facility] [address] [place], [place] [phone] Tammy Moraes DO [address] [place] [address] Mild intermittent asthma, unspecified whether complicated Social History Tobacco Use Types Packs/Day Years [...] Info) Description 12/25/2024 9:00 AM EDT Telemedicine [facility] [address] [place] [address] 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 RN documented as of this encounter Visit Diagnoses Diagnosis Mild intermittent asthma, unspecified whether complicated documented in this encounter Additional Health Concerns Assessment Noted Time PHQ-9 Depression Total Score: 0 09/06/19 23 10:08 AM EST documented as of this encounter Care Teams Application Software Engineer Relationship Specialty Start Date End Date Yolanda Regan MD [address] [place] [address] PCP - General Family Medicine 07/07/19 documented as of this encounter
--- OUTSIDE RECORDS SUMMARY | 2024-11-02 15:52 | XMS_ITS | Encounter Summary ---
Author Organization [employer] Address [address] [place] [address] Care Team Providers Care Sheet Metal Assembler And Riveter Name Role Phone Yolanda Regan MD Primary Care Provide r Encounter Details Date Type Department Care Team (Latest Contact Info) Description 10/07/2024 Travel Social History Tobacco Use Types Packs/Day Years [...] Info) Description 12/25/2024 9:00 AM EDT Telemedicine [facility] [address] [place] [address] 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 RN documented as of this encounter Visit Diagnoses Not on filedocumented in this encounter Additional Health Concerns Assessment Noted Time PHQ-9 Depression Total Score: 3 09/22/19 25 10:38 AM EST documented as of this encounter Care Teams Sheet Metal Assembler And Riveter Relationship Specialty Start Date End Date Yolanda Regan MD [address] [place] [id number] PCP - General Family Medicine 07/07/19 documented as of this encounter
--- OUTSIDE RECORDS SUMMARY | 2024-11-02 15:52 | XMS_ITS | Clinical Summary ---
Author Organization [employer] Address [address] [facility] [address] [place] [address] Care Team Providers Care Senior Art Director Name Role Phone Yolanda Regan MD Primary Care Provide r Allergies No known active allergies Medications clotrimazole (Lotrimin) 1 % cream Apply topically every 12 (twelve) hours. Active famotidine (Pepcid) 20 MG tablet Take 1 tablet by mouth every 12 (twelve) hours. Active montelukast (Singulair) 10 MG tablet Take 1 tablet by mouth at bed time. Active hydrOXYzine HCl (Atarax) 10 MG tablet Take 1 tablet by mouth twice daily as needed Active ondansetron ODT (Zofran-ODT) 4 MG disintegrating tablet Dissolve 1 tablet under the tongue every 8 hours as needed Active pantoprazole (ProtoNix) 40 MG EC tablet Take 1 tablet by mouth twice daily 023 Active HealthyLax 17 g packet TAKE 1 PACKET BY MOUTH DAILY NEEDED FOR CONSTIPATION FOR UP TO 14 DAYS. 023 Active simethicone (Mylicon) 80 MG chewable tablet TAKE 1 TABLET BY MOUTH EVERY 6 HOURS NEEDED FOR FLATULENCE FOR UP TO 30 DAYS. 023 Active Carafate 1 GM/10ML suspension Take 10ML by mouth twice daily 022 Active Wheat Dextrin (Benefiber) powder TAKE 4 G BY MOUTH DAILY DIRECTED 023 Active terconazole (Terazol 3) 0.8 % vaginal cream INSERT 1 APPFUL VAGINALLY BEDTIME FOR 3 DAYS Active topiramate (Topamax) 25 MG tabletIndications :Chronic midline low back pain, unspecified whether sciatica present TOME DOS TABLETAS POR VIA ORAL AL ACOSTARSE 60 tablet 023 Active lidocaine (Lidoderm) 5 % patchIndications: Chronic bilateral low back pain with bilateral sciatica APLIQUE UN PARCHE EN LA MANANA REMOVE AND DISARD PATCH WITHIN 12 HOURS OR SHAMIR LO INDICADO 30 patch 3 Active albuterol (2.5 MG/3ML) 0.083% nebulizer solutionIndicatio ns:Mild intermittent asthma without complication USE 1 VIAL VIA NEBULIZER THREE TIMES A DAY 75 mL 1 Active phentermine 15 MG capsuleIndication s:Overweight with body mass index (BMI) of 29 to 29.9 in adult Take 1 capsule (15 mg) by mouth before breakfast. 30 capsule Active gabapentin (Neurontin) 100 MG capsuleIndication s:Fibromyalgia Take 3 capsules (300 mg) by mouth every 8 (eight) hours. 270 capsule 11 024 2024 Active naloxone (Narcan) 4 mg/0.1 mL nasal sprayIndications: Chronic midline low back pain, unspecified whether sciatica present Administer 1 spray (4 mg) into affected nostril(s) if needed for opioid reversal. 2 each 3 Active hydrOXYzine pamoate (Vistaril) 25 MG capsuleIndication s:Anxiety TAKE 1 CAPSULE BY MOUTH EVERY 6 HOURS NEEDED FOR ITCH FOR UP TO 10 DAYS 30 capsule Active fluticasone (Flonase Allergy Relief) 50 MCG/ACT nasal sprayIndications: Acute rhinitis Administer 1 spray into each nostril Once per day. Shake gently. Before first use, prime pump. After use, clean tip and replace cap. 16 g 1 024 2024 Active loratadine (Claritin) 10 MG tabletIndications :Acute rhinitis Take 1 tablet (10 mg) by mouth Once per day. 30 tablet 2 024 2024 Active busPIRone (Buspar) 5 MG tabletIndications :Anxiety Take 1 tablet (5 mg) by mouth 2 times daily. 60 tablet 1 025 2025 Active FLUoxetine (PROzac) 10 MG capsuleIndication s:Anxiety Take 1 capsule (10 mg) by mouth Once per day. 30 capsule 11 025 2025 Active acetaminophen (Tylenol) 500 MG tablet Take 1 tablet (500 mg) by mouth every 6 (six) hours if needed for mild pain for up to 20 doses. 20 tablet Active ibuprofen 600 MG tablet Take 1 tablet (600 mg) by mouth every 6 (six) hours if needed for mild pain for up to 20 doses. 20 tablet 025 Active albuterol (Ventolin HFA) 108 (90 Base) MCG/ACT inhalerIndication s:Mild intermittent asthma, unspecified whether complicated INHALE 2 PUFFS EVERY 4 (FOUR) HOURS IF NEEDED FOR SHORTNESS OF BREATH OR WHEEZING. 18 g 3 025 Active traMADol (Ultram) 50 MG tabletIndications :Chronic bilateral low back pain without sciatica Take 1 tablet (50 mg) by mouth if needed in the morning and at bedtime for severe pain for up to 28 days. TOME 1 TABLETA CUANDO SEA NECESARIO EN LA MANANA & AL ACOSTARSE PARA DOLOR CK*MAX 28 DAYS 56 tablet 025 2024 Active tiZANidine (Zanaflex) 4 MG tabletIndications :Chronic shoulder pain, unspecified laterality TAKE 1 TABLET BY MOUTH TWICE A DAY NEEDED FOR MUSCLE SPASM 60 tablet 1 025 Active tiZANidine (Zanaflex) 4 MG tabletIndications :Chronic shoulder pain, unspecified laterality TAKE 1 TABLET BY MOUTH TWICE A DAY NEEDED FOR MUSCLE SPASM 60 tablet 1 024 2024 Discontinued traMADol (Ultram) 50 MG tabletIndications :Chronic bilateral low back pain without sciatica Take 1 tablet (50 mg) by mouth if needed in the morning and at bedtime for severe pain for up to 28 days. TOME 1 TABLETA CUANDO SEA NECESARIO EN LA MANANA & AL ACOSTARSE PARA DOLOR CK*MAX 28 DAYS 56 tablet 025 2024 Discontinued(R eorder (will not trigger notification to Pharmacy)) amoxicillin (Amoxil) 500 MG capsule Take 1 capsule (500 mg) by mouth every 8 (eight) hours for 7 days. 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 Severe dental caries 10/02/2024 Acute rhinitis 07/23/2024 Elevated LFTs 01/29/2024 Assessment & Plan (01/29/2024 10:01 AM EDT): Counseling done I will continue to monitor Encounter for preventive health examination 12/02 Overweight with body mass in dex (BMI) of 29 to 29.9 in adult 12/30/2023 Assessment & Plan (12/30/2023 4:10 PM EDT): Today extensive discussion was done about life style modifications I advise healthy diet (low calorie) and cardiovascular exercise I will prescribe phentermine 15mg daily Fibromyalgia 12/30/2023 Assessment & Plan (01/29/2024 10:01 AM EDT): Patient was educated about multidisciplinary approach for her condition, it was advise cardiovascular exercise, maintain hydration, treat anxiety/depression and take medications as directed C/w gabapentin 100mg TID Assessment & Plan (12/30/2023 4:09 PM EDT): Patient was educated about multidisciplinary approach for her condition, it was advise cardiovascular exercise, maintain hydration, treat anxiety/depression and take medications as directed I increase her gabapentin to 100mg Q 8hrs Otitis media 12/30/2023 Assessment & Plan (12/30/2023 4:10 PM EDT): Augmentin for 7 days, f/u with ENT Dental calculus 05/23/2023 Localized gingival recession 05/23/2023 Anxiety 04/17/2023 Assessment & Plan (09/22/2024 11:46 AM EST): Patient has being doing well with current medications, I will continue same doses (minimal doses), if in the future anxiety is not control again I would have to change fluoxetine to citalopram or sertraline to avoid serotonin syndrome with buspar C/w therapist Assessment & Plan (07/23/2024 12:13 PM EST): Counseling done today I will start patient on buspirone 5mg BID and fluoxetine 10mg daily Continue to follow with therapist RTC 4 weeks televisit Assessment & Plan (04/17/2023 1:29 PM EDT): Counseling done Hydroxyzine PRN S/P laparoscopic sleeve gastrectomy 10/16/2022 Assessment & Plan (10/16/2022 11:16 AM EST): Pt is doing well and currently tolerating regular diet + protein supplements. Continue using fiber and PPI prescribed by surgery on a PRN basis. Pt does not need prescription for this. counseled to remain hydrated. Use Tylenol PRN pain FU with Dr. Warner next week. Acne rosacea 10/16/2022 Assessment & Plan (10/16/2022 11:18 AM EST): Prescription for MetroGel cream qhs Refer to Dermatology. Intrinsic eczema 10/16/2022 Assessment & Plan (10/16/2022 11:17 AM EST): On lower extremities. Use betamethasone cream and reconsult PRN. Acute upper respiratory infection 08/08/2022 Corneal abrasion 08/08/2022 COVID-19 08/08/2022 Excess skin of abdominal wall 08/08/2022 Hearing loss of right ear 08/08/2022 Intertrigo 08/08/2022 Lateral epicondylitis of right elbow 08/08/2022 Seasonal allergies 08/08/2022 Suspected COVID-19 virus infection 08/08/2022 Shoulder pain 08/08/2022 Mild intermittent asthma 08/10/2019 Mood disorder 10/06/2018 Assessment & Plan (12/30/2023 4:11 PM EDT): F/u with therapist C/w same medications Insomnia 06/04/2017 Overview (10/10/2022): F/u [facility] Chronic bilateral low back pain with bilateral s ciatica 04/10/2017 Assessment & Plan (07/23/2024 12:17 PM EST): Patient reports pain is fairly controlled with current medication regimen, she has being stable for some time now, she will continue to be adherent to her contract, she is going to be follow for this with both televisit and in person appointments (alternate) Assessment & Plan (04/17/2023 1:29 PM EDT): Continue to follow with pain management Due to somnolence take gabapentin 2 capsules of 100mg at night and tizanidine at bed time Take tramadol earlyl in the morning and in the afternoon (3-4pm) if needed Apply lidocaine patch BID as needed Apply diclofenac gel BID as needed on affected area Assessment & Plan (10/16/2022 11:17 AM EST): Exacerbated s/p surgery and pt can't tolerate gabapentin due to insmonia. DC gabapentin and start Topamax 25-50mg qhs and FU with PCP in 3 months. Encounters Date Type Department Care Team Description 11/02/2024 Refill [facility] [address] [place] [address] Stefany Murry MD Chronic shoulder pain, unspecified laterality 10/20/2024 Telephone [facility] [address] [place] [address] Yolanda Regan MD May Recall) 10/19/2024 Refill [facility] [address] [place] [address] Yolanda Regan MD Chronic shoulder pain, unspecified laterality; Chronic bilateral low back pain without sciatica 10/07/2024 2:30 PM EST Clinical Support [facility] [address] [place] [address] 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, signal system testing maintainer bilateral low back pain with bilateral sciatica (Primary Dx) 10/07/2024 Travel 10/07/2024 Telephone [facility] [address] [place] [address] 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, RICARDO Recommend BAND SAWMILL OPERATOR Tier 2 Tele/Inperson 10/02/2024 11:30 AM EST Office Visit [facility] ADULT DENTAL [address] [place] [address] Dino Marte DDS Symptomatic irreversible pulpitis (Primary Dx); Severe dental caries 10/02/2024 Refill [facility] [address] [place] [address] Yolanda Regan MD Mild intermittent asthma, unspecified whether complicated 09/22/2024 10:45 AM EST Telemedicine [facility] [place] [address] Yolanda Regan MD Anxiety (Primary Dx) 09/22/2024 Travel 09/18/2024 Refill [facility] [address] [place] [phone] Yolanda Regan MD Chronic bilateral low back pain without sciatica 09/15/2024 Travel 09/10/2024 Telephone [facility] [address] [place] [phone] Lela Cochran [place] APPT REQUEST 09/08/2024 Telephone [facility] [address] [place] [phone] Yolanda Regan MD Appointment Request 09/08/[address] [phone] Yolanda Regan MD Appointment Request 08/28/2024 Refill [facility] [address] [place] [address] [phone] Yolanda Regan MD Chronic shoulder pain, unspecified laterality 08/17/2024 Refill [facility] [address] [place] [address] Yolanda Regan MD Chronic bilateral low back pain without sciatica from Last 3 Months Immunizations Name Administration Dates Next Due INFLUENZA INJECTABLE QUADRIV ALANT CCIIV4 MDCK Multi-dose vial 06/27/2017 Influenza injectable quadriv alent preservative free 08/04/2021,06/01/2021,10/06/2018 Moderna Covid-19 Vaccine 12+ 08/04/2021,01/07/20 21,12/09/2020 Pfizer Covid-19 Vaccine 12+ 08/04/2021 Pneumococcal Conjugate PCV 13 06/27/2017 Pneumococcal Conjugate PCV 20 12/30/2023 Tdap 05/02/2020 Family History Medical History Relation Name Comments Diabetes Father Breast cancer Maternal Grandmother Lung cancer Maternal Grandmother Relation Name Status Comments Father Maternal Grandmother Social History Tobacco Use Types Packs/Day Years Used Date Smoking Tobacco: Never Passive Smoke Exposure: Never Smokeless Tobacco: Never Tobacco Cessation:Counseling Given: Not Answered Alcohol Use Standard Drinks/Week Comments Never 0 [...] not to disclose 2021 10:35 AM EDT Last Filed Vital Signs Vital Sign Reading Time Taken Comments Blood Pressure 105/65 07/23/2024 9:23 AM EST Pulse 86 07/23/2024 9:23 AM EST Temperature 36.3 ??C (97.3 ??F) 07/23/2024 9:23 AM ES T Respiratory Rate 20 07/23/2024 9:23 AM EST Oxygen Saturation 100% 07/23/2024 9:23 AM EST Inhaled Oxygen Concentration - - Weight 75.6 kg (166 lb 9.6 oz) 07/23/2024 9:23 A M EST Height 160 cm (5' 3 ) 07/23/2024 9:23 AM EST Body Mass Index 29.51 07/23/2024 9:23 AM EST Plan of Treatment Upcoming Encounters Date Type Department Care Team (Late st Contact Info) Description 12/25/2024 9:00 AM EDT Telemedicine [address] [phone] 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, RN Health Maintenance Due Date Last Done Comments CT Colonography 1979 Colonoscopy 1979 Colorectal Cancer Screening 1979 FIT DNA/Cologuard 1979 FIT 1979 FOBT 1979 Sigmoidoscopy 1979 Family Planning (PISQ) 1994 Hepatitis A Vaccines (1 of 2 - Risk 2-dose series) 1998 Hepatitis B Vaccines (1 of 3 - 19+ 3-dose series) 1998 Dental Oral Exam 12/31/2022 07/02/2022, , 05/25/2020, Additional history exists Dental Prophylaxis 11/22/2023 05/23/2023, 1 , 01/26/2021, Additional history exists Mammogram 03/27/2024 03/27/2022, 03/03, 03/14/2021 COVID-19 Vaccine ( season) 2024 08/04/2021, 08/04/2021, 01/06/2021, Additional history exists Influenza Vaccine (#1) 2024 , 06/01/2021, 10/06/2018, Additional history exists Dental X-Ray: Bitewings 05/24/2024 05/23/20 23, 07/02/2022, 05/25/2020, Additional history exists SDOH Screening 11/07/2024 11/08/2023 Cervical Cancer Screening 02/17/2025 HPV/Cotest 02/17/2025 02/18/2020 Pap Smear 02/17/2025 02/18/2020 Alcohol/Substance Use Screening 07/23/2025 07/23/2024 Depression Screening 09/22/2025 09/22/2024, 09/22/19 Tobacco Screening 10/02/2025 10/02/2024 Dental X-Ray: Full Mouth 10/03/2027 10/02/2024, 10/31 Lipid Panel 01/02/2029 01/03/2024, 05/04/2020 Zoster Vaccines (1 of 2) 2029 DTaP/Tdap/Td Vaccines (2 - Td or Tdap) 05/02/2030 05/02/2020 RSV Patients and Patients Aged 60 years or older (1 - 1-dose 75+ series) 2054 Pneumococcal Vaccine: Pediatrics (0 to 5 Years) and At-Risk Patients (6 to 49) Years) Completed 12/30/2023, 06/27/2017 HIV Screening Completed 01/03/2024, 04/11/2020 Hepatitis C Screening Completed 01/03/2024 HIB Vaccines Aged Out No longer eligi ble based on patient's age to complete this topic HPV Vaccines Aged Out No longer eligi ble based on patient's age to complete this topic IPV Vaccines Aged Out No longer eligi ble based on patient's age to complete this topic Meningococcal Vaccine Aged Out No ailyn nishi eligible based on patient's age to complete this topic RSV under 20 months Aged Out No longe r eligible based on patient's age to complete this topic Rotavirus Vaccines Aged Out No longer eligible based on patient's age to complete this topic Procedures Procedure Name Priority Date/Time Associated Diagnosis Comments POCT KAVEH-14 URINE DRUG SCREEN Routine 10/07/2024 2:18 PM EST Chronic bilateral low back pain with bilateral sciatica CASE PRESENTATION, DETAILED AND EXTENSIVE TREATMENT PLANNING Routine 10/02/2024 11:30 AM EST PANORAMIC RADIOGRAPHIC IMAGE Routine 10/02/2024 11:30 AM EST LIMITED ORAL EVALUATION - PROBLEM FOCUSED Routine 10/02/2024 11:30 AM EST HEPATITIS C VIRAL RNA, QUANTITATIVE, REAL-TIME PCR Routine 01/03/2024 7:49 AM EDT Encounter for preventive health examination HIV 1/2 ANTIGEN/ANTIBODY, FOURTH GENERATION W/RFL Routine 01/03/2024 7:49 AM EDT Encounter for preventive health examination LIPID PANEL, STANDARD Routine 01/03/2024 7:49 AM EDT Encounter for preventive health examination Full PROPHYLAXIS - ADULT Routine 05/23/2023 8:00 AM EDT 1,2,3,4,5,12,13,14,15 ,16,17,18,19,20,21,28 ,29,30,31,32,A,B,I,J, K,L,S,T BITEWINGS - 4 RADIOGRAPHIC IMAGES Routine 05/23/2023 8:00 AM EDT PERIODIC ORAL EVALUATION - ESTABLISHED PATIENT Routine 07/02/2022 12:00 AM EDT HM MAMMOGRAPHY Routine 03/27/2022 HM PAP/HPV Routine 02/18/2020 from Last 3 Months or Most Recently Relevant to Health Maintenance Results * POCT KAVEH-14 Urine Drug Screen (10/07/2024 2:18 PM EST) Urine Urine specimen obtained by clean catch procedure / Unknown 10/07/2024 2:18 PM EST Laxmi Paulson RN - 10/07/2024 2:18 PM EST UTOX cup Lot#[id number] Exp. 05/27/26 Internal Pass Control Negative for all substances us Yolanda Alan MD POINT OF CARE TEST EN TER/EDIT ORDERABLES Final Result * Hepatitis C Viral RNA, Quantitative, Real-Time PCR (01/03/2024 7:49 AM EDT) Pathologist [facility] Hepatitis C Viral Load <15 NOT DETECTED NOT DETECTED IU/mL [facility] HCV Log PCR <1.18 NOT DETECTED NOT DETECTED Log IU/mL [facility] Comment:This test was perfor med using Real-Time Polymerase ChainReaction.Reportable Range: 15 IU/mL to 100,000,000 IU/mL(1.18 Log IU/mL to 8.00 Log IU/mL).The analytical performance characteristics of thisassay have been determined by Guide.The modifications have not been cleared or approved bythe FDA. This assay has been validated pursuant to theCLIA regulations and is used for clinical purposes.For more information on this test, go to:http://education.Correlec/faq/PGU96l7(This link is being provided for informational/educational purposes only.)THIS TEST WAS PERFORMED AT:[facility] [place] [id number] SUAREZ MD Blood 01/03/2024 7:49 AM EDT 01/03/2024 7:49 AM EDT Yolanda Alan MD LAB BLOOD ORDERABLES Final Result [facility] [address] [place] [phone] * HIV-1/2 Antigen and Antibodies, Fourth Generation, with Reflexes (01/03/2024 7:49 AM EDT) [facility] HIV AB/AG Nonreactive Nonreactive [facility] Comment:HIV-1 p24 Ag and/or HIV-1/HIV-2 Ab not detected.A test result that is nonreactive does not exclude thepossibility of exposure to or infection with HIV-1 and/orHIV-2. Nonreactive results in this assay for individualswith prior exposure to HIV-1 and/or HIV-2 may be due toantigen and antibody levels that are below the limit ofdetection of this assay.The [employer] HIV Ag/Ab Combo assay result andsupplemental assay results should be interpreted inconjunction with the patient's clinical presentation,history and other laboratory results. If the results areinconsistent with clinical evidence, additional testing issuggested to confirm the result. Blood Venous blood specimen / Unknown 01/03/2024 7:49 AM EDT 01/03/2024 7:49 AM EDT Yolanda Alan MD LAB BLOOD ORDERABLES Final Result Performing Organization Address [facility] Co de Phone Number [facility] [address] [place] [address] [phone] * Lipid Panel, Standard (01/03/2024 7:49 AM EDT) Triglycerides 66 <150 mg/dL [facility] Comment:Desirable Triglyceri de: less than 150 mg/dLBorderline High Triglyceride 150-199 mg/dLHigh Triglyceride: 200-499 mg/dLVery High Triglyceride: greater than or equal to 5OO mg/dL Cholesterol 146 <200 mg/dL [facility] Comment:Desirable Cholestero l: less than 200 mg/dLBorderline High Cholesterol: 200-239 mg/dLHigh Cholesterol: greater than 239 mg/dL LDL Cholesterol Calculated 72 <100 mg/dL [facility] Comment:Desirable LDL: less than 100 mg/dLNear Optimal/Above Optimal LDL: 110- 129 mg/dLBorderline High LDL: 130-159 mg/dLHigh LDL: 160-189 mg/dLVery High LDL: greater than or equal to 190 mg/dL HDL Cholesterol 61 >40 mg/dL [facility] Comment:Desirable HDL: great er than 40 mg/dL Note: This HDL assay may give artificially low results in patients with liver disease. Blood Venous blood specimen / Unknown 01/03/2024 7:49 AM EDT 01/03/2024 7:49 AM EDT us Yolanda Alan MD LAB BLOOD ORDERABLES Final Result Performing Organization Address [facility] Co de Phone Number [facility] [address] [place] [address] [phone] * Mammography (03/27/2022) Mammogram performed Anatomical Region Laterality Modality Other Historical Provider HEALTH MAINTENANCE Final Result * Pap Smear (02/18/2020) Pap Negative for intraephithelial lesion or malignancy Negative for intraephithelial lesion or malignancy, Other HPV Undetected Undetected, Indeterminate, Quantitative, Not Detected Historical Provider HEALTH MAINTENANCE Final Result from Last 3 Months or Most Recently Relevant to Health Maintenance Insurance [facility] C3 DENTAL-[facility] MEDICAID STAND ADULT Care Teams Senior Art Director Relationship Specialty Start Date End Date Yolanda Regan MD [address] [place] [phone] PCP - General Family Medicine 07/07/19
--- OUTSIDE RECORDS SUMMARY | 2024-11-02 15:52 | XMS_ITS | Encounter Summary ---
Author Organization [employer] Address [address] [facility] [address] [place] [address] Care Team Providers Care Instructor Military Science Name Role Phone Yolanda Regan MD Primary Care Provide r Encounter Details Date Type Department Care Team (Latest Contact Info) Description 07/02/[address] [facility] CONVERSIONS Dental, Provider, DDS Social History [...] 9:00 AM EDT Telemedicine [facility] MEDICINE [address] [place] [address] 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 RN documented as of this encounter Visit Diagnoses Not on filedocumented in this encounter Care Teams Instructor Military Science Relationship Specialty Start Date End Date Yolanda Regan MD [address] [place] [address] PCP - General Family Medicine 07/07/19 documented as of this encounter
--- OUTSIDE RECORDS SUMMARY | 2024-11-02 15:52 | XMS_ITS | Clinical Summary ---
Author Organization [facility] Address [address] [place] [address] Care Team Providers Care Director Medical Writing Name Role Phone Unavailable Primary Care Provider Unavailabl e Social History Tobacco Use Types Packs/Day Years Used Date Smoking Tobacco: Never Assessed Sex and Gender Information Value Date Recorded Sex Assigned at Not on file Gender Identity Not on file Sexual Orientation Not on file Job Start Date Occupation Industry Not on file Not on file Not on file Plan of Treatment Not on file [employer] [address] [phone]
--- OUTSIDE RECORDS SUMMARY | 2024-11-02 15:52 | XMS_ITS | Encounter Summary ---
Author Organization [employer] Address [address] [facility] [address] [place] [address] Care Team Providers Care Professional Skateboarder Name Role Phone Yolanda Regan MD Primary Care Provide r Reason for Visit * Reason Onset Date Comments Appointment Request 11/14/2022 Encounter Details Date Type Department Care Team ([facility] st Contact Info) Description 11/14/2022 Telephone [facility] [address] [place], [place] [phone] Yolanda Regan MD [address] [place] [address] Appointment Request Social History Tobacco Use Types Packs/Day Years [...] was confirmed or suspected to have Coronavirus/COVID-19? No / Unsure 10/29/2022 2:33 PM EST documented as of this encounter Miscellaneous Notes * Telephone Encounter - Jannette Jordan - 11/15/2022 9:14 AM EDT Tc from pt requesting a status on previous message. * Telephone Encounter - Ry Doos - 11/14/2022 10:04 AM EDT Tc from pt requesting a Physical exam due to work requiring it. Pt stated wont mind seeing a different PCP. Please contact pt at [phone] documented in this encounter Plan of Treatment Upcoming Encounters Date Type Department Care Team (Late st Contact Info) Description 12/25/2024 9:00 AM EDT Telemedicine [facility] [address] [place] [address] 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 RN documented as of this encounter Visit Diagnoses Not on filedocumented in this encounter Additional Health Concerns Assessment Noted Time PHQ-9 Depression Total Score: 0 09/06/19 23 10:08 AM EST documented as of this encounter Care Teams Professional Skateboarder Relationship Specialty Start Date End Date Yolanda Regan MD [address] [place] [address] PCP - General Family Medicine 07/07/19 documented as of this encounter
--- OUTSIDE RECORDS SUMMARY | 2024-11-02 15:52 | XMS_ITS | Encounter Summary ---
Author Organization [employer] Address [address] [facility] [address] [facility] [address] [address] [place] [address] Care Team Providers Care Senior Principal Process Engineer Name Role Phone Yolanda Regan MD Primary Care Provide r Reason for Visit * Reason Onset Date Comments Appointment Request 09/08/2024 Encounter Details Date Type Department Care Team ([facility] st Contact Info) Description 09/08/2024 Telephone [facility] [address] [place], [place] [phone] Yolanda Regan MD [address] [place], [place] [phone] Appointment Request Social History Tobacco Use Types Packs/Day Years Used Date Smoking Tobacco: Never Passive Smoke Exposure: Never Smokeless Tobacco: Never Alcohol Use Standard Drinks/Week Comments Never 0 (1 standard drink = 0.6 oz pur e alcohol) Depression Answer Date Recorded Patient Health Questionnaire-9 Score 4 07/23/2024 Patient Health Questionnaire-9 Score 4 07/23/2024 Last PHQ-9: Questionnaire Data Not on file 1 09/22/2023 Housing Stability Answer Date Recorded What is your housing situation today? I have [place] 06/16/[address] you [...] Date Recorded Patient Health Questionnaire-2 Score 2 07/23/2024 Comments Unknown Sex and Gender Information Value Date Recorded Sex Assigned at Female 07/02/2022 10:35 AM EDT Legal Sex Female 10:35 AM EDT Gender Identity Choose not to disclose 10:35 AM EDT Sexual Orientation Choose not to disclose 2021 10:35 AM EDT documented as of this encounter Miscellaneous Notes * Telephone Encounter - Magedandrey RoperNeeraj - 09/08/2024 8:40 AM EST TC from pt requesting to r/s appt for 09/17. Associate Dean Of Women advised pt that the only apt would be for end ofFebruary and pt would like to see if there is anything that can be done or for her to be let know If any one cancels. Contact pt at [phone] documented in this encounter Plan of Treatment Upcoming Encounters Date Type Department Care Team (Late st Contact Info) Description 12/25/2024 9:00 AM EDT Telemedicine [facility] [address] [place] [address] 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 RN documented as of this encounter Visit Diagnoses Not on filedocumented in this encounter Additional Health Concerns Assessment Noted Time PHQ-9 Depression Total Score: 4 07/23/20 24 9:30 AM EST documented as of this encounter Care Teams Senior Principal Process Engineer Relationship Specialty Start Date End Date Yolanda Regan MD [address] [place] [address] PCP - General Family Medicine 07/07/19 documented as of this encounter
--- OUTSIDE RECORDS SUMMARY | 2024-11-02 15:52 | XMS_ITS | Encounter Summary ---
Author Organization [employer] Address [address] [facility] [address] [facility] [facility] [address] [place] [address] Care Team Providers Care Behavioral Scientist Name Role Phone Yolanda Regan MD Primary Care Provide r Reason for Visit * Reason Comments Med Refill Encounter Details Date Type Department Care Team ([facility] st Contact Info) Description 07/01/2023 Refill [facility] [address] [place], [place] [phone] Yolanda Regan MD [address] [place] [address] Chronic bilateral low back pain without sciatica [...] Info) Description 12/25/2024 9:00 AM EDT Telemedicine [facility] [address] [place] [phone] 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 RN documented as of this encounter Visit Diagnoses Diagnosis Chronic bilateral low back pain without sciatica documented in this encounter Additional Health Concerns Assessment Noted Time PHQ-9 Depression Total Score: 0 09/06/19 23 10:08 AM EST documented as of this encounter Care Teams Behavioral Scientist Relationship Specialty Start Date End Date Yolanda Regan MD [address] [place] [address] PCP - General Family Medicine 07/07/19 documented as of this encounter
== END 2024-11-02 14:03 | disposition home or self-care (01) ==
LOC: HO.HWS 13:25
PROVIDERS: PCP Internal Medicine; Visit Provider Obstetrics & Gynecology
DX: N90.7 Vulvar cyst (principal)
CPT/HCPCS: 99213

== ENCOUNTER → 2024-11-02 13:25 | Outpatient (BNVA) | payer MEDICAID, SELFPAY | PROVIDERS: PCP Internal Medicine; Visit Provider Obstetrics & Gynecology | DX: N90.7 Vulvar cyst (principal) | CPT/HCPCS: 99212 ==

== ENCOUNTER 2024-12-18 11:50 | Emergency (ER) | payer MEDICAID, SELFPAY ==
[2024-12-18] VITALS (7 sets, daily range): BP systolic 102–117; BP diastolic 53–72; PULSE 55–83; RESP 14–19; TEMP 36.4–36.8; O2SAT 98–100; BMI 27.5
--- NOTE | ~2024-12-18 | US_ITS ---
CLINICAL HISTORY: epigastic abd pain. elevated LFTs Limited abdominal ultrasound Comparison: CT/SR - CT ABDOMEN PELVIS W IV CON - 12/18/24 15:57 EDT Findings: The common bile duct measures 0.9 cm. Status post cholecystectomy. Impression: Status post cholecystectomy. The common bile duct measures up to 0.9 cm on this exam which is within normal limits status post cholecystectomy, however on the accompanying abdomen and pelvis CT the common bile duct is noted to be dilated, measuring up to 1.6 cm. Correlate with laboratory values and consider further evaluation with MRCP. This document has been electronically signed by: Avani Paniagua MD on 12/18/2024 19:35:55
--- NOTE | ~2024-12-18 | CT_ITS ---
EXAMINATION: CT ABDOMEN AND PELVIS WITH CONTRAST CLINICAL INFORMATION: Epigastric abdominal pain History of gastric sleeve laparoscopic cholecystectomy. COMPARISON: CT abdomen and pelvis 12/18/2024 TECHNIQUE: Multidetector volumetric images were obtained from the superior aspect of the liver through the pubic symphysis following administration 85 mL of Omnipaque 350 intravenous contrast. Sagittal and coronal reformatted images were obtained on the technologist's workstation. Oral contrast: Gastrografin This CT examination was performed using dose optimization techniques as appropriate, variously including the following: *Automated exposure control *Adjustment of mA and/or kV according to patient size (this includes techniques or standardized protocols for targeted exams where dose is matched to indication/reason for exam; i.e. extremities or head) *Use of iterative reconstruction technique DLP: 551 mGy/cm. FINDINGS: LUNG BASES: There is platelike atelectasis left lung base. The heart size is normal. LIVER, GALLBLADDER, AND BILIARY TREE: The liver is normal in size, shape, and attenuation. No focal hepatic lesion or biliary ductal dilatation is present. The gallbladder has been surgically removed. The CBD is slightly prominent with the proximal CBD measuring 1.4 cm and distal CBD measuring 9 mm. No intraductal lesion or radiopaque calculi seen. PANCREAS: Unremarkable. SPLEEN: Unremarkable. ADRENAL GLANDS: Unremarkable. KIDNEYS AND URETERS: The kidneys are normal in size, shape, and attenuation. No hydronephrosis, hydroureter, or calculi seen. No perinephric stranding. BLADDER: Unremarkable. GASTROINTESTINAL TRACT: There is scattered stool, gas and diverticuli seen throughout the colon without distention. Oral contrast opacified small bowel loops are normal caliber. There is no free air or free fluid. ABDOMINAL WALL: No significant hernia is appreciated. LYMPH NODES: Normal. VASCULAR: Unremarkable. PELVIC VISCERA: The uterus is anteverted with an IUD well located in the endometrial cavity. OSSEOUS STRUCTURES: Mild degenerative disc changes L4-5 disc level with ventral spondylosis. No aggressive lytic or sclerotic process seen. CT/CT abdomen pelvis w IV con IMPRESSION: Moderate constipation. Cholecystectomy and a prominent CBD and expected finding, but new since 08/14/2023. No obstructive lesion or radiopaque calculi seen. Fleischner guidelines were followed. Electronically signed by: Mathieu Dueñas MD 12/18/2024 04:21 PM EDT RP
--- NOTE | 2024-12-18 11:58 | ED.ABDPAIN ---
HPI - Abdominal Pain General Chief Complaint: Abdominal Pain Stated Complaint: abd pain nausea Time Seen by Provider: 12/18/24 13:53 Source: patient, RN notes reviewed and old records reviewed History of Present Illness ED Provider: Kelsea Novak PA-C HPI narrative: 44-year-old female with a past medical history GERD, asthma, anxiety, depression, s/p lap nayeli and sleeve gastrectomy, presenting to the ED today complaining of epigastric/upper abdominal pain, nausea, & inability to tolerate p.o. since 04:00AM. Denies fever, chills, vomiting, diarrhea, dysuria/hematuria. Related Data Home Medications ?Medication ?Instructions ?Recorded ?Confirmed tramadol 50 mg tablet 50 mg PO Q8H PRN Pain 01/20/21 10/11/23 gabapentin 100 mg capsule 1 cap PO BEDTIME PRN Insomnia 05/31/21 10/11/23 multivitamin 1 tab PO DAILY 05/31/21 10/11/23 levonorgestrel 21 mcg/24 hr (up to intrauterine 09/25/21 12/29/21 8 years) 52 mg intrauterine device (Mirena) lidocaine 5 % topical patch 5 patch topical 09/26/23 albuterol sulfate 90 mcg/actuation inhalation 10/09/23 10/09/23 aerosol inhaler (Ventolin HFA) albuterol sulfate 2.5 mg/3 mL mg inhalation TID 11/11/23 (0.083 %) solution for nebulization tizanidine 4 mg tablet 4 mg PO BID PRN muscle spasm 11/11/23 zolpidem 10 mg tablet 10 mg PO BEDTIME PRN 11/11/23 Previous Rx's ?Medication ?Instructions ?Recorded cholecalciferol (vitamin D3) 10 10 mcg PO DAILY #30 caps 06/22/21 mcg (400 unit) capsule pantoprazole 40 mg tablet,delayed 40 mg PO DAILY #30 tabs 12/30/21 release omeprazole 20 mg capsule,delayed 20 mg PO DAILY 30 days #30 caps 09/23/22 release clotrimazole-betamethasone 1 1 appl topical BID 5 days #45 grams 12/26/22 %-0.05 % topical cream ondansetron HCl 4 mg tablet 4 mg PO Q8H PRN nausea and 12/18/24 vomiting 2 days #6 tabs Allergies Allergy/AdvReac Type Severity Reaction Status Date / Time No Known Allergies Allergy Verified 12/18/24 12:02 Review of Systems Review of Systems Yes all other systems are reviewed and are negative Constitutional: Reports as per [facility] Past Medical History Attestation statement: The following information was validated with the patient. Source: old records reviewed Medical History Steatosis, liver Insomnia Back pain Intra-abdominal adhesions Hx of steroid therapy GERD (gastroesophageal reflux disease) BMI 32.0-32.9,adult Lateral epicondylitis, right elbow Disc degeneration, lumbar Asthma Anxiety Depression IUD check up Surgical History H/O gastric sleeve History of esophagogastroduodenoscopy (EGD) Hx of dilation and curettage Hx laparoscopic cholecystectomy H/O laparoscopic adjustable gastric banding History of tubal ligation History of Family History Family History Mother No problems noted. Father Diabetes Sister No problems noted. Brother No problems noted. Son No problems noted. Son No problems noted. Daughter No problems noted. 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 Physical Exam ED Vital Signs: Vital Signs - 24 hr 12/18/24 11:58 12/18/24 15:12 12/18/24 16:00 Temperature 98.0 F 98.3 F 97.8 F Pulse Rate 83 66 72 Respiratory Rate 16 14 16 Blood Pressure 117/72 104/61 102/64 Pulse Oximetry 100 100 99 Oxygen Delivery Method Room Air Room Air Room Air 12/18/24 18:00 12/18/24 20:11 12/18/24 21:28 Temperature 98.1 F 97.5 F 97.5 F Pulse Rate 70 77 55 Respiratory Rate 16 19 16 Blood Pressure 105/68 104/53 L 103/60 Pulse Oximetry 100 100 98 Oxygen Delivery Method Room Air Room Air Room Air BMI result Body Mass Index 27.5 Const General: cooperative, healthy appearing and no acute distress Orientation/consciousness: patient oriented x3 Limitations: no limitations HENMT Head: Yes normal to inspection and Yes atraumatic Ears: hearing grossly normal bilaterally General nose exam: Normal external nose present Face and sinus: Yes normal facial exam Eyes General: appearance normal, both eyes and all related structures EOM: EOMs intact bilaterally Neck Neck: Yes normal visual inspection and Yes no meningeal signs Resp Effort & Inspection: normal respiratory effort and no respiratory distress Auscultation: clear to auscultation bilaterally Cardio Rate: regular rate Heart sounds: S1 normal heart sound present and S2 normal heart sound present GI Inspection: Yes normal to inspection Palpation (GI): Soft to palpation, Tenderness to palpation present (GI) in the epigastrum and in the LUQ; with no rebound tenderness, no guarding and not rigid General: Yes no CVA tenderness Back/Spine/Pelvis Back: no CVA tenderness Skin Rashes: no rashes Wounds: no wounds Neuro General: patient oriented x3, tone normal and no meningeal signs Cranial nerves: Yes CN's II-XII intact bilaterally Gait exam (Neuro): Normal gait present Extrem General: Yes normal to inspection Course Course Course Narrative: This is a Rapid Medical Examination (RME) performed by Blaise Salas PA-C in triage. Full HPI, ROS, assessment and treatment plan per primary provider in the Main ED. 12/18/24 1158 [facility] Murphy Hx: 44 yo female here for eval of acute onset epigastric abdominal pain which began around 0400 today. pain radiating up into chest. reports acid reflux prior to onset of pain. pain worse w/ eating. reports N/V. last BM yesterday. States she takes pantoprazole daily. Took this this morning without improvement. surgical hx includes sleeve gastrectomy 2021, lap nayeli 2020 PE/vitals: well appearing Plan: screening labs, trop, ekg -1415--no leukocytosis. AST/ALT acute on chronically elevated, elevated more than priors. UA negative 1640--CT abdomen pelvis w IV con IMPRESSION: Moderate constipation. Cholecystectomy and a prominent CBD and expected finding, but new since 08/14/2023. No obstructive lesion or radiopaque calculi seen. Fleischner guidelines were followed. -Patient states last BM was today. States goes regularly. > will consult Bariatrics, Gustabo Strickland >> states patient had gastric band in [address] Warner at [facility]. Followed with our bariatrics [id number] and had band removed on 01/09/[address] Rodríguez without conversion to gastric sleeve due to adhesions. Has not been seen since per their records. Recommends ultrasound for further eval, possible General surgery or hospitalist for admission pending results/clinical concern. 1800--ED care transferred to [facility] Narvaez pending ultrasound and re-evaluation Reevaluation(s) Reevaluation #1: Came back recommend patient get an MRCP due to abdominal CT shows dilated common bile duct. Case was discussed with Dr. Reed of gastroenterology who recommends patient be admitted. Case presented to Dr. Castro for admission. Patient given 4 mg of morphine and 1mg dilaudid. Reevaluation #2: Case was discussed with Dr. Reed of gastronenterology who recommends patient to be admitted .Patient refused to be admitted. Patient explained worrisome signs including . Patient can not stay due to her having to take care of the son. Patient has signed against medical advice knowning risk of infection and . Patient informed to call Gastroenterology Clinic for follow up. Time: 22:30 Medical Decision Making Medical Decision Making MDM Narrative: 44-year-old female with a past medical history GERD, asthma, anxiety, depression, s/p lap nayeli and sleeve gastrectomy, presenting to the ED today complaining of epigastric/upper abdominal pain, nausea, & inability to tolerate p.o. since 04:00AM. On exam vital signs stable, NAD, nontoxic appearing, abdomen soft with epigastric/RUQ tenderness, no rebound or guarding. Concern for gastritis/GERD vs SBO vs pancreatitis vs bariatric complication vs dehydration/metabolic abnormalities. Lower suspicion for atypical ACS. Low concern for appendicitis/diverticulitis or renal stone at this time Plan: EKG, labs, UA, CT AP, pain control, IVF, re-evaluate Please refer to course for remaining clinical decision making, interpretation of labs/imaging results, and discussions with consultants and/or family members. Differential Diagnosis Differential Diagnoses: The differential diagnosis associated with the presentation includes As above Admission/Observation Consideration of admission/observation: Escalation of care including admission/observation considered Consult Healthcare Provider Management of the patient was discussed with: Manager Agricultural Lab Data MDM Lab Attestation statement: I reviewed the patient's lab results. 12/18/24 12:12 12/18/24 12:12 Labs: Lab Results 12/18/24 12/18/24 Range/Units 12:12 12:53 WBC 6.2 (4.8-10.8) X10*3/uL RBC 4.05 L (4.20-5.50) X10*6/uL Hgb 12.4 (12.0-16.0) g/dl Hct 36.6 L (37.0-47.0) % MCV 90.4 (80.0-98.0) fL MCH 30.6 (27.0-33.0) pg MCHC 33.9 (31.0-35.0) g/dl RDW 13.0 (11.0-16.0) % Plt Count 199 (160-400) X10*3/uL MPV 10.2 (9.4-12.3) fL Immature Gran % (Auto) 0.3 (0.0-0.4) % Neut % (Auto) 60.0 (45-73) % Lymph % (Auto) 29.9 (20-40) % [place] % (Auto) 7.2 (2-11) % Eos % (Auto) 2.4 (0-4) % Baso % (Auto) 0.2 (0-2) % Lymph # (Auto) 1.9 (1.2-4.9) X10*3/uL [place] # (Auto) 0.5 (0.1-1.2) X10*3/uL Eos # (Auto) 0.2 (0.0-0.4) X10*3/uL Baso # (Auto) 0.0 (0.0-0.2) X10*3/uL Abs Immat Gran (auto) 0.02 (0.00-0.03) X10*3/uL Absolute Neuts (auto) 3.7 (2.0-8.3) x10*3/uL Absolute Nucleated RBC 0.000 (0.0-0.012) X10*3/uL Nucleated RBC % (auto) 0.0 (0.0-0.2) /100WBC Sodium 141 (135-145) mmol/L Potassium 4.1 (3.3-5.1) mmol/L Chloride 107 (96-108) mmol/L Carbon Dioxide 29 (22-29) mmol/L Anion Gap 9 L (12-20) BUN 10 (9-16) mg/dL Creatinine 0.63 (0.5-1.4) mg/dL Estim Creat Clear Calc 110.1 Estimated GFR > 60 Random Glucose 116 H (60-115) mg/dL Calcium 9.1 D (8.4-10.2) mg/dL Magnesium 2.3 (1.6-2.6) mg/dL Total Bilirubin 0.4 (0.0-1.0) mg/dL AST 262 H (5-31) U/L ALT 190 H (0-31) U/L Alkaline Phosphatase 187 H (39-117) U/L Troponin I High Sens < 2.7 (<3.5-17.0) ng/L Total Protein 7.3 (6.5-8.0) g/dL Albumin 4.1 (3.5-5.0) g/dL Lipase 14 (8-78) U/L Urine Color Yellow Urine Appearance Clear Urine pH 7.0 (5.0-9.0) Ur Specific [place] 1.010 (1.005-1.025) Urine Protein Negative (Neg-Trace) mg/dL Urine Glucose (UA) Negative (Negative) mg/dL Urine Ketones Negative (Negative) mg/dL Urine Blood Trace H (Negative) Urine Nitrite Negative (Negative) Ur Leukocyte Esterase Negative (Negative) Urine RBC 0-2 (0-2) /HPF Urine WBC 0-5 (0-5) /HPF Ur Squamous Epith Cells 0-2 (0-2) /HPF Urine Bacteria None Seen (None Seen) Hyaline Casts 0-2 (0-2) /LPF Urine Test NEGATIVE (NEGATIVE) Independent Interpretation I performed an independent interpretation of an: EKG (My interpretation: EKG normal sinus rhythm rate of 76. NC interval 162. No significant change when compared to prior. No STEMI) and CT Scan Radiology Impression Discussion of test interpretation with radiology: I have reviewed the radiologist's reading. External Record Review External record reviewed: Inpatient record, Office record, Outpatient record, Prior outpatient labs, Prior outpatient radiology, Primary care record and Outside ED record Tests considered The following testing was considered but not selected: As above Prescription Management I considered prescription management with: Pain Medication, Antibiotic and Other Chronic Conditions Patient?s care impacted by: Other (Gastric sleeve, laparoscopic cholecystectomy) Social Determinants Patient?s care significantly limited by Social Determinants of Health including: Other Social Determinant of Health Medications Administered Discontinued Medications Generic Name Dose Route Start Last Admin Trade Name Freq PRN Reason Stop Dose Admin Al Hydroxide/Mg Hydroxide 30 ml 12/18/24 16:38 12/18/24 16:49 Magnesium Hydrox/Alum Hydrox 30 Ml Oral.Susp PO 12/18/24 16:39 30 ml ONCE ONE Administration Diatrizoate Meglum/Diatrizoate Sod 30 ml 12/18/24 16:08 12/18/24 16:09 Diatrizoate Meglumine, Sodium 30 Ml Solution PO 12/18/24 16:09 30 ml ONCE ONE Administration Famotidine 20 mg 12/18/24 16:38 12/18/24 16:49 Famotidine/Pf 20 Mg/2 Ml Vial IVPUSH 12/18/24 16:39 20 mg ONCE ONE Administration Hydromorphone HCl 1 mg 12/18/24 20:26 12/18/24 20:37 Hydromorphone Hcl 0.5 Mg/0.5 Ml Syringe IVPUSH 12/18/24 20:27 1 mg ONCE ONE Administration Protocol Sodium Chloride 1,000 mls @ 999 mls/hr 12/18/24 14:30 12/18/24 15:33 Ns IV 12/18/24 15:30 Infused .Q1H1M HUGO Infusion Iohexol 100 ml 12/18/24 16:01 12/18/24 16:03 Iohexol 350 Mg/Ml 100 Ml Infus..Btl IV 12/18/24 16:02 85 ml ONCE ONE Administration Morphine Sulfate 2 mg 12/18/24 14:21 12/18/24 14:27 Morphine Sulfate 2 Mg/Ml Cartridge IVPUSH 12/18/24 14:22 2 mg ONCE ONE Administration Protocol Morphine Sulfate 2 mg 12/18/24 17:21 12/18/24 17:56 Morphine Sulfate 2 Mg/Ml Cartridge IVPUSH 12/18/24 17:22 2 mg ONCE ONE Administration Protocol Morphine Sulfate 4 mg 12/18/24 18:38 12/18/24 18:47 Morphine Sulfate 4 Mg/Ml Cartridge IVPUSH 12/18/24 18:39 Not Given ONCE ONE Protocol Ondansetron HCl 4 mg 12/18/24 14:23 12/18/24 14:27 Ondansetron Hcl 4 Mg/2 Ml Vial IVPUSH 12/18/24 14:24 4 mg ONCE ONE Administration Ondansetron HCl 4 mg 12/18/24 18:38 12/18/24 18:47 Ondansetron Hcl 4 Mg/2 Ml Vial IVPUSH 12/18/24 18:39 Not Given ONCE ONE Discharge Plan Discharge Clinical Impression: Epigastric abdominal pain, Dilated cbd, acquired Patient Disposition: Left Against Medical Advice Instructions: Biliary Colic (ED), Biliary Dyskinesia (DC) Additional Instructions: You are leaving against medical advice. Hospitalist and contract designer wanted you to be admitted for MRCP which is a MRI of your abdomen. Return to the ED immediately for any severe abdominal pain, nausea, vomiting, fever, chills, or any other concerning symptoms. Continue taking your tramadol and ant acid you are prescribed by your PCP. Prescriptions: New ondansetron HCl 4 mg tablet 4 mg PO Q8H PRN (Reason: nausea and vomiting) 2 Days Qty: 6 0RF No Action cholecalciferol (vitamin D3) 10 mcg (400 unit) capsule 10 mcg PO DAILY Qty: 30 6RF omeprazole 20 mg capsule,delayed release(DR/EC) 20 mg PO DAILY 30 Days Qty: 30 0RF gabapentin 100 mg capsule 1 cap PO BEDTIME PRN (Reason: Insomnia) multivitamin Tablet 1 tab PO DAILY albuterol sulfate [Ventolin HFA] 90 mcg/actuation HFA aerosol inhaler INHALATION tramadol 50 mg tablet 50 mg PO Q8H PRN (Reason: Pain) Mirena 20 mcg/24 hours (7 yrs) 52 mg intrauterine device intrauterine pantoprazole 40 mg tablet,delayed release (DR/EC) 40 mg PO DAILY Qty: 30 2RF clotrimazole-betamethasone 1-0.05 % cream 1 appl topical BID 5 Days Qty: 45 0RF albuterol sulfate 2.5 mg /3 mL (0.083 %) solution for nebulization inhalation TID tizanidine 4 mg tablet 4 mg PO BID PRN (Reason: muscle spasm) zolpidem 10 mg tablet 10 mg PO BEDTIME PRN lidocaine 5 % adhesive patch,medicated 5 patch topical Referrals: [facility] [Provider Group] (Dilated common bile duct. Need MRCP) Stand Alone Forms: Against Medical Advice Interventions: ED Discharge Assessment Last Done: 12/18/24 22:57 Discharge Date/Time: 12/18/24 22:57 Print Language: Sierra Leonean
--- NOTE | 2024-12-18 12:02 | ECG_ITS ---
Test Reason : EPIGASTRIC ABD PAIN Blood Pressure : */* mmHG Vent. Rate : 76 BPM Atrial Rate : 76 BPM P-R Int : 162 ms QRS Dur : 78 ms QT Int : 378 ms P-R-T Axes : 63 46 43 degrees QTcB Int : 425 ms Normal sinus rhythm Normal ECG When compared with ECG of 22-Jun-2021 08:04, No significant change was found Referred By: Rafaela Salas Electronically Signed By: ARINA PECK MD
[2024-12-18 12:18] LABS: MANUAL DIFF FLAG NO
[2024-12-18 12:20] LABS: Basophils Percent Auto 0.2 % (0-2); Eosinophils Absolute Auto 0.2 X10*3/uL (0.0-0.4); Eosinophils Percent Auto 2.4 % (0-4); Hematocrit 36.6 % (37.0-47.0); Hemoglobin 12.4 g/dl (12.0-16.0); Imm Gran Abs Auto 0.02 X10*3/uL (0.00-0.03); Imm Gran Pct Auto 0.3 % (0.0-0.4); Lymphocytes Absolute Auto 1.9 X10*3/uL (1.2-4.9); Lymphocytes Percent Auto 29.9 % (20-40); Mean Corpuscular HGB Conc 33.9 g/dl (31.0-35.0); Mean Corpuscular Hemoglobin 30.6 pg (27.0-33.0); Mean Corpuscular Volume 90.4 fL (80.0-98.0); Mean Platelet Volume 10.2 fL (9.4-12.3); Monocytes Absolute Auto 0.5 X10*3/uL (0.1-1.2); Monocytes Percent Auto 7.2 % (2-11); Neutrophils Absolute Auto 3.7 x10*3/uL (2.0-8.3); Platelet Count 199 X10*3/uL (160-400); Red Blood Count 4.05 X10*6/uL (4.20-5.50); White Blood Count 6.2 X10*3/uL (4.8-10.8)
[2024-12-18 12:40] LABS: Alanine Aminotransferase 190 U/L (0-31); Albumin Level 4.1 g/dL (3.5-5.0); Anion Gap 9 (12-20); Aspartate Amino Transferase 262 U/L (5-31); Bilirubin Total 0.4 mg/dL (0.0-1.0); Blood Urea Nitrogen 10 mg/dL (9-16); Calcium 9.1 mg/dL (8.4-10.2); Carbon Dioxide 29 mmol/L (22-29); Chloride 107 mmol/L (96-108); Creatinine Clr Calc Pharmacy 110.1; Estimated Glomerular Filt Rate > 60; Glucose Random 116 mg/dL (60-115); Lipase 14 U/L (8-78); Magnesium 2.3 mg/dL (1.6-2.6); Potassium 4.1 mmol/L (3.3-5.1); Sodium 141 mmol/L (135-145); Total Protein 7.3 g/dL (6.5-8.0)
[2024-12-18 12:42] LABS: Troponin-I High Sensitivity < 2.7 ng/L (<3.5-17.0)
[2024-12-18 13:00] LABS: Appearance Urine Clear; Color Urine Yellow; Glucose Urine UA Negative (Negative); Leukocyte Esterase Urine Negative (Negative); Nitrite Urine Negative (Negative); UMIC TRIGGER UACC YES; Urine Blood Trace (Negative); Urine Ketones Negative (Negative); Urine Protein Negative (Neg-Trace)
[2024-12-18 13:05] LABS: Bacteria Urine None Seen (None Seen); Hyaline Casts Urine 0-2 /LPF (0-2); RBC Urine 0-2 /HPF (0-2); Squamous Epithelial Cell Urine 0-2 /HPF (0-2); WBC Urine 0-5 /HPF (0-5)
--- OUTSIDE RECORDS SUMMARY | 2024-12-18 13:25 | XMS_ITS | Encounter Summary ---
Author Organization [employer] Address [address] [address] [facility] [address] [place] [address] Care Team Providers Care Automotive Service Porter Name Role Phone Yolanda Regan MD Primary Care Provide r Reason for Visit * Reason Onset Date Comments Med Refill 12/16/2024 Encounter Details Date Type Department Care Team ([facility] st Contact Info) Description 12/16/2024 Refill [facility] [address] [place] [address] Stefany Murry MD [address] [place] [address] Chronic shoulder pain, unspecified laterality Social History [...] Care Team (Late st Contact Info) Description 01/11/2025 2:00 PM EDT Office Visit [facility] [address] [place] [phone] Yolanda Regan MD [address] [place] [phone] 03/12/2025 9:00 AM EDT Telemedicine [facility] [address] [place] [phone] 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, RICARDO documented as of this encounter Visit Diagnoses Diagnosis Chronic shoulder pain, unspecified laterality documented in this encounter Additional Health Concerns Assessment Noted Time PHQ-9 Depression Total Score: 3 09/22/19 25 10:38 AM EST documented as of this encounter Care Teams Automotive Service Porter Relationship Specialty Start Date End Date Yolanda Regan MD [address] [place] [phone] PCP - General Family Medicine 07/07/19 documented as of this encounter
--- OUTSIDE RECORDS SUMMARY | 2024-12-18 13:25 | XMS_ITS | Encounter Summary ---
Author Organization [employer] Address [address] 7t [place] [address] Care Team Providers Care Mobile Application Architect Name Role Phone Yolanda Regan MD Primary Care Provide r Reason for Visit * Reason Onset Date Comments Nurse Triage 03/17/2024 Encounter Details Date Type Department Care Team ([facility] st Contact Info) Description 03/17/2024 Telephone [facility] [address] [place], [place] [phone] Yolanda Regan MD [address] [place] [address] Nurse Triage Social History Tobacco Use Types [...] 50 mg tablets To be sent to: [facility] Pharmacy Pt would like a call in regards to quantity documented in this encounter Plan of Treatment Upcoming Encounters Date Type Department Care Team (Late st Contact Info) Description 01/11/2025 2:00 PM EDT Office Visit [facility] [address] [place] [phone] Yolanda Regan MD [address] [place] [phone] 03/12/2025 9:00 AM EDT Telemedicine [facility] [address] [place] [phone] 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 RN documented as of this encounter Visit Diagnoses Not on filedocumented in this encounter Additional Health Concerns Assessment Noted Time PHQ-9 Depression Total Score: 14 024 10:18 AM EDT documented as of this encounter Care Teams Mobile Application Architect Relationship Specialty Start Date End Date Yolanda Regan MD [address] [place] [phone] PCP - General Family Medicine 07/07/19 documented as of this encounter
--- OUTSIDE RECORDS SUMMARY | 2024-12-18 13:25 | XMS_ITS | Encounter Summary ---
Author Organization [employer] Address [address] 7t [place] [address] Care Team Providers Care Gas Meter Prover Name Role Phone Yolanda Regan MD Primary Care Provide r Reason for Visit * Reason Comments Med Refill Encounter Details Date Type Department Care Team ([facility] st Contact Info) Description 07/13/2023 Refill [facility] [address] [place], [place] [phone] Yolanda Regan MD [address] [place], [place] [phone] Mild intermittent asthma without complication Social History [...] Description 01/11/2025 2:00 PM EDT Office Visit [facility] [address] [place] [phone] Yolanda Regan MD [address] [place] [phone] 03/12/2025 9:00 AM EDT Telemedicine [facility] [address] [place] [phone] 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, RICARDO documented as of this encounter Visit Diagnoses Diagnosis Mild intermittent asthma without complication documented in this encounter Additional Health Concerns Assessment Noted Time PHQ-9 Depression Total Score: 0 09/06/19 23 10:08 AM EST documented as of this encounter Care Teams Gas Meter Prover Relationship Specialty Start Date End Date Yolanda Regan MD [address] [place] [phone] PCP - General Family Medicine 07/07/19 documented as of this encounter
--- OUTSIDE RECORDS SUMMARY | 2024-12-18 13:25 | XMS_ITS | Clinical Summary ---
Author Organization [employer] Address [address] [facility] 7t [place] [address] Care Team Providers Care Game Designer/Creative Director Name Role Phone Yolanda Regan MD [...] FOR UP TO 10 DAYS 30 capsule 024 Active fluticasone (Flonase Allergy Relief) 50 MCG/ACT nasal sprayIndications: Acute rhinitis Administer 1 spray into each nostril Once per day. Shake gently. Before first use, prime pump. After use, clean tip and replace cap. 16 g 1 024 2024 Active FLUoxetine (PROzac) 10 MG capsuleIndication s:Anxiety Take 1 capsule (10 mg) by mouth Once per day. 30 capsule 11 025 2025 Active acetaminophen (Tylenol) 500 MG tablet Take 1 tablet (500 mg) by mouth every 6 (six) hours if needed for mild pain for up to 20 doses. 20 tablet 025 Active ibuprofen 600 MG tablet Take 1 [...] OR WHEEZING. 18 g 3 025 Active tiZANidine (Zanaflex) 4 MG tabletIndications :Chronic shoulder pain, unspecified laterality TAKE 1 TABLET BY MOUTH TWICE A DAY NEEDED FOR MUSCLE SPASM 60 tablet 1 025 Active loratadine (Claritin) 10 MG tabletIndications :Acute rhinitis TAKE 1 TABLET BY MOUTH EVERY DAY 90 tablet 025 Active busPIRone (Buspar) 5 MG tabletIndications :Anxiety TAKE 1 TABLET BY MOUTH TWICE A DAY 60 tablet 1 025 Active traMADol (Ultram) 50 MG tabletIndications :Chronic bilateral low back pain without sciatica Take 1 tablet (50 mg) by mouth if needed in the morning and at bedtime for severe pain for up to 28 days. TOME 1 TABLETA CUANDO SEA NECESARIO EN LA MANANA & AL ACOSTARSE PARA DOLOR CK*MAX 28 DAYS 56 tablet 025 2024 Active loratadine (Claritin) 10 MG tabletIndications :Acute rhinitis Take 1 tablet (10 mg) by mouth Once per day. 30 tablet 2 024 2024 Discontinued(R eorder (will not trigger notification to Pharmacy)) busPIRone (Buspar) 5 MG tabletIndications :Anxiety Take 1 tablet (5 mg) by mouth 2 times daily. 60 tablet 1 025 2024 Discontinued(R eorder (will not trigger notification to Pharmacy)) traMADol (Ultram) 50 MG tabletIndications :Chronic bilateral low back pain without sciatica Take 1 tablet (50 mg) by mouth if needed in the morning and at bedtime for severe pain for up to 28 days. TOME 1 TABLETA CUANDO SEA NECESARIO EN LA MANANA & AL ACOSTARSE PARA DOLOR CK*MAX 28 DAYS Do not start before November 18, 2024. 56 tablet 025 2024 Discontinued(R eorder (will not trigger notification to Pharmacy)) Active Problems Problem Noted Date Diagnosed Date [...] same medications Insomnia 06/04/2017 Overview (10/10/2022): F/u [facility] Chronic bilateral low back pain with bilateral [...] Encounters Date Type Department Care Team Description 12/16/2024 Refill [facility] [address] [place] [address] Stefany Murry MD Chronic shoulder pain, unspecified laterality 12/16/2024 Refill [facility] [address] [place] [address] Yolanda Regan MD Acute rhinitis; Anxiety; Chronic bilateral low back pain without sciatica 11/17/2024 Refill [facility] [address] [place] [address] Yolanda Regan MD Chronic bilateral low back pain without sciatica 11/16/2024 Refill [facility] [address] [place] [address] Yolanda Regan MD Chronic bilateral low back pain without sciatica 11/13/2024 Population Health Risk Score Community [facility] ([facility] Department [address] [place] [phone] Provider, Population Health Generic 11/02/2024 Refill [facility] [place] [address] Stefany Murry MD Chronic shoulder pain, unspecified laterality 10/20/2024 Telephone [facility] [place] [address] Yolanda Regan MD May Recall) 10/19/2024 Refill [facility] [address] [facility] [place] [address] Yolanda Regan MD Chronic shoulder pain, unspecified laterality; Chronic bilateral low back pain without sciatica 10/07/2024 2:30 PM EST Clinical Support [facility] [place] [address] 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, 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 bilateral 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 back pain with bilateral sciatica (Primary Dx) 10/07/2024 Travel 10/07/2024 Telephone [facility] [place] [address] 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, RICARDO Recommend CLASSIFICATIONS OFFICER CC/CM Tier 2 Tele/Inperson 10/02/2024 11:30 AM EST Office Visit [facility] [place] [address] Dino Marte DDS Symptomatic irreversible pulpitis (Primary Dx); Severe dental caries 10/02/2024 Refill [facility] [place] [address] Yolanda Regan MD Mild intermittent asthma, unspecified whether complicated 09/22/2024 10:45 AM EST Telemedicine [facility] [place] [address] Yolanda Regan MD Anxiety (Primary Dx) 09/22/2024 Travel from Last 3 Months Immunizations Name Administration [...] Description 01/11/2025 2:00 PM EDT Office Visit [facility] [address] [place] [phone] Yolanda Regan MD [address] [place] [phone] 03/12/2025 9:00 AM EDT Telemedicine [facility] [address] [place] [phone] Laxim Cedeño, RICARDO Health Maintenance Due Date Last Done Comments [...] 01/26/2021, Additional history exists Mammogram 03/27/2024 03/27/2022, 0701/2022, 03/14/2021 COVID-19 Vaccine ( season) 2024 08/04/2021, 08/04/2021, 01/06/2021, Additional history exists Influenza Vaccine (#1) 2024 , 06/01/2021, 10/06/2018, Additional history exists Dental X-Ray: Bitewings 05/24/2024 05/23/20, 07/02/2022, 05/25/2020, Additional history exists SDOH Screening [...] Procedure Name Priority Date/Time Associated Diagnosis Comments URINALYSIS, COMPLETE, WITH REFLEX TO CULTURE Routine 12/18/2024 12:53 PM EDT Chronic bilateral low back pain without sciatica HIGH SENSITIVITY TROPONIN I Routine 12/18/2024 12:12 PM EDT Chronic bilateral low back pain without sciatica LIPASE Routine 12/18/2024 12:12 PM EDT Chronic bilateral low back pain without sciatica MAGNESIUM Routine 12/18/2024 12:12 PM EDT Chronic bilateral low back pain without sciatica COMPREHENSIVE METABOLIC PANEL Routine 12/18/2024 12:12 PM EDT Chronic bilateral low back pain without sciatica CBC WITH AUTO DIFFERENTIAL Routine 12/18/2024 12:12 PM EDT Chronic bilateral low back pain without sciatica POCT KAVEH-14 URINE DRUG SCREEN Routine 10/07/2024 [...] - ADULT Routine 05/23/2023 8:00 AM EDT 1,2,3,4,5,12,13,14,15, 16,17,18,19,20,21,28,2 9,30,31,32,A,B,I,J,K,L ,S,T BITEWINGS - 4 RADIOGRAPHIC IMAGES Routine 05/23/2023 8:00 AM EDT PERIODIC ORAL EVALUATION - ESTABLISHED PATIENT Routine 07/02/2022 12:00 AM EDT HM MAMMOGRAPHY Routine 03/27/2022 PAP/HPV Routine 02/18/2020 from Last 3 Months or Most Recently Relevant to Health Maintenance Results * (ABNORMAL) Urinalysis, Complete, with Reflex to Culture (12/18/2024 12:53 PM EDT) Color Urine Yellow [facility] Appearance Urine Clear [facility] PH 7.0 5.0 - 9.0 [facility] Glucose Urine UA Negative Negative mg/dL [facility] Urine Blood Trace(A) Negative [facility] Specific [place] - Urine 1.010 1.005 - 1.025 [facility] Urine Protein Negative Neg-Trace mg/dL [facility] Urine Ketones Negative Negative mg/dL [facility] Nitrite Urine Negative Negative [facility] Leukocyte Esterase Urine Negative Negative [facility] RBC Urine 0-2 0 - 2 /HPF [facility] Urine WBC 0-5 0 - 5 /HPF [facility] Urine Squamous Epithelial Cell 0-2 0 - 2 /HPF [facility] Urine Bacteria None Seen None Seen [facility] Hyaline Casts, Urine 0-2 0 - 2 /LPF [facility] 12/18/2024 12:5 3 PM EDT 12/18/2024 12:57 PM EDT Narrative [facility] - 12/18/2024 1:05 PM EDT [id number], Clean Catch us Generic External Data Provider LAB URINE ORDERAB LES Final Result [facility] [address] [place] [phone] * High Sensitivity Troponin I (12/18/2024 12:12 PM EDT) TROPONIN I HIGH SENSITIVITY <2.7 <3.5 - 17.0 ng/L [facility] Comment:The [employer] high sens itivity Troponin-I results should beused in conjunction with other diagnostic information suchas ECG, clinical observations and information, and patientsymptoms to aid in the diagnosis of CA. 12/18/2024 12:1 2 PM EDT 12/18/2024 12:16 PM EDT us Generic External Data Provider LAB BLOOD ORDERAB LES Final Result [facility] [address] [place] [address] [phone] * (ABNORMAL) CBC auto differential (12/18/2024 12:12 PM EDT) White Blood Count 6.2 4.8 - 10.8 X10*3/uL [facility] Red Blood Count 4.05(L) 4.20 - 5.50 X10*6/uL [facility] Hemoglobin 12.4 12.0 - 16.0 g/dl [facility] Hematocrit 36.6(L) 37.0 - 47.0 % [facility] Mean Corpuscular Volume 90.4 80.0 - 98.0 fL [facility] Mean Corpuscular Hemoglobin 30.6 27.0 - 33.0 pg [facility] Mean Corpuscular HGB Conc 33.9 31.0 - 35.0 g/dl [facility] Red Cell Distribution Width 13.0 11.0 - 16.0 % [facility] Platelet Count 199 160 - 400 X10*3/uL [facility] Mean Platelet Volume 10.2 9.4 - 12.3 fL [facility] Neutrophils Percent Auto 60.0 45 - 73 % [facility] Imm Gran Pct Auto 0.3 0.0 - 0.4 % [facility] Lymphocytes Percent Auto 29.9 20 - 40 % [facility] Monocytes Percent Auto 7.2 2 - 11 % [facility] Eosinophils Percent Auto 2.4 0 - 4 % [facility] Basophils Percent Auto 0.2 0 - 2 % [facility] NRBC Pct Auto 0.0 0.0 - 0.2 /100WBC [facility] Neutrophils Absolute Auto 3.7 2.0 - 8.3 x10*3/uL [facility] Imm Gran Abs Auto 0.02 0.00 - 0.03 X10*3/uL [facility] Lymphocytes Absolute Auto 1.9 1.2 - 4.9 X10*3/uL [facility] Monocytes Absolute Auto 0.5 0.1 - 1.2 X10*3/uL [facility] Eosinophils Absolute Auto 0.2 0.0 - 0.4 X10*3/uL [facility] Basophils Absolute Auto 0.0 0.0 - 0.2 X10*3/uL [facility] NRBC Abs Auto 0.000 0.0 - 0.012 X10*3/uL [facility] 12/18/2024 12:1 2 PM EDT 12/18/2024 12:16 PM EDT us Generic External Data Provider LAB BLOOD ORDERAB LES Final Result Performing Organization Address City/State/[facility] Co de Phone Number [facility] [address] [place] [phone] * POCT KAVEH-14 Urine Drug Screen (10/07/2024 2:18 PM EST) Urine Urine specimen obtained by clean catch procedure / Unknown 10/07/2024 2:18 PM EST Laxmi Paulson RN - 10/07/2024 2:18 PM EST UTOX cup Lot#[id number] Exp. 05/27/26 Internal Pass Control Negative for all substances us Yolanda Alan MD POINT OF CARE TEST EN TER/EDIT ORDERABLES Final Result * Hepatitis C Viral RNA, Quantitative, Real-Time PCR (01/03/2024 7:49 AM EDT) Hepatitis C Viral Load <15 NOT DETECTED NOT DETECTED IU/mL [facility] HCV Log PCR <1.18 NOT DETECTED NOT DETECTED Log IU/mL [facility] Comment:This test was perfor med using Real-Time Polymerase ChainReaction.Reportable Range: 15 IU/mL to 100,000,000 IU/mL(1.18 Log IU/mL to 8.00 Log IU/mL).The analytical performance characteristics of thisassay have been determined by [employer].The modifications have not been cleared or approved bythe FDA. This assay has been validated pursuant to theCLIA regulations and is used for clinical purposes.For more information on this test, go to:http://education.[employer]/faq/OUZ52a9(This link is being provided for informational/educational purposes only.)THIS TEST WAS PERFORMED AT:[facility] [place] [phone] SUAREZ MD Blood 01/03/2024 7:49 AM EDT 01/03/2024 7:49 AM EDT us Yolanda Alan MD LAB BLOOD ORDERABLES Final Result [facility] [address] [place] [phone] * HIV-1/2 Antigen and Antibodies, Fourth Generation, with Reflexes (01/03/2024 7:49 AM EDT) HIV AB/AG Nonreactive Nonreactive [facility] Comment:HIV-1 p24 Ag and/or HIV-1/HIV-2 Ab not detected.A test result that is nonreactive does not exclude thepossibility of exposure to or infection with HIV-1 and/orHIV-2. Nonreactive results in this assay for individualswith prior exposure to HIV-1 and/or HIV-2 may be due toantigen and antibody levels that are below the limit ofdetection of this assay.The [employer] HIV Ag/Ab Combo assay result andsupplemental assay results should be interpreted inconjunction with the patient's clinical presentation,history and other laboratory results. If the results areinconsistent with clinical evidence, additional testing issuggested to confirm the result. Blood Venous blood specimen / Unknown 01/03/2024 7:49 AM EDT 01/03/2024 7:49 AM EDT Yolanda Alan MD LAB BLOOD ORDERABLES Final Result Performing Organization Address [facility] Co de Phone Number [facility] [address] [place] [phone] * Lipid Panel, Standard (01/03/2024 7:49 AM EDT) Triglycerides 66 <150 mg/dL [facility] Comment:Desirable Triglyceri de: less than 150 mg/dLBorderline High Triglyceride 150-199 mg/dLHigh Triglyceride: 200-499 mg/dLVery High Triglyceride: greater than or equal to 5OO mg/dL Cholesterol 146 <200 mg/dL [facility] Comment:Desirable Cholestero l: less than 200 mg/dLBorderline High Cholesterol: 200-239 mg/dLHigh Cholesterol: greater than 239 mg/dL LDL Cholesterol Calculated 72 <100 mg/dL [facility] Comment:Desirable LDL: less than 100 mg/dLNear Optimal/Above Optimal LDL: 110- 129 mg/dLBorderline High LDL: 130-159 mg/dLHigh LDL: 160-189 mg/dLVery High LDL: greater than or equal to 190 mg/dL HDL Cholesterol 61 >40 mg/dL [facility] Comment:Desirable HDL: great er than 40 mg/dL Note: This HDL assay may give artificially low results in patients with liver disease. Blood Venous blood specimen / Unknown 01/03/2024 7:49 AM EDT 01/03/2024 7:49 AM EDT us Yolanda Alan MD LAB BLOOD ORDERABLES Final Result Performing Organization Address [facility]/ZIP Co de Phone Number [facility] [address] [place] [phone] * Hm Mammography (03/27/2022) Mammogram performed Anatomical Region Laterality Modality Other Historical Provider HEALTH MAINTENANCE Final Result * Pap Smear (02/18/2020) Pap Negative for intraephithelial lesion or malignancy Negative for intraephithelial lesion or malignancy, Other HPV Undetected Undetected, Indeterminate, Quantitative, Not Detected Historical Provider HEALTH MAINTENANCE Final Result from Last 3 Months or Most Recently Relevant to Health Maintenance Insurance [facility] C3 DENTAL-[facility] MEDICAID STAND ADULT Care Teams Game Designer/Creative Director Relationship Specialty Start Date End Date Yolanda Regan MD [address] [place] [phone] PCP - General Family Medicine 07/07/19
--- OUTSIDE RECORDS SUMMARY | 2024-12-18 13:25 | XMS_ITS | Encounter Summary ---
Author Organization [employer] Address [address] [place] [address] Care Team Providers Care Woods Boss Name Role Phone Yolanda Regan MD Primary Care Provide r Reason for Visit * Reason Comments Med Refill Encounter Details Date Type Department Care Team ([facility] st Contact Info) Description 07/13/2023 Refill [facility] [address] [place], [place] [phone] Tammy Moraes DO [address] [place] [address] Mild intermittent asthma, unspecified whether complicated Social [...] Description 01/11/2025 2:00 PM EDT Office Visit [facility] [address] [place] [phone] Yolanda Regan MD [address] [place] [phone] 03/12/2025 9:00 AM EDT Telemedicine [facility] [address] [place] [phone] 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, RICARDO documented as of this encounter Visit Diagnoses Diagnosis Mild intermittent asthma, unspecified whether complicated documented in this encounter Additional Health Concerns Assessment Noted Time PHQ-9 Depression Total Score: 0 09/06/19 23 10:08 AM EST documented as of this encounter Care Teams Woods Boss Relationship Specialty Start Date End Date Yolanda Regan MD [address] [place] [phone] PCP - General Family Medicine 07/07/19 documented as of this encounter
--- OUTSIDE RECORDS SUMMARY | 2024-12-18 13:25 | XMS_ITS | Encounter Summary ---
Author Organization [employer] Address [address] [place] [address] [address] [place] [address] Care Team Providers Care Programmer Analyst Name Role Phone Yolanda Regan MD Primary Care Provide r Reason for Visit * Reason Onset Date Comments Med Refill 01/14/2023 Encounter Details Date Type Department Care Team ([facility] st Contact Info) Description 01/14/2023 Telephone [facility] [address] [place], [place] [phone] Yolanda Regan MD [address] [place], [place] [phone] Med Refill Social History Tobacco Use Types [...] pt requesting status check on script requested, customs entry writer booked pt a f/u appt per PCP notes ,scheduled for 02/12/23 @ 2:30pm * Telephone Encounter - Michelle Oden LPN - 01/14/2023 9:20 AM EDT Med is not pended as [employer] and med was last filled 04/11/22.Please review and advise. * Telephone Encounter - Ry Cochran - 01/14/2023 9:03 AM EDT Tc from pt requesting med refill gabapentin (Neurontin) 100 MG capsule documented in this encounter Plan of Treatment Upcoming Encounters Date Type Department Care Team (Late st Contact Info) Description 01/11/2025 2:00 PM EDT Office Visit [facility] [address] [place] [phone] Yolanda Regan MD [address] [place] [phone] 03/12/2025 9:00 AM EDT Telemedicine [facility] [address] [place] [phone] 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, RN documented as of this encounter Visit Diagnoses Not on filedocumented in this encounter Additional Health Concerns Assessment Noted Time PHQ-9 Depression Total Score: 0 09/06/19 23 10:08 AM EST documented as of this encounter Care Teams Programmer Analyst Relationship Specialty Start Date End Date Yolanda Regan MD [address] [place] [phone] PCP - General Family Medicine 07/07/19 documented as of this encounter
--- OUTSIDE RECORDS SUMMARY | 2024-12-18 13:25 | XMS_ITS | Encounter Summary ---
Author Organization [employer] Address [address] [facility] [address] 7t [place] [address] Care Team Providers Care Table Setter Name Role Phone Yolanda Regan MD Primary Care Provide r Reason for Visit * Reason Comments Med Refill Encounter Details Date Type Department Care Team ([facility] st Contact Info) Description 07/02/2023 Refill [facility] MEDICINE [address] [place], [place] [phone] Yolanda Regan MD [address] [place] [address] Chronic bilateral low back pain without sciatica [...] Description 01/11/2025 2:00 PM EDT Office Visit [facility] MEDICINE [address] [place] [address] 37703 Yolanda Regan MD [address] [place] [address] 45871 03/12/2025 9:00 AM EDT Telemedicine [facility] MEDICINE [address] [place] [address] 43633 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 RN documented as of this encounter Visit Diagnoses Diagnosis Chronic bilateral low back pain without sciatica documented in this encounter Additional Health Concerns Assessment Noted Time PHQ-9 Depression Total Score: 0 09/06/19 23 10:08 AM EST documented as of this encounter Care Teams Table Setter Relationship Specialty Start Date End Date Yolanda Regan MD [address] [place] [address] [phone] PCP - General Family Medicine 07/07/19 documented as of this encounter
--- OUTSIDE RECORDS SUMMARY | 2024-12-18 13:25 | XMS_ITS | Encounter Summary ---
Author Organization [employer] Address [address] [facility] [address] 7t [place] [address] Care Team Providers Care Hotel Clerk Name Role Phone Yolanda Regan MD Primary Care Provide r Reason for Visit * Reason Onset Date Comments PA 01/13/2024 Encounter Details Date Type Department Care Team ([facility] Contact Info) Description 01/13/2024 Telephone [facility] MEDICINE 230 [place], [place] [phone] Yolanda Regan MD 230 [place] [address] PA Social History Tobacco Use Types Packs/Day [...] back regarding any update. Best contact # [phone] French . documented in this encounter Plan of Treatment Upcoming Encounters Date Type Department Care Team (Late st Contact Info) Description 01/11/2025 2:00 PM EDT Office Visit [facility] MEDICINE [address] [place] [address] 33420 Yolanda Regan MD [address] [place] [address] 98[address] 03/12/2025 9:00 AM EDT Telemedicine [facility] MEDICINE [address] [place] [address] 26112 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 RN documented as of this encounter Visit Diagnoses Not on filedocumented in this encounter Additional Health Concerns Assessment Noted Time PHQ-9 Depression Total Score: 14 024 10:18 AM EDT documented as of this encounter Care Teams Hotel Clerk Relationship Specialty Start Date End Date Yolanda Regan MD [address] [place] [address] 09357 PCP - General Family Medicine 07/07/19 documented as of this encounter
--- OUTSIDE RECORDS SUMMARY | 2024-12-18 13:25 | XMS_ITS | Encounter Summary ---
Author Organization [employer] Address 75 [facility] 7t [place] [address] Care Team Providers Care Horseback Excavator Name Role Phone Yolanda Regan MD Primary Care Provide r Encounter Details Date Type Department Care Team (Latest Contact Info) Description 05/25/2020 Abstract [facility] CONVERSIONS Dental, Provider, DDS Social History Tobacco [...] Description 01/11/2025 2:00 PM EDT Office Visit [facility] MEDICINE [address] [place] [address] 37071 Yolanda Regan MD [address] [place] [address] 52786 03/12/2025 9:00 AM EDT Telemedicine [facility] MEDICINE [address] [place] [address] [phone] 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 RN documented as of this encounter Visit Diagnoses Not on filedocumented in this encounter Care Teams Horseback Excavator Relationship Specialty Start Date End Date Yolanda Regan MD [address] [place] [address] [phone] PCP - General Family Medicine 07/07/19 documented as of this encounter
--- OUTSIDE RECORDS SUMMARY | 2024-12-18 13:25 | XMS_ITS | Encounter Summary ---
Author Organization [employer] Address [address] [facility] [address] 7t [place] [address] Care Team Providers Care Cut Off Sawyer Name Role Phone Yolanda Regan MD Primary Care Provide r Reason for Visit * Reason Onset Date Comments Appointment Request 11/14/2022 Encounter Details Date Type Department Care Team ([facility] Contact Info) Description 11/14/2022 Telephone [facility] MEDICINE 230 [place], [place] [phone] Yolanda Regan MD 230 [place] [address] Appointment Request Social History Tobacco Use Types [...] previous message. * Telephone Encounter - Ry Dimas - 11/14/2022 10:04 AM EDT Tc from pt requesting a Physical exam due to work requiring it. Pt stated wont mind seeing a different PCP. Please contact pt at [phone] documented in this encounter Plan of Treatment Upcoming Encounters Date Type Department Care Team (Late st Contact Info) Description 01/11/2025 2:00 PM EDT Office Visit [facility] MEDICINE [address] [place] [address] 89752 Yolanda Regan MD [address] [place] [address] 7[address] 03/12/2025 9:00 AM EDT Telemedicine [facility] MEDICINE [address] [place] [address] 67972 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 RN documented as of this encounter Visit Diagnoses Not on filedocumented in this encounter Additional Health Concerns Assessment Noted Time PHQ-9 Depression Total Score: 0 09/06/19 23 10:08 AM EST documented as of this encounter Care Teams Cut Off Sawyer Relationship Specialty Start Date End Date Yolanda Regan MD [address] [place] [address] 69851 PCP - General Family Medicine 07/07/19 documented as of this encounter
--- OUTSIDE RECORDS SUMMARY | 2024-12-18 13:25 | XMS_ITS | Encounter Summary ---
Author Organization [employer] Address [address] [facility] [address] 7t [place] [address] Care Team Providers Care Telecom Manager Name Role Phone Yolanda Regan MD Primary Care Provide r Reason for Visit * Reason Onset Date Comments Appointment Request 09/08/2024 Encounter Details Date Type Department Care Team ([facility] st Contact Info) Description 09/08/2024 Telephone [facility] MEDICINE 230 [place], [place] [phone] Yolanda Regan MD 230 [place], [place] [phone] Appointment Request Social History Tobacco Use Types [...] encounter Miscellaneous Notes * Telephone Encounter - Maged Neeraj - 09/08/2024 8:40 AM EST TC from pt requesting to r/s appt for 09/17. Reaming Machine Operator advised pt that the only apt would be for end ofFebruary and pt would like to see if there is anything that can be done or for her to be let know If any one cancels. Contact pt at [phone] documented in this encounter Plan of Treatment Upcoming Encounters Date Type Department Care Team (Late st Contact Info) Description 01/11/2025 2:00 PM EDT Office Visit [facility] MEDICINE [address] [place] [address] 35109 Yolanda Regan MD [address] [place] [address] 9[address] 03/12/2025 9:00 AM EDT Telemedicine [facility] MEDICINE [address] [place] [address] 92937 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 RN documented as of this encounter Visit Diagnoses Not on filedocumented in this encounter Additional Health Concerns Assessment Noted Time PHQ-9 Depression Total Score: 4 07/23/20 24 9:30 AM EST documented as of this encounter Care Teams Telecom Manager Relationship Specialty Start Date End Date Yolanda Regan MD [facility] [place] [address] PCP - General Family Medicine 07/07/19 documented as of this encounter
--- OUTSIDE RECORDS SUMMARY | 2024-12-18 13:25 | XMS_ITS | Encounter Summary ---
Author Organization [employer] Address [address] [facility] [address] 7t [place] [address] Care Team Providers Care Silk Screen Printer Helper Name Role Phone Yolanda Regan MD Primary Care Provide r Reason for Visit * Reason Comments Med Refill Encounter Details Date Type Department Care Team ([facility] Contact Info) Description 03/22/2023 Refill [facility] [address] [place] [address] [phone] Richi Sinclair FNP Irritant dermatitis Social History [...] Upcoming Encounters Date Type Department Care Team ([facility] Contact Info) Description 01/11/2025 2:00 PM EDT Office Visit [facility] MEDICINE 230 [place] [address] Yolanda Regan MD [address] [place] [address] 03/12/2025 9:00 AM EDT Telemedicine [facility] MEDICINE [address] [place] [address] [phone] 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 RN documented as of this encounter Visit Diagnoses Diagnosis Irritant dermatitis Contact dermatitis and other eczema, due to unspecified cause documented in this encounter Additional Health Concerns Assessment Noted Time PHQ-9 Depression Total Score: 0 09/06/19 23 10:08 AM EST documented as of this encounter Care Teams Silk Screen Printer Helper Relationship Specialty Start Date End Date Yolanda Regan MD [address] [place] [address] [phone] PCP - General Family Medicine 07/07/19 documented as of this encounter
--- OUTSIDE RECORDS SUMMARY | 2024-12-18 13:25 | XMS_ITS | Clinical Summary ---
Author Organization [facility] Address [address] [place] [address] Care Team Providers Care Tree Cutter Name Role Phone Unavailable Primary Care Provider [...] file Plan of Treatment Not on file [facility] [place] [address] [phone]
--- OUTSIDE RECORDS SUMMARY | 2024-12-18 13:25 | XMS_ITS | Encounter Summary ---
Author Organization [employer] Address [address] [facility] [address] 7t [place] [address] Care Team Providers Care Stereotype Caster Name Role Phone Yolanda Rgean MD Primary Care Provide r Reason for Visit * Reason Comments Med Refill Encounter Details Date Type Department Care Team (Late st Contact Info) Description 08/25/2023 Refill [facility] [address] [place], [place] [phone] Stefany Murry MD 230 [place] [address] Anxiety; Chronic bilateral low back pain without [...] Description 01/11/2025 2:00 PM EDT Office Visit [facility] MEDICINE [address] [place] [address] [phone] Yolanda Regan MD [address] [place] [address] 03/12/2025 9:00 AM EDT Telemedicine [address] [address] 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 RN documented as of this encounter Visit Diagnoses Diagnosis Anxiety Anxiety state, unspecified Chronic bilateral low back pain without sciatica documented in this encounter Additional Health Concerns Assessment Noted Time PHQ-9 Depression Total Score: 0 09/06/19 23 10:08 AM EST documented as of this encounter Care Teams Stereotype Caster Relationship Specialty Start Date End Date Yolanda Regan MD [address] [place] [phone] PCP - General Family Medicine 07/07/19 documented as of this encounter
--- OUTSIDE RECORDS SUMMARY | 2024-12-18 13:25 | XMS_ITS | Encounter Summary ---
Author Organization [employer] Address [address] [facility] [address] 7t [place] [address] Care Team Providers Care Interventional Nurse Name Role Phone Yolanda Regan MD Primary Care Provide r Reason for Visit * Reason Comments Med Refill Encounter Details Date Type Department Care Team ([facility] st Contact Info) Description 07/01/2023 Refill [facility] 230 [place], [place] [phone] Yolanda Regan MD 230 [place] [address] Chronic bilateral low back pain without sciatica [...] Description 01/11/2025 2:00 PM EDT Office Visit [facility] [address] [place] [address] Yolanda Regan MD [address] [place] [address] 112[address] 03/12/2025 9:00 AM EDT Telemedicine [facility] [address] [place] [address] 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 RN documented as of this encounter Visit Diagnoses Diagnosis Chronic bilateral low back pain without sciatica documented in this encounter Additional Health Concerns Assessment Noted Time PHQ-9 Depression Total Score: 0 09/06/19 23 10:08 AM EST documented as of this encounter Care Teams Interventional Nurse Relationship Specialty Start Date End Date Yolanda Regan MD [address] [place] [address] [phone] PCP - General Family Medicine 07/07/19 documented as of this encounter
--- OUTSIDE RECORDS SUMMARY | 2024-12-18 13:25 | XMS_ITS | Encounter Summary ---
Author Organization [employer] Address 75 [facility] 7t [place] [address] Care Team Providers Care Embedded Software Manager Name Role Phone Yolanda Regan MD Primary Care Provide r Encounter Details Date Type Department Care Team (Latest Contact Info) Description 03/11/2019 Abstract [facility] CONVERSIONS Dental, Provider, DDS Social History Tobacco [...] Description 01/11/2025 2:00 PM EDT Office Visit [facility] MEDICINE [address] [place] [phone] Yolanda Regan MD [address] [place] [address] 68[address] 03/12/2025 9:00 AM EDT Telemedicine [facility] MEDICINE [address] [place] [address] [phone] 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 RN documented as of this encounter Visit Diagnoses Not on filedocumented in this encounter Care Teams Embedded Software Manager Relationship Specialty Start Date End Date Yolanda Regan MD [address] [place] [address] [phone] PCP - General Family Medicine 07/07/19 documented as of this encounter
--- OUTSIDE RECORDS SUMMARY | 2024-12-18 13:25 | XMS_ITS | Clinical Summary ---
Author Organization 175 [facility] Address [address] [place] [address] Phone Care Team Providers Care Lion Hunter Name Role Phone Yolanda Regan MD Primary [...] PROCEDURE: HISTORICAL TUBAL LIGATION COLPOSCOPY 05/20/2012 PROCEDURE: WI COLPOSCOPY ENTIRE VAGINA W/CERVIX IF PRESENT Medical [...] - 2023-2 5 season) 2024 Influenza Vaccine (Season Ended) 2025 06/27/2017 Cholesterol Screening (Lipid Panel) 06/08/2027 06/08/2022 [...] age to complete this topic Meningococcal B Vaccine Aged Out No l onger eligible based on patient's age to complete [...] Maintenance Results * Lipid panel (06/08/2022) Pathologist [facility] LDL/HDL Ratio 2 0 - 4 Triglycerides 43 0 - 150 mg/dL Cholesterol 147 0 - 200 mg/dL HDL 62 >=40 mg/dL LDL Cholesterol 77 0 - 100 mg/dL Blood Venous blood specimen / Unknown Result [facility] Provider LAB BLOOD ORDERABLES Tila l Result * HIV Screening (01/10/2018) Pathologist [facility] HIV Screening abstracted [facility] Provider HEALTH MAINTENANCE Final Result * Hepatitis C Screening (01/10/2018) Pathologist [facility] Hepatitis C Screening abstracted [facility] Provider HEALTH MAINTENANCE Final Result * Cervical Cancer Screening: HPV (01/23/2017) Pathologist [facility] Cervical Cancer Screening: HPV abstracted, no interpretation [facility] Provider HEALTH MAINTENANCE Final Result from Last 3 Months or Most Recently Relevant to Health Maintenance Insurance MEDICAID - [place] Care Teams Lion Hunter Relationship Specialty Start Date End Date Yolanda Regan MD [address] [place] [phone] PCP - General Internal Medicine 02/15/22
--- OUTSIDE RECORDS SUMMARY | 2024-12-18 13:25 | XMS_ITS | Encounter Summary ---
Author Organization [email or web address] Address 75 [facility] [address] 7t [place] [address] Care Team Providers Care Final Inspector Name Role Phone Yolanda Regan MD Primary Care Provide r Reason for Visit * Reason Onset Date Comments Med Refill 12/16/2024 Encounter Details Date Type Department Care Team ([facility] st Contact Info) Description 12/16/2024 Refill [facility] MEDICINE 230 [place], [place] [phone] Yolanda Regan MD 230 [place] [address] Acute rhinitis; Anxiety; Chronic bilateral low back [...] is your housing situation today? I have abysaul ji 06/16/[address] you [...] Description 01/11/2025 2:00 PM EDT Office Visit [facility] MEDICINE [address] [place] [address] Yolanda Regan MD [address] [place] [address] 29918 03/12/2025 9:00 AM EDT Telemedicine [facility] MEDICINE [address] [place] [address] 20132 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 RN documented as of this encounter Visit Diagnoses Diagnosis Acute rhinitis Acute nasopharyngitis (common cold) Anxiety Anxiety state, unspecified Chronic bilateral low back pain without sciatica documented in this encounter Additional Health Concerns Assessment Noted Time PHQ-9 Depression Total Score: 3 09/22/19 25 10:38 AM EST documented as of this encounter Care Teams Final Inspector Relationship Specialty Start Date End Date Yolanda Regan MD [address] [place] [address] [phone] PCP - General Family Medicine 07/07/19 documented as of this encounter
--- OUTSIDE RECORDS SUMMARY | 2024-12-18 13:25 | XMS_ITS | Encounter Summary ---
Author Organization [employer] Address 75 [facility] [address] 7t [place] [address] Care Team Providers Care Auger Supervisor Name Role Phone Yolanda Regan MD Primary Care Provide r Reason for Visit * Reason Comments Med Refill Encounter Details Date Type Department Care Team ([facility] st Contact Info) Description 04/03/2024 Refill [facility] MEDICINE 230 [place], [place] [phone] Yolanda Regan MD 230 [place], [place] [phone] Fibromyalgia Social History Tobacco Use Types Packs/Day [...] Office Visit [facility] MEDICINE [address] [place] [address] [phone] Yolanda Regan MD [address] [place] [address] [phone] 03/12/2025 9:00 AM EDT Telemedicine [facility] MEDICINE [address] [place] [address] [phone] 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 RN documented as of this encounter Visit Diagnoses Diagnosis Fibromyalgia Unspecified myalgia and myositis documented in this encounter Additional Health Concerns Assessment Noted Time PHQ-9 Depression Total Score: 14 024 10:18 AM EDT documented as of this encounter Care Teams Auger Supervisor Relationship Specialty Start Date End Date Yolanda Regan MD [address] [place] [address] [phone] PCP - General Family Medicine 07/07/19 documented as of this encounter
--- OUTSIDE RECORDS SUMMARY | 2024-12-18 13:25 | XMS_ITS | Encounter Summary ---
Author Organization [employer] Address 75 [facility] 7t [place] [address] Care Team Providers Care Winery Worker Name Role Phone Yolanda Regan MD Primary Care Provide r Reason for Visit * Reason Comments Med Refill Encounter Details Date Type Department Care Team ([facility] Contact Info) Description 01/04/2023 Refill [facility] MEDICINE [address] [place] [address] [phone] Za Arellano MD [address] [place] [address] [phone] Chronic bilateral low back pain without sciatica [...] Upcoming Encounters Date Type Department Care Team ([facility] Contact Info) Description 01/11/2025 2:00 PM EDT Office Visit [facility] MEDICINE [address] [place] [address] [phone] Yolanda Regan MD 230 [place], [place] [phone] 03/12/2025 9:00 AM EDT Telemedicine [facility] MEDICINE 230 [place], [place] [phone] 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 RN documented as of this encounter Visit Diagnoses Diagnosis Chronic bilateral low back pain without sciatica documented in this encounter Additional Health Concerns Assessment Noted Time PHQ-9 Depression Total Score: 0 09/06/19 23 10:08 AM EST documented as of this encounter Care Teams Winery Worker Relationship Specialty Start Date End Date Yolanda Regan MD [address] [place] [address] [phone] PCP - General Family Medicine 07/07/19 documented as of this encounter
--- OUTSIDE RECORDS SUMMARY | 2024-12-18 13:25 | XMS_ITS | Encounter Summary ---
Author Organization [employer] Address 75 [facility] 7t [place] [address] Care Team Providers Care Grease Maker Name Role Phone Yolanda Regan MD Primary Care Provide r Encounter Details Date Type Department Care Team (Latest Contact Info) Description 07/02/[address] [facility] CONVERSIONS Dental, Provider, DDS Social History [...] Description 01/11/2025 2:00 PM EDT Office Visit [facility] MEDICINE [address] [place] [address] [phone] Yolanda Regan MD [address] [place] [address] 41902 03/12/2025 9:00 AM EDT Telemedicine [facility] MEDICINE [address] [place] [address] [phone] 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 RN documented as of this encounter Visit Diagnoses Not on filedocumented in this encounter Care Teams Grease Maker Relationship Specialty Start Date End Date Yolanda Regan MD [address] [place] [address] [phone] PCP - General Family Medicine 07/07/19 documented as of this encounter
--- OUTSIDE RECORDS SUMMARY | 2024-12-18 13:25 | XMS_ITS | Encounter Summary ---
Author Organization [employer] Address [address] [facility] [address] 7t [place] [address] Care Team Providers Care Liquid Waste Treatment Plant Operator Name Role Phone Yolanda Regan MD Primary Care Provide r Reason for Visit * Reason Onset Date Comments Med Refill 11/16/2024 Encounter Details Date Type Department Care Team ([facility] st Contact Info) Description 11/16/2024 Refill [facility] MEDICINE 230 [place], [place] [phone] Yolanda Regan MD 230 [place] [address] Chronic bilateral low back pain without sciatica [...] enough money to get more: Never True 10/ Transportation Answer Date Recorded In the past [...] Visit [facility] MEDICINE [address] [place] [address] [phone] Yolanda Regan MD [address] [place] [address] 89902 03/12/2025 9:00 AM EDT Telemedicine [facility] MEDICINE [address] [place] [address] [phone] 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, RICARDO documented as of this encounter Visit Diagnoses Diagnosis Chronic bilateral low back pain without sciatica documented in this encounter Additional Health Concerns Assessment Noted Time PHQ-9 Depression Total Score: 3 09/22/19 25 10:38 AM EST documented as of this encounter Care Teams Liquid Waste Treatment Plant Operator Relationship Specialty Start Date End Date Yolanda Regan MD [address] [place] [address] [phone] PCP - General Family Medicine 07/07/19 documented as of this encounter
--- OUTSIDE RECORDS SUMMARY | 2024-12-18 13:26 | XMS_ITS | Data Portability ---
Author Organization [place] - [facility], Allergy Address [address] [address] Care Team Providers Care [employer] Emergency Services Dispatcher Name Role Phone TIERNEY DURHAM Primary Care [...] going forward, recommend follow-up in 6 months. [email or web address] Not available 06/30/2024 12:20:39 Plan of Treatment Reminders Order Date Submit Date Provider Last Modified By Organization Details Last Modified Time Details Appointments Establish ed 15 2024 08:45A M KRISTOPHER ARRIAGA MD Not available Not available Not available Lab None recorded. Referral None recorded. Procedures None recorded. Surgeries middle ear explorati on through postauric ular or ear canal incision (SURG) 2023 024 Not available 01/20/2024 10:15:18 Imaging None recorded. [...] Time Pain of right temporoma ndibular joint 40406299940 660086 Active 2022 Arthralgi a of right temporoma ndibular joint; Note: Date Diagnosed : 02/12/2023 1:16 PM (M26.621) Not Available [facility] 4 03:07:32 Partial loss of ear ossicles 21694261 Active 2022 Partial loss of ear ossicles, right ear; Note: Date Diagnosed : 02/12/2023 1:18 PM (H74.321) Not Available [facility] 4 03:07:31 Sensorine ural hearing loss in left ear 66613944206 109 Active 2023 Sensorine ural hearing loss, unilatera l, left ear, with restricte d hearing on the contralat eral side; Note: Date Diagnosed : 09/12/2023 10:01 AM (H90.A22) Not Available [facility] 4 03:07:31 Bilateral disorder of Eustachia n tubes 69038069168 51999 Active 2022 Other specified disorders of Eustachia n tube, bilateral ; Note: Date Diagnosed : 11/19/2022 10:34 AM (H69.83) Not Available [facility] 4 03:07:32 Otalgia of right ear 4893888826 Active 2022 Otalgia, right ear; Note: Date Diagnosed : 02/12/2023 1:16 PM (H92.01) Not Available [facility] 4 03:07:30 Cholestea jo-ann of right mastoid 39422818888 21144 Active 2022 Cholestea jo-ann of mastoid, right ear; Note: Date Diagnosed : 05/07/2023 2:58 PM (H71.21) Not Available [facility] 4 03:07:30 Conductiv e hearing loss, bilateral 833826186 Active 2022 Conductiv e hearing loss, bilateral ; Note: Date Diagnosed : 02/12/2023 1:21 PM (H90.0) Not Available [facility] 4 03:07:32 Disorder of left Eustachia n tube 99801334096 05305 Active 2022 Other specified disorders of Eustachia n tube, left ear; Note: Date Diagnosed : 11/19/2022 9:48 AM (H69.82) Not Available [facility] 4 03:07:31 Impacted cerumen in right ear 26153332652 38575 Active 2022 Impacted cerumen, right ear; Note: Date Diagnosed : 11/19/2022 10:43 AM (H61.21) Not Available [facility] 4 03:07:30 Follow-up visit Active 2022 Medical surveilla nce following completed treatment ; Note: Date Diagnosed : 3 3:38 PM (Z09) Not Available [facility] 4 03:07:30 Cholestea jo-ann 768483140 Active 2023 KRISTOPHER ARRIAGA MD [address] [facility],[place] [address], [place], [address] , [place] - [facility] 4 08:53:11 Conductiv e hearing loss of right ear with normal hearing on left side 2357012014 Active 2023 LINDA ADAN, [facility] [address] [facility],[place] [address], [place], [address] , [facility] - [facility] 4 09:17:02 Adhesive middle ear disease 2773268 Active 2022 Adhesive middle ear disease, bilateral ; Note: Date Diagnosed : 02/12/2023 1:18 PM (H74.13) Not Available [facility] 03:07:30 Problem Notes None recorded. Procedures Surgical History Date Name Laterality Status Provider Name and Address Organization Details Recorded Time 06/30/20 24 Air & Speech Audio with Tymps (78252, 39085 & 68436) completed [facility] [address] [facility],[place] [address], [place], [address], [facility] - [facility] 06/30/2024 11:41:45 01/20/20 24 Comp Audio with Tymps (18512 & 56574) completed LINDA ADAN, AUD [address] [facility],[place] [address], [place], [address], [facility] - [facility] 01/20/2024 09:16:33 07/12/20 23 tympanoplasty with mastoidectomy completed Stefany Garcia [place] - [facility] 01/20/2024 08:35:28 Imaging Results Imaging Date Name [...] for nebulizat ion active Medicati on ID: 457062 B rand Name: albutero l sulfate Send [...] mg capsule 06/30 completed Medicati on ID: 757664 B rand Name: minocycl ine Send Method: E-Prescr ibed Sub s Allowed: subs OK Speci al Instruct ion: TAKE 1 CAPSULE BY MOUTH TWICE DAILY Me dication GenericN julita: minocycl ine Not Available Not Available Not Available topiramat e 25 mg tablet active Medicati on ID: 887634 B rand Name: topirama te Send Method: [...] mg tablet 06/30 completed Medicati on ID: 016473 B rand Name: acetamin ophen Se nd [...] 20 mg tablet active Medicati on ID: 428527 B rand Name: citalopr am Send Method: E-Prescr ibed Sub s Allowed: subs OK Speci al Instruct ion: TAKE 1 TABLET BY MOUTH ONCE A DAY TOME AMANDA TABLETA TODOS [place] M edicatio nGeneric Name: citalopr am Not Available Not Available Not Available pantopraz ole 40 mg tablet,de layed release active Medicati on ID: 837476 B rand Name: pantopra zole Sen d [...] topical cream 06/30 completed Medicati on ID: 039949 B rand Name: metronid azole Se nd [...] 10 mg tablet active Medicati on ID: 955225 B rand Name: monteluk ast Send Method: [...] ating tablet 06/30 completed Medicati on ID: 999956 B rand Name: diana gaspar Send Method: [...] mg chewable tablet active Medicati on ID: 789460 B rand Name: simethic one Send Method: [...] gram oral powder active Medicati on ID: 931553 B rand Name: Em mcneal Sugar Free [...] Updated DateTime 01/20/2024 160.02 cm 27.5 kg/m2 07747.82 g Stefany Garcia [place] - [facility] 01/20/2024 08:36:09 Date Recorded Body height Body weight Provider Name and Address Organization Details Last Updated DateTime 06/30/2024 160.02 cm 79044.82 g Stefany Garcia [place] - [facility] 06/30/2024 11:31:01 Social History None recorded. [...] Note [id number] KRISTOPHER ARRIAGA MD [facility] [address] [address] 01/20/2024 08:19:11 01/20/2024 09:47:50 Otalgia of right ear 9206904826 H92.01 Pain of ri ght temporomandibular joint 9863535245 7934732 M26.621 The patient complains of intermitte nt [...] . Partial lo ss of ear ossicles 69995848 H74.321 Cholesteatoma 659737986 H71.21 The right ear remains well-heale d [...] the contact informatio n for my surgical orderly. We will begin the scheduling process and see the patient back at the time of surgery. Patient {{will duane l not*}} require medical clearance from their primary care provider preoperati vely. Conductive hearing loss of right ear with normal hearing on left side 8124318718 H90.11 Audiometri c evaluation results:Ri ght ear:{{Norm [...] seal}} [id number] KRISTOPHER ARRIAGA MD [facility] [address] [address] 03/20/2024 15:13:22 03/20/2024 16:14:46 Cholesteatoma 563067419 H71.91 [id number] KRISTOPHER ARRIAGA MD [facility] [address] [address] 06/30/2024 11:02:19 06/30/2024 14:37:22 Partial loss of ear ossicles 23165310 H74.321 Follow-up visit [id number] Z09 Cholesteat rocio of right mastoid 5348137927 062190 H71.21 Bilateral disorder of Eustachian tubes 2822253104 415355 H69.83 Right Ear:Border line normal hearing with [...] Member ID Guarantor Name 01/20/2024 1 [place] [facility] Sayra Cifuentes [id number] Sayra Cifuentes Mei 03/20/2024 1 [place] [facility] Sayra Cifuentes [id number] Sayra Cifuentes Mei 06/30/2024 1 [place] [facility] Sayra Cifuentes [id number] Sayra Mei Notes Date Note Type Note [...] has had no discharge. KRISTOPHER ARRIAGA MD [address] [place] [address], [address], [place] - [facility] 01/20/2024 09:54:37 03/20/2024 text/html 43-year-old femiftikhar murdock presents postoperatively following right middle ear and mastoid exploration by Dr. Arriaga on 03/13/2024. She reports discomfort is steadily improving. There has been no otorrhea and no significant dizziness. KRISTOPHER ARRIAGA MD [address] [place] [address],[address], [address], [place] - [facility] 03/23/2024 16:51:37 06/30/2024 text/html S/p right [...] problems postoperatively. Today's visit carried out using helix coil winder. KRISTOPHER ARRIAGA MD [address] [place] [address], [place], [address], [place] - [facility] 06/30/2024 12:21:36 OBGyn Episode No OBEpisode recorded.
[2024-12-18] MEDS: 0.9 % Sodium Chloride 1,000 ML 999 ML IV (14:27)
[2024-12-18] MEDS: Morphine Sulfate 2 MG/ML CARTRIDGE IVPUSH ×2 (14:27→17:56)
[2024-12-18] MEDS: ondansetron HCL 4 MG/2 ML VIAL IVPUSH (14:27)
[2024-12-18 14:34] LABS: UPreg QC Valid YES; Urine Pregnancy NEGATIVE (NEGATIVE)
[2024-12-18] MEDS: iohexoL 350 MG/ML 100 ML INFUS..BTL IV (16:03)
[2024-12-18] MEDS: Diatrizoate Meglumine, Sodium 30 ML SOLUTION PO (16:09)
[2024-12-18] MEDS: Magnesium Hydrox/Alum Hydrox 30 ML ORAL.SUSP PO (16:49)
[2024-12-18] MEDS: Famotidine/PF 20 MG/2 ML VIAL IVPUSH (16:49)
[2024-12-18 18:40] LABS: Alkaline Phosphatase 187 U/L (39-117)
[2024-12-18] MEDS: HYDROmorphone HCl 0.5 MG/0.5 ML SYRINGE 1 MG IVPUSH (20:37)
== END 2024-12-18 22:57 | disposition left against medical advice (07) ==
PROVIDERS: Physician Assistant; Physician Assistant Medical; Emergency Provider Emergency Medicine Emergency Medical Services; PCP Internal Medicine
DX: R10.13 Epigastric pain (principal); R10.10 Upper abdominal pain, unspecified; R11.0 Nausea; Z98.84 Bariatric surgery status; Z79.899 Other long term (current) drug therapy
CPT/HCPCS: 36415; 74177; 76705; 80053; 81001; 81025; 83690; 83735; 84484; 85025; 93005; 96361; 96374; 96375; 96376; 99285; J1171; J1308; J2270; J2405; Q9967

== ENCOUNTER → 2024-12-18 12:02 | Outpatient (BNV) | payer MEDICAID, SELFPAY | PROVIDERS: Emergency Provider Emergency Medicine Emergency Medical Services; PCP Internal Medicine; Visit Provider Internal Medicine Cardiovascular Disease | DX: R10.13 Epigastric pain (principal) | CPT/HCPCS: 93010 ==

== ENCOUNTER → 2024-12-18 14:21 | Outpatient (BNV) | payer MEDICAID, SELFPAY | PROVIDERS: Emergency Provider Emergency Medicine Emergency Medical Services; PCP Internal Medicine; Visit Provider Radiology Diagnostic Radiology | DX: R10.13 Epigastric pain (principal); R74.01 Elevation of levels of liver transaminase levels | CPT/HCPCS: 74177; 76705 ==

== ENCOUNTER 2025-03-22 08:18 | Outpatient (REF) | payer MEDICAID, SELFPAY ==
--- OUTSIDE RECORDS SUMMARY | 2025-03-22 08:26 | XMS_ITS | Clinical Summary ---
Author Organization [address] [facility] Address [address] [place] [address] Phone Care Team Providers Care Armature Tester Name Role Phone Yolanda Regan MD Primary [...] PROCEDURE: LAP ADJUSTABLE GASTRIC BAND; COMMENT: Dr Warenr SECTION PROCEDURE: HISTORICAL DELIVERY; COMMENT: x2 TUBAL LIGATION PROCEDURE: HISTORICAL TUBAL LIGATION COLPOSCOPY 05/20/2012 PROCEDURE: CO COLPOSCOPY ENTIRE VAGINA W/CERVIX IF PRESENT Medical [...] 5 Years) and At-Risk Patients (6 to 49 Years) (2 of 2 - PPSV23) 08/22/2017 06/27/2017 Cervical Cancer Screening: P ap Smear 01/24/2020 01/23/2017, 01/23/2017 Colorectal Cancer Screening: Colonoscopy 08/04/2022 Social Influencers of Health Screening 08/04/2022 COVID-19 Vaccine (1 - 2023-2 5 season) 2024 Depression Screening 09/02/2024 Influenza Vaccine (#1) 2025 06/27/2017 Cholesterol Screening (Lipid Panel) 06/08/2027 [...] Maintenance Results * Lipid panel (06/08/2022) Pathologist [facility] LDL/HDL Ratio 2 0 - 4 Triglycerides 43 0 - 150 mg/dL Cholesterol 147 0 - 200 mg/dL HDL 62 >=40 mg/dL LDL Cholesterol 77 0 - 100 mg/dL Blood Venous blood specimen / Unknown Result [facility] Provider LAB BLOOD ORDERABLES Tila l Result * HIV Screening (01/10/2018) Pathologist [facility] HIV Screening abstracted [facility] [place] Provider HEALTH MAINTENANCE Final Result * Hepatitis C Screening (01/10/2018) Pathologist [facility] Hepatitis C Screening abstracted [facility] [place] Provider HEALTH MAINTENANCE Final Result * Cervical Cancer Screening: HPV (01/23/2017) Pathologist [facility] Cervical Cancer Screening: HPV abstracted, no interpretation [facility] [place] Provider HEALTH MAINTENANCE Final Result from Last 3 Months or Most Recently Relevant to Health Maintenance Insurance [place]ICAID - [place] Care Teams Armature Tester Relationship Specialty Start Date End Date Yolanda Regan MD [address] [phone] PCP - General Internal Medicine 02/15/22
--- OUTSIDE RECORDS SUMMARY | 2025-03-22 08:26 | XMS_ITS | Clinical Summary ---
Author Organization [facility] Address [address] [place] [address] Care Team Providers Care Nail Sticker Name Role Phone Unavailable Primary Care Provider [...] file Plan of Treatment Not on file [facility] DELFIN[place] [address] [address]
--- OUTSIDE RECORDS SUMMARY | 2025-03-22 08:26 | XMS_ITS | Encounter Summary ---
Author Organization [facility] Address [address] [place] [address] Care Team Providers Care Brim Edge Trimmer Name Role Phone Yolanda Mclean MD Primary Care Provide r Unavailable Reason for Visit * Reason Comments E-prescribe Rx Request Encounter Details Date Type Department Care Team Description 03/18/2023 Refill Bariatric Surgery [facility] [address] [facility] [address] [place] [address] Denisa Coughlin PA-C [address] [facility] [address] [place] [address] E-prescribe Rx Request Social History Tobacco Use Types Packs/Day Years Used Date Smoking Tobacco: Never Smokeless Tobacco: Never Alcohol Use Standard Drinks/Week Comments No 0 (1 standard drink = 0.6 oz pur e alcohol) Sex Assigned at Date Recorded Not on file COVID-19 Exposure Response Date Recorded In the last 10 days, have yo u been in contact with someone who was confirmed or suspected to have Coronavirus/COVID-19? No / Unsure 03/14/2023 8:05 AM EDT documented as of this encounter Plan of Treatment Not on file documented as of this encounter Visit Diagnoses Not on filedocumented in this encounter Care Teams Brim Edge Trimmer Relationship Specialty Start Date End Date Yolanda Mclean MD PCP - General Internal Medicine 02/15/22 documented as of this encounter
--- OUTSIDE RECORDS SUMMARY | 2025-03-22 08:26 | XMS_ITS | Data Portability ---
Author Organization [place] - [facility], Allergy Address [address] [address] Care Team Providers Care Grants Specialist Name Role Phone TIERNEY DURHAM Primary [...] going forward, recommend follow-up in 6 months. [email or web address] Not available 06/30/2024 12:20:39 12/29/2024 12/29/2024 Right ear has healed well following two-stage removal of cholesteatoma. No further surgery is planned for this ear. Tympanostomy tube is still in good position and patent. There is moderate peripheral crusting around the tube which was likely contributing to the echoing and mild distortion she is noting in the right ear. This tube appears to be in the process of extrusion. We will wait for this to occur naturally. Patient will require cholesteatoma surveillance going forward, recommend follow-up in 6 months. We will get audiometric testing at that time. [email or web address] Not available 12/29/2024 09:12:39 Plan of Treatment Reminders Order Date Submit Date Provider Last Modified By Organization Details Last Modified Time Details Appointments Hearing Test 2024 09:00A M Hearing Test Not available Not available Not available Establish ed 10 2024 09:30A M KRISTOPHER ARRIAGA MD Not available Not available Not available Lab None recorded. Referral None recorded. Procedures None recorded. Surgeries middle ear explorati on through postauric ular or ear canal incision (SURG) 2023 024 [email or web address] Not available 01/20/2024 10:15:18 Imaging None recorded. [...] Name and Address Organization Details Recorded Time Bilateral disorder of Eustachia n tubes [id number] 45837 Active 2022 Other specified disorders of Eustachia n tube, bilateral ; Note: Date Diagnosed : 11/19/2022 10:34 AM (H69.83) Not Available [facility] 4 03:07:32 Disorder of left Eustachia n tube 72722954688 87635 Active 2022 Other specified disorders of Eustachia n tube, left ear; Note: Date Diagnosed : 11/19/2022 9:48 AM (H69.82) Not Available [facility] 4 03:07:31 Impacted cerumen in right ear 11256633560 05631 Active 2022 Impacted cerumen, right ear; Note: Date Diagnosed : 11/19/2022 10:43 AM (H61.21) Not Available [facility] 4 03:07:30 Pain of right temporoma ndibular joint 40435081826 775058 Active 2022 Arthralgi a of right temporoma ndibular joint; Note: Date Diagnosed : 02/12/2023 1:16 PM (M26.621) Not Available [facility] 4 03:07:32 Partial loss of ear ossicles 63103536 Active 2022 Partial loss of ear ossicles, right ear; Note: Date Diagnosed : 02/12/2023 1:18 PM (H74.321) Not Available [facility] 4 03:07:31 Otalgia of right ear 1542393330 Active 2022 Otalgia, right ear; Note: Date Diagnosed : 02/12/2023 1:16 PM (H92.01) Not Available [facility] 4 03:07:30 Conductiv e hearing loss, bilateral 207730672 Active 2022 Conductiv e hearing loss, bilateral ; Note: Date Diagnosed : 02/12/2023 1:21 PM (H90.0) Not Available [facility] 4 03:07:32 Adhesive middle ear disease 0016221 Active 2022 Adhesive middle ear disease, bilateral ; Note: Date Diagnosed : 02/12/2023 1:18 PM (H74.13) Not Available [facility] 4 03:07:30 Cholestea jo-ann of right mastoid 10501804229 06319 Active 2022 Cholestea jo-ann of mastoid, right ear; Note: Date Diagnosed : 05/07/2023 2:58 PM (H71.21) Not Available [facility] 4 03:07:30 Follow-up visit Active 2022 Medical surveilla nce following completed treatment ; Note: Date Diagnosed : 3 3:38 PM (Z09) Not Available [facility] 4 03:07:30 Sensorine ural hearing loss in left ear 89170387958 109 Active 2023 Sensorine ural hearing loss, unilatera l, left ear, with restricte d hearing on the contralat eral side; Note: Date Diagnosed : 09/12/2023 10:01 AM (H90.A22) Not Available [facility] 4 03:07:31 Cholestea jo-ann 586778907 Active 2023 KRISTOPHER ARRIAGA MD [address] [facility],[place] [address], [place], [address] , [facility] - [facility] 4 08:53:11 Conductiv e hearing loss of right ear with normal hearing on left side 6395691312 Active 2023 MONSERRAT KONG [address] [place] [address],[place] [address], [place], [address] , [facility] - [facility] 4 09:17:02 Problem Notes None recorded. Procedures Surgical History Date Name Laterality Status Provider Name and Address Organization Details Recorded Time 06/30/20 24 Air & Speech Audio with Tymps - 01887, 88838 & 19762 completed MONSERRAT PALACIOS [address] [facility],[place] [address], [place], [address], [facility] - [facility] 06/30/2024 11:41:45 01/20/20 24 Comp Audio with Tymps - 92307 & 50314 completed MONSERRAT KONG [address] [facility],[place] [address], [place], [address], [place] - [facility] 01/20/2024 09:16:33 07/12/20 23 tympanoplasty with mastoidectomy completed Stefany Garcia [facility] 01/20/2024 08:35:28 Imaging Results None recorded. Procedure Notes None recorded. Medical Equipment None Reported. Allergies No known drug allergies Medications Name Sig Start Date Stop Date Status Note LastModified by Organization Details LastModified Time amoxicill in 500 mg capsule TOME 1 C PSULA (500 MG) POR V A ORAL CADA OCHO HORAS POR 7 D 12/29 completed Not Available Not Available Not Available buspirone 5 mg tablet TAKE 1 TABLET BY MOUTH TWICE DAILY active Not Available Not Available No t Available albuterol sulfate 2.5 mg/3 mL (0.083 %) solution for nebulizat ion active Medicati on ID: [id number] B rand Name: albutero l sulfate Send [...] mg capsule 06/30 completed Medicati on ID: [id number] B rand Name: minocycl ine Send Method: E-Prescr ibed Sub s Allowed: subs OK Speci al Instruct ion: TAKE 1 CAPSULE BY MOUTH TWICE DAILY Me dication GenericN julita: minocycl ine Not Available Not Available Not Available topiramat e 25 mg tablet 12/29 completed Medicati on ID: [id number] B rand Name: topirama te Send Method: E-Prescr ibed Sub s Allowed: subs OK Speci al Instruct ion: PLEASE SEE ATTACHED FOR DETAILED DIRECTIO NS Medic ationGen ericName : topirama te Not Available Not Available Not Available tramadol 50 mg tablet TAKE 1 TABLET BY MOUTH TWICE DAILY IN THE MORNING AND AT BEDTIME NEEDED FOR SEVERE PAIN FOR UP TO 28 DAYS active Not Available Not Available No t Available acetamino phen 500 mg tablet TAKE 1 TAB BY MOUTH EVERY 6 (SIX) HOURS IF NEEDED FOR MILD PAIN FOR UP TO 20 DOSES. active Not Available Not Available No t Available ofloxacin 0.3 % ear drops INSTILL 4 DROPS INTO THE RIGHT EAR TWICE DAILY 01/19 completed Not Available Not Available Not Available citalopra m 20 mg tablet 12/29 completed Medicati on ID: [id number] B rand Name: citalopr am Send Method: E-Prescr ibed Sub s Allowed: subs OK Speci al Instruct ion: TAKE 1 TABLET BY MOUTH ONCE A DAY TOME AMANDA TABLETA TODOS [place] EN LA MANANA M edicatio nGeneric Name: citalopr am Not Available Not Available Not Available pantopraz ole 40 mg tablet,de layed release active Medicati on ID: [id number] B rand Name: pantopra zole Sen d Method: E-Prescr ibed Sub s Allowed: subs OK Speci al Instruct ion: TOME AMANDA TABLETA TODOS LOS D Medic ationGen ericName : pantopra zole Not Available Not Available Not Available lidocaine 5 % topical patch APLIQUE UN PARCHE EN LA MANANA REMOVE AND DISARD PATCH WITHIN 12 HOURS OR SHAMIR LO INDICADO 12/29 completed Not Available Not Available Not Available metronida zole 0.75 % topical cream 06/30 completed Medicati on ID: [id number] B rand Name: metronid azole Se nd Method: E-Prescr ibed Sub s Allowed: subs OK Speci al Instruct ion: APPLY TO THE AFFECTED AREA(S) TOPICALL Y TWICE DAILY Me dication GenericN julita: metronid azole Not Available Not Available Not Available fluoxetin e 10 mg capsule TAKE 1 CAPSULE BY MOUTH ONCE DAILY active Not Available Not Available No t Available hydrocort isone 2.5 % topical cream APLIQUE AL SRIDEVI AFECTADA DOS VECES AL D A FOR 14 DAYS 03/20 completed Not Available Not Available Not Available monteluka st 10 mg tablet 12/29 completed Medicati on ID: [id number] B rand Name: monteluk ast Send Method: [...] completed Not Available Not Available Not Available ibuprofen 600 mg tablet TOME AMANDA TABLETA POR V A ORAL CADA SEIS HORAS CUANDO SEA NECESARI O PARA EL DOLOR active Not Available Not Available No t Available zolpidem 10 mg tablet TOME AMANDA TABLETA TODOS [place] AL ACOSTARS E CUANDO SEA NECESARI O PARA DORMIR 03/20 completed Not Available Not Available Not Available ondansetr on 4 mg disintegr ating tablet 06/30 completed Medicati on ID: [id number] B rand Name: diana gaspar Send Method: E-Prescr ibed Sub s Allowed: subs OK Speci al Instruct ion: DISUELVA AMANDA TABLETA POR V A ORAL CADA OCHO HORAS CUANDO SEA NECESARI O PARA LAS N USEAS Me dication GenericN julita: ondanset chasity Not Available Not Available Not Available fluticaso ne propionat e 50 mcg/actua tion nasal spray,tio pension USE 1 SPRAY IN EACH NOSTRIL ONCE DAILY DIRECTED active Not Available Not Available No t Available loratadin e 10 mg tablet TAKE 1 TABLET BY MOUTH EVERY DAY active Not Available Not Available No t Available amoxicill in 875 mg-potass ium clavulana te 125 mg tablet TOME 1 TABLETA POR V A ORAL DOS VECES AL D A POR 7 D 01/19 completed Not Available Not Available Not Available Ventolin HFA 90 mcg/actua tion aerosol inhaler TOME DOS INHALACI ONES POR V A ORAL CADA CUATRO HORAS CUANDO SEA NECESARI O active Not Available Not Available No t Available simethico ne 80 mg chewable tablet 12/29 completed Medicati on ID: [id number] B rand Name: simethic one Send Method: E-Prescr ibed Sub s Allowed: subs OK Speci al Instruct ion: TAKE 1 TABLET BY MOUTH EVERY 6 HOURS NEEDED FOR FLATULEN CE FOR UP TO 30 DAYS. Me dication GenericN julita: simethic one Not Available Not Available Not Available oxycodone 5 mg tablet Take 1 tablet by mouth every six hours as needed for pain 12/29 completed Medicati on ID: [id number] D uration Value: 5 Brand Name: oxycodon e Send Method: E-Prescr ibed Sub s Allowed: subs OK Medic ationGen ericName : oxycodon e Not Available Not Available Not Available hydroxyzi ne pamoate 25 mg capsule [...] Free (dextrin) 3 gram/4 gram oral powder 12/29 completed Medicati on ID: [id number] B rand Name: Benefibe r Sugar Free (dextrin ) Send Method: E-Prescr ibed Sub s Allowed: subs OK Speci al Instruct ion: TAKE 4 G BY MOUTH DAILY DIRECTED Medicat ionGener icName: Benefibe r Sugar Free (dextrin ) Not Available Not Available Not Available naloxone 4 mg/actuat ion nasal spray ADMINIST ER 1 SPRAY (4 MG) INTO AFFECTED NOSTRIL( S) IF NEEDED FOR OPIOID REVERSAL *CALL 911* 12/29 completed Not Available Not Available Not Available Vitals Date Recorded Body height Provider Name an d Address Organization Details Last Updated DateTime 12/29/2024 160.02 cm Stefany Garcia [place] - [facility] 12/29/2024 08:41:07 Date Recorded Body height Body mass index (BMI) Body weight Provider Name and Address Organization Details Last Updated DateTime 01/20/2024 160.02 cm 27.5 kg/m2 32236.82 g Stefany Garcia [place] - [facility] 01/20/2024 08:36:09 Date Recorded Body height Body weight Provider Name and Address Organization Details Last Updated DateTime 06/30/2024 160.02 cm 46989.82 g Stefany Garcia [place] - Ear No [...] Note 790 KRISTOPHER ARRIAGA MD [facility] [address] [address] 01/20/2024 08:19:11 01/20/2024 09:47:50 Otalgia of right ear 6490048111 H92.01 Pain of ri ght temporomandibular joint 5653069884 2378526 M26.621 The patient complains of intermitte nt right-side d periauricu lar discomfort . Physical exam reveals no identifiab le source of these symptoms involving the auricle, external auditory canal, or tympanic membrane. Audiometri c testing and tympanomet ry are similarly unrevealin g. Furthermor e, examinatio n was positive for crepitus and tenderness of the right jaw joint and glenny-TMJ musculatur e. The patient's periauricu lar discomfort is most likely consistent with intermitte nt inflammati on of the jaw joint or spasm of the surroundin g musculatur e. This is likely exacerbate d by the missing teeth . I recommende d the patient use [...] therapist who specialize s in TMJ disorders could also be considered . Partial lo ss of ear ossicles 99114305 H74.321 Cholesteatoma 527271899 H71.21 The right ear remains well-heale d [...] stage surgery for cholesteat rocio for the right ear. We discussed the fact that this procedure is required to rule out recurrent cholesteat rocio within the middle ear or mastoid cavity. This will be carried out through a small incision with otoendosco pes. We discussed the risks, benefits, and complicati [...] the contact informatio n for my surgical scrub technologist. We will begin the scheduling process and see the patient back at the time of surgery. Patient will not require medical clearance from their primary care provider preoperati agustín. Conductive hearing loss of right ear with normal hearing on left side 4411025455 H90.11 Audiometri c evaluation results:Ri ght ear:Mild low frequency rising normal conductive hearing loss with excellent speech discrimina tion. Tympanomet ry:Right Ear:Type B [id number] SHAHAB PITTMAN PA-C [facility] 100 [place] [address] 03/20/2024 15:13:22 03/20/2024 16:14:46 Cholesteatoma 868261802 H71.91 [id number] KRISTOPHER ARRIAGA MD [facility] [address] [place] [address] 06/30/2024 11:02:19 06/30/2024 14:37:22 Partial loss of ear ossicles 79599298 H74.321 Follow-up visit [id number] Z09 Cholesteat rocio of right mastoid 8922971516 331144 H71.21 Bilateral disorder of Eustachian tubes 0029783524 131672 H69.83 Right Ear:Border line normal hearing with slight conductive overlay with excellent speech discrimina tion.Paten t tube. Results discussed with patient in detail. Hearing is in very good shape overall. [id number] KRISTOPHER ARRIAGA MD [facility] [address] [address] 12/29/2024 08:34:25 12/29/2024 09:16:13 Partial loss of ear ossicles 33023648 H74.321 Follow-up visit [id number] 9 Z09 Cholesteat rocio of right mastoid 4924487448 276452 H71.21 Bilateral disorder of Eustachian tubes 1828944395 585872 H69.83 Health Concerns Section Related Observation LastModified by Organization Detai ls LastModified Time None Recorded Concern Status LastModified by Organization Details LastModified Time None Recorded Advance Directives Directive None Recorded Payers Insurance Date Sequence Insurance Name Policy Number Policy Mcwilliams Covered Member ID Mcwilliams Member ID Guarantor Name 12/26/2024 1 [place] [facility] Sayra Cifuentes [id number] Sayra Mei Notes Date Note Type Note [...] has had no discharge. KRISTOPHER ARRIAGA MD [address] [place] [address], [address], [facility] - [facility] 01/20/2024 09:54:37 03/20/2024 text/html 43-year-old anatoliy murdock presents postoperatively following right middle ear and mastoid exploration by Dr. Arriaga on 03/13/2024. She reports discomfort is steadily improving. There has been no otorrhea and no significant dizziness. KRISTOPHER ARRIAGA MD [address], [place], [address], [facility] - [facility] [...] problems postoperatively. Today's visit carried out using park worker supervisor. KRISTOPHER ARRIAGA MD [address], [place], [address], [facility] 06/30/2024 12:21:36 12/29/2024 text/html S/p right first stage tympanoplasty, ossiculoplasty [...] problems postoperatively. Today's visit carried out using park worker supervisor.Patient reporting intermittent echoing sensation of the right ear, and some hearing sensitivity on the right. No pain or discharge. KRISTOPHER ARRIAGA MD [address], [place], [address], [facility] - [facility] 12/29/2024 09:12:54 OBGyn Episode No OBEpisode recorded.
== END 2025-03-22 08:19 | disposition home or self-care (01) ==
LOC: HO.MAMMO 08:18
PROVIDERS: PCP Internal Medicine; Visit Provider Internal Medicine
DX: Z12.31 Encounter for screening mammogram for malignant neoplasm of breast (principal)
CPT/HCPCS: 77063; 77067

== ENCOUNTER → 2025-03-22 08:45 | Outpatient (BNV) | payer MEDICAID, SELFPAY | PROVIDERS: PCP Internal Medicine; Visit Provider Radiology Body Imaging | DX: Z12.31 Encounter for screening mammogram for malignant neoplasm of breast (principal) | CPT/HCPCS: 77063; 77067 ==

== ENCOUNTER 2025-05-04 12:27 | Outpatient (REF) | payer MEDICAID, SELFPAY ==
--- NOTE | ~2025-05-04 | US_ITS ---
EXAMINATION: US TRIPLEX LOWER EXTREMITY, LEFT CLINICAL INFORMATION: Left thigh Pain COMPARISON: None available. TECHNIQUE: Color-flow triplex imaging with spectral analysis and compression Doppler were performed on the left lower extremity. FINDINGS: Respiratory variation, normal compression and augmented flow are noted throughout the left lower extremity. The visualized common femoral vein, superficial femoral vein, profunda femoral vein, popliteal vein and midcalf peroneal and posterior tibial venous segments show no evidence of deep venous thrombosis. There is no Pagan's cyst. US/US venous duplex LE LT IMPRESSION: No evidence of deep venous thrombosis involving the left lower extremity. Electronically signed by: Pablo Duffy MD 05/04/2025 01:14 PM EDT
--- OUTSIDE RECORDS SUMMARY | 2025-05-04 09:00 | XMS_ITS | Encounter Summary ---
Author Organization [employer] Address [address] [place] [address] Care Team Providers Care Interactive Web Developer Name Role Phone Yolanda Regan MD Primary Care Provide r Reason for Referral * Consultation (Urgent) - Authorized Specialty Diagnoses / Procedures Referred By Contac t Referred To Contact Pain Medicine Diagnoses Left thigh pain Acute left-sided low back pain with left-sided sciatica Mars Mcnulty MD [address] [place] [address] Phone: tel: fax: [facility], [address] [place], [place] Phone: tel: fax: Referral ID Status Reason Start Date Expiration Date Visits Requested Visits Authorized [id number] Authorized Specialty Services Required 05/04/2025 05/04/2026 9 9 * Imaging (STAT) - Authorized Specialty Diagnoses / Procedures Referred By Contac t Referred To Contact Cardiology Diagnoses Left thigh pain Procedures VASC US Lower Extremity Venous Duplex Left Mars Mcnulty MD [address] [place] [address] Phone: tel: fax: [address] Phone: tel: fax: Referral ID Status Reason Start Date Expiration Date Visits Requested Visits Authorized [id number] Authorized Perform Procedure 05/04/2025 05/04/2026 1 1 Reason for Visit * Reason Comments Leg Pain Encounter Details Date Type Department Care Team (Late st Contact Info) Description 05/04/2025 9:00 AM EDT Office Visit [facility] [place] [address] [place] [address] Mars Mcnulty MD [address] [place] [address] Left thigh pain (Primary Dx); Acute left-sided low back pain with left-sided sciatica Social History Tobacco Use Types Packs/Day [...] housing situation today? I have aby ji 01/11/[address] you li ve. Do you have problems with any of the following? None of the above 01/11/2025 Food Insecurity Answer Date Recorded Within the past 12 months, y ou worried that your food would run out before you got money to buy more: Never True 01/11/2025 Within the past 12 months,th e food you bought just didn't last and you didn't have enough money to get more: Never True 08/2025 Transportation Answer Date Recorded In the past 12 months, has l ack of transportation kept you from medical appts, meetings, work or from getting things needed for daily living? No 01/11/2025 Utilities Answer Date Recorded In the past 12 months, has t he electric, gas, oil or water company threatened to shut off services in your home? No 01/11/2025 Depression Answer Date Recorded Patient Health Questionnaire-2 Score 0 09/22/2024 Internet Access Answer Date Recorded Internet Access Q1 Yes 01/11/2025 Internet Access Q2 Not on file 01/11/2025 Comments Unknown Sex and Gender Information Value Date Recorded Sex Assigned at Female 07/02/2022 10:35 AM EDT Legal Sex Female 10:35 AM EDT Gender Identity Choose not to disclose 10:35 AM EDT Sexual Orientation Choose not to disclose 2021 10:35 AM EDT documented as of this encounter Last Filed Vital Signs Vital Sign Reading Time Taken Comments Blood Pressure 112/69 05/04/2025 8:46 AM EDT Pulse 62 05/04/2025 8:46 AM EDT Temperature 36.6 C (97.9 F) 05/04/2025 8:46 AM EDT Respiratory Rate 17 05/04/2025 8:46 AM EDT Oxygen Saturation 99% 05/04/2025 8:46 AM EDT Inhaled Oxygen Concentration - - Weight 80.6 kg (177 lb 9.6 oz) 05/04/2025 8:46 A M EDT Height - - Body Mass Index 31.46 01/15/2025 8:50 AM EDT documented in this encounter Progress Notes * Mars Mcnulty MD - 05/04/2025 9:00 AM EDT Subjective Patient ID: Sayra Mei is a 44 y.o. adult. Freight Claim Investigator: Shai ESPINAL On 04/09/2025 Sayra had panniculectomy by [facility] plastic surgery, and several days later she had onsetof burning sensation, swelling, and pain in left low back and left lateral thigh, worse when standing and when getting out of bed in the AM, bending forward, when touching area. She states was told by the plastic surgeon that the pain is related to to a nerve injury that occurred during surgery. States he was going to refer her to pain management for possible injection if she was not improvingat next plastic surgery f/u visit in 2 weeks. She came to [facility] today to see if we could help with the pain and send the pain management referral. Was prescribed extra gabapentin at post-op visit. Also takes chronic gabapentin, Tramadol, NSAID topical gel, lidocaine patches, ibuprofen (last taken several days ago), Tylenol, and tizanidine whichare not helping. Tried ice and heat with little help. Lives with son. LMP=irreg due to Mirena IUD. Not employed. Quit smoking. Patient Active Problem List Diagnosis Date Noted Chronic pain with drug dependence ([facility]) 03/11/2025 Upper abdominal pain 01/11/2025 Cervical cancer screening 01/11/2025 Encounter for screening mammogram for malignant neoplasm of breast 01/11/2025 Diminished vision 01/11/2025 Symptomatic irreversible pulpitis 10/02/2024 Severe dental caries 10/02/2024 Acute rhinitis 07/23/2024 Elevated LFTs 01/29/2024 Encounter for preventive health examination 12/30/2023 Overweight with body mass index (BMI) of 29 to 29.9 in adult 12/30/2023 Fibromyalgia 12/30/2023 Otitis media 12/30/2023 Dental calculus 05/23/2023 Localized gingival recession 05/23/2023 Anxiety 04/17/2023 Acute upper respiratory infection 08/08/2022 Corneal abrasion 08/08/2022 COVID-19 08/08/2022 Excess skin of abdominal wall 08/08/2022 Hearing loss of right ear 08/08/2022 Intertrigo 08/08/2022 Lateral epicondylitis of right elbow 08/08/2022 Seasonal allergies 08/08/2022 Suspected COVID-19 virus infection 08/08/2022 Shoulder pain 08/08/2022 Mild intermittent asthma 08/10/2019 Mood disorder ([facility]) 10/06/2018 Insomnia 06/04/2017 Chronic bilateral low back pain with bilateral sciatica 04/10/2017 S/P laparoscopic sleeve gastrectomy 10/16/2022 Acne rosacea 10/16/2022 Intrinsic eczema 10/16/2022 The following portions of the chart were reviewed this encounter and updated as appropriate: Tobacco Allergies Meds Problems Med Hx Surg Hx Fam Hx Review of Systems Constitutional: Negative for fever. Respiratory: Negative for shortness of breath. Cardiovascular: Negative for chest pain. Gastrointestinal: Negative for abdominal pain. Musculoskeletal: Positive for back pain. Left lateral thigh pain. Skin: Negative for rash. Neurological: Negative for headaches. Objective Physical Exam Constitutional: Appearance: Normal appearance. HENT: Nose: Nose normal. Eyes: Conjunctiva/sclera: Conjunctivae normal. Pupils: Pupils are equal, round, and reactive to light. Cardiovascular: Rate and Rhythm: Normal rate and regular rhythm. Pulses: Dorsalis pedis pulses are 2+ on the left side. Heart sounds: No murmur heard. Pulmonary: Effort: Pulmonary effort is normal. Breath sounds: Normal breath sounds. Musculoskeletal: General: Normal range of motion. Cervical back: No tenderness. Comments: Tenderness to palpation over the left lower back, buttock, and left lateral thigh. Skin: Findings: No rash. Neurological: Mental Status: Sayra is alert. Sensory: Sensation is intact. Motor: Motor function is intact. Gait: Gait is intact. Psychiatric: Mood and Affect: Mood normal. Behavior: Behavior normal. Procedures Assessment/Plan Diagnoses and all orders for this visit: Left thigh pain Continue current medications except tizanidine which she will discontinue. Prescribed Robaxin to try instead of tizanidine. Left lower extremity venous Doppler ultrasound ordered to rule out DVT. Referred to pain management. Keep follow-up appointment with [facility] plastic surgery in 2 weeks. - ketorolac (Toradol) injection 30 mg - VASC US Lower Extremity Venous Duplex Left; Future - Referral to Pain Medicine; Future Acute left-sided low back pain with left-sided sciatica As above - Referral to Pain Medicine; Future Other orders - methocarbamol (Robaxin) 750 MG tablet; Take 1 tablet (750 mg) by mouth 4 times daily. documented in this encounter Plan of Treatment Upcoming Encounters Date Type Department Care Team (Late st Contact Info) Description 05/21/2025 1:30 PM EDT Office Visit [facility] [address] [place] [address] Victor Manuel, Ilene, OD [address] [place] [address] 06/04/2025 9:30 AM EDT Telemedicine [facility] [address] [place] [address] 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 RN Scheduled Referrals Name Type Priority Associated Diagnoses Orde r Schedule Referral to Pain Medicine Outpatient Referral Urgent Left thigh pain Acute left-sided low back pain with left-sided sciatica Expected: 05/04/2025 (Approximate), Expires: 05/04/2026 documented as of this encounter Procedures Procedure Name Priority Date/Time Associated Diagnosis Comments LOWER EXTREMITY VENOUS DUPLEX LEFT STAT 05/04/2025 12:55 PM EDT Left thigh pain documented in this encounter Results * [facility] US Lower Extremity Venous Duplex Left (05/04/2025 12:55 PM EDT) 05/04/2025 12:5 5 PM EDT Narrative [facility] - 05/04/2025 1:17 PM EDT [place] [address] Ultrasound Report Signed Patient: Sayra Redding MR#: [id number] : 1980 Acct:[id number] Age/Sex: 44 / F ADM Date: 05/04/25 Loc: HO.US Attending Dr: Mars Mcnulty MD Ordering Physician: MARS MCNULTY MD Date of Service: 05/04/25 Procedure(s): US venous duplex LE LT Accession Number(s): [id number] cc: MARS MCNULTY MD; Yolanda Regan MD Reason for Exam: left thigh pain EXAMINATION: US TRIPLEX LOWER EXTREMITY, LEFT CLINICAL INFORMATION: Left thigh Pain COMPARISON: None available. TECHNIQUE: Color-flow triplex imaging with spectral analysis and compression Doppler were performed on the left lower extremity. FINDINGS: Respiratory variation, normal compression and augmented flow are noted throughout the left lower extremity. The visualized common femoral vein, superficial femoral vein, profunda femoral vein, popliteal vein and midcalf peroneal and posterior tibial venous segments show no evidence of deep venous thrombosis. There is no Pagan's cyst. US/US venous duplex LE LT IMPRESSION: No evidence of deep venous thrombosis involving the left lower extremity. Electronically signed by: Pablo Duffy MD 05/04/2025 01:14 PM EDT Dictated By: Pablo Duffy MD Signed By: <Electronically signed by Pablo Duffy MD in OV> 05/04/25 1314 DD/ 1255 TD/TT: 05/04/25 1306 Air Defence Officer: Procedure Note Donotuseinterpreter, Image - 05/04/[address] [address] Ultrasound Report Signed Patient: Sayra ReddingMR#: [id number] : 1980Acct:[id number] Age/Sex: 44 / FADM Date: 05/04/25 Loc: HO.US Attending Dr: Mars Mcnulty MD Ordering Physician: MARS MCNULTY MD Date of Service: 05/04/25 Procedure(s): US venous duplex LE LT Accession Number(s): [id number] cc: MARS MCNULTY MD; Yolanda Regan MD Reason for Exam: left thigh pain EXAMINATION: US TRIPLEX LOWER EXTREMITY, LEFT CLINICAL INFORMATION: Left thigh Pain COMPARISON: None available. TECHNIQUE: Color-flow triplex imaging with spectral analysis and compression Doppler were performed on the left lower extremity. FINDINGS: Respiratory variation, normal compression and augmented flow are noted throughout the left lower extremity. The visualized common femoral vein, superficial femoral vein, profunda femoral vein, popliteal vein and midcalf peroneal and posterior tibial venous segments show no evidence of deep venous thrombosis. There is no Pagan's cyst. US/US venous duplex LE LT IMPRESSION: No evidence of deep venous thrombosis involving the left lower extremity. Electronically signed by: Pablo Duffy MD 05/04/2025 01:14 PM EDT Dictated By: Pablo Duffy MD Signed By: <Electronically signed by Pablo Duffy MD in OV> 05/04/25 1314 DD/ 1255 TD/TT: 05/04/25 1306 Air Defence Officer: us Mars Mcnulty MD CV VASCULAR PROCEDURES Final Res ult [facility] [address] [place] [id number] documented in this encounter Visit Diagnoses Diagnosis Left thigh pain- Primary Pain in soft tissues of limb Acute left-sided low back pain with left-sided sciatica documented in this encounter Administered Medications Inactive Administered Medications - up to 3 most recent administrations Medication Order MAR Action Action Date Dose Rate Site ketorolac (Toradol) injection 30 mg 30 mg, Intramuscular, Once, On Sat05/04/25 at 0930, For 1 doseIndications:Left thigh pain Given 05/04/2025 9:30 AM EDT 30 mg Right Deltoid documented in this encounter Additional Health Concerns Assessment Noted Time PHQ-9 Depression Total Score: 3 09/22/19 25 10:38 AM EST documented as of this encounter Care Teams Interactive Web Developer Relationship Specialty Start Date End Date Yolanda Regan MD [address] [place] [id number] PCP - General Family Medicine 07/07/19 documented as of this encounter
--- OUTSIDE RECORDS SUMMARY | 2025-05-04 13:36 | XMS_ITS | Clinical Summary ---
Author Organization [employer] Address [address] [facility] [address] [place] [address] Care Team Providers Care Parks Recreation Director Name Role Phone Yolanda Regan MD Primary Care Provide r Allergies No known active allergies Medications clotrimazole (Lotrimin) 1 % cream Apply topically every 12 (twelve) hours. 022 Active famotidine (Pepcid) 20 MG tablet Take 1 tablet by mouth every 12 (twelve) hours. 022 Active montelukast (Singulair) 10 MG tablet Take 1 tablet by mouth at bed time. 022 Active hydrOXYzine HCl (Atarax) 10 MG tablet [...] FOR CONSTIPATION FOR UP TO 14 DAYS. Active simethicone (Mylicon) 80 MG chewable tablet [...] 1 APPFUL VAGINALLY BEDTIME FOR 3 DAYS 023 Active lidocaine (Lidoderm) 5 % patchIndications: Chronic bilateral low back pain with bilateral sciatica APLIQUE UN PARCHE EN LA MANANA REMOVE AND DISARD PATCH WITHIN 12 HOURS OR SHAMIR LO INDICADO 30 patch 3 024 Active albuterol (2.5 MG/3ML) 0.083% nebulizer solutionIndicatio ns:Mild intermittent asthma without complication USE 1 VIAL VIA NEBULIZER THREE TIMES A DAY 75 mL 1 024 Active naloxone (Narcan) 4 mg/0.1 mL nasal sprayIndications: Chronic midline low back pain, unspecified whether sciatica present Administer 1 spray (4 mg) into affected nostril(s) if needed for opioid reversal. 2 each 3 024 Active hydrOXYzine pamoate (Vistaril) 25 MG capsuleIndication s:Anxiety TAKE 1 CAPSULE BY MOUTH EVERY 6 HOURS NEEDED FOR ITCH FOR UP TO 10 DAYS 30 capsule 024 Active fluticasone (Flonase Allergy Relief) 50 MCG/ACT nasal sprayIndications: Acute rhinitis Administer 1 spray into each nostril Once per day. Shake gently. Before first use, prime pump. After use, clean tip and replace cap. 16 g 024 2024 Active FLUoxetine (PROzac) 10 MG capsuleIndication s:Anxiety Take 1 capsule (10 mg) by mouth Once per day. 30 capsule 025 2025 Active acetaminophen (Tylenol) 500 MG tablet Take 1 tablet (500 mg) by mouth every 6 (six) hours if needed for mild pain for up to 20 doses. 20 tablet 025 Active ibuprofen 600 MG tablet Take 1 tablet (600 mg) by mouth every 6 (six) hours if needed for mild pain for up to 20 doses. 20 tablet 025 Active loratadine (Claritin) 10 MG tabletIndications :Acute rhinitis TAKE 1 TABLET BY MOUTH EVERY DAY 90 tablet 025 Active busPIRone (Buspar) 5 MG tabletIndications :Anxiety TAKE 1 TABLET BY MOUTH TWICE A DAY 60 tablet 1 025 Active Brimonidine Tartrate 0.33 % gelIndications:Ac ne rosacea Apply 1 Application topically at bedtime. 30 g 025 Active cyclobenzaprine (Flexeril) 10 MG tabletIndications :Strain of rhomboid muscle, initial encounter Take 1 tablet (10 mg) by mouth if needed in the morning, at noon, and at bedtime for muscle spasms for up to [address] with medication (hold Tizanidine while on this medication) 20 tablet 025 Active gabapentin (Neurontin) 100 MG capsuleIndication s:Fibromyalgia TAKE 3 CAPSULES BY MOUTH EVERY 8 HOURS 270 capsule 3 025 Active QUEtiapine (SEROquel) 25 MG tabletIndications :Primary insomnia TAKE 1 TABLET BY MOUTH AT BEDTIME 30 tablet 025 Active albuterol (Ventolin HFA) 108 (90 Base) MCG/ACT inhalerIndication s:Mild intermittent asthma, unspecified whether complicated INHALE 2 PUFFS EVERY 4 HOURS NEEDED FOR SHORTNESS OF BREATH OR WHEEZING. 18 g 3 025 Active QUEtiapine (SEROquel) 50 MG tabletIndications :Primary insomnia Take 1 tablet (50 mg) by mouth at bedtime. 30 tablet 2 025 2024 Active traMADol (Ultram) 50 MG tabletIndications :Chronic bilateral low back pain without sciatica Take 1 tablet (50 mg) by mouth if needed in the morning and at bedtime for severe pain for up to 28 days. TOME 1 TABLETA CUANDO SEA NECESARIO EN LA MAN & AL ACOSTARSE PARA DOLOR CK*MAX 28 DAYS Do not start before April 20, 2025. 56 tablet 025 2024 Active methocarbamol (Robaxin) 750 MG tablet Take 1 tablet (750 mg) by mouth 4 times daily. 40 tablet 1 025 Active traMADol (Ultram) 50 MG tabletIndications :Chronic bilateral low back pain without sciatica Take 1 tablet (50 mg) by mouth if needed in the morning and at bedtime for severe pain for up to 28 days. TOME 1 TABLETA CUANDO SEA NECESARIO EN LA MANANA & AL ACOSTARSE PARA DOLOR CK*MAX 28 DAYS Do not start before March 17, 2025. 56 tablet 025 2024 Discontinued(R eorder (will not trigger notification to Pharmacy)) tiZANidine (Zanaflex) 4 MG tabletIndications :Chronic shoulder pain, unspecified laterality TAKE 1 TABLET BY MOUTH TWICE A DAY NEEDED FOR MUSCLE SPASM 60 tablet 1 025 2024 Discontinued(I neffective) Hospital, Clinic, or Other Facility Administered Medication Ordered Dose Route Frequency Start Date End Date Status ketorolac (Toradol) injection 30 mgIndications:Left thigh pain 30 mg IM Once 05/04/2025 05/04/2025 Ended Active Problems Problem Noted Date Diagnosed Date Chronic pain with drug dependence 03/11/2025 Assessment & Plan (03/11/2025 11:59 AM EDT): I advised patient to follow postsurgical instructions regarding pain medications She may take her regular tramadol with acetaminophen as needed for now Upper abdominal pain 01/11/2025 Cervical cancer screening 01/11/2025 Assessment & Plan (01/11/2025 5:24 PM EDT): Patient referred to [facility] for Pap smear Encounter for screening mamm ogram for malignant neoplasm of breast 01/11/2025 Diminished vision 01/11/2025 Symptomatic irreversible pulpitis 10/02/2024 Severe dental caries 10/02/2024 Acute rhinitis 07/23/2024 Elevated LFTs 01/29/2024 Assessment & Plan (01/29/2024 10:01 AM EDT): Counseling done I will continue to monitor Encounter for preventive health examination 12/02 Assessment & Plan (01/11/2025 5:24 PM EDT): See HPI Overweight with body mass in dex (BMI) [...] week. Acne rosacea 10/16/2022 Assessment & Plan (01/11/2025 5:24 PM EDT): I reviewed feel her medication for rosacea Assessment & Plan (10/16/2022 11:18 AM EST): [...] same medications Insomnia 06/04/2017 Overview (10/10/2022): F/u [facility] family and counseling Assessment & Plan (03/11/2025 11:56 AM EDT): Sleep hygiene counseling done today I will go up on Seroquel to 50 mg at bedtime Assessment & Plan (01/11/2025 5:23 PM EDT): Extensive counseling about the sleep hygiene done today I decided to start her on Seroquel 25 mg at bedtime I will follow-up with her in 4 weeks Chronic bilateral low back pain with bilateral [...] Encounters Date Type Department Care Team Description 05/04/2025 9:00 AM EDT Office Visit [facility] [address] [place] [address] [phone] Mars Mcnulty MD Left thigh pain (Primary Dx); Acute left-sided low back pain with left-sided sciatica 05/04/2025 Travel 04/26/2025 Telephone [facility] [address] [place] [phone] Yolanda Regan MD Appointment Request 04/15/2025 Refill [facility] [address], [place] [phone] Yolanda Regan MD Chronic bilateral low back pain without sciatica 04/13/2025 Refill [facility] [address] [place] [address] Yolanda Regan MD Chronic bilateral low back pain without sciatica 04/07/2025 Telephone [facility] [address], [place] [phone] Yolanda Regan MD OCT RECALL 03/31/2025 Refill [facility] [address], [place] [phone] Yolanda Regan MD 03/30/2025 9:00 AM EDT Clinical Support [facility] [address] [facility] [place] [address] 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 RN Long-term current use of opiate analgesic (Primary Dx) 03/30/2025 Telephone [facility] [address] [facility] [address] 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 RN SPECIALTY SALES CONSULTANT Agreement renewed today 03/30/2025 Travel 03/23/2025 Refill [facility] [address] [place] [address] Yolanda Regan MD Chronic shoulder pain, unspecified laterality 03/17/2025 Refill [facility] [address] [place] [address] Yolanda Regan MD Chronic bilateral low back pain without sciatica 03/16/2025 Refill [facility] [address] [place] [address] Yolanda Regan MD Chronic bilateral low back pain without sciatica 03/11/2025 11:30 AM EDT Telemedicine [facility] [address] [place] [address] Yolanda Regan MD Primary insomnia (Primary Dx); Chronic pain with drug dependence (CMS/HCC) 03/11/2025 Travel 03/10/2025 Telephone [facility] [address] [place] [address] Yolanda Regan MD Chart prep 02/25/2025 Refill [facility] [address] [place] [address] Za Arellano MD Mild intermittent asthma, unspecified whether complicated 02/15/2025 Refill [facility] [address] [place] [address] Yolanda Regan MD Primary insomnia 02/15/2025 Refill [facility] [address] [place] [address] Yolanda Regan MD Chronic bilateral low back pain without sciatica from Last 3 Months Immunizations Immunization Administration Dates Next Due INFLUENZA INJECTABLE QUADRIV [...] oz) 05/04/2025 8:46 A M EDT Height 160 cm (5' 3 ) 01/15/2025 8:50 AM EDT Body Mass Index 31.46 01/15/2025 8:50 AM EDT Plan of Treatment Upcoming Encounters Date Type Department Care Team (Late st Contact Info) Description 05/21/2025 1:30 PM EDT Office Visit [facility] [address] [place] [address] Victor Manuel, Ilene, OD [address] [place] [address] 06/04/2025 9:30 AM EDT Telemedicine [facility] [address] [place] [address] 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, RICARDO Health Maintenance Due Date Last Done Comments CT Colonography 1979 Colonoscopy 1979 Colorectal Cancer Screening 1979 FIT DNA/Cologuard 1979 FIT 1979 FOBT 1979 Sigmoidoscopy 1979 Family Planning (PISQ) 1994 HPV Vaccines (1 - 3-dose series) 1994 Hepatitis A Vaccines (1 of 2 - Risk 2-dose series) 1998 Hepatitis B Vaccines (1 of 3 - 19+ 3-dose series) 1998 Dental Oral Exam 12/31/2022 07/02/2022, , 05/25/2020, Additional history exists Dental Prophylaxis 11/22/2023 05/23/2023, 1 , 01/26/2021, Additional history exists Dental X-Ray: Bitewings 05/24/2024 05/23/20 23, 07/02/2022, 05/25/2020, Additional history exists Cervical Cancer Screening 02/17/2025 HPV/Cotest 02/17/2025 02/18/2020 Pap Smear 02/17/2025 02/18/2020 COVID-19 Vaccine ( season) 2025 08/04/2021, 08/04/2021, 01/06/2021, Additional history exists Influenza Vaccine (#1) 2025 , 06/01/2021, 10/06/2018, Additional history exists Alcohol/Substance Use Screening 07/23/2025 07/23/2024 Depression Screening 09/22/2025 09/22/2024, 09/22/19 25 Disability Screening 01/11/2026 01/11/2025 SDOH Screening 01/11/2026 01/11/2025 Mammogram 03/22/2026 03/22/2025, 03/03, 03/27/2022, Additional history exists Tobacco Screening 05/04/2026 05/04/2025 Dental X-Ray: Full Mouth 10/03/2027 10/02/2024, 10/31 Lipid Panel 01/02/2029 01/03/2024, 05/04/2020 Zoster Vaccines (1 of 2) 2029 DTaP/Tdap/Td Vaccines (2 - Td or Tdap) 05/02/2030 05/02/2020 RSV Patients and Patients Aged 60 years or older (1 - 1-dose 75+ series) 2054 Pneumococcal Vaccine: Pediatrics (0 to 5 Years) and At-Risk Patients (6 to 49) Years Completed 12/30/2023, 06/27/2017 HIV Screening Completed 01/03/2024, [...] 05/04/2025 12:55 PM EDT Left thigh pain POCT KAVEH-14 URINE DRUG SCREEN Routine 03/30/2025 9:11 AM EDT Long-term current use of opiate analgesic BI MAMMOGRAM SCREENING TOMOSYNTHESIS BILATERAL Routine 03/22/2025 8:25 AM EDT Encounter for screening mammogram for malignant neoplasm of breast PANORAMIC RADIOGRAPHIC IMAGE Routine 10/02/2024 11:30 AM EST HEPATITIS C [...] PATIENT Routine 07/02/2022 12:00 AM EDT HM PAP/HPV Routine 02/18/2020 from Last 3 Months or Most Recently Relevant to Health Maintenance Results * [facility] US Lower Extremity Venous Duplex Left (05/04/2025 12:55 PM EDT) 05/04/2025 12:5 5 PM EDT Narrative [facility] - 05/04/2025 1:17 PM EDT [address] [address] Ultrasound Report Signed Patient: Sayra Redding MR#: [id number] : 1980 Acct:[id number] Age/Sex: 44 / F ADM Date: 05/04/25 Loc: .US Attending Dr: Mars Mcnulty MD Ordering Physician: MARS MCNULTY MD Date of Service: 05/04/25 Procedure(s): US venous duplex LE LT Accession Number(s): [id number] cc: MARS MCNULTY MD; Yolanda Regan MD [...] 05/04/25 1314 DD/ 1255 TD/TT: 05/04/25 1306 Top Icer: Procedure Note Donotuseinterpreter, Image - 05/04/[address] [place] [address] Ultrasound Report Signed Patient: Sayra ReddingMR#: [id number] : 1980Acct:[id number] Age/Sex: 44 / FADM Date: 05/04/25 Loc: HO.US Attending Dr: Mars Mcnulty MD Ordering Physician: MARS MCNULTY MD Date of Service: 05/04/25 Procedure(s): US venous duplex LE LT Accession Number(s): [id number] cc: MARS MCNULTY MD; Yolanda Regan MD [...] 05/04/25 1314 DD/ 1255 TD/TT: 05/04/25 1306 Top Icer: us Mars Mcnulty MD CV VASCULAR PROCEDURES Final Res ult [facility] [address] [place] [phone] * POCT KAVEH-14 Urine Drug Screen (03/30/2025 9:11 AM EDT) THC Negative Negative Cocaine Screen, Urine Negative Negative Opiate Screen, Urine Negative Negative Methamphetamine Screen Urine Negative Negative Amphetamine Screen, Urine Negative Negative Benzodiazepines Screen, Urine Negative Negative Barbiturate Screen, Urine Negative Negative Methadone Screen, Urine Negative Negative Buprenophine Screen, Urine Negative Negative TCA, Urine Negative Negative MDMA Urine Negative Negative ng/mL Oxycodone Screen, Urine Negative Negative Phencyclidine (PCP), Urine Negative Negative Propoxyphene, Urine Negative Negative Fentanyl, Urine Negative Negative Urine Urine specimen obtained by clean catch procedure / Unknown 03/30/2025 9:11 AM EDT Narrative 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 RN - 03/30/2025 9:11 AM EDT UTOX cup Lot#[id number] Exp. 06/08/26 Internal Pass Control Yolanda Alan MD POINT OF CARE TEST EN TER/EDIT ORDERABLES Final Result * BI Mammogram Screening Tomosynthesis Bilateral (03/22/2025 8:25 AM EDT) Anatomical Region Laterality Modality Breast Bilateral Mammography 03/22/2025 8:25 AM EDT Narrative 03/29/2025 5:18 PM EDT [facility] [address] [place] [address] Mammography Report Signed Patient: Sayra Redding MR#: [id number] : 1980 Acct:[id number] Age/Sex: 44 / F ADM Date: 03/22/25 Loc: HO.MAMMO Attending Dr: Yolanda Alan MD Ordering Physician: Yolanda Regan MD Results: 1Negative Date of Service: 03/22/25 Follow Up: 1 Year From [facility] Mammogram Procedure(s): MM tomosynthesis screening BI Accession Number(s): [id number] cc: Yolanda Regan MD EXAMINATION: MM SCREENING DIGITAL BREAST TOMOSYNTHESIS, BILATERAL CLINICAL INFORMATION: Screening. Asymptomatic. COMPARISON: Comparison made to multiple prior, most recent April 01, 2023, and most remote February 02, 2019. TECHNIQUE: Digital breast tomosynthesis is performed in both the craniocaudal and mediolateral oblique views along with computer-aided detection (CAD). Synthesized 2D images are generated from the tomosynthesis. FINDINGS: BREAST COMPOSITION: The breasts are heterogeneously dense, which may obscure small masses (ACR BI-RADS breast composition Category c). BILATERAL BREASTS: No significant masses, suspicious calcifications or other abnormalities are seen in either breast. MM/MM tomosynthesis screening BI IMPRESSION: BILATERAL BREASTS: Negative, no mammographic evidence of malignancy. Normal interval follow-up is recommended in 12 months. ASSESSMENT: BI-RADS 1 - Negative RECOMMENDATION: Routine annual mammography screening. FOLLOW-UP: 1 year F/U This examination should not preclude the clinical evaluation of a suspicious palpable abnormality. This patient's information was entered into a reminder system with a target due date for their next mammogram. Electronically signed by: Tessa Jones MD 03/29/2025 05:15 PM EDT Dictated By: Tessa Jones MD Signed By: <Electronically signed by Tessa Jones MD in OV> 03/29/25 1715 DD/ 0825 TD/TT: 03/22/25 0845 Top Icer: Procedure Note Donotuseinterpreter, Image - 03/29/2025 [facility] [address] [place] [address] Mammography Report Signed Patient: Sayra Redding#: [id number] : 1980Acct:[id number] Age/Sex: 44 / FADM Date: 03/22/25 Loc: HO.MAMMO Attending Dr: Yolanda Alna MD Ordering Physician: Yolanda Regan MDResults: 1Negative Date of Service: 03/22/25Follow Up: 1 Year From Orig inal Mammogram Procedure(s): MM tomosynthesis screening BI Accession Number(s): [id number] cc: Yolanda Regan MD EXAMINATION: MM SCREENING DIGITAL BREAST TOMOSYNTHESIS, BILATERAL CLINICAL INFORMATION: Screening. Asymptomatic. COMPARISON: Comparison made to multiple prior, most recent April 01, 2023, and most remote February 02, 2019. TECHNIQUE: Digital breast tomosynthesis is performed in both the craniocaudal and mediolateral oblique views along with computer-aided detection (CAD). Synthesized 2D images are generated from the tomosynthesis. FINDINGS: BREAST COMPOSITION: The breasts are heterogeneously dense, which may obscure small masses (ACR BI-RADS breast composition Category c). BILATERAL BREASTS: No significant masses, suspicious calcifications or other abnormalities are seen in either breast. MM/MM tomosynthesis screening BI IMPRESSION: BILATERAL BREASTS: Negative, no mammographic evidence of malignancy. Normal interval follow-up is recommended in 12 months. ASSESSMENT: BI-RADS 1 - Negative RECOMMENDATION: Routine annual mammography screening. FOLLOW-UP: 1 year F/U This examination should not preclude the clinical evaluation of a suspicious palpable abnormality. This patient's information was entered into a reminder system with a target due date for their next mammogram. Electronically signed by: Tessa Jones MD 03/29/2025 05:15 PM EDT RP Workstation: [employer] Dictated By: Tessa Jones MD Signed By: <Electronically signed by Tessa Jones MD in OV> 03/29/25 1715 DD/ 0825 TD/TT: 03/22/25 0845 Top Icer: Yolanda Alan MD IMG BI PROCEDURES Fin al Result * Hepatitis C Viral RNA, Quantitative, Real-Time PCR (01/03/2024 7:49 AM EDT) Hepatitis C Viral Load <15 NOT DETECTED NOT DETECTED IU/mL [facility] HCV Log PCR <1.18 NOT DETECTED NOT DETECTED Log IU/mL [facility] Comment:This test was perfor med using Real-Time Polymerase ChainReaction.Reportable Range: 15 IU/mL to 100,000,000 IU/mL(1.18 Log IU/mL to 8.00 Log IU/mL).The analytical performance characteristics of thisassay have been determined by [employer].The modifications have not been cleared or approved bythe FDA. This assay has been validated pursuant to theCLIA regulations and is used for clinical purposes.For more information on this test, go to:http://education.[employer].Fancy Hands/faq/TED66x6(This link is being provided for informational/educational purposes only.)THIS TEST WAS PERFORMED AT:[facility] [place] [phone] SUAREZ MD Blood 01/03/2024 7:49 AM EDT 01/03/2024 7:49 AM EDT Yolanda Alan MD LAB BLOOD ORDERABLES Final Result Performing Organization Address City/[facility]/ZIP Co de Phone Number [facility] [address] [place] [phone] * HIV-1/2 Antigen and Antibodies, Fourth Generation, with Reflexes (01/03/2024 7:49 AM EDT) [facility] HIV AB/AG Nonreactive Nonreactive [facility] Comment:HIV-1 p24 Ag and/or HIV-1/HIV-2 Ab not detected.A test result that is nonreactive does not exclude thepossibility of exposure to or infection with HIV-1 and/orHIV-2. Nonreactive results in this assay for individualswith prior exposure to HIV-1 and/or HIV-2 may be due toantigen and antibody levels that are below the limit ofdetection of this assay.The [employer] HIV Ag/Ab Combo assay result andsupplemental assay results should be interpreted inconjunction with the patient's clinical presentation,history and other laboratory results. If the results areinconsistent with clinical evidence, additional testing issuggested to confirm the result. Blood Venous blood specimen / Unknown 01/03/2024 7:49 AM EDT 01/03/2024 7:49 AM EDT us Yolanda Alan MD LAB BLOOD ORDERABLES Final Result Performing Organization Address [facility]/ZIP Co de Phone Number [facility] [address] [place] [phone] * Lipid Panel, Standard (01/03/2024 7:49 AM EDT) Triglycerides 66 <150 mg/dL [facility] Comment:Desirable Triglyceri de: less than 150 mg/dLBorderline High Triglyceride 150-199 mg/dLHigh Triglyceride: 200-499 mg/dLVery High Triglyceride: greater than or equal to 5OO mg/dL Cholesterol 146 <200 mg/dL [facility] Comment:Desirable Cholestero l: less than 200 mg/dLBorderline High Cholesterol: 200-239 mg/dLHigh Cholesterol: greater than 239 mg/dL LDL Cholesterol Calculated 72 <100 mg/dL [facility] Comment:Desirable LDL: less than 100 mg/dLNear Optimal/Above Optimal LDL: 110- 129 mg/dLBorderline High LDL: 130-159 mg/dLHigh LDL: 160-189 mg/dLVery High LDL: greater than or equal to 190 mg/dL HDL Cholesterol 61 >40 mg/dL [facility] Comment:Desirable HDL: great er than 40 mg/dL Note: This HDL assay may give artificially low results in patients with liver disease. Blood Venous blood specimen / Unknown 01/03/2024 7:49 AM EDT 01/03/2024 7:49 AM EDT Yolanda Alan MD LAB BLOOD ORDERABLES Final Result [facility] [address] [place] [phone] * Pap Smear (02/18/2020) Pap Negative for intraephithelial lesion or malignancy Negative for intraephithelial lesion or malignancy, Other HPV Undetected Undetected, Indeterminate, Quantitative, Not Detected Sarabjit Provider HEALTH MAINTENANCE Final Result from Last 3 Months or Most Recently Relevant to Health Maintenance Insurance [facility] C3 DENTAL-[facility] MEDICAID STAND ADULT Care Teams Parks Recreation Director Relationship Specialty Start Date End Date Yolanda Regan MD [address] [place] [phone] PCP - General Family Medicine 07/07/19
--- OUTSIDE RECORDS SUMMARY | 2025-05-04 13:36 | XMS_ITS | Encounter Summary ---
Author Organization [facility] Address [address] [place] [address] Care Team Providers Care Warehouse Record Clerk Name Role Phone Yolanda Mclean MD Primary Care Provide r Unavailable Reason for Visit * Reason Comments E-prescribe Rx Request Encounter Details Date Type Department Care Team Description 09/15/2023 Refill Bariatric Surgery [facility] [address] [facility] [address] [place] [address] Denisa Coughlin PA-C [address] [facility] [address] [place] [address] E-prescribe Rx Request Social History Tobacco Use Types Packs/Day Years Used Date Smoking Tobacco: Never Smokeless Tobacco: Never Alcohol Use Standard Drinks/Week Comments No 0 (1 standard drink = 0.6 oz pur e alcohol) Sex Assigned at Date Recorded Not on file documented as of this encounter Plan of Treatment Not on file documented as of this encounter Visit Diagnoses Not on filedocumented in this encounter Care Teams Warehouse Record Clerk Relationship Specialty Start Date End Date Yolanda Mclean MD PCP - General Internal Medicine 02/15/22 documented as of this encounter
--- OUTSIDE RECORDS SUMMARY | 2025-05-04 13:36 | XMS_ITS | Encounter Summary ---
Author Organization [facility] Address [address] [place] [address] Care Team Providers Care Skate Shop Attendant Name Role Phone Yolanda Mclean MD Primary Care Provide r Unavailable Reason for Visit * Reason Comments E-prescribe Rx Request Encounter Details Date Type Department Care Team Description 12/16/2023 Refill Bariatric Surgery [facility] 175 [facility] 120 [place] [address] Denisa Coughlin PA-C [address] [facility] [address] [place] [address] E-prescribe Rx Request Social History [...] on filedocumented in this encounter Care Teams Skate Shop Attendant Relationship Specialty Start Date End Date Yolanda Mclean MD PCP - General Internal Medicine 02/15/22 documented as of this encounter
--- OUTSIDE RECORDS SUMMARY | 2025-05-04 13:36 | XMS_ITS | Encounter Summary ---
Author Organization [employer] Address 75 [facility] [address] 7t [place] [address] Care Team Providers Care Shirt Closer Name Role Phone Yolanda Regan MD Primary Care Provide r Reason for Visit * Reason Onset Date Comments Med Refill 12/16/2024 Encounter Details Date Type Department Care Team (Late st Contact Info) Description 12/16/2024 Refill [facility] MEDICINE [address] [place] [address] Stefany Murry MD 230 [place] [address] Chronic shoulder pain, unspecified laterality Social History [...] Description 05/21/2025 1:30 PM EDT Office Visit [facility] OPTOMETRY [address] [place] [address] Ilene Rush, OD 230 [place] [address] 06/04/2025 9:30 AM EDT Telemedicine [facility] MEDICINE 230 [place], [place] [id number] 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, RICARDO documented as of this encounter Visit Diagnoses Diagnosis Chronic shoulder pain, unspecified laterality documented in this encounter Additional Health Concerns Assessment Noted Time PHQ-9 Depression Total Score: 3 09/22/19 25 10:38 AM EST documented as of this encounter Care Teams Shirt Closer Relationship Specialty Start Date End Date Yolanda Regan MD [address] [place], [place] [id number] PCP - General Family Medicine 07/07/19 documented as of this encounter
--- OUTSIDE RECORDS SUMMARY | 2025-05-04 13:36 | XMS_ITS | Encounter Summary ---
Author Organization [facility] Address [address] [place] [address] Care Team Providers Care Network Systems Operator Name Role Phone Cecy Sargent MD Primary Care Provider Un available [facility] Primary Care Provider +- [phone] [facility], Pcp Primary Care Provider Susan Gonzales MD Unavailable [facility] Primary Care Provider + [phone] Name, Jean Paul LIRA Primary Care Provider Yolanda Newberry MD Primary Care Provide r Unavailable Encounter Details Date Type Department Care Team Description 06/18/2018 [facility] Medical Records [address] [place] [address] Abstract, Provider Social History Tobacco Use Types Packs/Day Years [...] on filedocumented in this encounter Care Teams Network Systems Operator Relationship Specialty Start Date End Date Cecy Sargent MD PCP - General Internal Medicine 04/10/1808/[address] [address] PCP - General Family Practice 08/02/19 08/11/19 [facility], Pcp [address] [place] [address] PCP - General Internal Medicine 08/12/19 10/18/[address] [address] PCP - General Family Practice 10/19/21 10/23/21 Name, MD Jean Paul [address] [place] [address] PCP - General Internal Medicine 10/24/21 02/14/22 Yolanda Mclean MD [address] [place] [address] PCP - General Internal Medicine 02/15/22 Susan Murry MD 230 [place] [address] 03/13/17 02/14/22 documented as of this encounter
--- OUTSIDE RECORDS SUMMARY | 2025-05-04 13:36 | XMS_ITS | Clinical Summary ---
Author Organization [facility] Address [address] [place] [address] Care Team Providers Care Assessment Coordinator Name Role Phone Unavailable Primary Care Provider [...] file Plan of Treatment Not on file [facility] [place] [address] [address]
--- OUTSIDE RECORDS SUMMARY | 2025-05-04 13:36 | XMS_ITS | Encounter Summary ---
Author Organization [employer] Address 75 [facility] 7t [place] [address] Care Team Providers Care Wheel Shop Supervisor Name Role Phone Yolanda Regan MD Primary Care Provide r Reason for Visit * Reason Onset Date Comments Med Refill 11/16/2024 Encounter Details Date Type Department Care Team (Late st Contact Info) Description 11/16/2024 Refill [facility] MEDICINE [address] [place] [address] Yolanda Regan MD 230 [place] [address] Chronic bilateral low back pain without sciatica [...] your housing situation today? I have aby garrison 06/16/[address] you li [...] Description 05/21/2025 1:30 PM EDT Office Visit [facility] OPTOMETRY [address] [place] [address] Ilene Rush, OD 230 [place] [address] 06/04/2025 9:30 AM EDT Telemedicine [facility] MEDICINE 230 [place] [address] 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, RICARDO documented as of this encounter Visit Diagnoses Diagnosis Chronic bilateral low back pain without sciatica documented in this encounter Additional Health Concerns Assessment Noted Time PHQ-9 Depression Total Score: 3 09/22/19 25 10:38 AM EST documented as of this encounter Care Teams Wheel Shop Supervisor Relationship Specialty Start Date End Date Yolanda Regan MD 230 [place] [address] PCP - General Family Medicine 07/07/19 documented as of this encounter
--- OUTSIDE RECORDS SUMMARY | 2025-05-04 13:36 | XMS_ITS | Encounter Summary ---
Author Organization [facility] Address [address] [place] [address] Care Team Providers Care Bunch Maker Hand Name Role Phone Cecy Sargent MD Primary Care Provider Un available [facility] Primary Care Provider +1- [phone] [facility], [facility] Primary Care Provider Susan Gonzales MD Unavailable [facility] Primary Care Provider +1- [phone] Name, Jean Paul LIRA Primary Care Provider Yolanda Newberry MD Primary Care Provide r Unavailable Encounter Details Date Type Department Care Team Description 06/23/2018 Refill Adult Medicine [address] [address] Cecy Sargent MD Social History Tobacco Use Types Packs/Day Years [...] on filedocumented in this encounter Care Teams Bunch Maker Hand Relationship Specialty Start Date End Date Cecy Sargent MD PCP - General Internal Medicine 04/10/1808/[address] [id number] PCP - General Family Practice 08/02/19 08/11/19 [facility], Pcp [address] [place] [address] PCP - General Internal Medicine 08/12/19 10/18/[address] [place] [address] PCP - General Family Practice 10/19/21 10/23/21 Jorge, MD Jean Paul [address] [place] [address] PCP - General Internal Medicine 10/24/21 02/14/22 Yolanda Mclean MD 230 [place] [address] PCP - General Internal Medicine 02/15/22 uSsan Murry MD [address] [place] [address] 03/13/17 02/14/22 documented as of this encounter
--- OUTSIDE RECORDS SUMMARY | 2025-05-04 13:36 | XMS_ITS | Encounter Summary ---
Author Organization [facility] Address [address] [place] [address] Care Team Providers Care Toy Assembler Wood Name Role Phone Yolanda Mclean MD Primary Care Provide r Unavailable Reason for Visit * Reason Comments E-prescribe Rx Request Encounter Details Date Type Department Care Team Description 11/15/2022 Refill Bariatric Surgery [facility] 175 [facility] 120 [place] [address] Denisa Coughlin PA-C 271 [facility] 110 [place] [address] E-prescribe Rx Request Social History [...] suspected to have Coronavirus/COVID-19? Unable to assess 11/02/2022 7:57 AM EST documented as of this encounter Plan of Treatment Not on file documented as of this encounter Visit Diagnoses Not on filedocumented in this encounter Care Teams Toy Assembler Wood Relationship Specialty Start Date End Date Yolanda Mclean MD PCP - General Internal Medicine 02/15/22 documented as of this encounter
--- OUTSIDE RECORDS SUMMARY | 2025-05-04 13:36 | XMS_ITS | Encounter Summary ---
Author Organization [facility] Address [address] [place] [address] Care Team Providers Care Beamer Helper Name Role Phone Lois Eid MD Primary Care Provider Cecy Camejo MD Primary Care Provider Un available [facility] Primary Care Provider [phone]- [phone] [facility], Pcp Primary Care Provider Susan Gonzales MD Unavailable [facility] Primary Care Provider +1- [phone] Name, Jean Paul LIRA Primary Care Provider Yolanda Newberry MD Primary Care Provide r Unavailable Encounter Details Date Type Department Care Team Description 01/06/2018 Transfer Records Medical Records [address] [place] [address] Abstract, Provider Social History Tobacco Use Types [...] on filedocumented in this encounter Care Teams Beamer Helper Relationship Specialty Start Date End Date Lois Eid MD PCP - General Internal Medicine 12/31/17 04/09/18 Cecy Sargent MD PCP - General Internal Medicine 04/10/1808/[address] [id number] PCP - General Family Practice 08/02/19 08/11/19 [facility], Pcp [address] [place] [address] PCP - General Internal Medicine 08/12/19 10/18/21 [facility] [address] [place] [address] PCP - General Family Practice 10/19/21 10/23/21 Name, MD Jean Paul [address] [place] [address] PCP - General Internal Medicine 10/24/21 02/14/22 Yolanda Mclean MD [address] [place] [address] PCP - General Internal Medicine 02/15/22 Susan Murry MD [address] [place] [address] 03/13/17 02/14/22 documented as of this encounter
--- OUTSIDE RECORDS SUMMARY | 2025-05-04 13:36 | XMS_ITS | Encounter Summary ---
Author Organization [employer] Address [address] [facility] [address] 7t [place] [address] Care Team Providers Care Business Attorney Name Role Phone Yolanda Regan MD Primary Care Provide r Reason for Visit * Reason Comments Med Refill Encounter Details Date Type Department Care Team ([facility] st Contact Info) Description 03/31/2025 Refill [facility] MEDICINE [address] [place] [address] Yolanda Regan MD [address] [place] [address] Social History Tobacco Use Types Packs/Day Years [...] Description 05/21/2025 1:30 PM EDT Office Visit [facility] OPTOMETRY [address] [place] [address] Victor Manuel, Ilene, OD 230 [place] [address] 06/04/2025 9:30 AM EDT Telemedicine [facility] MEDICINE [address] [place] [address] 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, RN documented as of this encounter Visit Diagnoses Not on filedocumented in this encounter Additional Health Concerns Assessment Noted Time PHQ-9 Depression Total Score: 3 09/22/19 25 10:38 AM EST documented as of this encounter Care Teams Business Attorney Relationship Specialty Start Date End Date Yolanda Regan MD [address] [place] [address] PCP - General Family Medicine 07/07/19 documented as of this encounter
--- OUTSIDE RECORDS SUMMARY | 2025-05-04 13:36 | XMS_ITS | Encounter Summary ---
Author Organization [facility] Address [address] [place] [address] Care Team Providers Care Web Publisher Name Role Phone Cecy Sargent MD Primary Care Provider Un available Lois Eid MD Primary Care Provider Cecy Camejo MD Primary Care Provider Un available [facility] Primary Care Provider +1- [phone] [facility], Pcp Primary Care Provider Susan Gonzales MD Unavailable [facility] Primary Care Provider +- [phone] Name, Jean Paul LIRA Primary Care Provider Yolanda Newberry MD Primary Care Provide r Unavailable Encounter Details Date Type Department Care Team Description 04/12/2017 Release of Information Medical Records [address] [place] [address] Abstract, Provider Social History Tobacco Use Types Packs/Day Years Used Date Smoking Tobacco: Never Alcohol Use Standard Drinks/Week Comments No 0 (1 standard drink = 0.6 oz pur e alcohol) Sex Assigned at Date Recorded Not on file documented as of this encounter Plan of Treatment Not on file documented as of this encounter Visit Diagnoses Not on filedocumented in this encounter Care Teams Web Publisher Relationship Specialty Start Date End Date Cecy Sargent MD PCP - General Internal Medicine 03/13/17 Lois Eid MD PCP - General Internal Medicine 12/31/17 04/09/18 Cecy Sargent MD PCP - General Internal Medicine 04/10/1808/[address] [id number] PCP - General Family Practice 08/02/19 08/11/19 [facility], Pcp [address] [place] [address] PCP - General Internal Medicine 08/12/19 10/18/21 [facility] [address] [place] [address] PCP - General Family Practice 10/19/21 10/23/21 Jorge, MD Jean Paul [address] [place] [address] PCP - General Internal Medicine 10/24/21 02/14/22 Yolanda Mclean MD [address] [place] [address] PCP - General Internal Medicine 02/15/22 Susan Murry MD [address] [place] [address] 03/13/17 02/14/22 documented as of this encounter
--- OUTSIDE RECORDS SUMMARY | 2025-05-04 13:36 | XMS_ITS | Encounter Summary ---
Author Organization [employer] Address 75 [facility] 7t [place] [address] Care Team Providers Care Garment Worker Name Role Phone Yolanda Regan MD Primary Care Provide r Reason for Visit * Reason Onset Date Comments Med Refill 03/17/2025 Encounter Details Date Type Department Care Team (Late st Contact Info) Description 03/17/2025 Refill [facility] MED[facility]INE [address] [place] [address] Yolanda Regan MD [address] [place] [address] Chronic bilateral low back pain without sciatica [...] your housing situation today? I have aby sing 01/11/[address] you li [...] 1:30 PM EDT Office Visit [facility] OPTOMETRY [address] [place] [address] Victor Manuel, Ilene, OD 230 [place] [address] 06/04/2025 9:30 AM EDT Telemedicine [facility] MEDICINE [address] [place] [address] 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, RICARDO documented as of this encounter Visit Diagnoses Diagnosis Chronic bilateral low back pain without sciatica documented in this encounter Additional Health Concerns Assessment Noted Time PHQ-9 Depression Total Score: 3 09/22/19 25 10:38 AM EST documented as of this encounter Care Teams Garment Worker Relationship Specialty Start Date End Date Yolanda Regan MD [address] [place] [address] PCP - General Family Medicine 07/07/19 documented as of this encounter
--- OUTSIDE RECORDS SUMMARY | 2025-05-04 13:36 | XMS_ITS | Encounter Summary ---
Author Organization [employer] Address [address] [facility] [address] 7t [place] [address] Care Team Providers Care Street Openings Inspector Name Role Phone Yolanda Regan MD Primary Care Provide r Reason for Visit * Reason Comments Med Refill Encounter Details Date Type Department Care Team ([facility] st Contact Info) Description 04/15/2025 Refill [facility] MEDICINE [address] [place] [address] Yolanda Regan MD [address] [place] [address] Chronic bilateral low back pain without sciatica [...] Description 05/21/2025 1:30 PM EDT Office Visit [facility] OPTOMETRY [address] [place] [address] Victor Manuel, Ilene, OD 230 [place] [address] 06/04/2025 9:30 AM EDT Telemedicine [facility] MEDICINE [address] [place] [address] 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, RICARDO documented as of this encounter Visit Diagnoses Diagnosis Chronic bilateral low back pain without sciatica documented in this encounter Additional Health Concerns Assessment Noted Time PHQ-9 Depression Total Score: 3 09/22/19 25 10:38 AM EST documented as of this encounter Care Teams Street Openings Inspector Relationship Specialty Start Date End Date Yolanda Regan MD [address] [place] [address] PCP - General Family Medicine 07/07/19 documented as of this encounter
--- OUTSIDE RECORDS SUMMARY | 2025-05-04 13:36 | XMS_ITS | Encounter Summary ---
Author Organization [facility] Address [address] [place] [address] Care Team Providers Care Director Card Name Role Phone Yolanda Mclean MD Primary Care Provide r Unavailable Encounter Details Date Type Department Care Team Description 10/09/2022 Orders Only Medical Records [address] [place] [address] Jg Warner MD [address] [place] [address] [address] [place] [address] Social History Tobacco Use Types Packs/Day Years [...] suspected to have Coronavirus/COVID-19? No / Unsure 10/01/2022 12:39 PM EST documented as of this encounter Plan of Treatment Not on file documented as of this encounter Procedures Procedure Name Priority Date/Time Associated Diagnosis Comments OUTSIDE PATHOLOGY Routine 10/05/2022 documented in this encounter Results * OUTSIDE PATHOLOGY (10/05/2022) Jg Warner MD OUTSIDE LAB documented in this encounter Visit Diagnoses Not on filedocumented in this encounter Care Teams Director Card Relationship Specialty Start Date End Date Yolanda Mclean MD PCP - General Internal Medicine 02/15/22 documented as of this encounter
--- OUTSIDE RECORDS SUMMARY | 2025-05-04 13:36 | XMS_ITS | Encounter Summary ---
Author Organization [facility] Address [address] [place] [address] Care Team Providers Care Oxyacetylene Welder Name Role Phone Yolanda Mclean MD Primary Care Provide r Unavailable Reason for Visit * Reason Comments E-prescribe Rx Request Encounter Details Date Type Department Care Team Description 05/23/2023 Refill Bariatric Surgery [facility] 175 [facility] [address] [place] [address] Denisa Coughlin PA-C 271 [facility] [address] [place] [address] E-prescribe Rx Request Social History [...] on filedocumented in this encounter Care Teams Oxyacetylene Welder Relationship Specialty Start Date End Date Yolanda Mclean MD PCP - General Internal Medicine 02/15/22 documented as of this encounter
--- OUTSIDE RECORDS SUMMARY | 2025-05-04 13:36 | XMS_ITS | Encounter Summary ---
Author Organization [facility] Address [address] [place] [address] Care Team Providers Care Gas Adjuster Name Role Phone Cecy Sargent MD Primary Care Provider Un available [facility] Primary Care Provider +- [phone] [facility], Pcp Primary Care Provider Susan Gonzales MD Unavailable [facility] Primary Care Provider + [phone] Name, Jean Paul LIRA Primary Care Provider Yolanda Newberry MD Primary Care Provide r Unavailable Encounter Details Date Type Department Care Team Description 06/19/2018 Release of Information Medical Records [address] [place] [address] Abstract, Provider Social History Tobacco Use Types [...] on filedocumented in this encounter Care Teams Gas Adjuster Relationship Specialty Start Date End Date Cecy Sargent MD PCP - General Internal Medicine 04/10/1808/[address] [address] PCP - General Family Practice 08/02/19 08/11/19 [facility], Pcp [address] [place] [address] PCP - General Internal Medicine 08/12/19 10/18/[address] [address] PCP - General Family Practice 10/19/21 10/23/21 Name, MD Jean Paul [address] [place] [address] PCP - General Internal Medicine 10/24/21 02/14/22 Yolanda Mclean MD [address] [place] [address] PCP - General Internal Medicine 02/15/22 Susan Murry MD [address] [place] [address] 03/13/17 02/14/22 documented as of this encounter
--- OUTSIDE RECORDS SUMMARY | 2025-05-04 13:37 | XMS_ITS | Encounter Summary ---
Author Organization [facility] Address [address] [place] [address] Care Team Providers Care Histology Specialist Name Role Phone [facility], Pcp Primary Care Provider Susan Gonzales MD [facility] Primary Care Provider +1- [phone] Name, Jean Paul LIRA Primary Care Provider Yolanda Newberry MD Primary Care Provide r Unavailable Reason for Visit * Reason Onset Date Comments TEST RESULTS 08/23/2020 Encounter Details Date Type Department Care Team Description 08/23/2020 Telephone General Surgery - [place] [facility] [address] [place] [address] Jg Warner MD [address] [place] [address] [address] [place], [place] [id number] TEST RESULTS Social History Tobacco Use Types Packs/Day Years Used Date Smoking Tobacco: Never Smokeless Tobacco: Never Alcohol Use Standard Drinks/Week Comments No 0 (1 standard drink = 0.6 oz pur e alcohol) Sex Assigned at Date Recorded Not on file COVID-19 Exposure Response Date Recorded In the last month, have you been in contact with someone who was confirmed or suspected to have Coronavirus / COVID-19? Unable to assess 08/04/2020 6:33 AM EST documented as of this encounter Miscellaneous Notes * Telephone Encounter - Mckayla Bunch - 08/30/2020 1:04 PM EST Pt is calling again wanting know results of UPR GI * Telephone Encounter - Libertad Bunch - 08/23/2020 2:21 PM EST Pt called wants to get results from her [facility] GI TRC DOUBLE CONTRAST STUDY done last week. documented in this encounter Plan of Treatment Not on file documented as of this encounter Visit Diagnoses Not on filedocumented in this encounter Care Teams Histology Specialist Relationship Specialty Start Date End Date Community, Pcp PCP - General Internal Medicine 08/12/19 10/18/[address] [address] PCP - General Family Practice 10/19/21 10/23/21 Name, MD Jean Paul [address] [place] [address] PCP - General Internal Medicine 10/24/21 02/14/22 Yolanda Mclean MD [address] [place] [address] PCP - General Internal Medicine 02/15/22 Susan Murry MD 03/13/17 02/14/22 documented as of this encounter
--- OUTSIDE RECORDS SUMMARY | 2025-05-04 13:37 | XMS_ITS | Clinical Summary ---
Author Organization 175 [facility] Address [address] [place] [address] Phone Care Team Providers Care Affiliate Marketing Coordinator Name Role Phone Yolanda Regan MD Primary [...] PROCEDURE: HISTORICAL TUBAL LIGATION COLPOSCOPY 05/20/2012 PROCEDURE: OH COLPOSCOPY ENTIRE VAGINA W/CERVIX IF PRESENT Medical [...] 08/04/2022 Social Influencers of Health Screening 08/04/2022 Depression Screening 09/02/2024 COVID-19 Vaccine ( - 2023-2 5 season) 2025 Influenza Vaccine (#1) 2025 06/27/2017 Cholesterol Screening [...] Maintenance Results * Lipid panel (06/08/2022) Pathologist [facility] LDL/HDL Ratio 2 0 - 4 Triglycerides 43 0 - 150 mg/dL Cholesterol 147 0 - 200 mg/dL HDL 62 >=40 mg/dL LDL Cholesterol 77 0 - 100 mg/dL Blood Venous blood specimen / Unknown Result [facility] Provider LAB BLOOD ORDERABLES Tila l Result * HIV Screening (01/10/2018) Pathologist [facility] HIV Screening abstracted [facility] Provider HEALTH MAINTENANCE Final Result * Hepatitis C Screening (01/10/2018) Pathologist [facility] Hepatitis C Screening abstracted [facility] Provider HEALTH MAINTENANCE Final Result * Cervical Cancer Screening: HPV (01/23/2017) Pathologist [facility] Cervical Cancer Screening: HPV abstracted, no interpretation [facility] Provider HEALTH MAINTENANCE Final Result from Last 3 Months or Most Recently Relevant to Health Maintenance Insurance MEDICAID - [place] Care Teams Affiliate Marketing Coordinator Relationship Specialty Start Date End Date Yolanda Regan MD [address] [id number] PCP - General Internal Medicine 02/15/22
--- OUTSIDE RECORDS SUMMARY | 2025-05-04 13:37 | XMS_ITS | Encounter Summary ---
Author Organization [employer] Address [address]t [place] [address] Care Team Providers Care Manager Of Development Name Role Phone Yolanda Regan MD Primary Care Provide r Reason for Visit * Reason Comments Med Refill Encounter Details Date Type Department Care Team ([facility] st Contact Info) Description 07/02/2023 Refill [facility] [address] [place] [address] Yolanda Regan MD 230 [place] [address] Chronic bilateral low back pain without sciatica [...] [facility] OPTOMETRY [address] [place] [address] Victor Manuel, Ilene, OD [address] [place] [address] 06/04/2025 9:30 AM EDT Telemedicine [facility] MED[facility]INE [address] [place] [address] 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 RN documented as of this encounter Visit Diagnoses Diagnosis Chronic bilateral low back pain without sciatica documented in this encounter Additional Health Concerns Assessment Noted Time PHQ-9 Depression Total Score: 0 09/06/19 23 10:08 AM EST documented as of this encounter Care Teams Manager Of Development Relationship Specialty Start Date End Date Yolanda Regan MD [address] [place] [address] PCP - General Family Medicine 07/07/19 documented as of this encounter
--- OUTSIDE RECORDS SUMMARY | 2025-05-04 13:37 | XMS_ITS | Encounter Summary ---
Author Organization [employer] Address [address] [place] [address] Care Team Providers Care Dial Lathe Operator Name Role Phone Yolanda Regan MD Primary Care Provide r Reason for Visit * Reason Comments Med Refill Encounter Details Date Type Department Care Team ([facility] st Contact Info) Description 08/25/2023 Refill [facility] [address] [place], [place] [phone] Stefany Murry MD [address] [place] [address] Anxiety; Chronic bilateral low back pain without [...] Description 05/21/2025 1:30 PM EDT Office Visit [facility] OPTOMETRY [address] [place], [place] [phone] Victor Manuel, Ilene, OD [address] [place] [address] 06/04/2025 9:30 AM EDT Telemedicine [facility] [address] [place] [address] 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 RN documented as of this encounter Visit Diagnoses Diagnosis Anxiety Anxiety state, unspecified Chronic bilateral low back pain without sciatica documented in this encounter Additional Health Concerns Assessment Noted Time PHQ-9 Depression Total Score: 0 09/06/19 23 10:08 AM EST documented as of this encounter Care Teams Dial Lathe Operator Relationship Specialty Start Date End Date Yolanda Regan MD [address] [place] [address] PCP - General Family Medicine 07/07/19 documented as of this encounter
--- OUTSIDE RECORDS SUMMARY | 2025-05-04 13:37 | XMS_ITS | Encounter Summary ---
Author Organization [facility] Address [address] [place] [address] Care Team Providers Care Auto Servicer Name Role Phone Cecy Sargent MD Primary Care Provider Un available [facility] Primary Care Provider +- [phone] [facility], Pcp Primary Care Provider Susan Gonzales MD Unavailable [facility] Primary Care Provider +- [phone] Name, Jean Paul LIRA Primary Care Provider Yolanda Newberry MD Primary Care Provide r Unavailable Encounter Details Date Type Department Care Team Description 05/20/2018 [facility] Controlled Substance Contract Medical Records [address] [place] [id number] Abstract, Provider Social History Tobacco Use Types [...] on filedocumented in this encounter Care Teams Auto Servicer Relationship Specialty Start Date End Date Cecy Sargent MD PCP - General Internal Medicine 04/10/1808/[address] [address] PCP - General Family Practice 08/02/19 08/11/19 [facility], Pcp [address] [place] [address] PCP - General Internal Medicine 08/12/19 10/18/[address] [address] PCP - General Family Practice 10/19/21 10/23/21 Name, MD Jean Paul [address] [place] [address] PCP - General Internal Medicine 10/24/21 02/14/22 Yolanda Mclean MD [address] [place] [address] PCP - General Internal Medicine 02/15/22 Susan Murry MD [address] [place] [address] 03/13/17 02/14/22 documented as of this encounter
--- OUTSIDE RECORDS SUMMARY | 2025-05-04 13:37 | XMS_ITS | Encounter Summary ---
Author Organization [facility] Address [address] [place] [address] Care Team Providers Care Hemodialysis Patient Care Specialist Name Role Phone [facility], Pcp Primary Care Provider Susan Gonzales MD Unavailable [facility] Primary Care Provider [phone] Jean Paul Patel MD Primary Care Provider Yolanda Newberry MD Primary Care Provide r Unavailable Encounter Details Date Type Department Care Team Description 10/16/2019 Release of Information Medical Records [address] [place] [address] Abstract, Provider Social History Tobacco Use Types [...] on filedocumented in this encounter Care Teams Hemodialysis Patient Care Specialist Relationship Specialty Start Date End Date [facility], Pcp PCP - General Internal Medicine 08/12/19 10/18/[address] [address] PCP - General Family Practice 10/19/21 10/23/21 Jean Paul Patel MD [address] [place] [address] PCP - General Internal Medicine 10/24/21 02/14/22 Yolanad Mclean MD [address] [place] [address] PCP - General Internal Medicine 02/15/22 Susan Murry MD 03/13/17 02/14/22 documented as of this encounter
--- OUTSIDE RECORDS SUMMARY | 2025-05-04 13:37 | XMS_ITS | Encounter Summary ---
Author Organization [employer] Address [address] [place] [address] Care Team Providers Care Gauge Controller Name Role Phone Yolanda Regan MD Primary Care Provide r Reason for Visit * Reason Onset Date Comments PA 01/13/2024 Encounter Details Date Type Department Care Team ([facility] st Contact Info) Description 01/13/2024 Telephone [facility] [address] [place] [address] Yolanda Regan MD [address] [place] [address] PA Social History Tobacco Use Types Packs/Day [...] back regarding any update. Best contact # [phone] Romanian . documented in this encounter Plan of Treatment Upcoming Encounters Date Type Department Care Team ([facility] st Contact Info) Description 05/21/2025 1:30 PM EDT Office Visit [facility] OPTOMETRY [address] [place] [address] Ilene Rush, OD [address] [place] [address] 06/04/2025 9:30 AM EDT Telemedicine [facility] MED[facility]INE [address] [place] [address] 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 RN documented as of this encounter Visit Diagnoses Not on filedocumented in this encounter Additional Health Concerns Assessment Noted Time PHQ-9 Depression Total Score: 14 024 10:18 AM EDT documented as of this encounter Care Teams Gauge Controller Relationship Specialty Start Date End Date Yolanda Regan MD [address] [place] [address] PCP - General Family Medicine 07/07/19 documented as of this encounter
--- OUTSIDE RECORDS SUMMARY | 2025-05-04 13:37 | XMS_ITS | Encounter Summary ---
Author Organization [employer] Address [address] 7[address] [place] [address] Care Team Providers Care Nitriles Lab Technician Name Role Phone Yolanda Regan MD Primary Care Provide r Reason for Visit * Reason Comments Med Refill Encounter Details Date Type Department Care Team ([facility] st Contact Info) Description 07/01/2023 Refill [facility] MEDICINE [address] [place] [address] Yolanda Regan MD [address] [place] [address] Chronic bilateral low back pain without sciatica [...] Description 05/21/2025 1:30 PM EDT Office Visit [facility] OPTOMETRY [address] [place] [address] Victor Manuel, Ilene, OD [address] [place] [address] 06/04/2025 9:30 AM EDT Telemedicine [facility] MEDICINE [address] [place] [address] 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 RN documented as of this encounter Visit Diagnoses Diagnosis Chronic bilateral low back pain without sciatica documented in this encounter Additional Health Concerns Assessment Noted Time PHQ-9 Depression Total Score: 0 09/06/19 23 10:08 AM EST documented as of this encounter Care Teams Nitriles Lab Technician Relationship Specialty Start Date End Date Yolanda Regan MD [address] [place] [address] PCP - General Family Medicine 07/07/19 documented as of this encounter
--- OUTSIDE RECORDS SUMMARY | 2025-05-04 13:37 | XMS_ITS | Encounter Summary ---
Author Organization [employer] Address [address] [facility] [place] [address] Care Team Providers Care Moto Mix Operator Name Role Phone Yolanda Regan MD Primary Care Provide r Reason for Visit * Reason Comments Med Refill Encounter Details Date Type Department Care Team ([facility] st Contact Info) Description 07/13/[address] [facility] MED[facility]INE [address] [place] [address] Tammy Moraes, 230 [place] [address] Mild intermittent asthma, unspecified whether complicated Social [...] Description 05/21/2025 1:30 PM EDT Office Visit [facility] OPTOMETRY [address] [place] [address] Victor Manuel, Ilene, OD [address] [place] [address] 06/04/2025 9:[address] [facility] MEDICINE [address] [place] [address] 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 RN documented as of this encounter Visit Diagnoses Diagnosis Mild intermittent asthma, unspecified whether complicated documented in this encounter Additional Health Concerns Assessment Noted Time PHQ-9 Depression Total Score: 0 09/06/19 23 10:08 AM EST documented as of this encounter Care Teams Moto Mix Operator Relationship Specialty Start Date End Date Yolanda Regan MD [address] [place] [address] PCP - General Family Medicine 07/07/19 documented as of this encounter
--- OUTSIDE RECORDS SUMMARY | 2025-05-04 13:37 | XMS_ITS | Encounter Summary ---
Author Organization [employer] Address [address] [facility] 7t [place] [address] Care Team Providers Care Wig Sales Consultant Name Role Phone Yolanda Regan MD Primary Care Provide r Encounter Details Date Type Department Care Team (Latest Contact Info) Description 05/25/2020 Abstract [facility] CONVERSIONS Dental, Provider, DDS Social History Tobacco [...] Description 05/21/2025 1:30 PM EDT Office Visit [facility] OPTOMETRY [address] [place] [address] Ilene Rush, OD [address] [place] [address] 06/04/2025 9:30 AM EDT Telemedicine [facility] MEDICINE [address] [place] [address] 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 RN documented as of this encounter Visit Diagnoses Not on filedocumented in this encounter Care Teams Wig Sales Consultant Relationship Specialty Start Date End Date Yolanda Regan MD [address] [place] [address] PCP - General Family Medicine 07/07/19 documented as of this encounter
--- OUTSIDE RECORDS SUMMARY | 2025-05-04 13:37 | XMS_ITS | Encounter Summary ---
Author Organization [facility] Address [address] [place] [address] Care Team Providers Care Retail Helper Name Role Phone Yolanda Mclean MD Primary Care Provide r Unavailable Encounter Details Date Type Department Care Team Description 09/11/2022 Transfer Records Medical Records [address] [place] [address] Abstract, Provider Social History Tobacco Use Types [...] suspected to have Coronavirus/COVID-19? No / Unsure 08/28/2022 9:05 AM EST documented as of this encounter Plan of Treatment Not on file documented as of this encounter Visit Diagnoses Not on filedocumented in this encounter Care Teams Retail Helper Relationship Specialty Start Date End Date Yolanda Mclean MD PCP - General Internal Medicine 02/15/22 documented as of this encounter
--- OUTSIDE RECORDS SUMMARY | 2025-05-04 13:37 | XMS_ITS | Encounter Summary ---
Author Organization [facility] Address [address] [place] [address] Care Team Providers Care Marketing Officer Name Role Phone Yolanda Mclean MD Primary Care Provide r Unavailable Encounter Details Date Type Department Care Team Description 05/29/2022 Telephone General Surgery - [place] [address] [facility] [address] [place] [address] Sandy Dean, MS,RDN,LDN [address] [facility] [address] [place] [address] Social History Tobacco Use Types Packs/Day Years [...] suspected to have Coronavirus/COVID-19? Unable to assess 05/18/2022 8:02 AM EDT documented as of this encounter Miscellaneous Notes * Telephone Encounter - Gerda Chawla - 05/29/2022 9:19 AM EDT Patient dropped off lactation consultant questionnaire, forwarded to Sandy. documented in this encounter Plan of Treatment Not on file documented as of this encounter Visit Diagnoses Not on filedocumented in this encounter Care Teams Marketing Officer Relationship Specialty Start Date End Date Yolanda Mclean MD PCP - General Internal Medicine 02/15/22 documented as of this encounter
--- OUTSIDE RECORDS SUMMARY | 2025-05-04 13:37 | XMS_ITS | Encounter Summary ---
Author Organization [employer] Address [address] [facility] [address] [place] [address] Care Team Providers Care Director Funeral Name Role Phone Yolanda Regan MD Primary Care Provide r Encounter Details Date Type Department Care Team (Latest Contact Info) Description 05/04/2025 Travel Social History Tobacco Use Types Packs/Day [...] Description 05/21/2025 1:30 PM EDT Office Visit [facility] OPTOMETRY [address] [place] [address] Ilene Rush, OD [address] [place] [address] 06/04/2025 9:30 AM EDT Telemedicine [facility] MEDICINE [address] [place] [address] 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, RICARDO documented as of this encounter Visit Diagnoses Not on filedocumented in this encounter Additional Health Concerns Assessment Noted Time PHQ-9 Depression Total Score: 3 09/22/19 25 10:38 AM EST documented as of this encounter Care Teams Director Funeral Relationship Specialty Start Date End Date Yolanda Regan MD [address] [place], [place] [id number] PCP - General Family Medicine 07/07/19 documented as of this encounter
--- OUTSIDE RECORDS SUMMARY | 2025-05-04 13:37 | XMS_ITS | Encounter Summary ---
Author Organization [employer] Address [address] [facility] 7t [place] [address] Care Team Providers Care Power Generation Engineer Name Role Phone Yolanda Regan MD Primary Care Provide r Encounter Details Date Type Department Care Team (Latest Contact Info) Description 03/11/2019 Abstract [facility] CONVERSIONS Dental, Provider, DDS Social History [...] 1:30 PM EDT Office Visit [facility] OPTOMETRY [address] [place] [address] Ilnee Rush, OD [address] [place] [address] 06/04/2025 9:30 AM EDT Telemedicine [facility] MEDICINE [address] [place] [address] 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 RN documented as of this encounter Visit Diagnoses Not on filedocumented in this encounter Care Teams Power Generation Engineer Relationship Specialty Start Date End Date Yolanda Regan MD [address] [place] [address] PCP - General Family Medicine 07/07/19 documented as of this encounter
--- OUTSIDE RECORDS SUMMARY | 2025-05-04 13:37 | XMS_ITS | Encounter Summary ---
Author Organization [employer] Address [address] [facility] [address] [place] [address] Care Team Providers Care Individual Pension Consultant Name Role Phone Yolanda Regan MD Primary Care Provide r Reason for Visit * Reason Comments Med Refill Encounter Details Date Type Department Care Team ([facility] st Contact Info) Description 07/13/2023 Refill [facility] MEDICINE [address] [place] [address] Yolanda Regan MD [address] [place] [address] Mild intermittent asthma without complication Social History [...] 1:30 PM EDT Office Visit [facility] OPTOMETRY [address] [place] [address] Victor Manuel, Ilene, OD [address] [place] [address] 06/04/2025 9:30 AM EDT Telemedicine [facility] MEDICINE [address] [place] [address] 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 RN documented as of this encounter Visit Diagnoses Diagnosis Mild intermittent asthma without complication documented in this encounter Additional Health Concerns Assessment Noted Time PHQ-9 Depression Total Score: 0 09/06/19 23 10:08 AM EST documented as of this encounter Care Teams Individual Pension Consultant Relationship Specialty Start Date End Date Yolanda Regan MD [address] [place] [address] PCP - General Family Medicine 07/07/19 documented as of this encounter
--- OUTSIDE RECORDS SUMMARY | 2025-05-04 13:38 | XMS_ITS | Encounter Summary ---
Author Organization [employer] Address [address] [place] [address] Care Team Providers Care Crew Director Name Role Phone Yolanda Regan MD Primary Care Provide r Reason for Visit * Reason Onset Date Comments Appointment Request 09/08/2024 Encounter Details Date Type Department Care Team ([facility] st Contact Info) Description 09/08/2024 Telephone [facility] MEDICINE [address] [place] [address] Yolanda Regan MD [address] [place] [address] Appointment Request Social History Tobacco Use Types [...] Miscellaneous Notes * Telephone Encounter - Maged Ropernandez - 09/08/2024 8:40 AM EST TC from pt requesting to r/s appt for 09/17. Second Cutter advised pt that the only apt would be for end ofFebruary and pt would like to see if there is anything that can be done or for her to be let know If any one cancels. Contact pt at [phone] documented in this encounter Plan of Treatment Upcoming Encounters Date Type Department Care Team (Late st Contact Info) Description 05/21/2025 1:30 PM EDT Office Visit [facility] OPTOMETRY [address] [place] [address] Ilene Rush, OD [address] [place] [address] 06/04/2025 9:30 AM EDT Telemedicine [facility] MEDICINE [address] [place] [address] 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 RN documented as of this encounter Visit Diagnoses Not on filedocumented in this encounter Additional Health Concerns Assessment Noted Time PHQ-9 Depression Total Score: 4 07/23/20 24 9:30 AM EST documented as of this encounter Care Teams Crew Director Relationship Specialty Start Date End Date Yolanda Regan MD [address] [place] [address] PCP - General Family Medicine 07/07/19 documented as of this encounter
--- OUTSIDE RECORDS SUMMARY | 2025-05-04 13:38 | XMS_ITS | Encounter Summary ---
Author Organization [employer] Address [address] [facility] [address] [place] [address] Care Team Providers Care Movie Operator Name Role Phone Yolanda Regan MD Primary Care Provide r Reason for Visit * Reason Comments Med Refill Encounter Details Date Type Department Care Team (Late Contact Info) Description 03/22/2023 Refill [facility] [address] [place] [address] Richi Sinclair, MANSOOR Irritant dermatitis Social History Tobacco Use Types [...] [facility] Contact Info) Description 05/21/2025 1:30 PM EDT Office Visit [facility] OPTOMETRY [address] [place] [address] Victor Manuel, Ilene, OD [address] [place], [place] [phone] 06/04/2025 9:30 AM EDT Telemedicine [facility] MED[facility]INE [address] [place], [place] [phone] 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 RN documented as of this encounter Visit Diagnoses Diagnosis Irritant dermatitis Contact dermatitis and other eczema, due to unspecified cause documented in this encounter Additional Health Concerns Assessment Noted Time PHQ-9 Depression Total Score: 0 09/06/19 23 10:08 AM EST documented as of this encounter Care Teams Movie Operator Relationship Specialty Start Date End Date Yolanda Regan MD [address] [place] [address] PCP - General Family Medicine 07/07/19 documented as of this encounter
--- OUTSIDE RECORDS SUMMARY | 2025-05-04 13:38 | XMS_ITS | Encounter Summary ---
Author Organization [employer] Address [address] [facility] [address] [place] [address] Care Team Providers Care Rn Lvn Name Role Phone Yolanda Regan MD Primary Care Provide r Reason for Visit * Reason Onset Date Comments Appointment Request 11/14/2022 Encounter Details Date Type Department Care Team ([facility] st Contact Info) Description 11/14/2022 Telephone [facility] MEDICINE [address] [place] [address] Yolanda Regan MD [address] [place] [address] Appointment Request Social History Tobacco Use Types [...] Miscellaneous Notes * Telephone Encounter - Jannette Clayton Jordan - 11/15/2022 9:14 AM EDT Tc from pt requesting a status on previous message. * Telephone Encounter - Ry Doos - 11/14/2022 10:04 AM EDT Tc from pt requesting a Physical exam due to work requiring it. Pt stated wont mind seeing a different PCP. Please contact pt at [phone] documented in this encounter Plan of Treatment Upcoming Encounters Date Type Department Care Team (Late st Contact Info) Description 05/21/2025 1:30 PM EDT Office Visit [facility] OPTOMETRY [address] [place] [address] Ilene Rush, OD [address] [place] [address] 06/04/2025 9:30 AM EDT Telemedicine [facility] MEDICINE [address] [place] [address] 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 RN documented as of this encounter Visit Diagnoses Not on filedocumented in this encounter Additional Health Concerns Assessment Noted Time PHQ-9 Depression Total Score: 0 09/06/19 23 10:08 AM EST documented as of this encounter Care Teams Rn Lvn Relationship Specialty Start Date End Date Yolanda Regan MD [address] [place] [address] PCP - General Family Medicine 07/07/19 documented as of this encounter
--- OUTSIDE RECORDS SUMMARY | 2025-05-04 13:38 | XMS_ITS | Encounter Summary ---
Author Organization [facility] Address [address] [place] [address] Care Team Providers Care Certified Endoscopy Technician Name Role Phone Yolanda Mclean MD Primary Care Provide r Unavailable Encounter Details Date Type Department Care Team Description 07/31/2022 SCAN Medical Records [address] [place] [address] Abstract, Provider Complication of gastric banding; Gastroesophageal reflux disease, unspecified whether esophagitis present Social History Tobacco Use Types Packs/Day Years [...] suspected to have Coronavirus/COVID-19? Unable to assess 08/01/2022 7:46 AM EST documented as of this encounter Plan of Treatment Not on file documented as of this encounter Procedures Procedure Name Priority Date/Time Associated Diagnosis Comments CHG RADIOLOGIC EXAM UPR GI TRC DOUBLE CONTRAST STUDY Routine 03/09/2022 Complication of gastric banding Gastroesophageal reflux disease, unspecified whether esophagitis present documented in this encounter Results * CHG RADIOLOGIC EXAM UPR GI TRC DOUBLE CONTRAST STUDY (03/09/2022) Jg Warner MD OUTSIDE RADIOLOGY documented in this encounter Visit Diagnoses Diagnosis Complication of gastric banding Other complications of gastric band procedure Gastroesophageal reflux disease, unspecified whether esophagitis present documented in this encounter Care Teams Certified Endoscopy Technician Relationship Specialty Start Date End Date Yolanda Mclean MD PCP - General Internal Medicine 02/15/22 documented as of this encounter
--- OUTSIDE RECORDS SUMMARY | 2025-05-04 13:38 | XMS_ITS | Encounter Summary ---
Author Organization [employer] Address [address] [place] [address] Care Team Providers Care Bag Bailer Name Role Phone Yolanda Regan MD Primary Care Provide r Reason for Visit * Reason Onset Date Comments Nurse Triage 03/17/2024 Encounter Details Date Type Department Care Team ([facility] st Contact Info) Description 03/17/2024 Telephone [facility] MEDICINE [address] [place] [address] Yolanda Regan MD [address] [place] [address] Nurse Triage Social History Tobacco Use Types [...] encounter Miscellaneous Notes * Telephone Encounter - Jesseniaiftikhar Forrest Jordan - 03/17/2024 8:27 AM EDT TC from pt requesting medication refill. Medications needing refill : Tramadol 50 mg tablets To be sent to: [facility] Pt would like a call in regards to quantity documented in this encounter Plan of Treatment Upcoming Encounters Date Type Department Care Team (Late st Contact Info) Description 05/21/2025 1:30 PM EDT Office Visit [facility] OPTOMETRY [address] [place] [address] Ilene Rush, OD [address] [place] [address] 06/04/2025 9:30 AM EDT Telemedicine [facility] MEDICINE [address] [place] [address] 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 RN documented as of this encounter Visit Diagnoses Not on filedocumented in this encounter Additional Health Concerns Assessment Noted Time PHQ-9 Depression Total Score: 14 024 10:18 AM EDT documented as of this encounter Care Teams Bag Bailer Relationship Specialty Start Date End Date Yolanda Regan MD [address] [place] [address] PCP - General Family Medicine 07/07/19 documented as of this encounter
--- OUTSIDE RECORDS SUMMARY | 2025-05-04 13:38 | XMS_ITS | Encounter Summary ---
Author Organization [employer] Address [address] [facility] 7t [place] [address] Care Team Providers Care Freezer Operator Name Role Phone Yolanda Regan MD Primary Care Provide r Reason for Visit * Reason Comments Med Refill Encounter Details Date Type Department Care Team (Late Contact Info) Description 01/04/2023 Refill [facility] MEDICINE [address] [place] [address] Za Arellano MD [address] [place] [address] Chronic bilateral low back pain without sciatica [...] Encounters Date Type Department Care Team (Late Contact Info) Description 05/21/2025 1:30 PM EDT Office Visit [facility] OPTOMETRY [address] [place] [address] Ilene Rush, OD [address] [place] [address] 06/04/2025 9:30 AM EDT Telemedicine [facility] MEDICINE [address] [place] [address] 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, RICARDO documented as of this encounter Visit Diagnoses Diagnosis Chronic bilateral low back pain without sciatica documented in this encounter Additional Health Concerns Assessment Noted Time PHQ-9 Depression Total Score: 0 09/06/19 23 10:08 AM EST documented as of this encounter Care Teams Freezer Operator Relationship Specialty Start Date End Date Yolanda Regan MD [address] [place] [address] PCP - General Family Medicine 07/07/19 documented as of this encounter
--- OUTSIDE RECORDS SUMMARY | 2025-05-04 13:38 | XMS_ITS | Encounter Summary ---
Author Organization [employer] Address [address] [facility] 7t [place] [address] Care Team Providers Care Supervisor Travel Trailer Name Role Phone Yolanda Regan MD Primary Care Provide r Reason for Visit * Reason Onset Date Comments Med Refill 01/14/2023 Encounter Details Date Type Department Care Team (Late st Contact Info) Description 01/14/2023 Telephone [facility] MEDICINE [address] [place] [address] Yolanda Regan MD [address] [place], [place] [phone] Med Refill Social History Tobacco Use Types [...] pt requesting status check on script requested, program writer booked pt a f/u appt per PCP notes ,scheduled for 02/12/23 @ 2:30pm * Telephone Encounter - Michelle Oden LPN - 01/14/2023 9:20 AM EDT Med is not pended as [employer] [facility] and med was last filled 04/11/22.Please review and advise. * Telephone Encounter - Ry Cochran - 01/14/2023 9:03 AM EDT Tc from pt requesting med refill gabapentin (Neurontin) 100 MG capsule documented in this encounter Plan of Treatment Upcoming Encounters Date Type Department Care Team (Late st Contact Info) Description 05/21/2025 1:30 PM EDT Office Visit [facility] OPTOMETRY [address] [place] [address] Victor Manuel, Ilene, OD [address] [place] [address] 06/04/2025 9:30 AM EDT Telemedicine [facility] MEDICINE [address] [place] [address] 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, RN documented as of this encounter Visit Diagnoses Not on filedocumented in this encounter Additional Health Concerns Assessment Noted Time PHQ-9 Depression Total Score: 0 09/06/19 23 10:08 AM EST documented as of this encounter Care Teams Supervisor Travel Trailer Relationship Specialty Start Date End Date Yolanda Regan MD [address] [place] [address] PCP - General Family Medicine 07/07/19 documented as of this encounter
--- OUTSIDE RECORDS SUMMARY | 2025-05-04 13:38 | XMS_ITS | Encounter Summary ---
Author Organization [employer] Address [address] [facility] 7t [place] [address] Care Team Providers Care Anesthesiology Physician Assistant Name Role Phone Yolanda Regan MD Primary Care Provide r Encounter Details Date Type Department Care Team (Latest Contact Info) Description 07/02/2022 Abstract [facility] CONVERSIONS Dental, Provider, DDS Social History [...] Description 05/21/2025 1:30 PM EDT Office Visit [facility] OPTOMETRY [address] [place] [address] Ilene Rush, OD [address] [place] [address] 06/04/2025 9:30 AM EDT Telemedicine [facility] MEDICINE [address] [place] [address] 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 RN documented as of this encounter Visit Diagnoses Not on filedocumented in this encounter Care Teams Anesthesiology Physician Assistant Relationship Specialty Start Date End Date Yolanda Regan MD [address] [place] [address] PCP - General Family Medicine 07/07/19 documented as of this encounter
--- OUTSIDE RECORDS SUMMARY | 2025-05-04 13:38 | XMS_ITS | Encounter Summary ---
Author Organization [employer] Address [address] [place] [address] Care Team Providers Care Gas Check Pad Maker Name Role Phone Yolanda Regan MD Primary Care Provide r Reason for Visit * Reason Comments Med Refill Encounter Details Date Type Department Care Team ([facility] st Contact Info) Description 04/03/2024 Refill [facility] MEDICINE [address] [place] [address] Yolanda Regan MD [address] [place] [address] Fibromyalgia Social History Tobacco Use Types Packs/Day [...] Description 05/21/2025 1:30 PM EDT Office Visit [facility] OPTOMETRY [address] [place] [address] Ilene Rush, OD [address] [place] [address] 06/04/2025 9:30 AM EDT Telemedicine [facility] MEDICINE [address] [place] [address] 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 RN documented as of this encounter Visit Diagnoses Diagnosis Fibromyalgia Unspecified myalgia and myositis documented in this encounter Additional Health Concerns Assessment Noted Time PHQ-9 Depression Total Score: 14 024 10:18 AM EDT documented as of this encounter Care Teams Gas Check Pad Maker Relationship Specialty Start Date End Date Yolanda Regan MD [address] [place] [address] PCP - General Family Medicine 07/07/19 documented as of this encounter
== END 2025-05-04 12:28 | disposition home or self-care (01) ==
LOC: HO.US 12:27
PROVIDERS: PCP Internal Medicine; Visit Provider Emergency Medicine
DX: M79.652 Pain in left thigh (principal)
CPT/HCPCS: 93971

== ENCOUNTER → 2025-05-04 12:40 | Outpatient (BNV) | payer MEDICAID, SELFPAY | PROVIDERS: PCP Internal Medicine; Visit Provider Radiology Diagnostic Radiology | DX: M79.652 Pain in left thigh (principal) | CPT/HCPCS: 93971 ==

== ENCOUNTER 2025-05-14 08:25 | Outpatient (AMB) | payer MEDICAID, SELFPAY ==
--- NOTE | 2025-05-14 08:34 | A.OFFVIS_ITS ---
Vital Signs 05/14/25 08:40 Height 5 ft 3 in Weight 170 lb 4 oz BMI 30.2 BP 119/63 Blood Pressure Location Lt brachial Position Sitting Pulse 83 Pulse Source Pulse Oximeter Pulse Oximetry (%) 100 Oxygen Delivery Method Room Air Intake Visit Reasons: Left thigh pain Intake Note: Pain today 04/11 Patient Care Technician Instructor Required: Yes Patient Care Technician Instructor Language: Hot Punch Press Operator Services: Patient Care Technician Instructor Present Patient Care Technician Instructor Name: Zo #[id number] Information Interpreted: non-clinical & clinical Accompanied by: Self / Same As Patient Allergies No Known Allergies Allergy (Verified 05/14/25 08:41) HPI Comments Details: The patient is a 44-year-old female presenting with chronic pain flare up in left low back with radiation to left buttock, hip and thigh. She has a history of disc protrusion at L4-L5 on the left side, which was identified during a previous MRI scan. The patient experiences a burning sensation in the left thigh, hip, and buttock, which has been persistent and severe enough to limit her ability to touch the affected area. Patient reports increased left leg pain since recent panniculectomy surgery in April. The pain has been severe enough to necessitate a visit to a walk-in clinic, where an x-ray was performed to rule out a blood clot, which returned negative. She was prescribed a muscle relaxer and takes gabapentin three times a day to manage the pain. The patient was previously considered for a mild procedure but did not proceed with it. Additionally, the patient reports sacroiliac joint pain, which is exacerbated by the discrepancy in leg length, potentially worsening the condition. She is interested in therapeutic sacroiliac joint injection to alleviate the pain. - Onset: Chronic pain with a history of disc protrusion at L4-L5 - Quality: Burning, aching, dull, heavy, spreading, tight sensation - Location: Left sided low back pain radiates to left buttock, left lateral hip and thigh - Radiation: Pain does not extend below the knee - Exacerbating factors: Mild discrepancy in leg length noted - Relieving factors: Gabapentin and muscle relaxers - Affect: Pain significantly impacts daily activities and mobility - Analgesia: Currently taking gabapentin three times daily - Adverse Effects: None reported - Activities of Daily Living: Pain limits ability to perform certain movements - Aberrant Drug Related Behaviors: None reported PRIOR 11/11/23: Patient presents today to assess response to L4-L5 Interlaminar Midline JOHN on 10/11/[address] Bass. Patient reports over 50% ongoing pain relief since procedure with notable improvement in her daily functioning, mobility and sleep. She is content with procedure outcome and reports radicular symptoms and lower back pain has been much better since procedure. Patient will continue to monitor her symptoms and function for next few months. We will consider MILD procedure as next steps if her pain relief is not sustained for intended period of time. Per most recent lumbar spine MRI, patient has L4-L5 broad-based disc bulge which contacts the bilateral traversing L5 nerve roots within the lateral recesses. Bilateral facet arthropathy and thickening of the ligamentum flavum causing mild central canal as well as [id number] bilateral neuroforaminal stenosis. L5-S1: No significant disc bulge. No central canal or neuroforaminal stenosis. Denies any recent cough, cold, infection, fever, any significant changes in her medical history, medications or recent hospitalizations. Past Procedures: 10/11/23: L4-L5 Interlaminar Midline JOHN->50% ongoing pain relief 05/2022: L4-L5 Bilateral TFESI-good pain relief 07/2021: L4-L5 Bilateral TFESI-good pain relief PFSH Medical History Steatosis, liver Insomnia Back pain Intra-abdominal adhesions Hx of steroid therapy GERD (gastroesophageal reflux disease) BMI 32.0-32.9,adult Lateral epicondylitis, right elbow Disc degeneration, lumbar Asthma Anxiety Depression IUD check up Surgical History H/O gastric sleeve History of esophagogastroduodenoscopy (EGD) Hx of dilation and curettage Hx laparoscopic cholecystectomy H/O laparoscopic adjustable gastric banding History of tubal ligation History of Family History Mother No problems noted. Father Diabetes Sister No problems noted. Brother No problems noted. Son No problems noted. Son No problems noted. Daughter No problems noted. 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 Alert and oriented. Mood and affect appropriate. Follows and participates in conversation appropriately. Respiratory effort is unlabored. No cough. Able to transition from sit to stand unassisted. Ambulates with bilaterally normal heel strike and toe off, reports unsteady on left due to pain. Back/Spine/Pelvis Other: Limited lumbar ROM due to pain. Demonstrates 5/5 strength of quadriceps bilaterally as well as flexion/dorsiflexion of bilateral feet against resistance. 2+ pedal pulses bilaterally. Straight leg rise with dorsiflexion negative bilaterally. +1 left and +2 right patellar and +1 achilles reflexes bilaterally. Facet loading test positive bilaterally. Lilly sign positive bilaterally, Richi?s, Gaenslen, Pelvic Compression and Stinchfield tests are positive on the left. No groin pain with I/E hip rotations. Valsalva maneuver negative. Cervical Spine: cervical ROM normal, cervical muscular tenderness and No Cervical spine tenderness Thoracic/Lumbar Spine: thoracic and lumbar spine normal to inspection, No Thoracic/lumbar spine scar(s), Lasegue's sign negative, straight leg raise negative bilaterally, pain with thoraco-lumbar ROM, paraspinal muscle tenderness, thoraco-lumbar ROM limited, No thoracic spinal tenderness and lumbar spinal tenderness (L4-S1) Pelvis: buttock tenderness on the left Sacroiliac joints: on the right nontender and on the left tender to palpation Extrem General: Yes capillary refill normal, Yes no clubbing, cyanosis or edema and Yes no calf tenderness Results Reviewed Results Reviewed: MR LUMBAR SPINE WITHOUT CONTRAST 08/28/23 CLINICAL INFORMATION: Lumbar region radiculopathy. COMPARISON: Lumbar spine MRI 07/07/2023 TECHNIQUE: MRI of the lumbar spine was obtained using routine sequences without contrast. FINDINGS: There are 5 nonrib-bearing lumbar-type vertebral bodies. There is moderate to severe disc volume loss at L4-L5 and there is moderate disc volume loss at L3-L4. There is disc desiccation at these 2 levels. There is an intraosseous hemangioma within the L4 vertebral body. There is no bone marrow edema. There are no acute fractures. Conus terminates at the L1 level. There are no significant extraspinal soft tissue findings. L1-L2: Disc contour is normal. There is no central canal stenosis and there is no foraminal stenosis. L2-L3: Disc contour is normal. There is no central canal stenosis and there is no foraminal stenosis. L3-L4: There is a diffuse annular disc bulge with a superimposed right lateral paracentral/disc osteophyte protrusion contacting the traversing right L4 and extraforaminal right L3 nerve roots resulting in mild right-sided foraminal encroachment. No central canal and no left foraminal stenosis. L4-L5: Diffuse annular disc bulge with a superimposed shallow left paracentral disc protrusion that results in mass effect on the traversing left L5 nerve root within the left subarticular zone. Disc osteophyte and moderate bilateral facet arthropathy and ligamentum flavum thickening. Mild central canal stenosis. Mild bilateral foraminal encroachment. L5-S1: Small annular disc bulge and bilateral facet arthropathy. No central canal stenosis and no foraminal stenosis. IMPRESSION: - At L3-L4, there is a right lateral paracentral/disc osteophyte protrusion contacting the traversing right L4 and extraforaminal right L3 nerve roots resulting in mild right-sided foraminal encroachment. - At L4-L5, there is a shallow left paracentral disc protrusion that results in mass effect on the traversing left L5 nerve root within the left subarticular zone. Assessment & Plan Assessment & Plan (1) Lumbar spondylosis: Code(s): M47.816 - Spondylosis without myelopathy or radiculopathy, lumbar region Category: Medical (2) Disc degeneration, lumbar: Code(s): M51.36 - Other intervertebral disc degeneration, lumbar region Category: Medical (3) Lumbar radiculopathy, chronic: Code(s): M54.16 - Radiculopathy, lumbar region Category: Medical (4) Fibromyalgia: Code(s): M79.7 - Fibromyalgia Category: Medical (5) Sacroiliac joint pain: Code(s): M53.3 - Sacrococcygeal disorders, not elsewhere classified Category: Medical Plan The plan includes scheduling a left therapeutic sacroiliac joint injection with local and fluoroscopy to address the pain associated with the sacroiliac joint. Expectations, risks and benefits were reviewed. Patient is aware she will be contacted to schedule this procedure. The patient will continue with gabapentin and muscle relaxers as part of her pain management regimen. All questions and concerns have been answered and patient agreed with the treatment plan. Follow up after injection and sooner as needed. Patient was informed and verbally consented to the use of an ambient scribe for clinic note documentation during this visit. Coding Level of Care Code Est Pt Level 4 (41574) Complex EM visit Add On G2211 Diagnoses Lumbar spondylosis M47.816 Disc degeneration, lumbar M51.36 Lumbar radiculopathy, chronic M54.16 Fibromyalgia M79.7 Sacroiliac joint pain M53.3
[2025-05-14 08:40] VITALS: BP 119/63; PULSE 83; O2SAT 100; BMI 30.2
--- OUTSIDE RECORDS SUMMARY | 2025-05-14 08:53 | XMS_ITS | Encounter Summary ---
Author Organization [employer] Address [address] [place] [address] Care Team Providers Care Expeditionary Fighting Vehicle Crewman Name Role Phone Yolanda Regan MD Primary Care Provide r Reason for Visit * Reason Onset Date Comments Nurse Triage 03/17/2024 Encounter Details Date Type Department Care Team ([facility] st Contact Info) Description 03/17/2024 Telephone [facility] MEDICINE [address] [place] [address] Yolanda Regan MD [address] [place] [address] Nurse Triage Social History Tobacco Use Types [...] 50 mg tablets To be sent to: [facility] Pt would like a call in regards to quantity documented in this encounter Plan of Treatment Upcoming Encounters Date Type Department Care Team (Late st Contact Info) Description 05/21/2025 1:30 PM EDT Office Visit [facility] OPTOMETRY [address] [place] [address] Ilene Rush, OD [address] [place] [address] 06/04/2025 9:30 AM EDT Telemedicine [facility] MEDICINE [address] [place] [address] 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 RN documented as of this encounter Visit Diagnoses Not on filedocumented in this encounter Additional Health Concerns Assessment Noted Time PHQ-9 Depression Total Score: 14 024 10:18 AM EDT documented as of this encounter Care Teams Expeditionary Fighting Vehicle Crewman Relationship Specialty Start Date End Date Yolanda Regan MD [address] [place] [address] PCP - General Family Medicine 07/07/19 documented as of this encounter
--- OUTSIDE RECORDS SUMMARY | 2025-05-14 08:53 | XMS_ITS | Encounter Summary ---
Author Organization [employer] Address [address] [facility] [address] [place] [address] Care Team Providers Care Business Systems Consultant Name Role Phone Yolanda Regan MD Primary Care Provide r Reason for Visit * Reason Onset Date Comments PA 01/13/2024 Encounter Details Date Type Department Care Team ([facility] st Contact Info) Description 01/13/2024 Telephone [facility] MEDICINE [address] [place] [address] Yolanda Regan MD [address] [place] [address] PA Social History Tobacco Use Types Packs/Day [...] back regarding any update. Best contact # [phone] Egyptian . documented in this encounter Plan of Treatment Upcoming Encounters Date Type Department Care Team ([facility] st Contact Info) Description 05/21/2025 1:30 PM EDT Office Visit [facility] OPTOMETRY [address] [place] [address] Ilene Rush, OD [address] [place] [address] 06/04/2025 9:30 AM EDT Telemedicine [facility] MEDICINE [address] [place] [address] 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 RN documented as of this encounter Visit Diagnoses Not on filedocumented in this encounter Additional Health Concerns Assessment Noted Time PHQ-9 Depression Total Score: 14 024 10:18 AM EDT documented as of this encounter Care Teams Business Systems Consultant Relationship Specialty Start Date End Date Yolanda Regan MD [address] [place] [address] PCP - General Family Medicine 07/07/19 documented as of this encounter
--- OUTSIDE RECORDS SUMMARY | 2025-05-14 08:53 | XMS_ITS | Encounter Summary ---
Author Organization [employer] Address [address] [facility] [address]t [place] [address] Care Team Providers Care Scientist/Engineer Name Role Phone Yolanda Regan MD Primary Care Provide r Encounter Details Date Type Department Care Team (Latest Contact Info) Description 05/25/2020 Abstract [facility] CONVERSIONS Dental, Provider, DDS Social History [...] Description 05/21/2025 1:30 PM EDT Office Visit [facility] OPTOMETRY [address] [place] [address] Ilene Rush, OD [address] [place] [address] 06/04/2025 9:30 AM EDT Telemedicine [facility] MEDICINE [address] [place] [address] 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 RN documented as of this encounter Visit Diagnoses Not on filedocumented in this encounter Care Teams Scientist/Engineer Relationship Specialty Start Date End Date Yolanda Regan MD [address] [place] [address] PCP - General Family Medicine 07/07/19 documented as of this encounter
--- OUTSIDE RECORDS SUMMARY | 2025-05-14 08:53 | XMS_ITS | Encounter Summary ---
Author Organization [employer] Address [address] [facility] [address] 7[address] [place] [address] Care Team Providers Care Driver'S Education Instructor Name Role Phone Yolanda Regan MD Primary Care Provide r Reason for Visit * Reason Comments Med Refill Encounter Details Date Type Department Care Team ([facility] st Contact Info) Description 07/13/2023 Refill [facility] MEDICINE [address] [place] [address] Tammy Moraes, [address] [place] [address] Mild intermittent asthma, unspecified whether complicated Social [...] Description 05/21/2025 1:30 PM EDT Office Visit [facility] OPTOMETRY [address] [place] [address] Victor Manuel, Ilene, OD [address] [place] [address] 06/04/2025 9:30 AM EDT Telemedicine [facility] MEDICINE [address] [place] [address] 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 RN documented as of this encounter Visit Diagnoses Diagnosis Mild intermittent asthma, unspecified whether complicated documented in this encounter Additional Health Concerns Assessment Noted Time PHQ-9 Depression Total Score: 0 09/06/19 23 10:08 AM EST documented as of this encounter Care Teams Driver'S Education Instructor Relationship Specialty Start Date End Date Yolanda Regan MD 230 [place] [address] PCP - General Family Medicine 07/07/19 documented as of this encounter
--- OUTSIDE RECORDS SUMMARY | 2025-05-14 08:53 | XMS_ITS | Clinical Summary ---
Author Organization [address] [facility] Address [address] [place] [address] Phone Care Team Providers Care Snout Puller Name Role Phone Yolanda Regan MD Primary [...] PROCEDURE: HISTORICAL TUBAL LIGATION COLPOSCOPY 05/20/2012 PROCEDURE: CT COLPOSCOPY ENTIRE VAGINA W/CERVIX IF PRESENT Medical [...] Maintenance Results * Lipid panel (06/08/2022) Pathologist [facility] LDL/HDL Ratio 2 0 - 4 Triglycerides 43 0 - 150 mg/dL Cholesterol 147 0 - 200 mg/dL HDL 62 >=40 mg/dL LDL Cholesterol 77 0 - 100 mg/dL Blood Venous blood specimen / Unknown Result [facility] Provider LAB BLOOD ORDERABLES Tila l Result * HIV Screening (01/10/2018) Pathologist [facility] HIV Screening abstracted [facility] Provider HEALTH MAINTENANCE Final Result * Hepatitis C Screening (01/10/2018) Pathologist [facility] Hepatitis C Screening abstracted [facility] Provider HEALTH MAINTENANCE Final Result * Cervical Cancer Screening: HPV (01/23/2017) Pathologist [facility] Cervical Cancer Screening: HPV abstracted, no interpretation [facility] Provider HEALTH MAINTENANCE Final Result from Last 3 Months or Most Recently Relevant to Health Maintenance Insurance MEDICAID - [place] Care Teams Snout Puller Relationship Specialty Start Date End Date Yolanda Regan MD [address] [phone] PCP - General Internal Medicine 02/15/22
--- OUTSIDE RECORDS SUMMARY | 2025-05-14 08:53 | XMS_ITS | Encounter Summary ---
Author Organization [employer] Address [address] [facility] 7t [place] [address] Care Team Providers Care Juice Packaging Machines Setter Name Role Phone Yolanda Regan MD Primary Care Provide r Encounter Details Date Type Department Care Team (Latest Contact Info) Description 07/02/2022 Abstract [facility] CONVERSIONS Dental, Provider, DDS Social History Tobacco [...] Description 05/21/2025 1:30 PM EDT Office Visit [facility] OPTOMETRY [address] [place] [address] Ilene Rush, OD [address] [place] [address] 06/04/2025 9:30 AM EDT Telemedicine [facility] MEDICINE [address] [place] [address] 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 RN documented as of this encounter Visit Diagnoses Not on filedocumented in this encounter Care Teams Juice Packaging Machines Setter Relationship Specialty Start Date End Date Yolanda Regan MD [address] [place] [address] PCP - General Family Medicine 07/07/19 documented as of this encounter
--- OUTSIDE RECORDS SUMMARY | 2025-05-14 08:53 | XMS_ITS | Encounter Summary ---
Author Organization [employer] Address [address] [facility] [address] [place] [address] Care Team Providers Care Auditor In Charge Name Role Phone Yolanda Regan MD Primary Care Provide r Reason for Visit * Reason Onset Date Comments Med Refill 11/16/2024 Encounter Details Date Type Department Care Team (Late st Contact Info) Description 11/16/2024 Refill [facility] MEDICINE [address] [place] [address] Yolanda Regan MD [address] [place] [address] Chronic bilateral low back pain without sciatica [...] Description 05/21/2025 1:30 PM EDT Office Visit [facility] OPTOMETRY [address] [place] [address] Ilene Rush, OD 230 [place] [address] 06/04/2025 9:30 AM EDT Telemedicine [facility] MEDICINE [address] [place] [address] 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, RICARDO documented as of this encounter Visit Diagnoses Diagnosis Chronic bilateral low back pain without sciatica documented in this encounter Additional Health Concerns Assessment Noted Time PHQ-9 Depression Total Score: 3 09/22/19 25 10:38 AM EST documented as of this encounter Care Teams Auditor In Charge Relationship Specialty Start Date End Date Yolanda Regan MD [address] [place] [address] PCP - General Family Medicine 07/07/19 documented as of this encounter
--- OUTSIDE RECORDS SUMMARY | 2025-05-14 08:53 | XMS_ITS | Encounter Summary ---
Author Organization [employer] Address [address] [facility] 7t [place] [address] Care Team Providers Care It Applications Manager Name Role Phone Yolanda Regan MD Primary Care Provide r Encounter Details Date Type Department Care Team (Latest Contact Info) Description 03/11/2019 Abstract [facility] CONVERSIONS Dental, Provider, DDS Social History [...] Description 05/21/2025 1:30 PM EDT Office Visit [facility] OPTOMETRY [address] [place] [address] Ilene Rush, OD [address] [place] [address] 06/04/2025 9:30 AM EDT Telemedicine [facility] MEDICINE [address] [place] [address] 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 RN documented as of this encounter Visit Diagnoses Not on filedocumented in this encounter Care Teams It Applications Manager Relationship Specialty Start Date End Date Yolanda Regan MD 230 [place] [address] PCP - General Family Medicine 07/07/19 documented as of this encounter
--- OUTSIDE RECORDS SUMMARY | 2025-05-14 08:53 | XMS_ITS | Encounter Summary ---
Author Organization [employer] Address [address] [facility] [address] [place] [address] Care Team Providers Care Supervisor Order Takers Name Role Phone Yolanda Regan MD Primary Care Provide r Reason for Visit * Reason Onset Date Comments Appointment Request 09/08/2024 Encounter Details Date Type Department Care Team ([facility] st Contact Info) Description 09/08/2024 Telephone [facility] MEDICINE [address] [place] [address] Yolanda Regan MD [address] [place] [address] Appointment Request Social History Tobacco Use Types [...] pt requesting to r/s appt for 09/17. Rim Fire Priming Tool Setter advised pt that the only apt would be for end ofFebruary and pt would like to see if there is anything that can be done or for her to be let know If any one cancels. Contact pt at [phone] documented in this encounter Plan of Treatment Upcoming Encounters Date Type Department Care Team (Late st Contact Info) Description 05/21/2025 1:30 PM EDT Office Visit [facility] OPTOMETRY [address] [place] [address] Ilene Rush, OD [address] [place] [address] 06/04/2025 9:30 AM EDT Telemedicine [facility] MEDICINE [address] [place] [address] 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 RN documented as of this encounter Visit Diagnoses Not on filedocumented in this encounter Additional Health Concerns Assessment Noted Time PHQ-9 Depression Total Score: 4 07/23/20 24 9:30 AM EST documented as of this encounter Care Teams Supervisor Order Takers Relationship Specialty Start Date End Date Yolanda Regan MD [address] [place] [address] PCP - General Family Medicine 07/07/19 documented as of this encounter
--- OUTSIDE RECORDS SUMMARY | 2025-05-14 08:53 | XMS_ITS | Encounter Summary ---
Author Organization [employer] Address [address] [facility] [facility] [address] [place] [address] Care Team Providers Care Ware Server Name Role Phone Yolanda Regan MD Primary Care Provide r Reason for Visit * Reason Onset Date Comments Med Refill 12/16/2024 Encounter Details Date Type Department Care Team (Late st Contact Info) Description 12/16/2024 Refill [facility] MEDICINE [address] [place] [address] Stefany Murry MD [address] [place] [address] Chronic shoulder pain, unspecified laterality Social History [...] Visit [facility] OPTOMETRY [address] [place] [address] Ilene Rush, OD [address] [place] [address] 06/04/2025 9:30 AM EDT Telemedicine [facility] MEDICINE [address] [place], [place] [phone] 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, RICARDO documented as of this encounter Visit Diagnoses Diagnosis Chronic shoulder pain, unspecified laterality documented in this encounter Additional Health Concerns Assessment Noted Time PHQ-9 Depression Total Score: 3 09/22/19 25 10:38 AM EST documented as of this encounter Care Teams Ware Server Relationship Specialty Start Date End Date Yolanda Regan MD [address] [place], [place] [phone] PCP - General Family Medicine 07/07/19 documented as of this encounter
--- OUTSIDE RECORDS SUMMARY | 2025-05-14 08:53 | XMS_ITS | Encounter Summary ---
Author Organization [employer] Address [address] [facility] [address] [place] [address] Care Team Providers Care Process Owner Name Role Phone Yolanda Regan MD Primary Care Provide r Reason for Visit * Reason Comments Med Refill Encounter Details Date Type Department Care Team ([facility] st Contact Info) Description 04/03/2024 Refill [facility] MEDICINE [address] [place] [address] Yolanda Regan MD [address] [place] [address] Fibromyalgia Social History Tobacco Use Types Packs/Day [...] Office Visit [facility] OPTOMETRY [address] [place] [address] Ilene Rush, OD [address] [place] [address] 06/04/2025 9:30 AM EDT Telemedicine [facility] MEDICINE [address] [place] [address] 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 RN documented as of this encounter Visit Diagnoses Diagnosis Fibromyalgia Unspecified myalgia and myositis documented in this encounter Additional Health Concerns Assessment Noted Time PHQ-9 Depression Total Score: 14 024 10:18 AM EDT documented as of this encounter Care Teams Process Owner Relationship Specialty Start Date End Date Yolanda Regan MD [address] [place] [address] PCP - General Family Medicine 07/07/19 documented as of this encounter
--- OUTSIDE RECORDS SUMMARY | 2025-05-14 08:53 | XMS_ITS | Encounter Summary ---
Author Organization [email or web address] Address [address] [facility] [address] [place] [address] Care Team Providers Care Rotor Balancer Name Role Phone Yolanda Regan MD Primary Care Provide r Reason for Visit * Reason Comments Med Refill Encounter Details Date Type Department Care Team ([facility] st Contact Info) Description 07/13/2023 Refill [facility] MEDICINE [address] [place] [address] Yolanda Regan MD [address] [place] [address] Mild intermittent asthma without complication Social History [...] Description 05/21/2025 1:30 PM EDT Office Visit [facility] OPTOMETRY [address] [place] [address] Victor Manuel, Ilene, OD [address] [place] [address] 06/04/2025 9:30 AM EDT Telemedicine [facility] MEDICINE [address] [place] [address] 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 RN documented as of this encounter Visit Diagnoses Diagnosis Mild intermittent asthma without complication documented in this encounter Additional Health Concerns Assessment Noted Time PHQ-9 Depression Total Score: 0 09/06/19 23 10:08 AM EST documented as of this encounter Care Teams Rotor Balancer Relationship Specialty Start Date End Date Yolanda Regan MD [address] [place] [address] PCP - General Family Medicine 07/07/19 documented as of this encounter
--- OUTSIDE RECORDS SUMMARY | 2025-05-14 08:53 | XMS_ITS | Clinical Summary ---
Author Organization [facility] Address [address] [place] [address] Care Team Providers Care Senior System Operator Name Role Phone Unavailable Primary Care Provider [...] file Plan of Treatment Not on file [facility] [place] [address] [address]
--- OUTSIDE RECORDS SUMMARY | 2025-05-14 08:53 | XMS_ITS | Encounter Summary ---
Author Organization [employer] Address [address] [facility] [address] [place] [address] Care Team Providers Care Military Technician Name Role Phone Yolanda Regan MD Primary Care Provide r Reason for Visit * Reason Comments Med Refill Encounter Details Date Type Department Care Team ([facility] st Contact Info) Description 08/25/2023 Refill [facility] [address] [place], [place] [phone] Stefany Murry MD [address] [place] [address] Anxiety; Chronic bilateral low back pain without [...] Description 05/21/2025 1:30 PM EDT Office Visit [facility] OPTOMETRY [address] [place], [place] [phone] Victor Manuel, Ilene, OD [address] [place] [address] 06/04/2025 9:30 AM EDT Telemedicine [facility] MEDICINE [address] [place] [address] 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 RN documented as of this encounter Visit Diagnoses Diagnosis Anxiety Anxiety state, unspecified Chronic bilateral low back pain without sciatica documented in this encounter Additional Health Concerns Assessment Noted Time PHQ-9 Depression Total Score: 0 09/06/19 23 10:08 AM EST documented as of this encounter Care Teams Military Technician Relationship Specialty Start Date End Date Yolanda Regan MD [address] [place] [address] PCP - General Family Medicine 07/07/19 documented as of this encounter
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
--- OUTSIDE RECORDS SUMMARY | 2025-05-14 08:54 | XMS_ITS | Encounter Summary ---
Author Organization [employer] Address [address] [facility] 7t [place] [address] Care Team Providers Care Nutrition Therapist Name Role Phone Yolanda Regan MD Primary Care Provide r Reason for Visit * Reason Onset Date Comments Appointment Request 11/14/2022 Encounter Details Date Type Department Care Team ([facility] st Contact Info) Description 11/14/2022 Telephone [facility] [address] [place] [phone] Yolanda Regan MD [address] [place] [address] Appointment Request Social History Tobacco Use Types [...] a different PCP. Please contact pt at [phone] documented in this encounter Plan of Treatment Upcoming Encounters Date Type Department Care Team (Late st Contact Info) Description 05/21/2025 1:30 PM EDT Office Visit [facility] [address] [place] [address] Ilene Rush, OD [address] [place] [address] 06/04/2025 9:30 AM EDT Telemedicine [facility] [address] [place] [address] 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 RN documented as of this encounter Visit Diagnoses Not on filedocumented in this encounter Additional Health Concerns Assessment Noted Time PHQ-9 Depression Total Score: 0 09/06/19 23 10:08 AM EST documented as of this encounter Care Teams Nutrition Therapist Relationship Specialty Start Date End Date Yolanda Regan MD [address] [place] [address] PCP - General Family Medicine 07/07/19 documented as of this encounter
--- OUTSIDE RECORDS SUMMARY | 2025-05-14 08:54 | XMS_ITS | Encounter Summary ---
Author Organization [employer] Address [address] [facility] 7t [place] [address] Care Team Providers Care Social Sciences Professor Name Role Phone Yolanda Regan MD Primary Care Provide r Reason for Visit * Reason Onset Date Comments Med Refill 03/17/2025 Encounter Details Date Type Department Care Team (Late st Contact Info) Description 03/17/2025 Refill [facility] [address] [place] [address] Yolanda Regan MD [address] [place] [address] Chronic bilateral low back pain without sciatica [...] Description 05/21/2025 1:30 PM EDT Office Visit [facility] [address] [place] [address] Victor Manuel, Ilene, OD [address] [place] [address] 06/04/2025 9:30 AM EDT Telemedicine [facility] [address] [place] [address] 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, RICARDO documented as of this encounter Visit Diagnoses Diagnosis Chronic bilateral low back pain without sciatica documented in this encounter Additional Health Concerns Assessment Noted Time PHQ-9 Depression Total Score: 3 09/22/19 25 10:38 AM EST documented as of this encounter Care Teams Social Sciences Professor Relationship Specialty Start Date End Date Yolanda Regan MD [address] [place] [address] PCP - General Family Medicine 07/07/19 documented as of this encounter
--- OUTSIDE RECORDS SUMMARY | 2025-05-14 08:54 | XMS_ITS | Encounter Summary ---
Author Organization [employer] Address [address] [facility] [address] [place] [address] Care Team Providers Care Contracts Representative Name Role Phone Yolanda Regan MD Primary Care Provide r Reason for Visit * Reason Comments Med Refill Encounter Details Date Type Department Care Team ([facility] st Contact Info) Description 03/31/[address] [facility] [address] [place] [address] Yolanda Regan MD [address] [place] [address] Social History Tobacco Use Types Packs/Day Years [...] 05/21/2025 1:30 PM EDT Office Visit [facility] [address] [place] [address] Victor Manuel, Ilene, OD [address] [place] [address] 06/04/2025 9:[address] [facility] [address] [place] [address] 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, RN documented as of this encounter Visit Diagnoses Not on filedocumented in this encounter Additional Health Concerns Assessment Noted Time PHQ-9 Depression Total Score: 3 09/22/19 25 10:38 AM EST documented as of this encounter Care Teams Contracts Representative Relationship Specialty Start Date End Date Yolanda Regan MD [address] [place] [address] PCP - General Family Medicine 07/07/19 documented as of this encounter
--- OUTSIDE RECORDS SUMMARY | 2025-05-14 08:54 | XMS_ITS | Encounter Summary ---
Author Organization [employer] Address [address] [facility] 7t [place] [address] Care Team Providers Care Senior It Recruiter Name Role Phone Yolanda Regan MD Primary Care Provide r Reason for Visit * Reason Onset Date Comments Med Refill 01/14/2023 Encounter Details Date Type Department Care Team (Late st Contact Info) Description 01/14/2023 Telephone [facility] [address] [place] [phone] Yolanda Regan MD [address] [place], [place] [phone] Med Refill Social History Tobacco Use Types [...] pt requesting status check on script requested, report writer booked pt a f/u appt per PCP notes ,scheduled for 02/12/23 @ 2:30pm * Telephone Encounter - Michelle Oden LPN - 01/14/2023 9:20 AM EDT Med is not pended as [employer]AIL [employer]ITY PROFESSIONAL CK and med was last filled 04/11/22.Please review and advise. * Telephone Encounter - Ry Cochran - 01/14/2023 9:03 AM EDT Tc from pt requesting med refill gabapentin (Neurontin) 100 MG capsule documented in this encounter Plan of Treatment Upcoming Encounters Date Type Department Care Team (Late st Contact Info) Description 05/21/2025 1:30 PM EDT Office Visit [facility] [address] [place] [address] Victor Manuel, Ilene, OD [address] [place] [address] 06/04/2025 9:30 AM EDT Telemedicine [facility] [address] [place] [address] 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, RN documented as of this encounter Visit Diagnoses Not on filedocumented in this encounter Additional Health Concerns Assessment Noted Time PHQ-9 Depression Total Score: 0 09/06/19 23 10:08 AM EST documented as of this encounter Care Teams Senior It Recruiter Relationship Specialty Start Date End Date Yolanda Regan MD [address] [place] [address] PCP - General Family Medicine 07/07/19 documented as of this encounter
--- OUTSIDE RECORDS SUMMARY | 2025-05-14 08:54 | XMS_ITS | Encounter Summary ---
Author Organization [employer] Address [address] [facility] 7t [place] [address] Care Team Providers Care Strand Buncher Fine Wire Name Role Phone Yolanda Regan MD Primary Care Provide r Reason for Visit * Reason Comments Med Refill Encounter Details Date Type Department Care Team (Late Contact Info) Description 01/04/2023 Refill [facility] [address] [place] [address] Za Arellano MD [address] [place] [address] Chronic bilateral low back pain without sciatica [...] Description 05/21/2025 1:30 PM EDT Office Visit [facility] [address] [place] [address] Ilene Rush, OD [address] [place] [address] 06/04/2025 9:30 AM EDT Telemedicine [facility] [address] [place] [address] 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, RICARDO documented as of this encounter Visit Diagnoses Diagnosis Chronic bilateral low back pain without sciatica documented in this encounter Additional Health Concerns Assessment Noted Time PHQ-9 Depression Total Score: 0 09/06/19 23 10:08 AM EST documented as of this encounter Care Teams Strand Buncher Fine Wire Relationship Specialty Start Date End Date Yolanda Regan MD [address] [place] [address] PCP - General Family Medicine 07/07/19 documented as of this encounter
--- OUTSIDE RECORDS SUMMARY | 2025-05-14 08:54 | XMS_ITS | Encounter Summary ---
Author Organization [employer] Address [address] 7t [place] [address] Care Team Providers Care Exhauster Name Role Phone Yolanda Regan MD Primary Care Provide r Reason for Visit * Reason Comments Med Refill Encounter Details Date Type Department Care Team ([facility] st Contact Info) Description 07/02/2023 Refill [facility] MEDICINE [address] [place] [address] Yolanda Regan MD [address] [place] [address] Chronic bilateral low back pain without sciatica [...] 05/21/2025 1:30 PM EDT Office Visit [facility] OPTOMETRY [address] [place] [address] Victor Manuel, Ilene, OD [address] [place] [address] 06/04/2025 9:30 AM EDT Telemedicine [facility] MEDICINE [address] [place] [address] 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 RN documented as of this encounter Visit Diagnoses Diagnosis Chronic bilateral low back pain without sciatica documented in this encounter Additional Health Concerns Assessment Noted Time PHQ-9 Depression Total Score: 0 09/06/19 23 10:08 AM EST documented as of this encounter Care Teams Exhauster Relationship Specialty Start Date End Date Yolanda Regan MD [address] [place] [address] PCP - General Family Medicine 07/07/19 documented as of this encounter
--- OUTSIDE RECORDS SUMMARY | 2025-05-14 08:54 | XMS_ITS | Encounter Summary ---
Author Organization [employer] Address [address] [facility] [address] [address] 7t [place] [address] Care Team Providers Care Configuration Developer Name Role Phone Yolanda Regan MD Primary Care Provide r Reason for Visit * Reason Comments Med Refill Encounter Details Date Type Department Care Team ([facility] st Contact Info) Description 04/15/2025 Refill [facility] MEDICINE [address] [place] [address] Yolanda Regan MD 230 [place] [address] Chronic bilateral low back pain without sciatica [...] Description 05/21/2025 1:30 PM EDT Office Visit [facility] OPTOMETRY [address] [place] [address] Victor Manuel, Ilene, OD [address] [place] [address] 06/04/2025 9:30 AM EDT Telemedicine [facility] MEDICINE [address] [place] [address] 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, RICARDO documented as of this encounter Visit Diagnoses Diagnosis Chronic bilateral low back pain without sciatica documented in this encounter Additional Health Concerns Assessment Noted Time PHQ-9 Depression Total Score: 3 09/22/19 25 10:38 AM EST documented as of this encounter Care Teams Configuration Developer Relationship Specialty Start Date End Date Yolanda Regan MD [address] [place] [address] PCP - General Family Medicine 07/07/19 documented as of this encounter
--- OUTSIDE RECORDS SUMMARY | 2025-05-14 08:54 | XMS_ITS | Encounter Summary ---
Author Organization [employer] Address [address] 7t [place] [address] Care Team Providers Care Commercial Interior Designer Name Role Phone Yolanda Regan MD Primary Care Provide r Reason for Visit * Reason Comments Med Refill Encounter Details Date Type Department Care Team ([facility] st Contact Info) Description 07/01/2023 Refill [facility] MEDICINE [address] [place] [address] Yolanda Regan MD 230 [place] [address] Chronic bilateral low back pain without sciatica [...] Description 05/21/2025 1:30 PM EDT Office Visit [facility] OPTOMETRY [address] [place] [address] Victor Manuel, Ilene, OD [address] [place] [address] 06/04/2025 9:30 AM EDT Telemedicine [facility] MEDICINE [address] [place] [address] 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 RN documented as of this encounter Visit Diagnoses Diagnosis Chronic bilateral low back pain without sciatica documented in this encounter Additional Health Concerns Assessment Noted Time PHQ-9 Depression Total Score: 0 09/06/19 23 10:08 AM EST documented as of this encounter Care Teams Commercial Interior Designer Relationship Specialty Start Date End Date Yolanda Regan MD [address] [place] [address] PCP - General Family Medicine 07/07/19 documented as of this encounter
--- OUTSIDE RECORDS SUMMARY | 2025-05-14 08:54 | XMS_ITS | Encounter Summary ---
Author Organization [employer] Address [address] 7t [place] [address] Care Team Providers Care Roof Mechanic Name Role Phone Yolanda Regan MD Primary Care Provide r Reason for Visit * Reason Comments Med Refill Encounter Details Date Type Department Care Team (Late Contact Info) Description 03/22/2023 Refill [facility] [address] [place] [address] Richi Sinclair, MANSOOR Irritant dermatitis Social History [...] Upcoming Encounters Date Type Department Care Team ([facility] Contact Info) Description 05/21/2025 1:30 PM EDT Office Visit [facility] OPTOMETRY [address] [place] [address] Victor Manuel, Ilene, OD [address] [place], [place] [id number] 06/04/2025 9:30 AM EDT Telemedicine [facility] MEDICINE [address] [place], [place] [phone] 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 RN documented as of this encounter Visit Diagnoses Diagnosis Irritant dermatitis Contact dermatitis and other eczema, due to unspecified cause documented in this encounter Additional Health Concerns Assessment Noted Time PHQ-9 Depression Total Score: 0 09/06/19 23 10:08 AM EST documented as of this encounter Care Teams Roof Mechanic Relationship Specialty Start Date End Date Yolanda Regan MD [address] [place] [address] PCP - General Family Medicine 07/07/19 documented as of this encounter
== END 2025-05-14 09:04 | disposition home or self-care (01) ==
LOC: HO.PMC 08:25
PROVIDERS: PCP Internal Medicine; Visit Provider Nurse Practitioner Family
DX: M47.816 Spondylosis without myelopathy or radiculopathy, lumbar region (principal); M51.369 Other intervertebral disc degeneration, lumbar region without mention of lumbar back pain or lower extremity pain; M54.16 Radiculopathy, lumbar region; M79.7 Fibromyalgia; M53.3 Sacrococcygeal disorders, not elsewhere classified
CPT/HCPCS: 99214

== ENCOUNTER → 2025-05-14 08:25 | Outpatient (BNVA) | payer MEDICAID, SELFPAY | PROVIDERS: PCP Internal Medicine; Visit Provider Nurse Practitioner Family | DX: M47.816 Spondylosis without myelopathy or radiculopathy, lumbar region (principal); M51.360 Other intervertebral disc degeneration, lumbar region with discogenic back pain only; M54.16 Radiculopathy, lumbar region; M79.7 Fibromyalgia; M53.3 Sacrococcygeal disorders, not elsewhere classified | CPT/HCPCS: 99212 ==

== ENCOUNTER 2025-06-22 06:09 | Outpatient (REF) | payer MEDICAID, SELFPAY ==
--- NOTE | ~2025-06-22 | FL_ITS ---
EXAMINATION: FLUOROSCOPY GUIDANCE FOR NEEDLE PLACEMENT CLINICAL INFORMATION: M53.3 - Sacrococcygeal disorders, not elsewhere classified COMPARISON: None available. TECHNIQUE: Fluoroscopy guidance provided for sacroiliac joint injection. 2 submitted images. FINDINGS: Images demonstrate needle placement and contrast injection of the left sacroiliac joint. FLUOROSCOPY TIME: 0.2 minutes DOSE AREA PRODUCT: 2.5 mgy FL/FL guidance in treatment room IMPRESSION: Fluoroscopy guidance for sacroiliac joint injection. Electronically signed by: Tierra Ray MD 06/23/2025 03:07 PM EDT
--- OUTSIDE RECORDS SUMMARY | 2025-06-22 06:12 | XMS_ITS | Encounter Summary ---
Author Organization [employer] Address [address] [facility] 7t [place] [address] Care Team Providers Care Family Coach Name Role Phone Yolanda Regan MD Primary Care Provide r Encounter Details Date Type Department Care Team (Latest Contact Info) Description 03/11/2019 Abstract [facility] CONVERSIONS Dental, Provider, DDS Social History [...] Care Team (Late st Contact Info) Description 09/10/2025 9:30 AM EST Telemedicine [facility] MEDICINE [address] [place] [address] 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, RICARDO documented as of this encounter Visit Diagnoses Not on filedocumented in this encounter Care Teams Family Coach Relationship Specialty Start Date End Date Yolanda Regan MD 230 [place] [address] PCP - General Family Medicine 07/07/19 documented as of this encounter
--- OUTSIDE RECORDS SUMMARY | 2025-06-22 06:12 | XMS_ITS | Encounter Summary ---
Author Organization [employer] Address [address] [place] [address] Care Team Providers Care Information Assurance Manager Name Role Phone Yolanda Regan MD Primary Care Provide r Reason for Visit * Reason Comments Med Refill Encounter Details Date Type Department Care Team ([facility] st Contact Info) Description 07/13/2023 Refill [facility] MEDICINE [address] [place] [address] Yolanda Regan MD [address] [place] [address] Mild intermittent asthma without complication Social History [...] Info) Description 09/10/2025 9:30 AM EST Telemedicine [facility] MEDICINE [address] [place] [address] 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 RN documented as of this encounter Visit Diagnoses Diagnosis Mild intermittent asthma without complication documented in this encounter Additional Health Concerns Assessment Noted Time PHQ-9 Depression Total Score: 0 09/06/19 23 10:08 AM EST documented as of this encounter Care Teams Information Assurance Manager Relationship Specialty Start Date End Date Yolanda Regan MD [address] [place] [address] PCP - General Family Medicine 07/07/19 documented as of this encounter
--- OUTSIDE RECORDS SUMMARY | 2025-06-22 06:12 | XMS_ITS | Encounter Summary ---
Author Organization [employer] Address [address] [place] [address] Care Team Providers Care Manager Drilling Name Role Phone Yolanda Regan MD Primary Care Provide r Reason for Visit * Reason Comments Med Refill Encounter Details Date Type Department Care Team ([facility] st Contact Info) Description 07/13/2023 Refill [facility] MEDICINE [address] [place] [address] Tammy Moraes, 230 [place] [address] Mild intermittent asthma, unspecified whether complicated Social [...] Info) Description 09/10/2025 9:30 AM EST Telemedicine [facility] MEDICINE [address] [place] [address] 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 RN documented as of this encounter Visit Diagnoses Diagnosis Mild intermittent asthma, unspecified whether complicated documented in this encounter Additional Health Concerns Assessment Noted Time PHQ-9 Depression Total Score: 0 09/06/19 23 10:08 AM EST documented as of this encounter Care Teams Manager Drilling Relationship Specialty Start Date End Date Yolanda Regan MD [address] [place] [address] PCP - General Family Medicine 07/07/19 documented as of this encounter
--- OUTSIDE RECORDS SUMMARY | 2025-06-22 06:12 | XMS_ITS | Data Portability ---
Author Organization [place] [facility] Address [address] [address] Care Team Providers Care Manager Hair Name Role Phone TIERNEY DURHAM Primary Care [...] going forward, recommend follow-up in 6 months. [email or web address] Not available 06/30/2024 12:20:39 12/29/2024 12/29/2024 Right [...] will get audiometric testing at that time. [email or web address] Not available 12/29/2024 09:12:39 Plan of Treatment [...] or ear canal incision (SURG) 2023 024 [email or web address] Not available 01/20/2024 10:15:18 Imaging None recorded. [...] Time Bilateral disorder of Eustachia n tubes 80605671320 93709 Active 2022 Other specified disorders of Eustachia n tube, bilateral ; Note: Date Diagnosed : 11/19/2022 10:34 AM (H69.83) Not Available [facility] 4 03:07:32 Disorder of left Eustachia n tube 41283253228 97940 Active 2022 Other specified disorders of Eustachia n tube, left ear; Note: Date Diagnosed : 11/19/2022 9:48 AM (H69.82) Not Available [facility] 4 03:07:31 Impacted cerumen in right ear 65516948903 09258 Active 2022 Impacted cerumen, right ear; Note: Date Diagnosed : 11/19/2022 10:43 AM (H61.21) Not Available [facility] 4 03:07:30 Pain of right temporoma ndibular joint 03152884897 295023 Active 2022 Arthralgi a of right temporoma ndibular joint; Note: Date Diagnosed : 02/12/2023 1:16 PM (M26.621) Not Available [facility] 4 03:07:32 Partial loss of ear ossicles 53278534 Active 2022 Partial loss of ear ossicles, right ear; Note: Date Diagnosed : 02/12/2023 1:18 PM (H74.321) Not Available [facility] 4 03:07:31 Otalgia of right ear 0862432217 Active 2022 Otalgia, right ear; Note: Date Diagnosed : 02/12/2023 1:16 PM (H92.01) Not Available [facility] 4 03:07:30 Conductiv e hearing loss, bilateral 313785156 Active 2022 Conductiv e hearing loss, bilateral ; Note: Date Diagnosed : 02/12/2023 1:21 PM (H90.0) Not Available [facility] 4 03:07:32 Adhesive middle ear disease 1665099 Active 2022 Adhesive middle ear disease, bilateral ; Note: Date Diagnosed : 02/12/2023 1:18 PM (H74.13) Not Available [facility] 4 03:07:30 Cholestea jo-ann of right mastoid 05652102986 20921 Active 2022 Cholestea jo-ann of mastoid, right ear; Note: Date Diagnosed : 05/07/2023 2:58 PM (H71.21) Not Available [facility] 4 03:07:30 Follow-up visit Active 2022 Medical surveilla nce following completed treatment ; Note: Date Diagnosed : 3 3:38 PM (Z09) Not Available [facility] 4 03:07:30 Sensorine ural hearing loss in left ear 86260490380 109 Active 2023 Sensorine ural hearing loss, unilatera l, left ear, with restricte d hearing on the contralat eral side; Note: Date Diagnosed : 09/12/2023 10:01 AM (H90.A22) Not Available [facility] 4 03:07:31 Cholestea jo-ann 940404801 Active 2023 KRISTOPHER ARRIAGA MD [address] [facility],[place] [address], [place], [address] , [facility] - [facility] 4 08:53:11 Conductiv e hearing loss of right ear with normal hearing on left side 9995217470 Active 2023 MONSERRAT KONG [address] [place] [address],[place] [address], [place], [address] , [facility] - [facility] 4 09:17:02 Problem Notes None recorded. Procedures Surgical History Date Name Laterality Status Provider Name and Address Organization Details Recorded Time 06/30/20 24 Air & Speech Audio with Tymps - 70145, 39482 & 84926 completed MONSERRAT PALACIOS [address] [facility],[place] [address], [place], [address], [facility] - [facility] 06/30/2024 11:41:45 01/20/20 24 Comp Audio with Tymps - 38565 & 82874 completed MONSERRAT KONG [address] [facility],[place] [address], [place], [address], [place] - [facility] 01/20/2024 09:16:33 07/12/20 23 tympanoplasty with mastoidectomy completed Stefany Garcia [facility] 01/20/2024 08:35:28 Imaging Results None recorded. [...] for nebulizat ion active Medicati on ID: 642186 B rand Name: albutero l sulfate Send [...] mg capsule 06/30 completed Medicati on ID: 243056 B rand Name: minocycl ine Send Method: E-Prescr ibed Sub s Allowed: subs OK Speci al Instruct ion: TAKE 1 CAPSULE BY MOUTH TWICE DAILY Me dication GenericN julita: minocycl ine Not Available Not Available Not Available topiramat e 25 mg tablet 12/29 completed Medicati on ID: 184083 B rand Name: topirama te Send Method: [...] mg tablet 12/29 completed Medicati on ID: 538041 B rand Name: citalopr am Send Method: E-Prescr ibed Sub s Allowed: subs OK Speci al Instruct ion: TAKE 1 TABLET BY MOUTH ONCE A DAY TOME AMANDA TABLETA TODOS [place] M edicatio nGeneric Name: citalopr am Not Available Not Available Not Available pantopraz ole 40 mg tablet,de layed release active Medicati on ID: 794309 B rand Name: pantopra zole Sen d [...] topical cream 06/30 completed Medicati on ID: 253129 B rand Name: metronid azole Se nd [...] mg tablet 12/29 completed Medicati on ID: 525418 B rand Name: monteluk ast Send Method: [...] ating tablet 06/30 completed Medicati on ID: 135516 B rand Name: diana gaspar Send Method: [...] chewable tablet 12/29 completed Medicati on ID: 635587 B rand Name: simethic one Send Method: [...] for pain 12/29 completed Medicati on ID: [id number] D uration Value: 5 Brand Name: oxycodon [...] oral powder 12/29 completed Medicati on ID: 799985 B rand Name: Benefibe r Sugar Free [...] Garcia [place] - [facility] 12/29/2024 08:41:07 Date Recorded Body height Body mass index (BMI) Body weight Provider Name and Address Organization Details Last Updated DateTime 01/20/2024 160.02 cm 27.5 kg/m2 10106.82 g Stefany Garcia [place] - [facility] 01/20/2024 08:36:09 Date Recorded Body height Body weight Provider Name and Address Organization Details Last Updated DateTime 06/30/2024 160.02 cm 75577.82 g Stefany Garcia [place] [facility] 06/30/2024 11:31:01 Social History None recorded. Functional Status None recorded. Mental Status None recorded. Family History Nothing Reported. Medical History Condition Response Allergies/Hayfever Y Fibromyalgia Y Asthma Y Gynecological HistoryNo gynecological history recorded. Obstetrics History GPAL:G 0 P 0 0 0 0 Past Encounters Encounter ID Performer Location Encounter Start Date Encounter Closed Date Diagnosis/Indication Diagnosis SNOMED-CT Code Diagnosis ICD10 Code Diagnosis IMO Codes Diagnosis Note [id number] KRISTOPHER ARRIAGA MD [facility] [address] [address] 01/20/2024 08:19:11 01/20/2024 09:47:50 Otalgia of right ear 4126516168 H92.01 Pain of ri ght temporomandibular joint 2385368682 3728132 M26.621 The patient complains of intermitte nt [...] . Partial lo ss of ear ossicles 61095428 H74.321 Cholesteatoma 728878906 H71.21 The right ear remains well-heale d [...] with the contact informatio n for my water treatment plant operator. We will begin the scheduling process and see the patient back at the time of surgery. Patient will not require medical clearance from their primary care provider preoperati velreji. Conductive hearing loss of right ear with normal hearing on left side 0665815125 H90.11 Audiometri c evaluation results:Ri ght ear:Mild low frequency rising normal conductive hearing loss with excellent speech discrimina tion. Tympanomet ry:Right Ear:Type B [id number] SHAHAB PITTMAN PA-C [facility] [address] [address] 03/20/2024 15:13:22 03/20/2024 16:14:46 Cholesteatoma 810568664 H71.91 [id number] KRISTOPHER ARRIAGA MD [facility] [address] [address] 06/30/2024 11:02:19 06/30/2024 14:37:22 Partial loss of ear ossicles 04986501 H74.321 Follow-up visit 06109200 9 Z09 Cholesteat rocio of right mastoid 2277188965 016225 H71.21 Bilateral disorder of Eustachian tubes 0813276849 731338 H69.83 Right Ear:Border line normal hearing with slight conductive overlay with excellent speech discrimina tion.Paten t tube. Results discussed with patient in detail. Hearing is in very good shape overall. [id number] KRISTOPHER ARRIAGA MD [facility] [address] [address] 12/29/2024 08:34:25 12/29/2024 09:16:13 Partial loss of ear ossicles 16306652 H74.321 Follow-up visit [id number] 9 Z09 Cholesteat rocio of right mastoid 9862124222 743494 H71.21 Bilateral disorder of Eustachian tubes 5758347382 619216 H69.83 Health Concerns Section Related Observation LastModified by Organization Detai ls LastModified Time None Recorded Concern Status LastModified by Organization Details LastModified Time None Recorded Advance Directives Directive None Recorded Payers Insurance Date Sequence Insurance Name Policy Number Policy Mcwilliams Covered Member ID Mcwilliams Member ID Guarantor Name 12/26/2024 1 [place] [facility] Sayra Cifuentes [id number] Sayra Mei Notes Date Note Type Note [...] has had no discharge. KRISTOPHER ARRIAGA MD [address] [place] [address], [phone], [facility] - [facility] 01/20/2024 09:54:37 03/20/2024 text/html ROS as noted in the HPI 43-year-old female presents postoperatively following right middle ear and mastoid exploration by Dr. Arriaga on 03/13/2024. She reports discomfort is steadily improving. There has been no otorrhea and no significant dizziness. KRISTOPHER ARRIAGA MD [address], [place], [address], [facility] - [facility] 03/23/2024 16:51:37 06/30/2024 text/html S/p right [...] problems postoperatively. Today's visit carried out using [employer] sales and lending team member. KRISTOPHER ARRIAGA MD [address], [place], [address], [facility] 06/30/2024 12:21:36 12/29/2024 text/html S/p right [...] problems postoperatively. Today's visit carried out using [employer] and lending team member.Patient reporting intermittent echoing sensation of the right ear, and some hearing sensitivity on the right. No pain or discharge. KRISTOPHER ARRIAGA MD [address], [place], [address], [facility] - [facility] 12/29/2024 09:12:54 OBGyn Episode No OBEpisode recorded.
--- OUTSIDE RECORDS SUMMARY | 2025-06-22 06:12 | XMS_ITS | Encounter Summary ---
Author Organization [employer] Address [address] [facility] 7t [place] [address] Care Team Providers Care Community Organization Aide Name Role Phone Yolanda Regan MD Primary Care Provide r Reason for Visit * Reason Onset Date Comments Med Refill 03/17/2025 Encounter Details Date Type Department Care Team (Late st Contact Info) Description 03/17/2025 Refill [facility] [address] [place] [address] Yolanda Regan MD [address] [place] [address] Chronic bilateral low back pain without sciatica [...] Info) Description 09/10/2025 9:30 AM EST Telemedicine [facility] [address] [place] [address] 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 RN documented as of this encounter Visit Diagnoses Diagnosis Chronic bilateral low back pain without sciatica documented in this encounter Additional Health Concerns Assessment Noted Time PHQ-9 Depression Total Score: 3 09/22/19 25 10:38 AM EST documented as of this encounter Care Teams Community Organization Aide Relationship Specialty Start Date End Date Yolanda Regan MD [address] [place] [address] PCP - General Family Medicine 07/07/19 documented as of this encounter
--- OUTSIDE RECORDS SUMMARY | 2025-06-22 06:12 | XMS_ITS | Encounter Summary ---
Author Organization [employer] Address [address] [facility] 7t [place] [address] Care Team Providers Care Organizational Development Consultant Name Role Phone Yolanda Regan MD Primary Care Provide r Encounter Details Date Type Department Care Team (Latest Contact Info) Description 05/25/2020 Abstract [facility] CONVERSIONS Dental, Provider, DDS Social History Tobacco [...] Info) Description 09/10/2025 9:30 AM EST Telemedicine [facility] MEDICINE [address] [place] [address] 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, RICARDO documented as of this encounter Visit Diagnoses Not on filedocumented in this encounter Care Teams Organizational Development Consultant Relationship Specialty Start Date End Date Yolanda Regan MD [address] [place] [address] PCP - General Family Medicine 07/07/19 documented as of this encounter
--- OUTSIDE RECORDS SUMMARY | 2025-06-22 06:12 | XMS_ITS | Encounter Summary ---
Author Organization [employer] Address [address] [facility] [address] [facility] [address] [address] 7t [place] [address] Care Team Providers Care Etl Analyst Name Role Phone Yolanda Regan MD Primary Care Provide r Reason for Visit * Reason Comments Med Refill Encounter Details Date Type Department Care Team ([facility] st Contact Info) Description 03/31/[address] [facility] MEDICINE [address] [place] [address] Yolanda Regan MD [address] [place] [address] Social History Tobacco Use Types Packs/Day Years [...] Info) Description 09/10/2025 9:[address] [facility] MEDICINE [address] [place] [address] 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, RICARDO documented as of this encounter Visit Diagnoses Not on filedocumented in this encounter Additional Health Concerns Assessment Noted Time PHQ-9 Depression Total Score: 3 09/22/19 25 10:38 AM EST documented as of this encounter Care Teams Etl Analyst Relationship Specialty Start Date End Date Yolanda Regan MD [address] [place] [address] PCP - General Family Medicine 07/07/19 documented as of this encounter
--- OUTSIDE RECORDS SUMMARY | 2025-06-22 06:12 | XMS_ITS | Encounter Summary ---
Author Organization [employer] Address [address] [place] [address] Care Team Providers Care Lombardi Developer Name Role Phone Yolanda Regan MD Primary Care Provide r Reason for Visit * Reason Onset Date Comments Appointment Request 09/08/2024 Encounter Details Date Type Department Care Team ([facility] st Contact Info) Description 09/08/2024 Telephone [facility] [address] [place] [address] Yolanda Regan MD [address] [place] [address] Appointment Request Social History Tobacco Use Types [...] Miscellaneous Notes * Telephone Encounter - Maged Pickard - 09/08/2024 8:40 AM EST TC from pt requesting to r/s appt for 09/17. Payroll Tax Analyst advised pt that the only apt would be for end ofFebruary and pt would like to see if there is anything that can be done or for her to be let know If any one cancels. Contact pt at [phone] documented in this encounter Plan of Treatment Upcoming Encounters Date Type Department Care Team (Late st Contact Info) Description 09/10/2025 9:30 AM EST Telemedicine [facility] [address] [place] [address] 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 RN documented as of this encounter Visit Diagnoses Not on filedocumented in this encounter Additional Health Concerns Assessment Noted Time PHQ-9 Depression Total Score: 4 07/23/20 24 9:30 AM EST documented as of this encounter Care Teams Lombardi Developer Relationship Specialty Start Date End Date Yolanda Regan MD [address] [place] [address] PCP - General Family Medicine 07/07/19 documented as of this encounter
--- OUTSIDE RECORDS SUMMARY | 2025-06-22 06:12 | XMS_ITS | Encounter Summary ---
Author Organization [employer] Address [address] [place] [address] Care Team Providers Care Assembler Name Role Phone Yolanda Regan MD Primary Care Provide r Reason for Visit * Reason Comments Med Refill Encounter Details Date Type Department Care Team ([facility] st Contact Info) Description 04/03/2024 Refill [facility] [address] [place] [address] Yolanda Regan MD [address] [place] [address] Fibromyalgia Social History Tobacco Use Types Packs/Day [...] Info) Description 09/10/2025 9:30 AM EST Telemedicine [facility] [address] [place] [address] 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 RN documented as of this encounter Visit Diagnoses Diagnosis Fibromyalgia Unspecified myalgia and myositis documented in this encounter Additional Health Concerns Assessment Noted Time PHQ-9 Depression Total Score: 14 024 10:18 AM EDT documented as of this encounter Care Teams Assembler Relationship Specialty Start Date End Date Yolanda Regan MD [address] [place] [address] PCP - General Family Medicine 07/07/19 documented as of this encounter
--- OUTSIDE RECORDS SUMMARY | 2025-06-22 06:12 | XMS_ITS | Encounter Summary ---
Author Organization [employer] Address [address] [place] [address] Care Team Providers Care Core Analyst Name Role Phone Yolanda Regan MD Primary Care Provide r Reason for Visit * Reason Onset Date Comments Med Refill 06/18/2025 Encounter Details Date Type Department Care Team (Late st Contact Info) Description 06/18/2025 Refill [facility] [address] [place] [address] Za Arellano MD [address] [place] [address] Mild intermittent asthma, unspecified whether complicated Social [...] Info) Description 09/10/2025 9:30 AM EST Telemedicine [facility] [address] [place] [address] 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 RN documented as of this encounter Visit Diagnoses Diagnosis Mild intermittent asthma, unspecified whether complicated documented in this encounter Additional Health Concerns Assessment Noted Time PHQ-9 Depression Total Score: 3 09/22/19 25 10:38 AM EST documented as of this encounter Care Teams Core Analyst Relationship Specialty Start Date End Date Yolanda Regan MD [address] [place] [address] PCP - General Family Medicine 07/07/19 documented as of this encounter
--- OUTSIDE RECORDS SUMMARY | 2025-06-22 06:12 | XMS_ITS | Encounter Summary ---
Author Organization [employer] Address [address] [facility] 7t [place] [address] Care Team Providers Care Insole Taper Name Role Phone Yolanda Regan MD Primary Care Provide r Encounter Details Date Type Department Care Team (Latest Contact Info) Description 07/02/2022 Abstract [facility], Provider, DDS Social History Tobacco [...] Info) Description 09/10/2025 9:30 AM EST Telemedicine [facility] [address] [place] [address] 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, RN documented as of this encounter Visit Diagnoses Not on filedocumented in this encounter Care Teams Insole Taper Relationship Specialty Start Date End Date Yolanda Regan MD [address] [place] [address] PCP - General Family Medicine 07/07/19 documented as of this encounter
--- OUTSIDE RECORDS SUMMARY | 2025-06-22 06:12 | XMS_ITS | Encounter Summary ---
Author Organization [employer] Address [address] [place] [address] Care Team Providers Care Telegrapher Agent Name Role Phone Yolanda Regan MD Primary Care Provide r Reason for Visit * Reason Comments Med Refill Encounter Details Date Type Department Care Team ([facility] st Contact Info) Description 06/21/2025 Refill [facility] [address] [place] [address] Yolanda Regan MD [address] [place] [address] Chronic bilateral low back pain without sciatica [...] Info) Description 09/10/2025 9:30 AM EST Telemedicine [facility] [address] [place] [address] 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, RICARDO documented as of this encounter Visit Diagnoses Diagnosis Chronic bilateral low back pain without sciatica documented in this encounter Additional Health Concerns Assessment Noted Time PHQ-9 Depression Total Score: 3 09/22/19 25 10:38 AM EST documented as of this encounter Care Teams Telegrapher Agent Relationship Specialty Start Date End Date Yolanda Regan MD [address] [place] [address] PCP - General Family Medicine 07/07/19 documented as of this encounter
--- OUTSIDE RECORDS SUMMARY | 2025-06-22 06:12 | XMS_ITS | Encounter Summary ---
Author Organization [employer] Address [address] [place] [address] Care Team Providers Care Coldfusion Name Role Phone Yolanda Regan MD Primary Care Provide r Reason for Visit * Reason Onset Date Comments PA 01/13/2024 Encounter Details Date Type Department Care Team ([facility] st Contact Info) Description 01/13/[address] [facility] MEDICINE [address] [place] [address] Yolanda Regan MD [address] [place] [address] PA Social History Tobacco Use Types Packs/Day [...] back regarding any update. Best contact # [phone] Polish . documented in this encounter Plan of Treatment Upcoming Encounters Date Type Department Care Team (Late st Contact Info) Description 09/10/2025 9:[address] [facility] MED[facility]INE [address] [place] [address] 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, RN documented as of this encounter Visit Diagnoses Not on filedocumented in this encounter Additional Health Concerns Assessment Noted Time PHQ-9 Depression Total Score: 14 024 10:18 AM EDT documented as of this encounter Care Teams Coldfusion Relationship Specialty Start Date End Date Yolanda Regan MD [address] [place] [address] PCP - General Family Medicine 07/07/19 documented as of this encounter
--- OUTSIDE RECORDS SUMMARY | 2025-06-22 06:12 | XMS_ITS | Encounter Summary ---
Author Organization [employer] Address [address] [place] [address] Care Team Providers Care International Controller Name Role Phone Yolanda Regan MD Primary Care Provide r Reason for Visit * Reason Comments Med Refill Encounter Details Date Type Department Care Team ([facility] st Contact Info) Description 07/02/2023 Refill [facility] [address] [place] [address] Yolanda Regan MD [address] [place] [address] Chronic bilateral low back pain without sciatica [...] Info) Description 09/10/2025 9:30 AM EST Telemedicine [facility] [address] [place] [phone] 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 RN documented as of this encounter Visit Diagnoses Diagnosis Chronic bilateral low back pain without sciatica documented in this encounter Additional Health Concerns Assessment Noted Time PHQ-9 Depression Total Score: 0 09/06/19 23 10:08 AM EST documented as of this encounter Care Teams International Controller Relationship Specialty Start Date End Date Yolanda Regan MD [address] [place] [address] PCP - General Family Medicine 07/07/19 documented as of this encounter
--- OUTSIDE RECORDS SUMMARY | 2025-06-22 06:12 | XMS_ITS | Encounter Summary ---
Author Organization [employer] Address [address] [address] [place] [address] Care Team Providers Care Middle School History Teacher Name Role Phone Yolanda Regan MD Primary Care Provide r Reason for Visit * Reason Comments Med Refill Encounter Details Date Type Department Care Team ([facility] st Contact Info) Description 07/01/2023 Refill [facility] [address] [place] [address] Yolanda Regan MD [address] [place] [address] Chronic bilateral low back pain without sciatica [...] Info) Description 09/10/2025 9:30 AM EST Telemedicine [facility] [address] [place] [address] 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 RN documented as of this encounter Visit Diagnoses Diagnosis Chronic bilateral low back pain without sciatica documented in this encounter Additional Health Concerns Assessment Noted Time PHQ-9 Depression Total Score: 0 09/06/19 23 10:08 AM EST documented as of this encounter Care Teams Middle School History Teacher Relationship Specialty Start Date End Date Yolanda Regan MD [address] [place] [address] PCP - General Family Medicine 07/07/19 documented as of this encounter
--- OUTSIDE RECORDS SUMMARY | 2025-06-22 06:12 | XMS_ITS | Encounter Summary ---
Author Organization [employer] Address [address] [place] [address] Care Team Providers Care Health Communications Specialist Name Role Phone Yolanda Regan MD Primary Care Provide r Reason for Visit * Reason Onset Date Comments Nurse Triage 03/17/2024 Encounter Details Date Type Department Care Team ([facility] st Contact Info) Description 03/17/2024 Telephone [facility] [address] [place] [address] Yolanda Regan MD [address] [place] [address] Nurse Triage Social History Tobacco Use Types [...] 50 mg tablets To be sent to: [facility] Pt would like a call in regards to quantity documented in this encounter Plan of Treatment Upcoming Encounters Date Type Department Care Team (Late st Contact Info) Description 09/10/2025 9:30 AM EST Telemedicine [facility] [address] [place] [address] 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, RN documented as of this encounter Visit Diagnoses Not on filedocumented in this encounter Additional Health Concerns Assessment Noted Time PHQ-9 Depression Total Score: 14 024 10:18 AM EDT documented as of this encounter Care Teams Health Communications Specialist Relationship Specialty Start Date End Date Yolanda Regan MD [address] [place] [address] PCP - General Family Medicine 07/07/19 documented as of this encounter
--- OUTSIDE RECORDS SUMMARY | 2025-06-22 06:12 | XMS_ITS | Encounter Summary ---
Author Organization [employer] Address [address] [place] [address] Care Team Providers Care Gusset Edger Name Role Phone Yolanda Regan MD Primary Care Provide r Reason for Visit * Reason Comments Med Refill Encounter Details Date Type Department Care Team ([facility] st Contact Info) Description 08/25/2023 Refill [facility] [address] [place], [place] [id number] Stefany Murry MD [address] [place] [address] Anxiety; Chronic bilateral low back pain without [...] 09/10/2025 9:30 AM EST Telemedicine [facility] MEDICINE [address] [place] [address] 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 RN documented as of this encounter Visit Diagnoses Diagnosis Anxiety Anxiety state, unspecified Chronic bilateral low back pain without sciatica documented in this encounter Additional Health Concerns Assessment Noted Time PHQ-9 Depression Total Score: 0 09/06/19 23 10:08 AM EST documented as of this encounter Care Teams Gusset Edger Relationship Specialty Start Date End Date Yolanda Regan MD [address] [place] [address] PCP - General Family Medicine 07/07/19 documented as of this encounter
--- OUTSIDE RECORDS SUMMARY | 2025-06-22 06:12 | XMS_ITS | Clinical Summary ---
Author Organization [facility] Address [address] [place] [address] Care Team Providers Care Forging Dies Final Finisher Name Role Phone Unavailable Primary Care Provider [...] file Plan of Treatment Not on file [facility] [address] [id number]
--- OUTSIDE RECORDS SUMMARY | 2025-06-22 06:12 | XMS_ITS | Encounter Summary ---
Author Organization [employer] Address [address] [place] [address] Care Team Providers Care Melter Supervisor Oxygen Furnace Name Role Phone Yolanda Regan MD Primary Care Provide r Reason for Visit * Reason Onset Date Comments Med Refill 12/16/2024 Encounter Details Date Type Department Care Team (Late st Contact Info) Description 12/16/2024 Refill [facility] MEDICINE [address] [place] [address] Stefany Murry MD [address] [place] [address] Chronic shoulder pain, unspecified laterality Social History [...] Info) Description 09/10/2025 9:30 AM EST Telemedicine [facility] MEDICINE [address] [place] [address] 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 RN documented as of this encounter Visit Diagnoses Diagnosis Chronic shoulder pain, unspecified laterality documented in this encounter Additional Health Concerns Assessment Noted Time PHQ-9 Depression Total Score: 3 09/22/19 25 10:38 AM EST documented as of this encounter Care Teams Melter Supervisor Oxygen Furnace Relationship Specialty Start Date End Date Yolanda Regan MD [address] [place] [address] PCP - General Family Medicine 07/07/19 documented as of this encounter
--- OUTSIDE RECORDS SUMMARY | 2025-06-22 06:12 | XMS_ITS | Encounter Summary ---
Author Organization [employer] Address [address] [place] [address] Care Team Providers Care Foreign Car Mechanic Name Role Phone Yolanda Regan MD Primary Care Provide r Reason for Visit * Reason Comments Med Refill Encounter Details Date Type Department Care Team ([facility] st Contact Info) Description 04/15/2025 Refill [facility] [address] [place] [address] Yolanda Regan MD [address] [place] [address] Chronic bilateral low back pain without sciatica [...] Info) Description 09/10/2025 9:30 AM EST Telemedicine [facility] MED[facility]INE [address] [place] [address] 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, RICARDO documented as of this encounter Visit Diagnoses Diagnosis Chronic bilateral low back pain without sciatica documented in this encounter Additional Health Concerns Assessment Noted Time PHQ-9 Depression Total Score: 3 09/22/19 25 10:38 AM EST documented as of this encounter Care Teams Foreign Car Mechanic Relationship Specialty Start Date End Date Yolanda Regan MD [address] [place] [address] PCP - General Family Medicine 07/07/19 documented as of this encounter
--- OUTSIDE RECORDS SUMMARY | 2025-06-22 06:12 | XMS_ITS | Encounter Summary ---
Author Organization [employer] Address [address] [place] [address] Care Team Providers Care Cook House Laborer Name Role Phone Yolanda Regan MD Primary Care Provide r Reason for Visit * Reason Comments Med Refill Encounter Details Date Type Department Care Team (Late Contact Info) Description 03/22/2023 Refill [facility] [address] [place] [id number] Richi Sinclair, MANSOOR Irritant dermatitis Social History [...] Upcoming Encounters Date Type Department Care Team ([facility] Contact Info) Description 09/10/2025 9:30 AM EST Telemedicine [facility] [address] [place] [address] 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, RICARDO documented as of this encounter Visit Diagnoses Diagnosis Irritant dermatitis Contact dermatitis and other eczema, due to unspecified cause documented in this encounter Additional Health Concerns Assessment Noted Time PHQ-9 Depression Total Score: 0 09/06/19 23 10:08 AM EST documented as of this encounter Care Teams Cook House Laborer Relationship Specialty Start Date End Date Yolanda Regan MD [address] [place] [address] PCP - General Family Medicine 07/07/19 documented as of this encounter
--- OUTSIDE RECORDS SUMMARY | 2025-06-22 06:12 | XMS_ITS | Clinical Summary ---
Author Organization [employer] Address [address] [facility] 7t [place] [address] Care Team Providers Care Refrigeration System Installer Name Role Phone Yolanda Regan MD Primary Care Provide r Allergies No known active allergies Medications naloxone (Narcan) 4 mg/0.1 mL nasal sprayIndication s:Chronic midline low back pain, unspecified whether sciatica present Administer 1 spray (4 mg) into affected nostril(s) if needed for opioid reversal. 2 each 3 03/03/20 24 Active hydrOXYzine pamoate (Vistaril) 25 MG capsuleIndicati ons:Anxiety TAKE 1 CAPSULE BY MOUTH EVERY 6 HOURS NEEDED FOR ITCH FOR UP TO 10 DAYS 30 capsule 07/15/20 24 Active loratadine (Claritin) 10 MG tabletIndicatio ns:Acute rhinitis TAKE 1 TABLET BY MOUTH EVERY DAY 90 tablet 12/17/19 25 Active busPIRone (Buspar) 5 MG tabletIndicatio ns:Anxiety TAKE 1 TABLET BY MOUTH TWICE A DAY 60 tablet 1 12/17/19 25 Active gabapentin (Neurontin) 100 MG capsuleIndicati ons:Fibromyalgi a TAKE 3 CAPSULES BY MOUTH EVERY 8 HOURS 270 capsule 3 01/23/20 25 Active albuterol (Ventolin HFA) 108 (90 Base) MCG/ACT inhalerIndicati ons:Mild intermittent asthma, unspecified whether complicated INHALE 2 PUFFS EVERY 4 HOURS NEEDED FOR SHORTNESS OF BREATH OR WHEEZING. 18 g 3 02/26/20 25 Active methocarbamol (Robaxin) 750 MG tablet Take 1 tablet (750 mg) by mouth 4 times daily. 40 tablet 1 05/04/20 25 Active oxyCODONE (Roxicodone) 5 MG immediate release tablet TOME AMANDA TABLETA CADA SEIS HORAS CUANDO SEA NECESARIO PARA EL DOLOR Active acetaminophen (Tylenol) 325 MG tablet 04/09/20 25 Active ibuprofen 200 MG tablet 04/09/20 25 Active QUEtiapine (SEROquel) 50 MG tabletIndicatio ns:Primary insomnia Take 1 tablet (50 mg) by mouth at bedtime. 30 tablet 2 06/04/20 25 026 Active traMADol (Ultram) 50 MG tabletIndicatio ns:Chronic bilateral low back pain without sciatica Take 1 tablet (50 mg) by mouth if needed in the morning and at bedtime for severe pain for up to 28 days. TOME 1 TABLETA CUANDO SEA NECESARIO EN LA MANANA & AL ACOSTARSE PARA DOLOR CK*MAX 28 DAYS 56 tablet 06/18/20 25 025 Active QUEtiapine (SEROquel) 50 MG tabletIndicatio ns:Primary insomnia Take 1 tablet (50 mg) by mouth at bedtime. 30 tablet 2 03/11/20 25 025 Discontinued(R eorder (will not trigger notification to Pharmacy)) traMADol (Ultram) 50 MG tabletIndicatio ns:Chronic bilateral low back pain without sciatica Take 1 tablet (50 mg) by mouth if needed in the morning and at bedtime for severe pain for up to 28 days. TOME 1 TABLETA CUANDO SEA NECESARIO EN LA MANANA & AL ACOSTARSE PARA DOLOR CK*MAX 28 DAYS 56 tablet 05/20/20 25 025 Discontinued(R eorder (will not trigger notification to Pharmacy)) Active Problems Problem Noted Date Diagnosed Date Long-term current use of opiate analgesic 2024 Chronic pain with drug dependence (CMS/HCC) 03/02 Assessment & Plan (03/11/2025 11:59 AM EDT): I advised patient to follow postsurgical instructions regarding pain medications She may take her regular tramadol with acetaminophen as needed for now Upper abdominal pain 01/11/2025 Cervical cancer screening 01/11/2025 Assessment & Plan (01/11/2025 5:24 PM EDT): Patient referred to [facility] for Pap smear Encounter for screening [...] same medications Insomnia 06/04/2017 Overview (10/10/2022): F/u [facility] family and counseling Assessment & Plan (03/11/2025 [...] Encounters Date Type Department Care Team Description 06/21/2025 Refill [facility] [address] [place] [address] Stefany Murry MD Chronic bilateral low back pain without sciatica 06/21/2025 Refill [facility] [address] [place] [address] Yolanda Regan MD Chronic bilateral low back pain without sciatica 06/18/2025 Refill [facility] [address] [place] [address] Za Arellano MD Mild intermittent asthma, unspecified whether complicated 06/18/2025 Refill [facility] [address] [place] [address] Yolanda Regan MD Chronic bilateral low back pain without sciatica 06/18/2025 Refill [facility] [address] [place] [address] Yolanda Regan MD Chronic bilateral low back pain without sciatica 06/17/2025 Refill [facility] [address] [place] [address] Yolanda Regan MD Chronic bilateral low back pain without sciatica 06/04/2025 9:30 AM EDT Telemedicine [facility] [address] [place] [address] 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 RN Long-term current use of opiate analgesic 06/04/2025 Refill [facility] [address] [place] [address] Yolanda Regan MD Primary insomnia 06/04/2025 Travel 06/04/2025 Refill [facility] [address] [place] [address] Yolanda Regan MD Primary insomnia 05/21/2025 1:30 PM EDT Office Visit [facility] [address] [place] [address] Victor Manuel, Ilene, OD 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); 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; Presbyopia of both eyes 05/21/2025 Travel 05/20/2025 Refill [facility] [address] [place] [address] Yolanda Regan MD Chronic bilateral low back pain without sciatica 05/04/2025 9:00 AM EDT Office Visit [facility] [address] [place] [address] Mars Mcnulty MD Left thigh pain (Primary Dx); Acute left-sided low back pain with left-sided sciatica 05/04/2025 Travel 04/26/2025 Telephone [facility] [address] [place] [phone] Yolanda Regan MD Appointment Request 04/15/2025 Refill [facility] [address] [place] [address] Yolanda Regan MD Chronic bilateral low back pain without sciatica 04/13/2025 Refill [facility] [address] [place] [address] Yolanda Regan MD Chronic bilateral low back pain without sciatica 04/07/[address] [address] Yolanda Regan MD OCT RECALL 03/31/2025 Refill [facility] [address] [place] [address] Yolanda Regan MD 03/30/2025 9:00 AM EDT Clinical Support [address] [address] 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 RN Long-term current use of opiate analgesic (Primary Dx) 03/30/[address] [address] 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 RN BRASS RECLAIMER Agreement renewed today 03/30/2025 Travel 03/23/[address] [address] Yolanda Regan MD Chronic shoulder pain, unspecified laterality from Last 3 Months Immunizations Immunization Administration [...] Info) Description 09/10/2025 9:30 AM EST Telemedicine [facility] [address] [place] [address] 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, RN Health Maintenance Due Date [...] 03/03, 03/27/2022, Additional history exists Tobacco Screening 05/21/2026 05/21/2025 Dental X-Ray: Full Mouth 10/03/2027 10/02/2024, 10/31 [...] EDT) 05/04/2025 12:5 5 PM EDT Narrative [facility] - 05/04/2025 1:17 PM EDT [address] [address] Ultrasound Report Signed Patient: Sayra Redding MR#: [id number] : 1980 Acct:[id number] Age/Sex: 44 / F ADM Date: 05/04/25 Loc: HO.US Attending Dr: Mars Mcnulty MD Ordering Physician: MARS MCNULTY MD Date of Service: 05/04/25 Procedure(s): US venous duplex LE LT Accession Number(s): [id number] cc: MARS MCNULTY MD; Yolanda Regan MD [...] 05/04/25 1314 DD/ 1255 TD/TT: 05/04/25 1306 Automotive Vehicle Inspector: Procedure Note Donotuseinterpreter, Image - 05/04/2025 [facility] [address] [place] [address] Ultrasound Report Signed Patient: Sayra ReddingMR#: [id number] : 1980Acct:[id number] Age/Sex: 44 / FADM Date: 05/04/25 Loc: .US Attending Dr: Mars Mcnulty MD Ordering Physician: MARS MCNULTY MD Date of Service: 05/04/25 Procedure(s): US venous duplex LE LT Accession Number(s): [id number] cc: MARS MCNULTY MD; Yolanda Regan MD [...] 05/04/25 1314 DD/ 1255 TD/TT: 05/04/25 1306 Automotive Vehicle Inspector: us Mars Mcnulty MD CV VASCULAR PROCEDURES Final Res ult [facility] [address] [place] [phone] * POCT [id number]-14 Urine Drug Screen [...] / Unknown 03/30/2025 9:11 AM EDT Laxmi Paulson, RN - 03/30/2025 9:11 AM EDT UTOX cup Lot#[id number] Exp. 06/08/26 Internal Pass Control us Yolanda Alan MD POINT OF CARE TEST EN TER/EDIT ORDERABLES Final Result * BI Mammogram Screening Tomosynthesis Bilateral (03/22/2025 8:25 AM EDT) Anatomical Region Laterality Modality Breast Bilateral Mammography 03/22/2025 8:25 AM EDT Narrative 03/29/2025 5:18 PM EDT Carlos Manuel [facility] [address] [place] [address] Mammography Report Signed Patient: Sayra Redding MR#: [id number] : 1980 Acct:[id number] Age/Sex: 44 / F ADM Date: 03/22/25 Loc: HO.MAMMO Attending Dr: Yolanda Alan MD Ordering Physician: Yolanda Regan MD Results: 1Negative Date of Service: 03/22/25 Follow Up: 1 Year From [facility] Mammogram Procedure(s): MM tomosynthesis screening BI Accession Number(s): [id number] cc: Yolanda Regan MD EXAMINATION: MM SCREENING [...] 03/29/25 1715 DD/ 0825 TD/TT: 03/22/25 0845 Automotive Vehicle Inspector: Procedure Note Donotuseinterpreter, Image - 03/29/2025 [facility] [address] [place] [address] Mammography Report Signed Patient: Sayra ReddingMR#: [id number] : 1980Acct:[id number] Age/Sex: 44 / FADM Date: 03/22/25 Loc: HO.MAMMO Attending Dr: Yolanda Alan MD Ordering Physician: Yolanda Regan MDResults: 1Negative Date of Service: 03/22/25Follow Up: 1 Year From Orig ina Mammogram Procedure(s): MM tomosynthesis screening BI Accession Number(s): [id number] cc: Yolanda Regan MD EXAMINATION: MM SCREENING [...] Jones MD in OV> 03/29/25 1715 DD/ TD/TT: 03/22/25 0845 Automotive Vehicle Inspector: Yolanda Alan MD IMG BI PROCEDURES Fin al Result * Hepatitis C Viral RNA, Quantitative, Real-Time PCR (01/03/2024 7:49 AM EDT) Hepatitis C Viral Load <15 NOT DETECTED NOT DETECTED IU/mL [facility] HCV Log PCR <1.18 NOT DETECTED NOT DETECTED Log IU/mL [facility] Comment:This test was perfor med using Real-Time Polymerase ChainReaction.Reportable Range: 15 IU/mL to 100,000,000 IU/mL(1.18 Log IU/mL to 8.00 Log IU/mL).The analytical performance characteristics of thisassay have been determined by [employer].The modifications have not been cleared or approved bythe FDA. This assay has been validated pursuant to theCLIA regulations and is used for clinical purposes.For more information on this test, go to:http://education.SmartyContent/faq/UTB62m5(This link is being provided for informational/educational purposes only.)THIS TEST WAS PERFORMED AT:[employer] [place] [id number] SUAREZ MD Blood 01/03/2024 7:49 AM EDT 01/03/2024 7:49 AM EDT Yolanda Alan MD LAB BLOOD ORDERABLES Final Result Performing Organization Address [facility]/ZIP Co de Phone Number [facility] [address] [place] [phone] * HIV-1/2 Antigen and Antibodies, Fourth Generation, with Reflexes (01/03/2024 7:49 AM EDT) HIV AB/AG Nonreactive Nonreactive [facility] Comment:HIV-1 p24 Ag and/or HIV-1/HIV-2 Ab not detected.A test result that is nonreactive does not exclude thepossibility of exposure to or infection with HIV-1 and/orHIV-2. Nonreactive results in this assay for individualswith prior exposure to HIV-1 and/or HIV-2 may be due toantigen and antibody levels that are below the limit ofdetection of this assay.The FANCRU HIV Ag/Ab Combo assay result andsupplemental assay results should be interpreted inconjunction with the patient's clinical presentation,history and other laboratory results. If the results areinconsistent with clinical evidence, additional testing issuggested to confirm the result. Blood Venous blood specimen / Unknown 01/03/2024 7:49 AM EDT 01/03/2024 7:49 AM EDT us Yolanda Alan MD LAB BLOOD ORDERABLES Final Result Performing Organization Address [facility]/ZIP Co de Phone Number [facility] [address] [place] [phone] * Lipid Panel, Standard (01/03/2024 7:49 AM EDT) Triglycerides 66 <150 mg/dL [facility] Comment:Desirable Triglyceri de: less than 150 mg/dLBorderline High Triglyceride 150-199 mg/dLHigh Triglyceride: 200-499 mg/dLVery High Triglyceride: greater than or equal to 5OO mg/dL Cholesterol 146 <200 mg/dL [facility] Comment:Desirable Cholestero l: less than 200 mg/dLBorderline High Cholesterol: 200-239 mg/dLHigh Cholesterol: greater than 239 mg/dL LDL Cholesterol Calculated 72 <100 mg/dL [facility] Comment:Desirable LDL: less than 100 mg/dLNear Optimal/Above Optimal LDL: 110- 129 mg/dLBorderline High LDL: 130-159 mg/dLHigh LDL: 160-189 mg/dLVery High LDL: greater than or equal to 190 mg/dL HDL Cholesterol 61 >40 mg/dL [facility] Comment:Desirable HDL: great er than 40 mg/dL Note: This HDL assay may give artificially low results in patients with liver disease. Blood Venous blood specimen / Unknown 01/03/2024 7:49 AM EDT 01/03/2024 7:49 AM EDT Yolanda Alan MD LAB BLOOD ORDERABLES Final Result [facility] [address] [place] [phone] * Pap Smear (02/18/2020) Pap Negative for intraephithelial lesion or malignancy Negative for intraephithelial lesion or malignancy, Other HPV Undetected Undetected, Indeterminate, Quantitative, Not Detected Historical Provider HEALTH MAINTENANCE Final Result from Last 3 Months or Most Recently Relevant to Health Maintenance Insurance [facility] ST[facility] ADULT Care Teams Refrigeration System Installer Relationship Specialty Start Date End Date Yolanda Regan MD [address] [place] [address] PCP - General Family Medicine 07/07/19
--- OUTSIDE RECORDS SUMMARY | 2025-06-22 06:12 | XMS_ITS | Encounter Summary ---
Author Organization [employer] Address [address] [facility] 7t [place] [address] Care Team Providers Care Flux Core Welder Name Role Phone Yolanda Regan MD Primary Care Provide r Reason for Visit * Reason Comments Med Refill Encounter Details Date Type Department Care Team ([facility] Contact Info) Description 01/04/2023 Refill [facility] [address] [place] [phone] Za Arellano MD [address] [place] [address] [phone] Chronic bilateral low back pain without sciatica [...] Upcoming Encounters Date Type Department Care Team ([facility] Contact Info) Description 09/10/2025 9:30 AM EST Telemedicine [facility] [address] [place] [phone] 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 RN documented as of this encounter Visit Diagnoses Diagnosis Chronic bilateral low back pain without sciatica documented in this encounter Additional Health Concerns Assessment Noted Time PHQ-9 Depression Total Score: 0 09/06/19 23 10:08 AM EST documented as of this encounter Care Teams Flux Core Welder Relationship Specialty Start Date End Date Yolanda Regan MD [address] [place] [address] PCP - General Family Medicine 07/07/19 documented as of this encounter
--- OUTSIDE RECORDS SUMMARY | 2025-06-22 06:12 | XMS_ITS | Encounter Summary ---
Author Organization [employer] Address [address] [facility] 7t [place] [address] Care Team Providers Care Senior Trial Attorney Name Role Phone Yolanda Regan MD Primary Care Provide r Reason for Visit * Reason Onset Date Comments Appointment Request 11/14/2022 Encounter Details Date Type Department Care Team ([facility] st Contact Info) Description 11/14/2022 Telephone [facility] [address] [place] [phone] Yolanda Regan MD [address] [place] [address] Appointment Request Social History Tobacco Use Types [...] a different PCP. Please contact pt at [phone] documented in this encounter Plan of Treatment Upcoming Encounters Date Type Department Care Team (Late st Contact Info) Description 09/10/2025 9:30 AM EST Telemedicine [facility] [address] [place] [address] 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 RN documented as of this encounter Visit Diagnoses Not on filedocumented in this encounter Additional Health Concerns Assessment Noted Time PHQ-9 Depression Total Score: 0 09/06/19 23 10:08 AM EST documented as of this encounter Care Teams Senior Trial Attorney Relationship Specialty Start Date End Date Yolanda Regan MD [address] [place] [address] PCP - General Family Medicine 07/07/19 documented as of this encounter
--- OUTSIDE RECORDS SUMMARY | 2025-06-22 06:12 | XMS_ITS | Encounter Summary ---
Author Organization [employer] Address [address] [facility] [address] 7t [place] [address] Care Team Providers Care Manganese Heater Name Role Phone Yolanda Regan MD Primary Care Provide r Reason for Visit * Reason Onset Date Comments Med Refill 11/16/2024 Encounter Details Date Type Department Care Team (Late st Contact Info) Description 11/16/2024 Refill [facility] [address] [place] [address] Yolanda Regan MD [address] [place] [address] Chronic bilateral low back pain without sciatica [...] Description 09/10/2025 9:30 AM EST Telemedicine [facility] [address] [place] [address] 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 RN documented as of this encounter Visit Diagnoses Diagnosis Chronic bilateral low back pain without sciatica documented in this encounter Additional Health Concerns Assessment Noted Time PHQ-9 Depression Total Score: 3 09/22/19 25 10:38 AM EST documented as of this encounter Care Teams Manganese Heater Relationship Specialty Start Date End Date Yolanda Regan MD [address] [place] [address] PCP - General Family Medicine 07/07/19 documented as of this encounter
--- OUTSIDE RECORDS SUMMARY | 2025-06-22 06:12 | XMS_ITS | Encounter Summary ---
Author Organization [employer] Address [address] [facility] 7t [place] [address] Care Team Providers Care Back Sewer Name Role Phone Yolanda Regan MD Primary Care Provide r Reason for Visit * Reason Onset Date Comments Med Refill 01/14/2023 Encounter Details Date Type Department Care Team (Late st Contact Info) Description 01/14/2023 Telephone [facility] [address] [place] [phone] Yolanda Regan MD [address] [place], [place] [phone] Med Refill Social History Tobacco Use Types [...] pt requesting status check on script requested, telegraphic typewriter mechanic booked pt a f/u appt per PCP notes ,scheduled for 02/12/23 @ 2:30pm * Telephone Encounter - Michelle Oden LPN - 01/14/2023 9:20 AM EDT Med is not pended as [facility]AYON WINDER CK and med was last filled 04/11/22.Please review and advise. * Telephone Encounter - Ry Cochran - 01/14/2023 9:03 AM EDT Tc from pt requesting med refill gabapentin (Neurontin) 100 MG capsule documented in this encounter Plan of Treatment Upcoming Encounters Date Type Department Care Team (Late st Contact Info) Description 09/10/2025 9:30 AM EST Telemedicine [facility] [address] [place] [address] 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, RN documented as of this encounter Visit Diagnoses Not on filedocumented in this encounter Additional Health Concerns Assessment Noted Time PHQ-9 Depression Total Score: 0 09/06/19 10:08 AM EST documented as of this encounter Care Teams Back Sewer Relationship Specialty Start Date End Date Yolanda Regan MD [address] [place] [address] PCP - General Family Medicine 07/07/19 documented as of this encounter
--- OUTSIDE RECORDS SUMMARY | 2025-06-22 06:12 | XMS_ITS | Encounter Summary ---
Author Organization [employer] Address [address] [facility] [address] 7[address] [place] [address] Care Team Providers Care Distribution Lineman Name Role Phone Yolanda Regan MD Primary Care Provide r Reason for Visit * Reason Onset Date Comments Med Refill 06/21/2025 Encounter Details Date Type Department Care Team (Late st Contact Info) Description 06/21/2025 Refill [facility] [address] [place] [address] Stefany Murry MD [address] [place] [address] Chronic bilateral low back pain without sciatica [...] housing situation today? I have aby [employer] 01/11/[address] you li [...] Info) Description 09/10/2025 9:30 AM EST Telemedicine [facility] [address] [place] [address] 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 RN documented as of this encounter Visit Diagnoses Diagnosis Chronic bilateral low back pain without sciatica documented in this encounter Additional Health Concerns Assessment Noted Time PHQ-9 Depression Total Score: 3 09/22/19 25 10:38 AM EST documented as of this encounter Care Teams Distribution Lineman Relationship Specialty Start Date End Date Yolanda Regan MD [address] [place] [address] PCP - General Family Medicine 07/07/19 documented as of this encounter
--- OUTSIDE RECORDS SUMMARY | 2025-06-22 06:13 | XMS_ITS | Encounter Summary ---
Author Organization [employer] Address [address] [facility] [place] [address] Care Team Providers Care Automatic Beam Warper Tender Name Role Phone Yolanda Regan MD Primary Care Provide r Reason for Visit * Reason Comments Med Refill Encounter Details Date Type Department Care Team ([facility] st Contact Info) Description 06/18/2025 Refill [facility] [address] [place] [address] Yolanda Regan MD [address] [place] [address] Chronic bilateral low back pain without sciatica [...] Info) Description 09/10/2025 9:30 AM EST Telemedicine [facility] [address] [place] [address] 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, RICARDO documented as of this encounter Visit Diagnoses Diagnosis Chronic bilateral low back pain without sciatica documented in this encounter Additional Health Concerns Assessment Noted Time PHQ-9 Depression Total Score: 3 09/22/19 25 10:38 AM EST documented as of this encounter Care Teams Automatic Beam Warper Tender Relationship Specialty Start Date End Date Yolanda Regan MD [address] [place] [address] PCP - General Family Medicine 07/07/19 documented as of this encounter
--- OUTSIDE RECORDS SUMMARY | 2025-06-22 06:13 | XMS_ITS | Encounter Summary ---
Author Organization [employer] Address [address] [facility] [address] [place] [address] Care Team Providers Care Wrecking Crane Engine Operator Name Role Phone Yolanda Regan MD Primary Care Provide r Reason for Visit * Reason Onset Date Comments Med Refill 06/17/2025 Encounter Details Date Type Department Care Team (Late st Contact Info) Description 06/17/2025 Refill [facility] [address] [place] [address] Yolanda Regan MD [address] [place] [address] Chronic bilateral low back pain without sciatica [...] Info) Description 09/10/2025 9:30 AM EST Telemedicine [facility] [address] [place] [address] 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 RN documented as of this encounter Visit Diagnoses Diagnosis Chronic bilateral low back pain without sciatica documented in this encounter Additional Health Concerns Assessment Noted Time PHQ-9 Depression Total Score: 3 09/22/19 25 10:38 AM EST documented as of this encounter Care Teams Wrecking Crane Engine Operator Relationship Specialty Start Date End Date Yolanda Regan MD [address] [place] [address] PCP - General Family Medicine 07/07/19 documented as of this encounter
--- OUTSIDE RECORDS SUMMARY | 2025-06-22 06:13 | XMS_ITS | Encounter Summary ---
Author Organization [employer] Address [address] [place] [address] Care Team Providers Care National Stormwater Leader Name Role Phone Yolanda Regan MD Primary Care Provide r Reason for Visit * Reason Onset Date Comments Med Refill 06/18/2025 Encounter Details Date Type Department Care Team (Late st Contact Info) Description 06/18/2025 Refill [facility] [address] [place] [address] Yolanda Regan MD [address] [place] [address] Chronic bilateral low back pain without sciatica [...] encounter Miscellaneous Notes * Telephone Encounter - Tori Vail - 06/18/2025 8:31 AM EDT TC from pt requesting medication refill. Medications needing refill : - traMADol (Ultram) 50 MG tablet To be sent to: - [id number] [place], [place] - [address] [place] [address] documented in this encounter Plan of Treatment Upcoming Encounters Date Type Department Care Team (Late st Contact Info) Description 09/10/2025 9:30 AM EST Telemedicine [facility] [address] [place] [address] 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 RN documented as of this encounter Visit Diagnoses Diagnosis Chronic bilateral low back pain without sciatica documented in this encounter Additional Health Concerns Assessment Noted Time PHQ-9 Depression Total Score: 3 09/22/19 25 10:38 AM EST documented as of this encounter Care Teams National Stormwater Leader Relationship Specialty Start Date End Date Yolanda Regan MD [address] [place] [address] PCP - General Family Medicine 07/07/19 documented as of this encounter
== END 2025-06-22 06:10 | disposition home or self-care (01) ==
LOC: CF 06:09
PROVIDERS: Visit Provider Anesthesiology
DX: M53.3 Sacrococcygeal disorders, not elsewhere classified (principal)
CPT/HCPCS: 27096; J2795; J3301; Q9967

== ENCOUNTER 2025-06-22 07:21 | Outpatient (AMB) | payer MEDICAID, SELFPAY ==
--- NOTE | 2025-06-22 07:22 | A.OFFVIS_ITS ---
Vital Signs 06/22/25 07:24 06/22/25 08:03 Height 5 ft 3 in Weight 170 lb BMI 30.1 BP 112/65 113/62 Blood Pressure Location Lt brachial Lt brachial Position Sitting Sitting Respiration 16 16 Pulse 80 82 Pulse Source Pulse Oximeter Pulse Oximeter Pulse Oximetry (%) 100 98 Oxygen Delivery Method Room Air Room Air Intake Visit Reasons: Left theraputic SIJ inj/ Ativan Allergies No Known Allergies Allergy (Verified 05/14/25 08:41) PFSH Medical History Steatosis, liver Insomnia Back pain Intra-abdominal adhesions Hx of steroid therapy GERD (gastroesophageal reflux disease) BMI 32.0-32.9,adult Lateral epicondylitis, right elbow Disc degeneration, lumbar Asthma Anxiety Depression IUD check up Surgical History H/O gastric sleeve History of esophagogastroduodenoscopy (EGD) Hx of dilation and curettage Hx laparoscopic cholecystectomy H/O laparoscopic adjustable gastric banding History of tubal ligation History of Family History Mother No problems noted. Father Diabetes Sister No problems noted. Brother No problems noted. Son No problems noted. Son No problems noted. Daughter No problems noted. 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 All questions about benefits and risks for the procedure were answered. Patient came to the operating room and was positioned prone on the operating table with the pillow under the abdomen. The lower back and buttocks of the patient were prepped with ChloraPrep prepped and draped with sterile utility towels.? Sterilely draped C-arm was brought over the operating field and sq picture of patient's pelvis was demonstrated on the screen.? For the right joint tilting C-arm contralateral to the site of the joint the most posterior portion of the joints was superimposed with anterior silhouette of the joint.? Skin was injected in the projection of the joint slightly medial to the location of the joint with 25 gauge 1/2 inch needle using local lidocaine 2% . After that 22 gauge 3 and 1/2 inch needle was driven to the left joint in tunnel vision fashion.? When needle entered the joint capsule injection of the contrast was performed demonstrating intra-articular and minimally periarticular spread of the contrast.? After that 5 cc. of ropivacaine 0.5% mixed with Kenalog 40 mg was injected in the joint. Upon completion of the injections the needle was removed and Band-Aid was applied.? Upon completion of the injection patient was taken outside of the operating room to the recovery room where recovered uneventfully. Orders: Orders FL guidance in treatment room Today M53.3 - Sacrococcygeal disorders, not elsewhere classified Medications: New lorazepam (Ativan) Take 30 minutes prior to arrival to procedure 1 mg PO ONCE 1 tab 0RF anxiety Coding Level of Care Code Procedure Only Diagnoses Sacroiliac joint pain M53.3
[2025-06-22 07:24] VITALS: BP 112/65; PULSE 80; RESP 16; O2SAT 100; BMI 30.1
[2025-06-22 08:03] VITALS: BP 113/62; PULSE 82; RESP 16; O2SAT 98
== END 2025-06-22 08:03 | disposition home or self-care (01) ==
LOC: HO.PMCPRC 07:21
PROVIDERS: PCP Internal Medicine; Visit Provider Anesthesiology
DX: M53.3 Sacrococcygeal disorders, not elsewhere classified (principal)
CPT/HCPCS: 27096